=== PATIENT | male | born 1945 | race Caucasian/White ===

== ENCOUNTER → 2016-10-23 | Outpatient (CLI) | payer MEDICARE, MEDICAID ==
[2016-10-23 12:21] LABS: BASO % 0.4 % (0.0-1.0); EOS # 0.1 K/mm3 (0.0-0.50); EOS % 3.8 % (0.0-3.0); LARGE UNSTAINED CELL # 0.1 K/mm3 (0.0-0.4); LARGE UNSTAINED CELL % 1.6 % (0.0-4.0); LYMPH # 0.7 K/mm3 (1.5-4.5); LYMPH % 17.6 % (24.0-44.0); MEAN CORPUSCULAR HEMOGLOBIN 33.6 pg (27.0-33.0); MEAN CORPUSCULAR HGB CONC 34.1 g/dl (32.0-36.5); MEAN CORPUSCULAR VOLUME 98.5 fl (80.0-96.0); MONO # 0.2 K/mm3 (0.0-0.8); MONO % 5.8 % (0.0-5.0); NEUTROPHILS # 2.7 K/mm3 (1.8-7.7); NEUTROPHILS % 70.8 % (36.0-66.0); PLATELET COUNT, AUTOMATED 186 k/mm3 (150-450); RED CELL DISTRIBUTION WIDTH 12.6 % (11.5-14.5); WHITE BLOOD COUNT 3.8 K/mm3 (4.0-10.0)
[2016-10-23 12:22] LABS: PROLACTIN 32.9 NG/ML (2.1-17.7)
[2016-10-23 12:48] LABS: ALBUMIN 3.8 GM/DL (3.2-5.2); ALBUMIN/GLOBULIN RATIO 1.15 (1.00-1.93); BILIRUBIN,DIRECT 0.1 MG/DL (0.0-0.2); BILIRUBIN,TOTAL 0.4 MG/DL (0.2-1.0); CALCIUM LEVEL 8.4 MG/DL (8.8-10.2); CARBAMAZEPINE (TEGRETOL) LEVEL 3.5 UG/ML (4.0-10.0); CREATININE FOR GFR 1.4 MG/DL (0.70-1.30); GLOMERULAR FILTRATION RATE 53.2 (>42); PHOSPHORUS LEVEL 4.2 MG/DL (2.5-4.9); TOTAL PROTEIN 7.1 GM/DL (6.4-8.2)
[2016-10-23 12:53] LABS: LITHIUM LEVEL 1.24 MEQ/L (0.60-1.20); POTASSIUM SERUM 5.2 MEQ/L (3.5-5.1)
== END ==
LOC: M WUC 09:38
PROVIDERS: ATTEND Anesthesiology Pain Medicine
DX: Z51.81 Encounter for therapeutic drug level monitoring (principal); Z79.899 Other long term (current) drug therapy

== ENCOUNTER 2016-12-22 13:14 | Emergency (ER) | payer MEDICARE, MEDICAID ==
[~2016-12-22] VITALS: Ht 177.8 cm; Wt 95.3 kg
--- NOTE | 2016-12-22 14:18 | REP ---
CT study of the cervical spine without contrast: History: Ill-defined trauma. Technique: Helical scanning is acquired and overlapping 2 mm high resolution axial images were generated and reviewed at bone and soft tissue window settings. Coronal and sagittal multiplanar re-formations images are generated. CT findings: There is no evidence of cervical spine element fracture. No skull base fracture is seen. Cervical vertebral body heights are preserved. Alignment is normal. Facet joints are normally aligned bilaterally at each cervical level on multiplanar re-formations images. There is no evidence of intraspinal or paraspinal hematoma. There is mild enlargement of the thyroid. No other extra vertebral abnormality is seen. There are degenerative disc changes at each cervical level. There are a few. Osteophytes anteriorly at C2-3. Degenerative disc changes are most pronounced at C3-4 and C5-6. The lung apices are clear. Impression: Degenerative spondylosis changes, otherwise negative CT study of the cervical spine without contrast. No fracture seen. Signed by Milton Ruiz MD 12/22/2016 02:09 P
--- NOTE | 2016-12-22 14:42 | REP ---
NONCONTRAST HEAD CT STUDY: HISTORY: Ill-defined trauma Comparison head CT study is from November 01, 2012. FINDINGS: Preliminary digital lateral piano technician view is unremarkable. Bone window settings demonstrate an intact bony calvarium. No skull fracture is seen. No significant scalp hematoma is appreciated. Visualized paranasal sinuses are clear. There is fairly heavy vascular calcification in the distal carotid and distal vertebral arteries bilaterally. There are mild mucosal changes in the ethmoid air cells. There is diffuse moderate cerebral atrophy. Ventricular enlargement is seen in the left lateral ventricle is larger than the right unchanged from the comparison study 2012. There is no evidence of intracranial hemorrhage. No extra-axial fluid collection is seen. No mass, edema or midline shift is seen. No infarct seen. Impression: Moderate diffuse atrophy and vascular calcification. Somewhat asymmetric but stable ventriculomegaly. No acute intracranial abnormality. Signed by Milton Ruiz MD 12/22/2016 03:07 P
--- NOTE | 2016-12-22 15:09 | REP ---
LUMBAR SPINE SERIES: Five views: HISTORY: Trauma. FINDINGS: Lumbar vertebral body heights are preserved. Straightening of the normal lumbar lordosis is seen. There is advanced degenerative disc disease at each lumbar level. There are bridging osteophytes anteriorly and laterally at the L3-4 level. Large anterior osteophytes are seen at L4-5, L2-3 and L1-2. Pedicles and posterior elements are intact. There is facet joint hypertrophy and sclerosis bilaterally L5-S1 and L4-5 and probably L3-4. Sacrum and SI joints are intact. No bony destructive lesion is seen. There is a mild levoconvex curvature. There is no evidence of spondylolysis or spondylolisthesis. IMPRESSION: No fracture or collapse seen. Advanced degenerative spondylosis changes. Mild gaseous distension of the colon question ileus. Signed by Milton Ruiz MD 12/26/2016 08:17 A
--- NOTE | 2016-12-22 15:12 | REP ---
THORACIC SPINE SERIES: Three views. HISTORY: Trauma. FINDINGS: Thoracic vertebral body heights are preserved and alignment is normal. Disc spaces are preserved. There is discogenic spurring in the mid and lower thoracic spine levels, moderate in degree. Some degenerative disc disease is seen in the lower cervical spine on swimmer's lateral view. No paravertebral soft-tissue mass or hematoma is seen. Pedicles and posterior elements are intact. IMPRESSION: Degenerative disc disease. No traumatic abnormality noted. Signed by Milton Ruiz MD 12/22/2016 06:09 P
[2016-12-22 15:15] LABS: ALBUMIN 3.3 GM/DL (3.2-5.2); ALBUMIN/GLOBULIN RATIO 1.06 (1.00-1.93); ALKALINE PHOSPHATASE 135 U/L (45-117); ALT/SGPT 13 U/L (12-78); ANION GAP 5 MEQ/L (8-16); AST/SGOT 25 U/L (15-37); BILIRUBIN,DIRECT < 0.1 MG/DL (0.0-0.2); BILIRUBIN,TOTAL 0.7 MG/DL (0.2-1.0); BLOOD UREA NITROGEN 26 MG/DL (7-18); CALCIUM LEVEL 7.4 MG/DL (8.8-10.2); CARBAMAZEPINE (TEGRETOL) LEVEL 5.4 UG/ML (4.0-10.0); CARBON DIOXIDE LEVEL 26 MEQ/L (21-32); CHLORIDE LEVEL 109 MEQ/L (98-107); CREATININE FOR GFR 1.52 MG/DL (0.70-1.30); GLOMERULAR FILTRATION RATE 48.4 (>42); GLUCOSE, FASTING 103 MG/DL (83-110); SODIUM LEVEL 140 MEQ/L (136-145); TOTAL PROTEIN 6.4 GM/DL (6.4-8.2)
[2016-12-22 15:16] LABS: LITHIUM LEVEL 1.58 MEQ/L (0.60-1.20); POTASSIUM SERUM 5.8 MEQ/L (3.5-5.1)
[2016-12-22 15:23] LABS: INR 1.02
[2016-12-22 15:38] LABS: BASO % 0.7 % (0.0-1.0); EOS # 0.1 K/mm3 (0.0-0.50); EOS % 2.7 % (0.0-3.0); LARGE UNSTAINED CELL # 0.1 K/mm3 (0.0-0.4); LYMPH # 0.8 K/mm3 (1.5-4.5); LYMPH % 14.6 % (24.0-44.0); MEAN CORPUSCULAR HEMOGLOBIN 33.8 pg (27.0-33.0); MEAN CORPUSCULAR HGB CONC 33.7 g/dl (32.0-36.5); MEAN CORPUSCULAR VOLUME 100.5 fl (80.0-96.0); MONO # 0.2 K/mm3 (0.0-0.8); MONO % 4.7 % (0.0-5.0); NEUTROPHILS # 3.6 K/mm3 (1.8-7.7); NEUTROPHILS % 75.3 % (36.0-66.0); PLATELET COUNT, AUTOMATED 137 k/mm3 (150-450); RED CELL DISTRIBUTION WIDTH 12.9 % (11.5-14.5); WHITE BLOOD COUNT 4.8 K/mm3 (4.0-10.0)
[2016-12-22] MEDS ORDERED: NS 500 ML IV ONE ×2 (15:45→17:00)
[2016-12-22 16:32] LABS: THYROXINE (T4) 7.6 UG/DL (4.5-12.0)
[2016-12-22 16:37] LABS: POTASSIUM SERUM 5.7 MEQ/L (3.5-5.1)
[2016-12-22] MEDS ORDERED: SOD POLYSTYRENE SULFONATE SUSP 15 GM/60 ML UD PO ONE (17:00)
[2016-12-22] MEDS ORDERED: [UNRECOGNIZED DRUG - OTHER] (17:15)
[2016-12-22] MEDS ORDERED: VERA240C3 (17:15)
[2016-12-22] MEDS ORDERED: NABU750T (17:15)
[2016-12-22] MEDS ORDERED: LITH300C (17:15)
[2016-12-22] MEDS ORDERED: PRIM50TA6 (17:15)
[2016-12-22] MEDS ORDERED: RISP3TAB3 (17:15)
[2016-12-22] MEDS ORDERED: LORA-376 (17:15)
[2016-12-22] MEDS ORDERED: Carbidopa-Levodopa (17:15)
[2016-12-22] MEDS ORDERED: PARO20TA3 (17:15)
[2016-12-22] MEDS ORDERED: PRAV40TA2 (17:15)
[2016-12-22] MEDS ORDERED: CARB1TAB20 (17:15)
[2016-12-22 17:56] VITALS: BP 147/67
--- NOTE | 2016-12-23 16:18 | ECGEPIP ---
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 Order Number: [id number] Reading MD: Peyton lAlen Measurements Intervals [place] Rate: 59 P: 24 IA: 212 QRS: -26 QRSD: 128 T: 52 QT: 416 QTc: 412 Interpretive Statements SINUS BRADYCARDIA WITH FIRST DEGREE AV BLOCK BORDERLINE LEFT AXIS DEVIATION MODERATE INTRAVENTRICULAR CONDUCTION DELAY DECREASED RATE 08/13/14 Electronically Signed On 12-23-2016 16:17:52 EDT by Peyton Allen
== END 2016-12-22 18:00 | disposition home or self-care (01) ==
LOC: EDBD 13:14 → M ED 14:43
DX: N17.9 Acute kidney failure, unspecified (principal); E86.0 Dehydration; T43.591A Poisoning by other antipsychotics and neuroleptics, accidental (unintentional), initial encounter; E87.5 Hyperkalemia; S20.229A Contusion of unspecified back wall of thorax, initial encounter; W01.0XXA Fall on same level from slipping, tripping and stumbling without subsequent striking against object, initial encounter; Y92.89 Other specified places as the place of occurrence of the external cause; Y93.89 Activity, other specified; Y99.8 Other external cause status; J30.9 Allergic rhinitis, unspecified; Z88.1 Allergy status to other antibiotic agents; Z88.8 Allergy status to other drugs, medicaments and biological substances; Z79.899 Other long term (current) drug therapy

== ENCOUNTER 2016-12-25 09:31 | Inpatient (IN) | payer MEDICARE, MEDICAID ==
[~2016-12-25] VITALS: Ht 172.7 cm; Wt 79.5 kg
[2016-12-25] MEDS: ENOXAPARIN 40 MG/0.4 ML SYRINGE (J1650) SC SCH (09:00)
[~2016-12-25 09:31] MED LIST: CARB1TAB20; Carbidopa-Levodopa; LITH300C; LORA-376; NABU750T; PARO20TA3; PRAV40TA2; PRIM50TA6; RISP3TAB3; VERA240C3; [UNRECOGNIZED DRUG - OTHER]
[2016-12-25] MEDS ORDERED: ECOT81TA5 PO (10:05)
[2016-12-25] MEDS ORDERED: MAGN400C3 PO (10:05)
[2016-12-25] MEDS ORDERED: NATU400T PO (10:05)
[2016-12-25] MEDS ORDERED: COLA100C3 PO (10:05)
[2016-12-25] MEDS ORDERED: ABIL5TAB5 PO ×2 (10:05→11:37)
[2016-12-25] MEDS ORDERED: MIRA1TAB3 PO ×2 (10:05→11:42)
[2016-12-25] MEDS ORDERED: MELA0.02 PO (10:05)
--- NOTE | 2016-12-25 10:39 | REP ---
Portable chest: Single view. History: CVA. Comparison study: November 01, 2012. Findings: EKG monitoring electrodes overlie the chest. Lungs are well inflated and clear. Heart is not enlarged. Pulmonary vasculature is not increased. No significant bony abnormality is seen. Impression: No active disease. Signed by Milton Ruiz MD 12/25/2016 10:29 A
[2016-12-25 10:42] LABS: BASO % 0.8 % (0.0-1.0); EOS # 0.1 K/mm3 (0.0-0.50); LARGE UNSTAINED CELL # 0.1 K/mm3 (0.0-0.4); LARGE UNSTAINED CELL % 2.1 % (0.0-4.0); LYMPH # 0.6 K/mm3 (1.5-4.5); LYMPH % 17.9 % (24.0-44.0); MEAN CORPUSCULAR HEMOGLOBIN 34.2 pg (27.0-33.0); MEAN CORPUSCULAR HGB CONC 32.8 g/dl (32.0-36.5); MEAN CORPUSCULAR VOLUME 104.2 fl (80.0-96.0); MONO # 0.2 K/mm3 (0.0-0.8); MONO % 6.2 % (0.0-5.0); NEUTROPHILS # 2.4 K/mm3 (1.8-7.7); NEUTROPHILS % 70.1 % (36.0-66.0); PLATELET COUNT, AUTOMATED 140 k/mm3 (150-450); RED CELL DISTRIBUTION WIDTH 12.8 % (11.5-14.5); WHITE BLOOD COUNT 3.4 K/mm3 (4.0-10.0)
--- NOTE | 2016-12-25 10:45 | REP ---
NONCONTRAST HEAD CT: HISTORY: CVA. COMPARISON HEAD CT STUDY: December 22, 2016 FINDINGS: Bone window settings demonstrate an intact bony calvarium. Heavy vascular calcification is again noted in the distal carotid arteries. No intraorbital abnormality is seen. Visualized paranasal sinuses show mild mucosal thickening in one or two of the ethmoid air cells on the left. There is moderate diffuse cerebral atrophy with asymmetric lateral ventricles, unchanged from comparison studies. There are small vessel atherosclerotic changes in the periventricular white matter bilaterally, also unchanged. No acute infarct is seen. No intracranial hemorrhage is seen. No mass or midline shift is observed. IMPRESSION: Moderate diffuse atrophy and vascular calcification again noted. Somewhat asymmetric but stable concordant ventriculomegaly. No acute intracranial abnormality. Signed by Milton Ruiz MD 12/25/2016 12:18 P
[2016-12-25 10:57] LABS: INR 0.99
[2016-12-25 11:04] LABS: ANION GAP 4 MEQ/L (8-16); BLOOD UREA NITROGEN 22 MG/DL (7-18); CALCIUM LEVEL 7.9 MG/DL (8.8-10.2); CARBON DIOXIDE LEVEL 27 MEQ/L (21-32); CHLORIDE LEVEL 111 MEQ/L (98-107); CREATININE FOR GFR 1.49 MG/DL (0.70-1.30); GLOMERULAR FILTRATION RATE 49.5 (>42); GLUCOSE, FASTING 74 MG/DL (83-110); SODIUM LEVEL 142 MEQ/L (136-145)
[2016-12-25 11:12] LABS: LITHIUM LEVEL 0.85 MEQ/L (0.60-1.20); POTASSIUM SERUM 5.6 MEQ/L (3.5-5.1)
[2016-12-25] MEDS ORDERED: DEXTROSE 50% 50 ML SYRINGE IV STA (11:24)
[2016-12-25] MEDS ORDERED: [UNRECOGNIZED DRUG - REMARK] (11:37)
[2016-12-25] MEDS ORDERED: PARO-39 PO (11:37)
[2016-12-25] MEDS ORDERED: VERA240T14 PO (11:37)
[2016-12-25] MEDS ORDERED: CARB1TAB20 PO (11:37)
[2016-12-25] MEDS ORDERED: VITA400C2 PO (11:37)
[2016-12-25] MEDS ORDERED: RISP3TAB3 PO (11:37)
[2016-12-25] MEDS ORDERED: NABU750T PO (11:37)
[2016-12-25] MEDS ORDERED: ASPI81TA7 PO (11:42)
[2016-12-25] MEDS ORDERED: PRAV40TA2 PO (11:42)
[2016-12-25] MEDS ORDERED: MAGN400T5 PO (11:42)
[2016-12-25] MEDS ORDERED: DOCU100C PO (11:42)
[2016-12-25] MEDS ORDERED: MELA3CAP PO (11:42)
[2016-12-25] MEDS ORDERED: LORA-376 PO (11:42)
[2016-12-25] MEDS ORDERED: PRIM50TA6 PO (11:42)
[2016-12-25] MEDS ORDERED: SINE25TA5 PO (11:42)
[2016-12-25] MEDS ORDERED: SELS1SHA14 TOP (11:54)
[2016-12-25] MEDS ORDERED: LIDO4CRE4 TOP (11:54)
[2016-12-25] MEDS ORDERED: DEBR6.5S4 AU (11:54)
[2016-12-25] MEDS: PRAMIPEXOLE 1 MG TAB PO SCH ×3 (13:00→21:43)
[2016-12-25] MEDS: SINEMET 25-100 MG TAB PO SCH ×3 (13:00→21:43)
[2016-12-25] MEDS ORDERED: ACETAMINOPHEN TAB 650MG DOSE (2X325MG) PO PRN (13:00)
--- NOTE | 2016-12-25 13:07 | HPEPDOC ---
General Date of Admission 12/25/16 Primary Care Physician: RAOUL RICH DO Attending Physician: MURALI PARNELL DO Chief Complaint The patient is a 71-year-old male admitted with a reason for visit of S/S Stroke. Source: [facility] Care[facility]iver/Aid Exam Limitations: Mild cognitive slowing Timing/Duration: 4-6 hours, This morning Severity: Moderate Associated Symptoms: Weakness History of Present Illness This is a 71-year-old patient of Dr. Raoul Rich, with a past medical history of bipolar disorder, generalized anxiety disorder, schizophreniform disorder, hyperlipidemia, dysphagia, obstructive hypertrophic cardiomyopathy, hypertensive heart failure without CHF, aortic valve insufficiency, and mental retardation who presents 12/25/2016 after having symptoms of left-sided facial droop, slurring his speech, and ataxia. Care provider states that by the time EMS arrived, his symptoms had completely resolved. She reports that he has an on steady gait at baseline, and tends to walk with a shuffling gait. He has managed with multiple psychiatric medications by psychiatry, and was recently in the ER for lithium toxicity. She reports that he takes his medications faithfully, and is currently on pravastatin and a baby aspirin daily. The patient denies any racing heart, chest pain, or difficulty breathing. The patient otherwise feels well. The patient's caregiver states that he is still slurring his speech somewhat. She notes that he has a somewhat disconjugate gaze at baseline. Home Medications Scheduled (Risperidone) 3 Mg Tab, 3 MG PO BID, (Reported) Aripiprazole (Abilify) 5 Mg Tab, 5 MG PO DAILY, (Reported) Aspirin (Aspirin) 81 Mg Tab, 81 MG PO QPM, (Reported) 1600 Carbamazepine (Carbamazepine) 200 Mg Tab, 200 MG PO BID, (Reported) Carbidopa/Levodopa (Sinemet 25-100 mg) 1 Tab Tab, 2 TAB PO QID, (Reported) Docusate Sodium (Docusate Sodium) 100 Mg Cap, 200 MG PO BID, (Reported) Lorazepam (Lorazepam) 0.5 Mg Tab, 0.5 MG PO TID, (Reported) Magnesium Oxide (Magnesium Oxide 400) 400 Mg Tab, 400 MG PO QHS, (Reported) Melatonin (Melatonin) 3 Mg Cap, 3 MG PO QHS, (Reported) Nabumetone (Nabumetone) 750 Mg Tab, 1,500 MG PO DAILY, (Reported) Paroxetine Hydrochloride (Paroxetine) 20 Mg Tab, 20 MG PO DAILY, (Reported) Pramipexole Dihydrochloride (Mirapex) 1 Mg Tab, 1 MG PO QID, (Reported) Pravastatin Sod (Pravastatin Sodium) 40 Mg Tab, 40 MG PO QHS, (Reported) Primidone (Primidone) 50 Mg Tab, 100 MG PO BID, (Reported) AM, 1600 Selenium Sulfide ([place] Blue) 1 % Sha, 1 % TOP QHS, (Reported) Verapamil Hcl (Verapamil HCl Sr) 240 Mg Tab, 240 MG PO DAILY, (Reported) Vitamin E (Vitamin E) 400 Unit Cap, 400 UNIT PO DAILY, (Reported) Scheduled PRN (Lidocaine) 5 % Cre, 5 % TOP PRN PRN for PAIN, (Reported) APPLY TO LOWER LEGS Carbamide Peroxide (Debrox) 6.5 % Mirta, 5 DROP AU PRN PRN for EAR WAX, (Reported) Miscellaneous Medications [[place] Comment] , (Reported) LITHIUM WAS STOPPED Sunday12/22/16 BY ER DUE TO LEVELS BEING HIGH ACCORDING TO CAREGIVER- HAVE NOT HEARD FROM DR IF IT SHOULD BE RESTARTED OR NOT Allergies Coded Allergies: Clindamycin (Verified Allergy, Unknown, 12/22/16) ENVIROMENTAL (Verified Allergy, Unknown, 12/22/16) Lamotrigine (Verified Allergy, Unknown, 12/22/16) Past Medical History Medical History 1. Mixed psychiatric disorder with diagnosis of bipolar, schizophreniform, and anxiety 2. Chronic low back pain 3. Mixed hyperlipidemia 4. Mental retardation 5. Dysphagia 6. Obstructive hypertrophic cardiomyopathy 7. Hypertensive heart disease without CHF 8. Nonrheumatic aortic valve insufficiency 9. Coronary artery disease Surgical History No documented surgical history Family History Significant Family History: No pertinent family hx Social History 1. Former smoker 2. [facility] 3. Regular, low-fat diet 4. No history of drug use, caffeine use, or alcohol abuse Review of Symptoms Constitutional: Denies: Chills, Fever, Malaise, Night Sweats, Weakness Eyes: Denies: Vision change ENT: Reports: Dysphagia ([facility] caregiver notes coughing with eating recently; documented hx of dysphagia) Skin: Denies: Rash Pulmonary: Denies: Dyspnea, Cough, Pleuritic Chest Pain Cardiovascular: Denies: Chest Pain, Palpitations Gastrointestinal: Denies: Nausea, Vomiting, Abdominal Pain, Diarrhea, Constipation Genitourinary: Reports: Incontinence (Urinates on the floor at [facility] if made to wait), Denies: Dysuria, Frequency Hematologic: Denies: Bruising Neurological: Reports: Change in speech, Denies: Weakness, Numbness, Confusion Psych: Reports: Mood Normal Other systems Left-sided facial drooping resolved; change in speech persists Physical Examination General Exam: Positive: Alert, Cooperative, No Acute Distress Eye Exam: Positive: Conjunctiva & lids normal, EOMI (eyes have smooth pursuit, without saccades, slightly disconjugate gaze at rest, although able to bury sclera in both directions) ENT Exam: Positive: Mucous membr. moist/pink, Tongue Midline Neck Exam: Positive: Supple, +2 carotid pulse wo bruit, Negative: JVD, thyromegaly Chest Exam: Positive: Clear to auscultation, Normal air movement, Negative: Rales, Rhonchi, Wheezing Heart Exam: Positive: Rate Normal, Regular Rhythm, Normal S1, Normal S2, Murmurs (1/6 systolic ejection murmur best over upper right sternal border) Telemetry: Positive: No significant arrhythmia Abdomen Exam: Positive: Normal bowel sounds, Soft, Negative: Tenderness, Hepatospenomegaly Extremity Exam: Positive: Normal pulses, Negative: Clubbing, Cyanosis, Edema Skin Exam: Positive: Nl turgor and temperature, Negative: Rash Neuro Exam: Positive: Strength at 5/5 X4 ext, Normal Tone, Sensation Intact, Cranial Nerves 3-12 NL, Reflexes 2+, Negative: Normal Speech (dysarthric speech, occasionally unintelligible; answers questions appropriately) Psych Exam: Positive: Mental status NL, Mood NL, Oriented x 3 Vital Signs Vital Signs Date Time Temp Pulse Resp B/P (MAP) Pulse Ox O2 Delivery O2 Flow Rate FiO2 12/25/16 12:53 52 18 12/25/16 12:29 128/58 (81) 12/25/16 10:53 99 12/25/16 10:31 Room Air 12/25/16 09:40 97.2 Laboratory Data Labs 24H Laboratory Tests 2 12/25/16 10:32: White Blood Count 3.4L, Red Blood Count 3.87L, Hemoglobin 13.2L, Hematocrit 40.3L, Mean Corpuscular Volume 104.2H, Mean Corpuscular Hemoglobin 34.2H, Mean Corpuscular Hemoglobin Concent 32.8, Red Cell Distribution Width 12.8, Platelet Count 140L, Neutrophils (%) (Auto) 70.1H, Lymphocytes (%) (Auto) 17.9L, Monocytes (%) (Auto) 6.2H, Eosinophils (%) (Auto) 3.0, Basophils (%) (Auto) 0.8 , Neutrophils # (Auto) 2.4, Lymphocytes # (Auto) 0.6L, Monocytes # (Auto) 0.2, Eosinophils # (Auto) 0.1, Basophils # (Auto) 0.0, Large Unclassified Cells % 2.1 , Large Unclassified Cells # 0.1, Prothrombin Time 13.2, Prothromb Time International Ratio 0.99, Activated Partial Thromboplast Time 29.0, Anion Gap 4L , Glomerular Filtration Rate 49.5, Blood Urea Nitrogen 22H, Creatinine 1.49H, Sodium Level 142, Potassium Level 5.6H, Chloride Level 111H, Carbon Dioxide Level 27, Calcium Level 7.9L, Total Creatine Kinase 36L, Creatine Kinase MB 1.0 , Creatine Kinase MB Relative Index 2.77, Troponin I < 0.02, Carbamazepine ( Tegretol) Level 6.0, [place] Level 0.85 12/25/16 11:23: Bedside Glucose (Misc Panel) 58L 12/25/16 12:34: Bedside Glucose (Misc Panel) 135H CBC/BMP Laboratory Tests 12/25/16 10:32 Red Blood Count 3.87 L, Mean Corpuscular Volume 104.2 H, Mean Corpuscular Hemoglobin 34.2 H, Mean Corpuscular Hemoglobin Concent 32.8, Red Cell Distribution Width 12.8, Neutrophils (%) (Auto) 70.1 H, Lymphocytes (%) (Auto) 17.9 L, Monocytes (%) (Auto) 6.2 H, Eosinophils (%) (Auto) 3.0, Basophils (%) ( Auto) 0.8, Neutrophils # (Auto) 2.4, Lymphocytes # (Auto) 0.6 L, Monocytes # ( Auto) 0.2, Eosinophils # (Auto) 0.1, Basophils # (Auto) 0.0, Calcium Level 7.9 L , Total Creatine Kinase 36 L Assessment/Plan This is a 71-year-old [facility] client with a history of hyperlipidemia, hypertrophic obstructive cardiomyopathy, and aortic valve insufficiency who presents with symptoms of dysarthria after having resolved symptoms of left-sided facial droop , dysarthria, and ataxic gait. Problems (1) TIA (transient ischemic attack) Status: Acute Problem Text: Most of his symptoms have resolved, however he continues to have some dysarthria, so will evaluate with MRI. Patient has a history of hypertrophic obstructive cardiomyopathy and aortic valve insufficiency, which may be contributory. At baseline, he has a somewhat shuffling, ataxic gait, possibly due to extrapyramidal effects from his psychiatric medications. However , he is likely not a good candidate for anticoagulation. Pending TIA workup, would focus on maximizing statin, addressing any arrhythmias if present, and putting on a full strength daily aspirin. -Admit to PCU for telemetry monitoring to evaluate for paroxysmal atrial fibrillation -Lovenox 40 mg daily for anticoagulation -Carotid Doppler -Echocardiogram -MRI brain without contrast - Continue statin (2) Stage 3a chronic kidney disease Problem Text: Avoid nephrotoxic agents. Creatinine is at baseline. (3) Hyperkalemia Status: Acute Problem Text: Mild hyperkalemia. May be secondary to recent lithium toxicity. Patient be placed on telemetry for evaluation of paroxysmal arrhythmia. -A.m. BMP (4) HLD (hyperlipidemia) Problem Text: Continue home statin (5) Bipolar affective, mixed, sev w/ psych Status: Chronic Problem Text: Patient is on a complex regimen by psychiatry. Currently holding lithium, due to recent toxicity. He is currently on aripiprazole 5 mg daily, nabumetone 1500 mg daily, carbamazepine 200 mg twice a day, Risperdal 3 mg twice a day, lorazepam 0.5 mg 3 times a day, primidone 100 mg twice a day, carbidopa/levodopa 4 times a day, and pramipexole 1 mg 4 times a day. - lithium level - Patient will need outpatient reevaluation of his current regimen Plan / VTE VTE Prophylaxis Ordered?: Yes (Lovenox) ARIANNA BELCHER MD December 25, 2016 13:07
--- NOTE | 2016-12-25 14:49 | REP ---
DUPLEX CAROTID SONOGRAPHY: HISTORY: TIA. FINDINGS: Antegrade flow was observed in both vertebral arteries. RIGHT CAROTID: The right common carotid artery is unremarkable on two-dimensional scanning. There is mixed plaquing in the bulb and proximal ICA on two-dimensional scanning on the right side. Color flow and spectral Doppler interrogation are unremarkable on the right. Velocity Chart Right Carotid: PSV EDV Right CCA 77 cm/s Right ICA 48 cm/s 17 cm/s Right ECA 56 cm/s Right ICA/CCA ratio normal 0.6. IMPRESSION: 16 to 49% category narrowing in the right ICA by Doppler velocity criteria. LEFT CAROTID: Left common carotid artery is unremarkable on two-dimensional scanning. There is some mixed plaquing in the bulb and proximal ICA on two-dimensional scanning on the left side. Color flow and spectral Doppler interrogation are unremarkable on the left. Velocity Chart Left Carotid: PSV EDV Left CCA 70 cm/s Left ICA 43 cm/s 12 cm/s Left ECA 47 cm/s Left ICA/CCA ratio normal 0.6 IMPRESSION: 16 to 49% category narrowing in the left ICA by Doppler velocity criteria. Signed by Milton Ruiz MD 12/25/2016 03:18 P
[2016-12-25] MEDS ORDERED: ASPIRIN 81 MG ENTERIC TAB PO SCH (16:00)
[2016-12-25] MEDS: LORazepam 0.5 MG TAB PO SCH ×2 (16:00→21:01)
[2016-12-25] MEDS: PRIMIDONE 50 MG TAB PO SCH (16:00)
[2016-12-25] MEDS ORDERED: PRAVASTATIN 20 MG TAB PO SCH (21:00)
[2016-12-25] MEDS: DOCUSATE SODIUM 100 MG CAP PO SCH (21:01)
[2016-12-25] MEDS: risperiDONE 3 MG TAB PO SCH (21:02)
[2016-12-25] MEDS: carBAMazepine 200 MG TAB PO SCH (21:02)
[2016-12-25] MEDS: MAGNESIUM OXIDE 400 MG TAB (MAG-OX) PO SCH (21:02)
--- NOTE | 2016-12-25 21:11 | ECGEPIP ---
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
[2016-12-25 22:55] VITALS: BP 153/91
[2016-12-26 04:00] VITALS: BP 151/90
[2016-12-26 05:49] LABS: BASO % 0.5 % (0.0-1.0); EOS # 0.2 K/mm3 (0.0-0.50); EOS % 3.2 % (0.0-3.0); LARGE UNSTAINED CELL # 0.1 K/mm3 (0.0-0.4); LARGE UNSTAINED CELL % 1.5 % (0.0-4.0); LYMPH % 19.5 % (24.0-44.0); MEAN CORPUSCULAR HGB CONC 33.8 g/dl (32.0-36.5); MEAN CORPUSCULAR VOLUME 100.3 fl (80.0-96.0); MONO # 0.3 K/mm3 (0.0-0.8); MONO % 6.6 % (0.0-5.0); NEUTROPHILS # 3.2 K/mm3 (1.8-7.7); NEUTROPHILS % 68.7 % (36.0-66.0); PLATELET COUNT, AUTOMATED 137 k/mm3 (150-450); RED CELL DISTRIBUTION WIDTH 13.1 % (11.5-14.5); WHITE BLOOD COUNT 4.7 K/mm3 (4.0-10.0)
[2016-12-26 06:17] LABS: CALCIUM LEVEL 7.8 MG/DL (8.8-10.2); CREATININE FOR GFR 1.51 MG/DL (0.70-1.30); GLOMERULAR FILTRATION RATE 48.7 (>42)
[2016-12-26 06:20] LABS: LITHIUM LEVEL 0.71 MEQ/L (0.60-1.20); POTASSIUM SERUM 5.7 MEQ/L (3.5-5.1)
[2016-12-26 07:45] VITALS: BP 172/93
[2016-12-26] MEDS ORDERED: SOD POLYSTYRENE SULFONATE SUSP 15 GM/60 ML UD PO ONE ×2 (08:15→09:00)
[2016-12-26] MEDS: DOCUSATE SODIUM 100 MG CAP PO SCH ×2 (08:54→21:29)
[2016-12-26] MEDS: NABUMETONE 500 MG TAB PO SCH (08:54)
[2016-12-26] MEDS: PRIMIDONE 50 MG TAB PO SCH ×2 (08:54→14:49)
[2016-12-26] MEDS: SINEMET 25-100 MG TAB PO SCH ×4 (08:54→21:28)
[2016-12-26] MEDS: LORazepam 0.5 MG TAB PO SCH ×3 (08:55→21:29)
[2016-12-26] MEDS: risperiDONE 3 MG TAB PO SCH ×2 (08:55→21:29)
[2016-12-26] MEDS: PARoxetine 20 MG TAB PO SCH (08:55)
[2016-12-26] MEDS: PRAMIPEXOLE 1 MG TAB PO SCH ×4 (08:55→21:29)
[2016-12-26] MEDS: carBAMazepine 200 MG TAB PO SCH ×2 (08:55→21:29)
[2016-12-26] MEDS: ENOXAPARIN 40 MG/0.4 ML SYRINGE (J1650) SC SCH (08:56)
[2016-12-26] MEDS ORDERED: VERAPAMIL 120 MG SR TAB PO SCH (09:00)
--- NOTE | 2016-12-26 10:10 | IPNPDOC ---
Subjective Date Seen The patient was seen on 12/26/16. Subjective Chief Complaint/HPI The patient is a 71-year-old male admitted with a reason for visit of TIA. Events since last encounter Patient was seen this morning at bedside. He is a [facility] resident. [facility] staff was present at bedside and reports that patient is back to baseline. Symptoms have completely resolved including his speech. He is oriented to self and able to tell me the month he was born. he is also able to tell me that he is in the hospital. Not oriented to time. He denies any acute complaints, No headache, dizziness, chest pain/pressure, SOB, nausea, vomiting, abd pain, diarrhea. Afebrile and vitals are stable. Objective Physical Examination General Exam: Positive: Alert, Cooperative, No Acute Distress Eye Exam: Positive: Conjunctiva & lids normal, EOMI (slightly disconjugate gaze at rest), Negative: Sclera icteric ENT Exam: Positive: Mucous membr. moist/pink, Tongue Midline Neck Exam: Positive: Supple, +2 carotid pulse wo bruit, Negative: JVD, thyromegaly Chest Exam: Positive: Clear to auscultation, Normal air movement Heart Exam: Positive: Rate Normal, Regular Rhythm, Normal S1, Normal S2, Murmurs (systolic ejection murmur) Telemetry: Positive: No significant arrhythmia, Bradycardia Abdomen Exam: Positive: Normal bowel sounds, Soft, Negative: Tenderness, Hepatospenomegaly Extremity Exam: Positive: Normal pulses, Negative: Clubbing, Cyanosis, Edema Skin Exam: Positive: Nl turgor and temperature, Negative: Rash Neuro Exam: Positive: Strength at 5/5 X4 ext, Sensation Intact, Cranial Nerves 3-12 NL, Negative: Normal Speech (unintelligible speech but able to answer some questions appropriately) Psych Exam: Negative: Mental status NL (has intellectual disability and mild dementia) Assessment /Plan Problems (1) TIA (transient ischemic attack) Status: Acute Problem Specific Plan: Consult Specialist, Monitor Clinically Problem Text: * All symptoms have resolved, gait improved * No arrhythmia noted on tele, had episodes of sinus jason * Head CT negative, CXR normal and carotid US revealed <50% stenosis bilaterally * Echo pending * MRI revealed old lacunar infarct, small vessel ischemic changes, ventriculomegaly, MRA atherosclerotic plaque in both cavernous sinus regions and mild diffuse narrowing on the right * Patient was taking a baby ASA and pravastatin at home * Will change to full dose ASA and atorvastatin * Neurology consulted (2) Hyperkalemia Status: Acute Problem Text: * Kayexalate has been given * Continue to monitor electrolytes * Recent history of lithium toxicity (3) HLD (hyperlipidemia) Status: Chronic Problem Text: * Continue statin (4) Bipolar affective, mixed, sev w/ psych Status: Chronic Problem Text: * Patient is on a complex regimen by psychiatry. Currently holding lithium, due to recent toxicity. [place] level within normal * He is currently on aripiprazole 5 mg daily, nabumetone 1500 mg daily, carbamazepine 200 mg twice a day, Risperdal 3 mg twice a day, lorazepam 0.5 mg 3 times a day, primidone 100 mg twice a day, carbidopa/levodopa 4 times a day, and pramipexole 1 mg 4 times a day. * Will need to continue following with psych as outpatient to re-eval and manage meds (5) Aortic valve disease Status: Chronic Response to Treatment: Stable Problem Specific Plan: Monitor Clinically Problem Text: * Currently asymptomatic (6) Chronic kidney disease Status: Chronic Problem Specific Plan: Monitor Clinically Problem Text: * Avoid nephrotoxic agents. * Continue to monitor renal function, appears around baseline since 2016 (7) Hypertensive heart disease Status: Chronic Problem Specific Plan: Monitor Clinically Problem Text: * Continue to monitor BP * Patient on verapamil (8) Coronary artery disease Status: Chronic Problem Specific Plan: Monitor Clinically Problem Text: * Continue ASA and statin Plan/VTE VTE Prophylaxis Ordered?: Yes (Lovenox) VS, I&O, 24H, Fishbone Vital Signs/I&O Vital Signs Date Time Temp Pulse Resp B/P (MAP) Pulse Ox O2 Delivery O2 Flow Rate FiO2 12/26/16 08:55 62 151/90 12/26/16 07:45 98.0 22 94 Room Air I&O- Last 24 Hours up to 6 AM 12/26/16 06:00 Output Total 675 ml Balance -675 ml Laboratory Data CBC/BMP Laboratory Tests 12/25/16 10:32 Red Blood Count 3.87 L, Mean Corpuscular Volume 104.2 H, Mean Corpuscular Hemoglobin 34.2 H, Mean Corpuscular Hemoglobin Concent 32.8, Red Cell Distribution Width 12.8, Neutrophils (%) (Auto) 70.1 H, Lymphocytes (%) (Auto) 17.9 L, Monocytes (%) (Auto) 6.2 H, Eosinophils (%) (Auto) 3.0, Basophils (%) ( Auto) 0.8, Neutrophils # (Auto) 2.4, Lymphocytes # (Auto) 0.6 L, Monocytes # ( Auto) 0.2, Eosinophils # (Auto) 0.1, Basophils # (Auto) 0.0, Calcium Level 7.9 L , Total Creatine Kinase 36 L 12/26/16 05:40 Red Blood Count 3.67 L, Mean Corpuscular Volume 100.3 H, Mean Corpuscular Hemoglobin 34.0 H, Mean Corpuscular Hemoglobin Concent 33.8, Red Cell Distribution Width 13.1, Neutrophils (%) (Auto) 68.7 H, Lymphocytes (%) (Auto) 19.5 L, Monocytes (%) (Auto) 6.6 H, Eosinophils (%) (Auto) 3.2 H, Basophils (%) (Auto) 0.5, Neutrophils # (Auto) 3.2, Lymphocytes # (Auto) 1.0 L, Monocytes # ( Auto) 0.3, Eosinophils # (Auto) 0.2, Basophils # (Auto) 0.0, Calcium Level 7.8 L GME ATTESTATION GME ATTESTATION My preceptor for this patient encounter was physically present in the building during the encounter and was fully available. As needed, all aspects of the patient interview, examination, medical decision making process, and medical care plan development were reviewed and approved by the preceptor. Preceptor is aware and concurs with the plan as stated in the body of this note and will attest to such by his/her cosignature. RAVI MASON DO December 26, 2016 10:10
[2016-12-26 12:00] VITALS: BP 150/77
[2016-12-26] MEDS: ASPIRIN ENTERIC 325 MG TAB PO SCH (14:49)
--- NOTE | 2016-12-26 15:07 | REP ---
MRA BRAIN WITHOUT CONTRAST: 12/26/2016. Clinical history: TIA. Comparison: MRI today, CT yesterday. Technique: 3D [id number] gradient echo images with MIP reformatting and rotational display of the volume acquisitions and the longitudinal and horizontal axis of the brain. All source images reviewed. Findings. There are symmetric vertebral arteries to form the basilar artery. No basilar tip stenosis, aneurysm or vessel cutoff. The right and left posterior cerebral arteries show origin from the basilar tip and have a generally symmetric supply to the posterior fossa without significant stenosis. The right internal carotid from the skull base to the carotid siphon is intact. There are some small areas of plaque and stenosis in the cavernous sinus. The supraclinoid and M1 segments are grossly intact. The A1 segment on the right shows some stenosis and poor flow compared to the left A1 segment. The A2 and M2 segments grossly intact. The left internal carotid shows no stenosis or aneurysm in the skull base to the cavernous sinus. At the carotid siphon, there is some small plaque and minimal stenosis. The supraclinoid, A1 and M1 segments were all grossly intact. The A2 and M2 segments are also grossly intact. Source images confirm all of these findings. Impression: 1. There is no vessel cutoff, aneurysm or tight stricture. There is some atherosclerotic plaque in both cavernous sinus regions and mild diffuse narrowing of the A1 segment on the right, but with flow in the A2 segment maintained in a fairly symmetric fashion. 2. The left internal carotid and its circulation were unremarkable and the posterior fossa circulation intact. Signed by Scotty Kaur MD 12/26/2016 04:53 P
--- NOTE | 2016-12-26 15:17 | REP ---
MRI BRAIN WITHOUT CONTRAST: 12/26/2016. COMPARISON: CT brain 12/25/2016, MRI 11/13/2012. CLINICAL HISTORY: Persistent slurred speech, TIA versus stroke. TECHNIQUE: Sagittal T1-weighted axial T1, T2, FLAIR, gradient echo, diffusion-weighted images with ADC mapping sequence. FINDINGS: The lateral ventricles show asymmetric dilatation of the frontal horn on the left compared to the right but no midline shift. Ventriculomegaly is seen in proportion to the diffuse atrophy which is greatest in the temporal and frontal lobes. There is some periventricular deep central and subcortical white matter hyperintense T2 and FLAIR foci some in more confluent settings representing chronic small vessel ischemic changes. There is no vascular territory infarct, hemorrhage, mass or mass effect. Diffusion weighted images show no evidence of acute ischemia or restricted water diffusion. Brainstem was unremarkable. Cerebellum grossly intact. Some ethmoid sinus mucosal thickening noted. The maxillary sinuses show mucosal thickening medial wright and floor in the left. Brainstem and cerebellum without acute abnormality. There is an old lacunar infarct in the left cerebellum unchanged and the basal cisterns intact. Seventh/eighth cranial nerve complexes and mastoids intact. Orbits and contents symmetric. Ethmoid air cells grossly intact. Corpus callosum is thinned but otherwise unremarkable. The optic chiasm also appears somewhat thinned. The infundibulum and pituitary were unremarkable. I see no cerebellar tonsillar ectopia with adequate subarachnoid space at the craniocervical junction. IMPRESSION: 1. Old lacunar infarct in the left cerebellum with chronic small vessel white matter ischemic changes of aging and ventriculomegaly with asymmetric slight dilatation of the left compared to right lateral ventricle proportionate to the degree of moderate atrophy. No intracranial hemorrhage, acute infarct, edema or mass. 2. No extra-axial fluid collection or intracranial hemorrhage. 3. The seventh and eighth cranial nerve complexes, brainstem and cerebellum without acute finding. Signed by Scotty Kaur MD 12/26/2016 04:53 P
--- NOTE | 2016-12-26 15:21 | REP ---
MRA CAROTIDS WITHOUT AND WITH CONTRAST: 12/26/2016. CLINICAL HISTORY: TIA. TECHNIQUE: 2-D issd-sj-nuicdl gradient echo with coronal 3-D [id number]-[id number] images following infusion of 12 mL of ProHance with MIP reformatting of the anterior and posterior circulation about the longitudinal axis of the neck. All source images are reviewed. COMPARISON: Carotid ultrasound 12/25/2016. FINDINGS: There are three vessels in the anterior neck with a common origin of the left common carotid off the innominate artery which is an anatomic variant. The right common carotid artery showed no stenosis or aneurysm. Some minimal plaque near its origin and at the bulb. There is 20% narrowing of the proximal right ICA just above the bulb. Its course through the neck to the skull base as the internal carotid was without significant stenosis or aneurysm. There is some atherosclerotic plaque at the carotid siphon. The left common carotid with its common origin from the innominate shows a normal course. There is proximally 60% stenosis of the proximal left internal carotid origin with some irregular plaque. Slight tortuosity of that internal carotid is seen on the left. Its course of the skull base is without stenosis. There is some mild stenosis in the cavernous sinus on that left side due to plaque. Right vertebral artery shows its origin from the right subclavian and is without significant stenosis in the neck. It does have distal stenosis near its junction with the left vertebral to form the basilar artery. The left vertebral arises from the left subclavian artery with a tortuous proximal course without significant stenosis. Minimal stenosis seen only at the junction with the of the right vertebral to form the basilar artery. IMPRESSION: 1. 60% stenosis of the left ICA just above the bifurcation with some atherosclerotic plaque. This is considered hemodynamically significant and flow restricting but is not critical. 2. Less than 30% stenosis of the proximal right ICA just above the bifurcation and this is not considered hemodynamically significant. Remainder of its course was unremarkable. Both ICA's shows some mild stenosis in the cavernous sinuses. 3. Vertebral arteries are generally symmetric with slight stenosis distal right vertebral, but near its junction with the left. Otherwise negative. Signed by Scotty Kaur MD 12/26/2016 04:54 P
[2016-12-26 15:28] LABS: CALCIUM LEVEL 7.5 MG/DL (8.8-10.2); CREATININE FOR GFR 1.56 MG/DL (0.70-1.30); GLOMERULAR FILTRATION RATE 46.9 (>42)
[2016-12-26 15:33] LABS: POTASSIUM SERUM 5.5 MEQ/L (3.5-5.1)
[2016-12-26 15:45] VITALS: BP 142/67
[2016-12-26 20:08] VITALS: BP 144/67
[2016-12-26] MEDS ORDERED: ATORVASTATIN 20 MG TAB PO SCH (21:00)
[2016-12-26] MEDS: MAGNESIUM OXIDE 400 MG TAB (MAG-OX) PO SCH (21:27)
[2016-12-26 23:41] VITALS: BP 147/65
[2016-12-27 04:45] VITALS: BP 143/69
[2016-12-27 05:27] LABS: BASO % 0.7 % (0.0-1.0); EOS # 0.2 K/mm3 (0.0-0.50); EOS % 4.6 % (0.0-3.0); LARGE UNSTAINED CELL # 0.1 K/mm3 (0.0-0.4); LARGE UNSTAINED CELL % 1.7 % (0.0-4.0); LYMPH # 1.1 K/mm3 (1.5-4.5); LYMPH % 27.8 % (24.0-44.0); MEAN CORPUSCULAR HEMOGLOBIN 33.5 pg (27.0-33.0); MEAN CORPUSCULAR HGB CONC 32.9 g/dl (32.0-36.5); MEAN CORPUSCULAR VOLUME 101.9 fl (80.0-96.0); MONO # 0.3 K/mm3 (0.0-0.8); MONO % 6.6 % (0.0-5.0); NEUTROPHILS # 2.4 K/mm3 (1.8-7.7); NEUTROPHILS % 58.4 % (36.0-66.0); PLATELET COUNT, AUTOMATED 153 k/mm3 (150-450); RED CELL DISTRIBUTION WIDTH 12.8 % (11.5-14.5); WHITE BLOOD COUNT 4.1 K/mm3 (4.0-10.0)
[2016-12-27 05:36] LABS: CALCIUM LEVEL 7.9 MG/DL (8.8-10.2); CREATININE FOR GFR 1.46 MG/DL (0.70-1.30); GLOMERULAR FILTRATION RATE 50.7 (>42); POTASSIUM SERUM 4.8 MEQ/L (3.5-5.1)
--- NOTE | 2016-12-27 06:46 | CR ---
DATE OF CONSULTATION: 12/26/2016 REFERRING PHYSICIAN: Dr. Ludmila Rosario REASON FOR CONSULTATION: Left-sided facial weakness, slurred speech and difficulty walking. HISTORY OF PRESENT ILLNESS: Thuan Mcdonald is 71-year-old man with history of bipolar disorder, anxiety disorder, schizophrenia, history of obstructive hypertrophic cardiomyopathy, developmental delay who lives at [facility]. He developed sudden onset left-sided facial weakness, slurring of speech and gait difficulty. His symptoms lasted for 10 minutes and resolved on their own. He has difficulty ambulating at his baseline but his problems got suddenly worse significantly. He now feels back to his baseline. He is on multiple psychiatric medications and was seen in the emergency department for lithium toxicity in past. He denies any seizures, diplopia, urinary incontinence, falls, loss of consciousness. He has history of back pain off and on. He denies any headaches or neck pain. PAST MEDICAL HISTORY: Developmental delay. Schizophrenia. Chronic low back pain. Dyslipidemia. Obstructive hypertrophic cardiomyopathy. Hypertensive heart disease. Coronary artery disease. SOCIAL HISTORY: He is a former smoker. He lives at [facility]. FAMILY HISTORY: Noncontributory. ALLERGIES: CLINDAMYCIN, LAMOTRIGINE HOME MEDICATIONS: - Abilify 5 mg by mouth daily - risperidone 3 mg by mouth twice daily - aspirin 81 mg by mouth daily - Tegretol 200 mg by mouth twice daily - Ativan 0.5 mg by mouth three times daily - melatonin 3 mg by mouth daily at bedtime - Paxil 20 mg by mouth daily - pravastatin 40 mg by mouth daily - primidone 50 mg by mouth twice daily - verapamil 240 mg by mouth daily - vitamin E 400 units by mouth daily REVIEW OF SYSTEMS: All systems were reviewed and found to be noncontributory except as mentioned in history of present illness. PHYSICAL EXAMINATION: Temperature 99.8, pulse 58, respiratory 20, blood pressure 142/67. Heart: Regular rate and rhythm. Lungs: Clear to auscultation. Abdomen: Soft, nontender, nondistended. Neurological exam: The patient is awake, alert, oriented to person, place and year. He has significant developmental dysarthria. He is able to understand and comprehend. Extraocular muscles are intact. Tongue and uvula are midline. No facial weakness. His pupils are 5 mm bilaterally reactive to light. Visual fry are full to confrontation. 5/5 strength in all four extremities. Deep tendon reflexes are 1+ throughout. Normal sensation throughout. His gait is unsteady, which is at his baseline. DIAGNOSTIC STUDIES: His serum lithium level was 0.7. Tegretol level 6.0. MRI brain showed small vessel ischemic disease of brain and old left cerebellar lacunar ischemic stroke. MRA of neck showed left internal carotid artery 60% and right internal carotid artery 30% stenosis. MRA of brain showed mild carotid artery atherosclerosis. ASSESSMENT: 1. Suspected transient ischemic attack. 2. Bilateral carotid artery stenosis. PLAN: 1. Aspirin 325 mg by mouth daily and Lipitor or pravastatin 40 mg by mouth daily. 2. Continue Sinemet 25/100 mg by mouth, two tablets by mouth four times daily for his neuroleptic induced parkinsonism. Continue Mirapex 1 mg by mouth four times daily. He will follow up with our office in 2 weeks after hospital discharge.
[2016-12-27 08:00] VITALS: BP 151/66
[2016-12-27] MEDS ORDERED: VERAPAMIL 180 MG SR TAB PO SCH (09:00)
[2016-12-27] MEDS ORDERED: amLODIPine 5 MG TAB PO SCH (09:00)
[2016-12-27] MEDS: ASPIRIN ENTERIC 325 MG TAB PO SCH (10:13)
[2016-12-27] MEDS: SINEMET 25-100 MG TAB PO SCH ×2 (10:13→12:50)
[2016-12-27] MEDS: NABUMETONE 500 MG TAB PO SCH (10:13)
[2016-12-27] MEDS: carBAMazepine 200 MG TAB PO SCH (10:13)
[2016-12-27] MEDS: PRAMIPEXOLE 1 MG TAB PO SCH ×2 (10:13→12:50)
[2016-12-27] MEDS: LORazepam 0.5 MG TAB PO SCH (10:13)
[2016-12-27] MEDS: PARoxetine 20 MG TAB PO SCH (10:14)
[2016-12-27 10:15] VITALS: BP 157/66
[2016-12-27] MEDS: DOCUSATE SODIUM 100 MG CAP PO SCH (10:15)
[2016-12-27] MEDS: PRIMIDONE 50 MG TAB PO SCH (10:15)
[2016-12-27] MEDS: risperiDONE 3 MG TAB PO SCH (10:15)
[2016-12-27] MEDS: ENOXAPARIN 40 MG/0.4 ML SYRINGE (J1650) SC SCH (10:16)
[2016-12-27] MEDS ORDERED: ATOR1TAB21 PO (11:32)
[2016-12-27] MEDS ORDERED: ASPI32ECTA PO (11:32)
[2016-12-27] MEDS ORDERED: VERA18TASA PO (11:32)
--- NOTE | 2016-12-28 13:50 | DSES ---
DATE OF ADMISSION: 12/25/2016 DATE OF DISCHARGE: 12/27/2016 DISCHARGE DIAGNOSES: 1. Transient ischemic attack (TIA). 2. Hyperkalemia. 3. Hyperlipidemia. 4. Bipolar affective with mixed psychiatric disorder. 5. Aortic valve disease. 6. Chronic kidney disease. 7. Hypertensive heart disease. 8. History of coronary artery disease. 9. Chronic low back pain. 10. History of obstructive hypertrophic cardiomyopathy. 11. History of dysphasia. 12. History of intellectual disability. 13. History of schizophrenia and anxiety. DISCHARGE MEDICATIONS: - aspirin 325 mg by mouth daily - atorvastatin 40 mg by mouth at night - verapamil 180 mg by mouth daily - Abilify 5 mg by mouth daily - carbamazepine 200 mg by mouth twice daily - Debrox five drops in each ear - Sinemet two tablets by mouth four times a day - Colace 200 mg by mouth twice daily - lidocaine 5% topical as needed - lorazepam 0.5 mg three times daily - magnesium oxide 400 mg by mouth at night - melatonin 3 mg by mouth at night - nabumetone 1500 mg by mouth daily - Paxil 20 mg by mouth daily - Mirapex 1 mg by mouth four times daily - primidone 100 mg by mouth twice daily - risperidone 3 mg by mouth twice daily - selenium sulfide 1% topical at night - vitamin E 400 units by mouth daily Discontinued medications: - aspirin 81 mg daily - pravastatin 40 mg at night - verapamil 240 mg daily - lithium BRIEF HOSPITAL COURSE: The patient originally presented with symptoms of left-sided facial droop, slurring of his speech, and ataxia. He has a history of Parkinson's disease and is on several medications and has a shuffling gait at baseline. He is a resident of [facility] ([facility] He was previously on pravastatin and baby aspirin at home, which is reported that he has been compliant with. He was previously seen in the emergency room (ER) for lithium toxicity and had hyperkalemia. Therefore, lithium was discontinued. The patient was admitted to the hospital and monitored on telemetry. He had a head CT performed which revealed moderate diffuse atrophy and vascular calcification. It also revealed ventriculomegaly. MRI of the brain revealed an old lacunar infarct in the left cerebellum with chronic small vessel ischemic changes and ventriculomegaly with asymmetric slight dilatation of the left compared to the right ventricle. No acute infarct, hemorrhage, or mass was noted. He had an MRA which did not show any significant abnormality, just revealed some atherosclerotic plaques in the cavernous sinus region and mild diffuse narrowing on the right. Carotid MRA revealed 60% stenosis of the left internal carotid artery (ICA) and 30% stenosis of the right ICA. He was seen by neurology which recommended increasing his aspirin and making sure that he was on statin medication. Symptoms completely resolved and did not recur during hospitalization. The patient was back to baseline. No neurological deficits. Strength was equal bilaterally, social science instructor were equal bilaterally. Sensation was intact. Good muscle tone. On the day of discharge, the patient was stable. He denied any headache, dizziness, chest pain/pressure, shortness of breath, nausea, vomiting, diarrhea, abdominal pain. No fevers or chills. The patient was excited to be able to go home. LABORATORY DATA ON DISCHARGE: WBC 4.1, hemoglobin 12.7, hematocrit 38.7, platelet count 153. Sodium 143, potassium 4.8, chloride 112, carbon dioxide 27, anion gap 4, BUN 23, creatinine 1.46, GFR 50.7, fasting glucose 87, calcium 7.9. IMAGING STUDIES: In addition to the aforementioned, the patient also had a chest x-ray which showed no acute disease. PHYSICAL EXAMINATION ON DISCHARGE: VITAL SIGNS: Temperature 98.4, pulse 62, respiratory rate 22, blood pressure 151/66, pulse oximetry 95% on room air. GENERAL: The patient is awake and alert, in no acute distress. At baseline, he has intellectual disability and speech is sometimes tangential, but he does answer most questions appropriately. HEENT: Normocephalic, atraumatic. Extraocular muscles are intact. No scleral icterus. Moist mucosa. HEART: Normal S1, S2, regular. Positive for systolic ejection murmur. LUNGS: Clear to auscultation bilaterally. No rales, rhonchi or wheezing. ABDOMEN: Soft, nontender, nondistended. Positive bowel sounds. EXTREMITIES: No cyanosis or edema. Positive pedal pulses bilaterally. SKIN: Warm and dry. No rashes noted. NEUROLOGIC: No focal deficits. Cranial nerves II-XII are grossly intact. Motor and sensation intact. The patient has intellectual disability and mild dementia at baseline. CONSULTANTS: Dr. Barber Garrison, neurology. DISCHARGE INSTRUCTIONS: The patient is discharged back to [facility] ([facility]) in stable condition. He can resume his regular program. He should followup with his primary care physician within one week. Followup with neurology in two weeks. Followup with psychiatry in two weeks. At that time, psychiatry can reevaluate and decide if he needs to be restarted on his lithium. He should be on activity as tolerated. Low-sodium diet. Return to the emergency department with any recurring or worsening symptoms. TIME SPENT ON DISCHARGE: Greater than 30 minutes. My preceptor for this patient encounter was Dr. Rolando Parry. The preceptor was physically present in the building during the encounter and was fully available as needed. All aspects of the patient interview, examination, medical decision making process, and medical care plan development were reviewed and approved by the preceptor. The preceptor is aware and concurs with the plan as stated in the body of this note and will attest to such by his/her co-signature.
--- NOTE | 2016-12-29 18:59 | ECHO ---
DATE OF PROCEDURE: 12/26/2016 REFERRING PHYSICIAN: Dr. Lozano PATIENT LOCATION: Room 3215 REASON FOR ECHOCARDIOGRAM: Transient ischemic attack (TIA). 2D MEASUREMENTS: IVS: 1.3 cm LV: 4.3 cm LVPW: 1.3 cm LA: 4.2 cm Aorta: 3.1 cm IVC: 1.7 cm DOPPLER MEASUREMENTS: Peak velocity across the aortic valve: 1.5 m/s Peak velocity across the LVOT: 1.1 m/s Mitral E: 0.75, Mitral A: 1.0, with a ratio of 0.7 Maximum tricuspid valve velocity: 2.0 m/s 2D COMMENTS: 1. Normal left ventricular size with mildly increased left ventricular wall thickness. Left ventricular systolic function is normal. The estimated global left ventricular systolic ejection fraction is 65 to 70%. 2. Mildly enlarged left atrrium. Normal right atrium and right ventricle. 3. The atrial septum appeared to be normal without evidence of defect or shunt. 4. Normal aortic root. 5. No pericardial effusion seen. 6. Mildly calcified aortic valve with normal leaflet excursion. Mildly calcified mitral annulus with normal anterior mitral valve leaflet motion. Normal tricuspid valve. The pulmonic valve and proximal pulmonary artery branches were not well visualized. 7. The inferior vena cava was normal in size, central venous pressure most likely normal. DOPPLER: It detects mild aortic regurgitation, mild mitral regurgitation, and mild tricuspid regurgitation. The calculated pulmonary artery systolic pressure appeared to be normal. IMPRESSION: 1. Normal global left ventricular systolic function with mild concentric left ventricular hypertrophy. There are features of left ventricular diastolic dysfunction manifested by abnormal relaxation. 2. Aortic valve sclerosis with mild aortic regurgitation, but there is no evidence of aortic stenosis. 3. Mitral annulus calcification with mild mitral regurgitation. 4. Mild tricuspid regurgitation.
== END 2016-12-27 13:23 | disposition home or self-care (01) | DRG 69 ==
LOC: M ED 10:40 → M ED INP 12:53 → M PCU 22:45
PROVIDERS: ADMIT Family Medicine; ATTEND Internal Medicine
DX: G45.9 Transient cerebral ischemic attack, unspecified (principal); N17.9 Acute kidney failure, unspecified; I42.1 Obstructive hypertrophic cardiomyopathy; F31.64 Bipolar disorder, current episode mixed, severe, with psychotic features; E86.0 Dehydration; T43.591A Poisoning by other antipsychotics and neuroleptics, accidental (unintentional), initial encounter; E87.5 Hyperkalemia; S20.229A Contusion of unspecified back wall of thorax, initial encounter; J30.9 Allergic rhinitis, unspecified; E78.5 Hyperlipidemia, unspecified; N18.3 Chronic kidney disease, stage 3 (moderate); I13.10 Hypertensive heart and chronic kidney disease without heart failure, with stage 1 through stage 4 chronic kidney disease, or unspecified chronic kidney disease; F79 Unspecified intellectual disabilities; I25.10 Atherosclerotic heart disease of native coronary artery without angina pectoris; M54.5 Low back pain; G20 Parkinson's disease; W01.0XXA Fall on same level from slipping, tripping and stumbling without subsequent striking against object, initial encounter; Y92.89 Other specified places as the place of occurrence of the external cause; Y93.89 Activity, other specified; Y99.8 Other external cause status; Z88.1 Allergy status to other antibiotic agents; Z88.8 Allergy status to other drugs, medicaments and biological substances; Z79.899 Other long term (current) drug therapy; Z79.82 Long term (current) use of aspirin; Z87.891 Personal history of nicotine dependence

== ENCOUNTER → 2017-04-24 | Outpatient (CLI) | payer MEDICARE, MEDICAID ==
[~2017-04-24] MED LIST changes: +ABIL1TAB11 PO; +ASPI1TAB15 PO; +ASPI325T24 PO; +ATOR1TAB21 PO; +CARB1TAB20 PO; +COLA100C5 PO; +DEBR6.5S4 AU; +DOCU100C16 PO; +ECOT81TA5 PO; +LIDO4CRE4 TOP; -LORA-376; +LORA0.5T11; +LORA0.5T11 PO; +MAGN400C3 PO; +MAGN400T5 PO; +MELA3CAP2 PO; +MELA3TAB49 PO; +MIRA1TAB3 PO; +NABU750T PO; +NATU400T PO; +PARO20TA4 PO; +PRAV40TA2 PO; +PRIM50TA6 PO; +RISP3TAB3 PO; +SELS1SHA14 TOP; +SINE25TA5 PO; +VERA180T53 PO; +VERA240T14 PO; +VITA400C7 PO; +[UNRECOGNIZED DRUG - REMARK]
[2017-04-24 07:28] LABS: ADD MANUAL DIFFER YES; MEAN CORPUSCULAR HGB CONC 34.8 g/dl (32.0-36.5); MEAN CORPUSCULAR VOLUME 97.8 fl (80.0-96.0); PLATELET COUNT, AUTOMATED 144 k/mm3 (150-450); RED CELL DISTRIBUTION WIDTH 12.9 % (11.5-14.5)
[2017-04-24 07:46] LABS: ALBUMIN 3.7 GM/DL (3.2-5.2); ALBUMIN/GLOBULIN RATIO 1.16 (1.00-1.93); ALKALINE PHOSPHATASE 99 U/L (45-117); ALT/SGPT 7 U/L (12-78); ANION GAP 6 MEQ/L (8-16); AST/SGOT 9 U/L (15-37); BILIRUBIN,TOTAL 0.6 MG/DL (0.2-1.0); BLOOD UREA NITROGEN 28 MG/DL (7-18); CALCIUM LEVEL 8.3 MG/DL (8.8-10.2); CARBAMAZEPINE (TEGRETOL) LEVEL 4.1 UG/ML (4.0-10.0); CARBON DIOXIDE LEVEL 26 MEQ/L (21-32); CHLORIDE LEVEL 111 MEQ/L (98-107); CREATININE FOR GFR 1.51 MG/DL (0.70-1.30); GLOMERULAR FILTRATION RATE 48.7 (>42); GLUCOSE, FASTING 87 MG/DL (83-110); SODIUM LEVEL 143 MEQ/L (136-145); TOTAL PROTEIN 6.9 GM/DL (6.4-8.2)
[2017-04-24 08:03] LABS: LITHIUM LEVEL < 0.20 MEQ/L (0.60-1.20)
[2017-04-24 08:29] LABS: EOSINOPHILS 2 % (0-5)
== END ==
LOC: M LAB 06:25
PROVIDERS: ATTEND Family Medicine
DX: F31.9 Bipolar disorder, unspecified (principal)

== ENCOUNTER → 2017-04-24 | Outpatient (CLI) | payer MEDICARE, MEDICAID ==
[2017-04-24 07:27] LABS: BASO % 1.1 % (0.0-1.0); EOS # 0.2 K/mm3 (0.0-0.50); EOS % 5.2 % (0.0-3.0); LARGE UNSTAINED CELL # 0.1 K/mm3 (0.0-0.4); LARGE UNSTAINED CELL % 1.8 % (0.0-4.0); LYMPH # 0.8 K/mm3 (1.5-4.5); LYMPH % 26.2 % (24.0-44.0); MEAN CORPUSCULAR HEMOGLOBIN 33.5 pg (27.0-33.0); MEAN CORPUSCULAR HGB CONC 34.2 g/dl (32.0-36.5); MEAN CORPUSCULAR VOLUME 97.7 fl (80.0-96.0); MONO # 0.1 K/mm3 (0.0-0.8); MONO % 4.7 % (0.0-5.0); NEUTROPHILS # 1.9 K/mm3 (1.8-7.7); NEUTROPHILS % 61.1 % (36.0-66.0); PLATELET COUNT, AUTOMATED 139 k/mm3 (150-450); RED CELL DISTRIBUTION WIDTH 12.9 % (11.5-14.5)
[2017-04-24 07:46] LABS: ALBUMIN 3.7 GM/DL (3.2-5.2); ALBUMIN/GLOBULIN RATIO 1.16 (1.00-1.93); ALT/SGPT 8 U/L (12-78); BILIRUBIN,DIRECT 0.1 MG/DL (0.0-0.2); BLOOD UREA NITROGEN 28 MG/DL (7-18); TOTAL PROTEIN 6.9 GM/DL (6.4-8.2)
[2017-04-24 07:53] LABS: ALKALINE PHOSPHATASE 101 U/L (45-117); ANION GAP 7 MEQ/L (8-16); AST/SGOT 6 U/L (15-37); BILIRUBIN,TOTAL 0.6 MG/DL (0.2-1.0); CALCIUM LEVEL 8.4 MG/DL (8.8-10.2); CARBAMAZEPINE (TEGRETOL) LEVEL 3.8 UG/ML (4.0-10.0); CARBON DIOXIDE LEVEL 27 MEQ/L (21-32); CHLORIDE LEVEL 111 MEQ/L (98-107); CREATININE FOR GFR 1.45 MG/DL (0.70-1.30); GLOMERULAR FILTRATION RATE 51.1 (>42); GLUCOSE, FASTING 91 MG/DL (83-110); PHOSPHORUS LEVEL 3.7 MG/DL (2.5-4.9); SODIUM LEVEL 145 MEQ/L (136-145)
[2017-04-24 07:57] LABS: LITHIUM LEVEL < 0.20 MEQ/L (0.60-1.20); POTASSIUM SERUM 5.3 MEQ/L (3.5-5.1)
[2017-04-24 09:34] LABS: PROLACTIN 33.5 NG/ML (2.1-17.7)
== END ==
LOC: M LAB 06:21
PROVIDERS: ATTEND Anesthesiology Pain Medicine
DX: Z51.81 Encounter for therapeutic drug level monitoring (principal); Z79.899 Other long term (current) drug therapy; F31.9 Bipolar disorder, unspecified

== ENCOUNTER 2017-04-30 15:46 | Emergency (ER) | payer MEDICARE, MEDICAID ==
[2017-04-30 16:17] VITALS: BP 170/80
[2017-04-30] MEDS ORDERED: LIDOCAINE 1% SDV 5 ML VIAL SC ONE (16:30)
[2017-04-30] MEDS ORDERED: LIDOCAINE 1% MDV 20ML VIAL As Ordered ONE (16:34)
[2017-04-30] MEDS ORDERED: LIDOCAINE 1% MDV 20ML VIAL IM ONE (16:45)
== END 2017-04-30 17:35 | disposition home or self-care (01) ==
LOC: EDBD 15:46 → M ED 15:46
DX: S01.21XA Laceration without foreign body of nose, initial encounter (principal); T14.8 Other injury of unspecified body region; S05.11XA Contusion of eyeball and orbital tissues, right eye, initial encounter; W01.198A Fall on same level from slipping, tripping and stumbling with subsequent striking against other object, initial encounter; Y92.59 Other trade areas as the place of occurrence of the external cause; Y93.02 Activity, running; Y99.0 Civilian activity done for income or pay; I10 Essential (primary) hypertension; E78.00 Pure hypercholesterolemia, unspecified; G25.81 Restless legs syndrome; F31.9 Bipolar disorder, unspecified; F41.9 Anxiety disorder, unspecified; F60.5 Obsessive-compulsive personality disorder; Z79.899 Other long term (current) drug therapy; Z79.82 Long term (current) use of aspirin; J30.89 Other allergic rhinitis; Z88.1 Allergy status to other antibiotic agents; Z88.8 Allergy status to other drugs, medicaments and biological substances; Z86.73 Personal history of transient ischemic attack (TIA), and cerebral infarction without residual deficits

== ENCOUNTER → 2017-07-27 | Outpatient (REF) | payer MEDICARE, MEDICAID | LOC: M SFHCPLAZ 19:21 | PROVIDERS: ATTEND Family Medicine | DX: R35.0 Frequency of micturition (principal) ==

== ENCOUNTER → 2017-08-25 | Outpatient (CLI) | payer MEDICARE, MEDICAID ==
[2017-08-25 15:07] LABS: ANION GAP 3 MEQ/L (8-16); BLOOD UREA NITROGEN 28 MG/DL (7-18); CARBON DIOXIDE LEVEL 27 MEQ/L (21-32); CHLORIDE LEVEL 112 MEQ/L (98-107); CREATININE FOR GFR 1.37 MG/DL (0.70-1.30); GLOMERULAR FILTRATION RATE 54.4 (>42); GLUCOSE, FASTING 108 MG/DL (83-110); SODIUM LEVEL 142 MEQ/L (136-145)
[2017-08-25 15:13] LABS: POTASSIUM SERUM 5.5 MEQ/L (3.5-5.1)
== END ==
LOC: M LAB 14:16
DX: E87.5 Hyperkalemia (principal)
CPT/HCPCS: 80048

== ENCOUNTER 2017-09-14 20:22 | Emergency (ER) | payer MEDICARE, MEDICAID ==
[2017-09-14 21:24] LABS: BASO % 0.8 % (0.0-1.0); EOS # 0.1 10^3/uL (0.0-0.50); EOS % 2.7 % (0.0-3.0); HEMATOCRIT 34.6 % (42.0-52.0); HEMOGLOBIN 11.5 g/dl (14.0-18.0); IMMATURE GRANULOCYTE % 0.4 % (0-0); LYMPH # 0.7 10^3/uL (1.5-4.5); LYMPH % 26.1 % (24.0-44.0); MEAN CORPUSCULAR HEMOGLOBIN 31.9 pg (27.0-33.0); MEAN CORPUSCULAR HGB CONC 33.2 g/dl (32.0-36.5); MEAN CORPUSCULAR VOLUME 95.8 fl (80.0-96.0); MONO # 0.2 10^3/uL (0.0-0.8); MONO % 7.7 % (0.0-5.0); NEUTROPHILS # 1.6 10^3/uL (1.8-7.7); NEUTROPHILS % 62.3 % (36.0-66.0); RED BLOOD COUNT 3.61 10^6/uL (4.30-6.10); RED CELL DISTRIBUTION WIDTH 13.4 % (11.5-14.5); WHITE BLOOD COUNT 2.6 10^3/uL (4.0-10.0)
[2017-09-14 21:35] LABS: ALBUMIN 3.7 GM/DL (3.2-5.2); ALBUMIN/GLOBULIN RATIO 0.95 (1.00-1.93); ALKALINE PHOSPHATASE 144 U/L (45-117); ALT/SGPT 12 U/L (12-78); ANION GAP 3 MEQ/L (8-16); AST/SGOT 27 U/L (7-37); BILIRUBIN,DIRECT < 0.1 MG/DL (0.0-0.2); BILIRUBIN,TOTAL 0.5 MG/DL (0.2-1.0); BLOOD UREA NITROGEN 37 MG/DL (7-18); CALCIUM LEVEL 8.4 MG/DL (8.8-10.2); CARBON DIOXIDE LEVEL 28 MEQ/L (21-32); CHLORIDE LEVEL 112 MEQ/L (98-107); CREATININE FOR GFR 1.43 MG/DL (0.70-1.30); GLOMERULAR FILTRATION RATE 51.8 (>42); GLUCOSE, FASTING 81 MG/DL (70-100); SODIUM LEVEL 143 MEQ/L (136-145); TOTAL PROTEIN 7.6 GM/DL (6.4-8.2)
[2017-09-14 21:43] LABS: KETONE, URINE AUTO RFX TRACE mg/dL (NEGATIVE); LEUKOCYTE ESTERASE UR AUTO RFX NEGATIVE (NEGATIVE); NITRITE, URINE AUTO RFX NEGATIVE (NEGATIVE); RBC, URINE AUTO RFX 2 /HPF (0-3); SPECIFIC GRAVITY UR AUTO RFX 1.011 (1.002-1.035); SQUAM EPITHELIAL CELL UR AURFX 0 /HPF (0-6); WBC, URINE AUTO RFX 0 /HPF (0-3)
[2017-09-14 21:48] LABS: POTASSIUM SERUM 5.5 MEQ/L (3.5-5.1)
[2017-09-14 21:52] LABS: PLATELET COUNT, AUTOMATED 92 10^3/uL (150-450)
[2017-09-14 21:53] LABS: IMMATURE PLATELET FRACTION % 4.7 % (0.0-10.9)
[2017-09-14] MEDS: SOD POLYSTYRENE SULFONATE SUSP 15 GM/60 ML UD PO (22:30)
[2017-09-14] MEDS: ALBUTEROL SULFATE 2.5 MG/0.5 ML INH NEB SOLN NEB (22:39)
== END 2017-09-14 23:01 | disposition home or self-care (01) ==
LOC: M ED 20:22
DX: E87.6 Hypokalemia (principal); R00.1 Bradycardia, unspecified; I10 Essential (primary) hypertension; G20 Parkinson's disease; F03.90 Unspecified dementia, unspecified severity, without behavioral disturbance, psychotic disturbance, mood disturbance, and anxiety; F20.9 Schizophrenia, unspecified; F31.9 Bipolar disorder, unspecified; F41.9 Anxiety disorder, unspecified; F42.9 Obsessive-compulsive disorder, unspecified; G25.81 Restless legs syndrome; Z79.899 Other long term (current) drug therapy; Z79.82 Long term (current) use of aspirin; Z88.1 Allergy status to other antibiotic agents; Z88.8 Allergy status to other drugs, medicaments and biological substances; Z91.048 Other nonmedicinal substance allergy status; Z86.73 Personal history of transient ischemic attack (TIA), and cerebral infarction without residual deficits; Z86.69 Personal history of other diseases of the nervous system and sense organs
CPT/HCPCS: 71045

== ENCOUNTER 2017-09-22 14:16 | Inpatient (IN) | payer MEDICARE, MEDICAID ==
[2017-09-22 15:50] LABS: ANION GAP 5 MEQ/L (8-16); BLOOD UREA NITROGEN 37 MG/DL (7-18); CARBON DIOXIDE LEVEL 26 MEQ/L (21-32); CHLORIDE LEVEL 115 MEQ/L (98-107); CREATININE FOR GFR 1.45 MG/DL (0.70-1.30); GLOMERULAR FILTRATION RATE 50.9 (>42); GLUCOSE, FASTING 76 MG/DL (70-100); SODIUM LEVEL 146 MEQ/L (136-145)
[2017-09-22] MEDS: SOD POLYSTYRENE SULFONATE SUSP 15 GM/60 ML UD PO ×2 (16:45→21:42)
[2017-09-22 16:49] LABS: ALBUMIN 3.6 GM/DL (3.2-5.2); ALBUMIN/GLOBULIN RATIO 1.13 (1.00-1.93); ALKALINE PHOSPHATASE 133 U/L (45-117); ALT/SGPT 14 U/L (12-78); AST/SGOT 16 U/L (7-37); BILIRUBIN,DIRECT < 0.1 MG/DL (0.0-0.2); BILIRUBIN,TOTAL 0.6 MG/DL (0.2-1.0); MAGNESIUM LEVEL 2.4 MG/DL (1.8-2.4); PHOSPHORUS LEVEL 4.5 MG/DL (2.5-4.9); TOTAL PROTEIN 6.8 GM/DL (6.4-8.2)
[2017-09-22 17:35] LABS: VENOUS BASE EXCESS -4.4 (-2.0-2.0); VENOUS HCO3 23.6 MEQ/L (23.0-27.0); VENOUS O2 SATURATION 59.5 % (60.0-80.0); VENOUS PARTIAL PRESSURE CO2 57.6 mmHg (38.0-50.0); VENOUS PARTIAL PRESSURE O2 33.9 mmHg (30.0-50.0); VENOUS STANDARD HCO3 20.1 MEQ/L; VENOUS TOTAL CO2 25.3 MEQ/L (24.0-28.0)
[2017-09-22 17:55] LABS: URIC ACID 5.4 MG/DL (3.5-7.2)
[2017-09-22 17:59] LABS: OSMOLALITY SERUM 313 MOSM/KG (280-301)
[2017-09-22 18:00] LABS: CREATININE,RANDOM URINE 47.5 MG/DL
[2017-09-22 18:00] LABS: POTASSIUM RANDOM URINE 45.3 MEQ/L; SODIUM,RANDOM URINE 50 MEQ/L
[2017-09-22 18:04] LABS: APPEARANCE, URINE CLEAR (CLEAR); BACTERIA, URINE AUTO NEGATIVE (NEGATIVE); BILIRUBIN, URINE AUTO NEGATIVE (NEGATIVE); BLOOD, URINE BLOOD NEGATIVE (NEGATIVE); COLOR, URINE STRAW (YELLOW); GLUCOSE, URINE (UA) AUTO NEGATIVE (NEGATIVE); KETONE, URINE AUTO NEGATIVE (NEGATIVE); LEUKOCYTE ESTERASE, URINE AUTO NEGATIVE (NEGATIVE); MUCUS, URINE SMALL (NEGATIVE); NITRITE, URINE AUTO NEGATIVE (NEGATIVE); PROTEIN, URINE AUTO NEGATIVE (NEGATIVE); RBC, URINE AUTO 1 /HPF (0-3); SPECIFIC GRAVITY URINE AUTO 1.012 (1.002-1.035); SQUAMOUS EPITHELIAL CELL UR AU 0 /HPF (0-6); UROBILINOGEN, URINE AUTO 0.2 mg/dL (0.0-2.0); WBC, URINE AUTO 1 /HPF (0-3)
[2017-09-22 18:24] LABS: BASO % 0.7 % (0.0-1.0); EOS # 0.1 10^3/uL (0.0-0.50); EOS % 2.3 % (0.0-3.0); HEMATOCRIT 33.3 % (42.0-52.0); IMMATURE GRANULOCYTE % 0.7 % (0-3.0); LYMPH # 0.7 10^3/uL (1.5-4.5); LYMPH % 23.2 % (24.0-44.0); MEAN CORPUSCULAR HEMOGLOBIN 31.5 pg (27.0-33.0); MEAN CORPUSCULAR VOLUME 95.4 fl (80.0-96.0); MONO # 0.3 10^3/uL (0.0-0.8); MONO % 10.4 % (0.0-5.0); NEUTROPHILS # 1.9 10^3/uL (1.8-7.7); NEUTROPHILS % 62.7 % (36.0-66.0); PLATELET COUNT, AUTOMATED 121 10^3/uL (150-450); RED BLOOD COUNT 3.49 10^6/uL (4.30-6.10); RED CELL DISTRIBUTION WIDTH 13.7 % (11.5-14.5)
[2017-09-22 18:59] LABS: LITHIUM LEVEL < 0.20 MEQ/L (0.60-1.20)
[2017-09-22] MEDS ORDERED: NS 1,000 ML IV (19:09)
[2017-09-22] MEDS ORDERED: SOD POLYSTYRENE SULFONATE SUSP 15 GM/60 ML UD PO (19:45)
[2017-09-22] MEDS: CALCIUM GLUCONATE 1,000 MG in D5W MINI-BAG PLUS 100 ML IV (20:35)
[2017-09-22 20:45] LABS: ANION GAP 4 MEQ/L (8-16); BLOOD UREA NITROGEN 39 MG/DL (7-18); CALCIUM LEVEL 8.3 MG/DL (8.8-10.2); CARBON DIOXIDE LEVEL 28 MEQ/L (21-32); CHLORIDE LEVEL 114 MEQ/L (98-107); CREATININE FOR GFR 1.52 MG/DL (0.70-1.30); GLOMERULAR FILTRATION RATE 48.2 (>42); GLUCOSE, FASTING 98 MG/DL (70-100); SODIUM LEVEL 146 MEQ/L (136-145)
[2017-09-22 20:47] LABS: POTASSIUM SERUM 5.8 MEQ/L (3.5-5.1)
[2017-09-22] MEDS: DOCUSATE SODIUM 100 MG CAP PO (21:00)
[2017-09-22] MEDS: MAGNESIUM OXIDE 400 MG TAB (MAG-OX) PO (21:00)
[2017-09-22] MEDS: risperiDONE 3 MG TAB PO (21:00)
[2017-09-22] MEDS: D5W 1,000 ML IV (21:00)
[2017-09-22] MEDS: ATORVASTATIN 20 MG TAB PO (21:00)
[2017-09-22] MEDS: PRIMIDONE 50 MG TAB PO (21:00)
[2017-09-22] MEDS: LORazepam 0.5 MG TAB PO (21:00)
[2017-09-22] MEDS: carBAMazepine 200 MG TAB PO (21:00)
[2017-09-22] MEDS: HEPARIN SOD (PORCINE) 5000 UNITS/ML VIAL SC (21:42)
[2017-09-23 04:09] LABS: HEMATOCRIT 32.7 % (42.0-52.0); HEMOGLOBIN 11.1 g/dl (14.0-18.0); MEAN CORPUSCULAR HEMOGLOBIN 31.4 pg (27.0-33.0); MEAN CORPUSCULAR HGB CONC 33.9 g/dl (32.0-36.5); MEAN CORPUSCULAR VOLUME 92.4 fl (80.0-96.0); PLATELET COUNT, AUTOMATED 130 10^3/uL (150-450); RED BLOOD COUNT 3.54 10^6/uL (4.30-6.10); RED CELL DISTRIBUTION WIDTH 13.6 % (11.5-14.5)
[2017-09-23 04:24] LABS: ANION GAP 6 MEQ/L (8-16); BLOOD UREA NITROGEN 35 MG/DL (7-18); CARBON DIOXIDE LEVEL 26 MEQ/L (21-32); CHLORIDE LEVEL 115 MEQ/L (98-107); CREATININE FOR GFR 1.42 MG/DL (0.70-1.30); GLOMERULAR FILTRATION RATE 52.2 (>42); GLUCOSE, FASTING 78 MG/DL (70-100); MAGNESIUM LEVEL 2.4 MG/DL (1.8-2.4); SODIUM LEVEL 147 MEQ/L (136-145)
[2017-09-23 04:36] LABS: POTASSIUM SERUM 5.3 MEQ/L (3.5-5.1)
[2017-09-23] MEDS: HEPARIN SOD (PORCINE) 5000 UNITS/ML VIAL SC ×3 (06:25→21:38)
[2017-09-23] MEDS: DOCUSATE SODIUM 100 MG CAP PO ×2 (09:51→21:37)
[2017-09-23] MEDS: PRIMIDONE 50 MG TAB PO ×2 (09:52→17:13)
[2017-09-23] MEDS: PARoxetine 20 MG TAB PO (09:52)
[2017-09-23] MEDS: VITAMIN E 400 INTERNATIONAL UNITS CAP PO (09:52)
[2017-09-23] MEDS: carBAMazepine 200 MG TAB PO ×2 (09:52→21:37)
[2017-09-23] MEDS: LORazepam 0.5 MG TAB PO ×3 (09:52→21:37)
[2017-09-23 10:37] LABS: OSMOLALITY SERUM 313 MOSM/KG (280-301)
[2017-09-23] MEDS: D5W 1,000 ML IV ×2 (11:15→23:35)
[2017-09-23] MEDS: NABUMETONE 500 MG TAB PO (12:35)
[2017-09-23] MEDS: risperiDONE 3 MG TAB PO ×2 (15:04→21:37)
[2017-09-23] MEDS: ATORVASTATIN 20 MG TAB PO (21:37)
[2017-09-24 06:04] LABS: HEMATOCRIT 34.5 % (42.0-52.0); HEMOGLOBIN 11.6 g/dl (14.0-18.0); MEAN CORPUSCULAR HEMOGLOBIN 31.4 pg (27.0-33.0); MEAN CORPUSCULAR HGB CONC 33.6 g/dl (32.0-36.5); MEAN CORPUSCULAR VOLUME 93.2 fl (80.0-96.0); PLATELET COUNT, AUTOMATED 140 10^3/uL (150-450); RED CELL DISTRIBUTION WIDTH 13.8 % (11.5-14.5)
[2017-09-24] MEDS: HEPARIN SOD (PORCINE) 5000 UNITS/ML VIAL SC ×3 (06:04→21:50)
[2017-09-24 06:45] LABS: ANION GAP 7 MEQ/L (8-16); BLOOD UREA NITROGEN 30 MG/DL (7-18); CALCIUM LEVEL 8.3 MG/DL (8.8-10.2); CARBON DIOXIDE LEVEL 25 MEQ/L (21-32); CHLORIDE LEVEL 110 MEQ/L (98-107); CREATININE FOR GFR 1.57 MG/DL (0.70-1.30); GLOMERULAR FILTRATION RATE 46.5 (>42); GLUCOSE, FASTING 81 MG/DL (70-100); MAGNESIUM LEVEL 2.6 MG/DL (1.8-2.4); POTASSIUM SERUM 4.8 MEQ/L (3.5-5.1); SODIUM LEVEL 142 MEQ/L (136-145)
[2017-09-24] MEDS: carBAMazepine 200 MG TAB PO ×2 (09:25→21:49)
[2017-09-24] MEDS: PARoxetine 20 MG TAB PO (09:25)
[2017-09-24] MEDS: VITAMIN E 400 INTERNATIONAL UNITS CAP PO (09:25)
[2017-09-24] MEDS: LORazepam 0.5 MG TAB PO ×3 (09:25→21:49)
[2017-09-24] MEDS: risperiDONE 3 MG TAB PO ×2 (09:25→21:49)
[2017-09-24] MEDS: PRIMIDONE 50 MG TAB PO ×2 (09:25→16:07)
[2017-09-24] MEDS: DOCUSATE SODIUM 100 MG CAP PO ×2 (09:26→21:49)
[2017-09-24] MEDS: NABUMETONE 500 MG TAB PO (09:26)
[2017-09-24 09:40] LABS: CORTISOL AM 19.5 UG/DL (4.3-22.4)
[2017-09-24] MEDS ORDERED: SENOKOT S TAB PO (12:15)
[2017-09-24] MEDS: MOM 30ML SUSPENSION UDC PO (13:45)
[2017-09-24] MEDS: ATORVASTATIN 20 MG TAB PO (21:49)
[2017-09-25] MEDS: MIRALAX *UNIT DOSE* 17GM PACKET PO (00:53)
[2017-09-25] MEDS: HEPARIN SOD (PORCINE) 5000 UNITS/ML VIAL SC (05:46)
[2017-09-25] MEDS: MOM 30ML SUSPENSION UDC PO (05:46)
[2017-09-25 06:48] LABS: HEMATOCRIT 33.2 % (42.0-52.0); HEMOGLOBIN 11.1 g/dl (14.0-18.0); MEAN CORPUSCULAR HEMOGLOBIN 31.4 pg (27.0-33.0); MEAN CORPUSCULAR HGB CONC 33.4 g/dl (32.0-36.5); MEAN CORPUSCULAR VOLUME 93.8 fl (80.0-96.0); PLATELET COUNT, AUTOMATED 143 10^3/uL (150-450); RED BLOOD COUNT 3.54 10^6/uL (4.30-6.10); RED CELL DISTRIBUTION WIDTH 13.9 % (11.5-14.5); WHITE BLOOD COUNT 3.6 10^3/uL (4.0-10.0)
[2017-09-25 07:04] LABS: ANION GAP 6 MEQ/L (8-16); BLOOD UREA NITROGEN 32 MG/DL (7-18); CALCIUM LEVEL 8.2 MG/DL (8.8-10.2); CARBON DIOXIDE LEVEL 26 MEQ/L (21-32); CHLORIDE LEVEL 113 MEQ/L (98-107); CREATININE FOR GFR 1.61 MG/DL (0.70-1.30); GLOMERULAR FILTRATION RATE 45.1 (>42); GLUCOSE, FASTING 101 MG/DL (70-100); MAGNESIUM LEVEL 2.4 MG/DL (1.8-2.4); SODIUM LEVEL 145 MEQ/L (136-145)
[2017-09-25 07:05] LABS: POTASSIUM SERUM 5.3 MEQ/L (3.5-5.1)
[2017-09-25] MEDS: DOCUSATE SODIUM 100 MG CAP PO (08:47)
[2017-09-25] MEDS: NABUMETONE 500 MG TAB PO (08:47)
[2017-09-25] MEDS: risperiDONE 3 MG TAB PO (08:47)
[2017-09-25] MEDS: VITAMIN E 400 INTERNATIONAL UNITS CAP PO (08:47)
[2017-09-25] MEDS: LORazepam 0.5 MG TAB PO (08:47)
[2017-09-25] MEDS: carBAMazepine 200 MG TAB PO (08:47)
[2017-09-25] MEDS: PRIMIDONE 50 MG TAB PO (08:47)
[2017-09-25] MEDS: PARoxetine 20 MG TAB PO (08:47)
[2017-09-26 00:06] LABS: ADRENOCORTICOTROPHIC HORMONE 42.6 pg/mL (7.2-63.3)
[2017-09-27 10:13] LABS: ALDOS/RENIN RATIO <4.1 (0.0-30.0); ALDOSTERONE <1.0 ng/dL (0.0-30.0); RENIN ACTIVITY 0.242 ng/mL/hr (0.167-5.380)
== END 2017-09-25 09:07 | disposition home or self-care (01) | DRG 640 ==
LOC: M MSPAV 09-23 12:54 → M ED 14:16 → M ED INP 19:09 → M PCU 23:01
DX: E87.5 Hyperkalemia (principal); D61.811 Other drug-induced pancytopenia; F20.81 Schizophreniform disorder; I42.1 Obstructive hypertrophic cardiomyopathy; F31.9 Bipolar disorder, unspecified; F79 Unspecified intellectual disabilities; E87.0 Hyperosmolality and hypernatremia; E78.5 Hyperlipidemia, unspecified; F41.1 Generalized anxiety disorder; I25.10 Atherosclerotic heart disease of native coronary artery without angina pectoris; R13.10 Dysphagia, unspecified; R26.81 Unsteadiness on feet; G25.0 Essential tremor; Z79.899 Other long term (current) drug therapy

== ENCOUNTER → 2017-09-22 | Outpatient (CLI) | payer MEDICARE, MEDICAID ==
[2017-09-22 11:06] LABS: HEMATOCRIT 35.3 % (42.0-52.0); HEMOGLOBIN 11.6 g/dl (14.0-18.0); MEAN CORPUSCULAR HGB CONC 32.9 g/dl (32.0-36.5); MEAN CORPUSCULAR VOLUME 94.4 fl (80.0-96.0); PLATELET COUNT, AUTOMATED 126 10^3/uL (150-450); RED BLOOD COUNT 3.74 10^6/uL (4.30-6.10); RED CELL DISTRIBUTION WIDTH 13.8 % (11.5-14.5); WHITE BLOOD COUNT 2.5 10^3/uL (4.0-10.0)
[2017-09-22 11:34] LABS: ALBUMIN 3.7 GM/DL (3.2-5.2); ALBUMIN/GLOBULIN RATIO 0.97 (1.00-1.93); ALKALINE PHOSPHATASE 142 U/L (45-117); ALT/SGPT 22 U/L (12-78); AST/SGOT 17 U/L (7-37); BILIRUBIN,TOTAL 0.4 MG/DL (0.2-1.0); BLOOD UREA NITROGEN 37 MG/DL (7-18); CALCIUM LEVEL 8.6 MG/DL (8.8-10.2); CARBAMAZEPINE (TEGRETOL) LEVEL 4.1 UG/ML (4.0-10.0); CARBON DIOXIDE LEVEL 27 MEQ/L (21-32); CHLORIDE LEVEL 116 MEQ/L (98-107); CREATININE FOR GFR 1.45 MG/DL (0.70-1.30); GLOMERULAR FILTRATION RATE 50.9 (>42); GLUCOSE, FASTING 89 MG/DL (70-100); THYROID STIMULATING HORMONE 0.846 uIU/ML (0.358-3.740); TOTAL PROTEIN 7.5 GM/DL (6.4-8.2)
[2017-09-22 11:46] LABS: ANION GAP 3 MEQ/L (8-16); SODIUM LEVEL 146 MEQ/L (136-145)
[2017-09-22 11:49] LABS: POTASSIUM SERUM 6.5 MEQ/L (3.5-5.1)
[2017-09-24 09:36] LABS: VITAMIN B12 LEVEL 283 PG/ML (247-911)
== END ==
LOC: M WUC 09:11
DX: R41.82 Altered mental status, unspecified (principal)

== ENCOUNTER 2017-09-26 17:28 | Inpatient (IN) | payer MEDICARE, MEDICAID ==
[2017-09-26] MEDS: SOD POLYSTYRENE SULFONATE SUSP 30 GM/120 ML ENEMA PR ×2 (04:25→20:45)
[2017-09-26 19:21] LABS: BASO % 0.8 % (0.0-1.0); EOS # 0.1 10^3/uL (0.0-0.50); EOS % 2.4 % (0.0-3.0); HEMATOCRIT 30.3 % (42.0-52.0); HEMOGLOBIN 10.4 g/dl (14.0-18.0); IMMATURE GRANULOCYTE % 0.3 % (0-3.0); LYMPH # 1.1 10^3/uL (1.5-4.5); LYMPH % 28.6 % (24.0-44.0); MEAN CORPUSCULAR HEMOGLOBIN 32.5 pg (27.0-33.0); MEAN CORPUSCULAR HGB CONC 34.3 g/dl (32.0-36.5); MEAN CORPUSCULAR VOLUME 94.7 fl (80.0-96.0); MONO # 0.4 10^3/uL (0.0-0.8); MONO % 9.6 % (0.0-5.0); NEUTROPHILS # 2.2 10^3/uL (1.8-7.7); NEUTROPHILS % 58.3 % (36.0-66.0); PLATELET COUNT, AUTOMATED 136 10^3/uL (150-450); RED CELL DISTRIBUTION WIDTH 14.2 % (11.5-14.5); WHITE BLOOD COUNT 3.7 10^3/uL (4.0-10.0)
[2017-09-26 19:46] LABS: ALBUMIN 3.6 GM/DL (3.2-5.2); ALBUMIN/GLOBULIN RATIO 1.13 (1.00-1.93); ALKALINE PHOSPHATASE 135 U/L (45-117); ALT/SGPT 10 U/L (12-78); ANION GAP 7 MEQ/L (8-16); AST/SGOT 23 U/L (7-37); BILIRUBIN,DIRECT < 0.1 MG/DL (0.0-0.2); BILIRUBIN,TOTAL 0.5 MG/DL (0.2-1.0); BLOOD UREA NITROGEN 34 MG/DL (7-18); CALCIUM LEVEL 8.4 MG/DL (8.8-10.2); CARBON DIOXIDE LEVEL 26 MEQ/L (21-32); CHLORIDE LEVEL 112 MEQ/L (98-107); CREATININE FOR GFR 1.66 MG/DL (0.70-1.30); GLOMERULAR FILTRATION RATE 43.6 (>42); GLUCOSE, FASTING 89 MG/DL (70-100); SODIUM LEVEL 145 MEQ/L (136-145); TOTAL PROTEIN 6.8 GM/DL (6.4-8.2)
[2017-09-26 19:58] LABS: POTASSIUM SERUM 5.5 MEQ/L (3.5-5.1)
[2017-09-26] MEDS: SOD POLYSTYRENE SULFONATE SUSP 15 GM/60 ML UD PO (20:30)
[2017-09-26] MEDS: NS 1,000 ML IV (20:43)
[2017-09-26] MEDS ORDERED: BISACODYL 10 MG SUPP PR (20:45)
[2017-09-26] MEDS: LORazepam 2 MG/ML VIAL (J2060) IV (20:47)
[2017-09-26] MEDS: LORazepam 0.5 MG TAB PO (21:00)
[2017-09-26] MEDS ORDERED: risperiDONE 3 MG TAB PO (21:00)
[2017-09-26 22:33] LABS: OSMOLALITY URINE 408 MOSM/KG (500-800)
[2017-09-26 22:33] LABS: CREATININE,RANDOM URINE 66.5 MG/DL; POTASSIUM RANDOM URINE 47.9 MEQ/L; SODIUM,RANDOM URINE 57 MEQ/L
[2017-09-26 23:07] LABS: OSMOLALITY SERUM 306 MOSM/KG (280-301)
[2017-09-26] MEDS: ATORVASTATIN 20 MG TAB PO (23:46)
[2017-09-26] MEDS: SINEMET 25-100 MG TAB PO (23:46)
[2017-09-26] MEDS: risperiDONE 3 MG TAB PO (23:46)
[2017-09-26] MEDS: SENOKOT S TAB PO (23:46)
[2017-09-26] MEDS: PRAMIPEXOLE 1 MG TAB PO (23:46)
[2017-09-26] MEDS: carBAMazepine 200 MG TAB PO (23:47)
[2017-09-26] MEDS: MAGNESIUM OXIDE 400 MG TAB (MAG-OX) PO (23:47)
[2017-09-27] MEDS ORDERED: HEPARIN SOD (PORCINE) 5000 UNITS/ML VIAL SC (06:00)
[2017-09-27 07:31] LABS: BASO % 0.7 % (0.0-1.0); EOS # 0.1 10^3/uL (0.0-0.50); HEMATOCRIT 30.4 % (42.0-52.0); HEMOGLOBIN 10.4 g/dl (14.0-18.0); IMMATURE GRANULOCYTE % 0.3 % (0-3.0); LYMPH # 0.8 10^3/uL (1.5-4.5); LYMPH % 25.2 % (24.0-44.0); MEAN CORPUSCULAR HEMOGLOBIN 32.4 pg (27.0-33.0); MEAN CORPUSCULAR HGB CONC 34.2 g/dl (32.0-36.5); MEAN CORPUSCULAR VOLUME 94.7 fl (80.0-96.0); MONO # 0.3 10^3/uL (0.0-0.8); MONO % 11.1 % (0.0-5.0); NEUTROPHILS # 1.8 10^3/uL (1.8-7.7); NEUTROPHILS % 59.7 % (36.0-66.0); PLATELET COUNT, AUTOMATED 139 10^3/uL (150-450); RED BLOOD COUNT 3.21 10^6/uL (4.30-6.10); RED CELL DISTRIBUTION WIDTH 14.3 % (11.5-14.5); WHITE BLOOD COUNT 3.1 10^3/uL (4.0-10.0)
[2017-09-27 07:57] LABS: ALBUMIN 3.3 GM/DL (3.2-5.2); ALBUMIN/GLOBULIN RATIO 0.94 (1.00-1.93); ALKALINE PHOSPHATASE 130 U/L (45-117); ALT/SGPT 12 U/L (12-78); ANION GAP 7 MEQ/L (8-16); AST/SGOT 33 U/L (7-37); BILIRUBIN,TOTAL 0.4 MG/DL (0.2-1.0); BLOOD UREA NITROGEN 29 MG/DL (7-18); CALCIUM LEVEL 8.2 MG/DL (8.8-10.2); CARBON DIOXIDE LEVEL 26 MEQ/L (21-32); CHLORIDE LEVEL 113 MEQ/L (98-107); CREATININE FOR GFR 1.61 MG/DL (0.70-1.30); GLOMERULAR FILTRATION RATE 45.1 (>42); GLUCOSE, FASTING 84 MG/DL (70-100); MAGNESIUM LEVEL 2.7 MG/DL (1.8-2.4); POTASSIUM SERUM 4.6 MEQ/L (3.5-5.1); SODIUM LEVEL 146 MEQ/L (136-145); TOTAL PROTEIN 6.8 GM/DL (6.4-8.2)
[2017-09-27] MEDS ORDERED: VERAPAMIL 120 MG SR TAB PO (09:00)
[2017-09-27] MEDS ORDERED: VERAPAMIL 180 MG PO (09:00)
[2017-09-27] MEDS: PRIMIDONE 50 MG TAB PO ×2 (10:00→16:43)
[2017-09-27] MEDS: LORazepam 0.5 MG TAB PO ×3 (10:00→20:15)
[2017-09-27] MEDS: PRAMIPEXOLE 1 MG TAB PO ×4 (10:00→20:14)
[2017-09-27] MEDS: VITAMIN E 400 INTERNATIONAL UNITS CAP PO (10:01)
[2017-09-27] MEDS: carBAMazepine 200 MG TAB PO ×2 (10:01→20:14)
[2017-09-27] MEDS: PARoxetine 20 MG TAB PO (10:02)
[2017-09-27] MEDS: risperiDONE 3 MG TAB PO ×2 (10:02→20:13)
[2017-09-27 11:18] LABS: CPK CREATINE PHOSPHOKINASE 147 U/L (39-308)
[2017-09-27] MEDS: SENOKOT S TAB PO ×2 (11:38→20:14)
[2017-09-27] MEDS: LACTULOSE 20 GM/30 ML SYRUP UD PO (11:38)
[2017-09-27] MEDS: SINEMET 25-100 MG TAB PO ×2 (16:42→18:19)
[2017-09-27] MEDS: ASPIRIN 81 MG ENTERIC TAB PO (16:42)
[2017-09-27] MEDS ORDERED: MOM 30ML SUSPENSION UDC PO (17:00)
[2017-09-27] MEDS ORDERED: SOD POLYSTYRENE SULFONATE SUSP 15 GM/60 ML UD PO (17:00)
[2017-09-27] MEDS ORDERED: SLF 3 ML SYR IV (18:00)
[2017-09-27] MEDS: ATORVASTATIN 20 MG TAB PO (20:14)
[2017-09-27] MEDS: MAGNESIUM OXIDE 400 MG TAB (MAG-OX) PO (20:20)
[2017-09-27] MEDS: SLF 3 ML SYR IV (20:21)
[2017-09-28] MEDS: SLF 3 ML SYR IV ×2 (05:38→16:27)
[2017-09-28 05:54] LABS: BASO # 0.1 10^3/uL (0.0-0.2); BASO % 1.3 % (0.0-1.0); EOS # 0.1 10^3/uL (0.0-0.50); EOS % 2.6 % (0.0-3.0); HEMATOCRIT 32.8 % (42.0-52.0); HEMOGLOBIN 11.1 g/dl (14.0-18.0); LYMPH % 27.1 % (24.0-44.0); MEAN CORPUSCULAR HEMOGLOBIN 31.4 pg (27.0-33.0); MEAN CORPUSCULAR HGB CONC 33.8 g/dl (32.0-36.5); MEAN CORPUSCULAR VOLUME 92.9 fl (80.0-96.0); MONO # 0.3 10^3/uL (0.0-0.8); MONO % 8.7 % (0.0-5.0); NEUTROPHILS # 2.3 10^3/uL (1.8-7.7); NEUTROPHILS % 60.3 % (36.0-66.0); PLATELET COUNT, AUTOMATED 167 10^3/uL (150-450); RED BLOOD COUNT 3.53 10^6/uL (4.30-6.10); RED CELL DISTRIBUTION WIDTH 14.2 % (11.5-14.5); WHITE BLOOD COUNT 3.8 10^3/uL (4.0-10.0)
[2017-09-28 06:22] LABS: ALBUMIN 3.5 GM/DL (3.2-5.2); ALBUMIN/GLOBULIN RATIO 0.88 (1.00-1.93); ALKALINE PHOSPHATASE 147 U/L (45-117); ALT/SGPT 27 U/L (12-78); ANION GAP 9 MEQ/L (8-16); AST/SGOT 47 U/L (7-37); BILIRUBIN,TOTAL 0.4 MG/DL (0.2-1.0); BLOOD UREA NITROGEN 25 MG/DL (7-18); CALCIUM LEVEL 8.3 MG/DL (8.8-10.2); CARBON DIOXIDE LEVEL 23 MEQ/L (21-32); CHLORIDE LEVEL 111 MEQ/L (98-107); GLOMERULAR FILTRATION RATE 42.4 (>42); GLUCOSE, FASTING 93 MG/DL (70-100); MAGNESIUM LEVEL 2.6 MG/DL (1.8-2.4); POTASSIUM SERUM 4.6 MEQ/L (3.5-5.1); SODIUM LEVEL 143 MEQ/L (136-145); TOTAL PROTEIN 7.5 GM/DL (6.4-8.2)
[2017-09-28 06:26] LABS: FERRITIN 95 NG/ML (26-388); IRON (FE) 104 UG/DL (65-175); PERCENT SATURATION 38.8 % (19.7-50.0); TOTAL IRON BINDING CAPACITY 268 UG/DL (250-450)
[2017-09-28] MEDS: carBAMazepine 200 MG TAB PO (08:23)
[2017-09-28] MEDS: SENOKOT S TAB PO (08:23)
[2017-09-28] MEDS: LORazepam 0.5 MG TAB PO ×2 (08:23→16:27)
[2017-09-28] MEDS: PARoxetine 20 MG TAB PO (08:23)
[2017-09-28] MEDS: VITAMIN E 400 INTERNATIONAL UNITS CAP PO (08:23)
[2017-09-28] MEDS: risperiDONE 3 MG TAB PO (08:23)
[2017-09-28] MEDS: PRAMIPEXOLE 1 MG TAB PO ×3 (08:23→16:31)
[2017-09-28] MEDS: PRIMIDONE 50 MG TAB PO ×2 (08:24→16:27)
[2017-09-28 09:28] LABS: VITAMIN B12 LEVEL 310 PG/ML (247-911)
[2017-09-28] MEDS: LORazepam 2 MG/ML VIAL (J2060) IV (09:51)
[2017-09-28] MEDS: SINEMET 25-100 MG TAB PO (16:27)
[2017-10-04 00:06] LABS: ALDOS/RENIN RATIO <2.1 (0.0-30.0); ALDOSTERONE <1.0 ng/dL (0.0-30.0); RENIN ACTIVITY 0.468 ng/mL/hr (0.167-5.380)
== END 2017-09-28 17:20 | disposition home or self-care (01) | DRG 641 ==
LOC: M PCU 09-27 16:06 → M ED 17:28 → M PCU 09-27 22:10 → M ED INP 20:43
DX: E87.6 Hypokalemia (principal); F20.81 Schizophreniform disorder; I42.1 Obstructive hypertrophic cardiomyopathy; D61.818 Other pancytopenia; F31.9 Bipolar disorder, unspecified; F41.9 Anxiety disorder, unspecified; J30.9 Allergic rhinitis, unspecified; D63.8 Anemia in other chronic diseases classified elsewhere; N18.3 Chronic kidney disease, stage 3 (moderate); T39.395A Adverse effect of other nonsteroidal anti-inflammatory drugs [NSAID], initial encounter; F79 Unspecified intellectual disabilities; E83.41 Hypermagnesemia; I25.10 Atherosclerotic heart disease of native coronary artery without angina pectoris; E78.5 Hyperlipidemia, unspecified; G25.0 Essential tremor; R13.10 Dysphagia, unspecified; K59.00 Constipation, unspecified; Z79.899 Other long term (current) drug therapy; Z88.8 Allergy status to other drugs, medicaments and biological substances; Z88.1 Allergy status to other antibiotic agents; Z87.891 Personal history of nicotine dependence

== ENCOUNTER → 2017-09-26 | Outpatient (REF) | payer MEDICARE, MEDICAID ==
[2017-09-26 12:15] LABS: AMMONIA 19 uMOL/L (<32)
[2017-09-26 12:15] LABS: ANION GAP 8 MEQ/L (8-16); BLOOD UREA NITROGEN 32 MG/DL (7-18); CALCIUM LEVEL 8.8 MG/DL (8.8-10.2); CARBON DIOXIDE LEVEL 25 MEQ/L (21-32); CHLORIDE LEVEL 112 MEQ/L (98-107); CREATININE FOR GFR 1.84 MG/DL (0.70-1.30); GLOMERULAR FILTRATION RATE 38.7 (>42); GLUCOSE, FASTING 77 MG/DL (70-100); SODIUM LEVEL 145 MEQ/L (136-145)
== END ==
LOC: M SFHCPLAZ 10:55
DX: E87.5 Hyperkalemia (principal); R46.89 Other symptoms and signs involving appearance and behavior
CPT/HCPCS: 82140

== ENCOUNTER 2017-09-30 00:08 | Inpatient (IN) | payer MEDICARE, MEDICAID ==
[2017-09-30 00:20] LABS: BASO % 0.6 % (0.0-1.0); HEMATOCRIT 30.9 % (42.0-52.0); HEMOGLOBIN 10.7 g/dl (14.0-18.0); IMMATURE GRANULOCYTE % 0.2 % (0-3.0); LYMPH # 0.4 10^3/uL (1.5-4.5); LYMPH % 8.2 % (24.0-44.0); MEAN CORPUSCULAR HEMOGLOBIN 32.1 pg (27.0-33.0); MEAN CORPUSCULAR HGB CONC 34.6 g/dl (32.0-36.5); MEAN CORPUSCULAR VOLUME 92.8 fl (80.0-96.0); MONO # 0.4 10^3/uL (0.0-0.8); NEUTROPHILS # 4.3 10^3/uL (1.8-7.7); PLATELET COUNT, AUTOMATED 163 10^3/uL (150-450); RED BLOOD COUNT 3.33 10^6/uL (4.30-6.10); RED CELL DISTRIBUTION WIDTH 14.3 % (11.5-14.5); WHITE BLOOD COUNT 5.1 10^3/uL (4.0-10.0)
[2017-09-30] MEDS: LORazepam 2 MG/ML VIAL (J2060) IV ×4 (00:20→18:26)
[2017-09-30] MEDS: NS 1,000 ML IV ×3 (00:20→18:21)
[2017-09-30 01:04] LABS: AMMONIA 18 uMOL/L (<32)
[2017-09-30 01:28] LABS: BEDSIDE GLUCOSE 100 MG/DL (83-110)
[2017-09-30 01:31] LABS: ALBUMIN/GLOBULIN RATIO 1.18 (1.00-1.93); ALKALINE PHOSPHATASE 153 U/L (45-117); ALT/SGPT 17 U/L (12-78); ANION GAP 12 MEQ/L (8-16); AST/SGOT 32 U/L (7-37); BILIRUBIN,DIRECT 0.1 MG/DL (0.0-0.2); BILIRUBIN,TOTAL 0.5 MG/DL (0.2-1.0); BLOOD UREA NITROGEN 30 MG/DL (7-18); CALCIUM LEVEL 8.2 MG/DL (8.8-10.2); CARBON DIOXIDE LEVEL 24 MEQ/L (21-32); CHLORIDE LEVEL 111 MEQ/L (98-107); CK-MB VALUE MASS 7.8 NG/ML (0.0-3.6); CPK CREATINE PHOSPHOKINASE 486 U/L (39-308); GLOMERULAR FILTRATION RATE 33.2 (>42); GLUCOSE, FASTING 98 MG/DL (70-100); POTASSIUM SERUM 5.1 MEQ/L (3.5-5.1); SALICYLATE LEVEL < 1.7 MG/DL (5.0-30.0); SODIUM LEVEL 147 MEQ/L (136-145); TOTAL PROTEIN 7.4 GM/DL (6.4-8.2); TROPONIN I < 0.02 NG/ML (< 0.10)
[2017-09-30 01:39] LABS: THYROID STIMULATING HORMONE 0.605 uIU/ML (0.358-3.740)
[2017-09-30 01:42] LABS: ACETAMINOPHEN LEVEL < 2.0 UG/ML (10.0-30.0); ETHYL ALCOHOL (ETHANOL) < 0.003 % (0.000-0.010)
[2017-09-30 02:09] LABS: MAGNESIUM LEVEL 2.2 MG/DL (1.8-2.4)
[2017-09-30 03:01] LABS: OSMOLALITY SERUM 306 MOSM/KG (280-301)
[2017-09-30 06:15] LABS: OSMOLALITY SERUM 308 MOSM/KG (280-301)
[2017-09-30] MEDS: HALOPERIDOL 5 MG/ML VIAL (J1630) IV (07:59)
[2017-09-30] MEDS ORDERED: EUCERIN 120GM CREAM TOP (08:00)
[2017-09-30] MEDS: LACTULOSE 20 GM/30 ML SYRUP UD PO (08:46)
[2017-09-30] MEDS: PRIMIDONE 50 MG TAB PO ×2 (08:47→16:00)
[2017-09-30] MEDS: VITAMIN E 400 INTERNATIONAL UNITS CAP PO (08:47)
[2017-09-30] MEDS: PRAMIPEXOLE 1 MG TAB PO ×4 (08:47→22:40)
[2017-09-30] MEDS: DOCUSATE SODIUM 100 MG CAP PO ×2 (08:47→20:53)
[2017-09-30] MEDS: NABUMETONE 500 MG TAB PO (08:47)
[2017-09-30] MEDS: risperiDONE 3 MG TAB PO ×2 (08:47→22:28)
[2017-09-30] MEDS: PARoxetine 20 MG TAB PO (08:47)
[2017-09-30] MEDS: carBAMazepine 200 MG TAB PO ×2 (09:07→22:28)
[2017-09-30] MEDS: SINEMET 25-100 MG TAB PO ×4 (10:37→20:51)
[2017-09-30] MEDS: diltiaZEM **CD** 180 MG CAP PO (10:42)
[2017-09-30 15:28] LABS: ALBUMIN/GLOBULIN RATIO 1.07 (1.00-1.93); ALKALINE PHOSPHATASE 127 U/L (45-117); ALT/SGPT 11 U/L (12-78); AST/SGOT 22 U/L (7-37); BILIRUBIN,DIRECT 0.1 MG/DL (0.0-0.2); BILIRUBIN,TOTAL 0.4 MG/DL (0.2-1.0); LIPASE 50 U/L (73-393)
[2017-09-30 15:54] LABS: TOTAL PROTEIN 5.8 GM/DL (6.4-8.2)
[2017-09-30] MEDS: ASPIRIN 81 MG ENTERIC TAB PO (16:30)
[2017-09-30] MEDS: OLANZapine 5 MG TAB PO ×2 (16:31→22:28)
[2017-09-30] MEDS: MAGNESIUM OXIDE 400 MG TAB (MAG-OX) PO (20:53)
[2017-09-30] MEDS: ATORVASTATIN 20 MG TAB PO (20:53)
[2017-10-01] MEDS: SINEMET 25-100 MG TAB PO ×5 (06:15→18:35)
[2017-10-01 06:36] LABS: BASO % 1.3 % (0.0-1.0); EOS # 0.1 10^3/uL (0.0-0.50); EOS % 2.8 % (0.0-3.0); HEMATOCRIT 27.4 % (42.0-52.0); HEMOGLOBIN 9.3 g/dl (14.0-18.0); IMMATURE GRANULOCYTE % 0.3 % (0-3.0); LYMPH % 32.2 % (24.0-44.0); MEAN CORPUSCULAR HEMOGLOBIN 32.3 pg (27.0-33.0); MEAN CORPUSCULAR HGB CONC 33.9 g/dl (32.0-36.5); MEAN CORPUSCULAR VOLUME 95.1 fl (80.0-96.0); MONO # 0.3 10^3/uL (0.0-0.8); MONO % 8.8 % (0.0-5.0); NEUTROPHILS # 1.7 10^3/uL (1.8-7.7); NEUTROPHILS % 54.6 % (36.0-66.0); PLATELET COUNT, AUTOMATED 128 10^3/uL (150-450); RED BLOOD COUNT 2.88 10^6/uL (4.30-6.10); RED CELL DISTRIBUTION WIDTH 14.7 % (11.5-14.5); WHITE BLOOD COUNT 3.2 10^3/uL (4.0-10.0)
[2017-10-01 07:11] LABS: ALBUMIN 2.9 GM/DL (3.2-5.2); ALBUMIN/GLOBULIN RATIO 0.94 (1.00-1.93); ALKALINE PHOSPHATASE 124 U/L (45-117); ALT/SGPT 11 U/L (12-78); ANION GAP 6 MEQ/L (8-16); AST/SGOT 16 U/L (7-37); BILIRUBIN,TOTAL 0.4 MG/DL (0.2-1.0); BLOOD UREA NITROGEN 25 MG/DL (7-18); CALCIUM LEVEL 7.8 MG/DL (8.8-10.2); CARBON DIOXIDE LEVEL 24 MEQ/L (21-32); CHLORIDE LEVEL 119 MEQ/L (98-107); CREATININE FOR GFR 1.51 MG/DL (0.70-1.30); GLOMERULAR FILTRATION RATE 48.6 (>42); GLUCOSE, FASTING 87 MG/DL (70-100); MAGNESIUM LEVEL 2.6 MG/DL (1.8-2.4); POTASSIUM SERUM 4.4 MEQ/L (3.5-5.1); SODIUM LEVEL 149 MEQ/L (136-145)
[2017-10-01] MEDS: VITAMIN E 400 INTERNATIONAL UNITS CAP PO (10:20)
[2017-10-01] MEDS: PRIMIDONE 50 MG TAB PO ×2 (10:21→16:36)
[2017-10-01] MEDS: DOCUSATE SODIUM 100 MG CAP PO ×2 (10:21→21:12)
[2017-10-01] MEDS: risperiDONE 3 MG TAB PO ×2 (10:21→21:11)
[2017-10-01] MEDS: OLANZapine 5 MG TAB PO ×4 (10:21→21:12)
[2017-10-01] MEDS: carBAMazepine 200 MG TAB PO ×2 (10:21→21:12)
[2017-10-01] MEDS: PARoxetine 20 MG TAB PO (10:21)
[2017-10-01] MEDS: PRAMIPEXOLE 1 MG TAB PO ×4 (10:21→21:11)
[2017-10-01] MEDS: NABUMETONE 500 MG TAB PO (10:22)
[2017-10-01 11:01] LABS: VITAMIN B12 LEVEL 255 PG/ML (247-911)
[2017-10-01 11:02] LABS: FOLATE 8.7 NG/ML (>5.4)
[2017-10-01] MEDS: diltiaZEM **CD** 180 MG CAP PO (11:17)
[2017-10-01] MEDS: ASPIRIN 81 MG ENTERIC TAB PO (16:36)
[2017-10-01] MEDS: ATORVASTATIN 20 MG TAB PO (21:12)
[2017-10-01] MEDS: MAGNESIUM OXIDE 400 MG TAB (MAG-OX) PO (21:12)
[2017-10-01] MEDS: LORazepam 2 MG/ML VIAL (J2060) IV (23:38)
[2017-10-02] MEDS: LORazepam 0.5 MG TAB PO (01:01)
[2017-10-02] MEDS ORDERED: LORazepam 1 MG TAB PO (06:00)
[2017-10-02] MEDS: SINEMET 25-100 MG TAB PO ×5 (06:53→18:41)
[2017-10-02 06:55] LABS: BASO % 0.7 % (0.0-1.0); EOS # 0.1 10^3/uL (0.0-0.50); EOS % 2.5 % (0.0-3.0); HEMATOCRIT 27.9 % (42.0-52.0); HEMOGLOBIN 9.6 g/dl (14.0-18.0); IMMATURE GRANULOCYTE % 0.2 % (0-3.0); LYMPH # 0.7 10^3/uL (1.5-4.5); LYMPH % 18.2 % (24.0-44.0); MEAN CORPUSCULAR HEMOGLOBIN 32.8 pg (27.0-33.0); MEAN CORPUSCULAR HGB CONC 34.4 g/dl (32.0-36.5); MEAN CORPUSCULAR VOLUME 95.2 fl (80.0-96.0); MONO # 0.3 10^3/uL (0.0-0.8); MONO % 8.1 % (0.0-5.0); NEUTROPHILS # 2.9 10^3/uL (1.8-7.7); NEUTROPHILS % 70.3 % (36.0-66.0); PLATELET COUNT, AUTOMATED 139 10^3/uL (150-450); RED BLOOD COUNT 2.93 10^6/uL (4.30-6.10); RED CELL DISTRIBUTION WIDTH 14.8 % (11.5-14.5); WHITE BLOOD COUNT 4.1 10^3/uL (4.0-10.0)
[2017-10-02 07:14] LABS: ALBUMIN 2.9 GM/DL (3.2-5.2); ALBUMIN/GLOBULIN RATIO 0.91 (1.00-1.93); ALKALINE PHOSPHATASE 132 U/L (45-117); ALT/SGPT 10 U/L (12-78); ANION GAP 6 MEQ/L (8-16); AST/SGOT 15 U/L (7-37); BILIRUBIN,TOTAL 0.5 MG/DL (0.2-1.0); BLOOD UREA NITROGEN 21 MG/DL (7-18); CALCIUM LEVEL 7.9 MG/DL (8.8-10.2); CARBON DIOXIDE LEVEL 25 MEQ/L (21-32); CHLORIDE LEVEL 119 MEQ/L (98-107); GLUCOSE, FASTING 83 MG/DL (70-100); LIPASE 48 U/L (73-393); MAGNESIUM LEVEL 2.5 MG/DL (1.8-2.4); POTASSIUM SERUM 4.4 MEQ/L (3.5-5.1); SODIUM LEVEL 150 MEQ/L (136-145); TOTAL PROTEIN 6.1 GM/DL (6.4-8.2)
[2017-10-02 08:58] LABS: CHOLESTEROL LEVEL 140 MG/DL (<200); CHOLESTEROL RISK RATIO 1.917 (<5); HDL CHOLESTEROL 73 MG/DL (>40); LDL CHOLESTEROL 44.6 MG/DL (<100); NON-HDL-C 67 MG/DL; TRIGLYCERIDES LEVEL 112 MG/DL (<150)
[2017-10-02] MEDS: PRAMIPEXOLE 1 MG TAB PO ×4 (09:18→22:13)
[2017-10-02] MEDS: DOCUSATE SODIUM 100 MG CAP PO ×2 (09:18→22:13)
[2017-10-02] MEDS: NABUMETONE 500 MG TAB PO (09:20)
[2017-10-02] MEDS: VITAMIN E 400 INTERNATIONAL UNITS CAP PO (09:20)
[2017-10-02] MEDS: risperiDONE 3 MG TAB PO ×2 (09:21→22:13)
[2017-10-02] MEDS: PARoxetine 20 MG TAB PO (09:21)
[2017-10-02] MEDS: PRIMIDONE 50 MG TAB PO ×2 (09:21→16:56)
[2017-10-02] MEDS: carBAMazepine 200 MG TAB PO ×2 (09:21→22:13)
[2017-10-02] MEDS: OLANZapine 5 MG TAB PO ×4 (09:21→22:12)
[2017-10-02] MEDS: diltiaZEM **CD** 180 MG CAP PO (09:21)
[2017-10-02] MEDS: D5W/0.45% SODIUM CHLORIDE 1,000 ML IV ×2 (12:58→22:13)
[2017-10-02] MEDS: ASPIRIN 81 MG ENTERIC TAB PO (16:56)
[2017-10-02] MEDS: LORazepam 2 MG/ML VIAL (J2060) IV (17:08)
[2017-10-02] MEDS: ATORVASTATIN 20 MG TAB PO (22:13)
[2017-10-02] MEDS: MAGNESIUM OXIDE 400 MG TAB (MAG-OX) PO (22:13)
[2017-10-03] MEDS: SINEMET 25-100 MG TAB PO ×5 (06:46→18:21)
[2017-10-03 07:00] LABS: BASO % 0.6 % (0.0-1.0); EOS # 0.1 10^3/uL (0.0-0.50); EOS % 2.3 % (0.0-3.0); HEMATOCRIT 28.5 % (42.0-52.0); HEMOGLOBIN 9.7 g/dl (14.0-18.0); IMMATURE GRANULOCYTE % 0.3 % (0-3.0); LYMPH # 0.7 10^3/uL (1.5-4.5); LYMPH % 20.1 % (24.0-44.0); MEAN CORPUSCULAR HEMOGLOBIN 32.1 pg (27.0-33.0); MEAN CORPUSCULAR VOLUME 94.4 fl (80.0-96.0); MONO # 0.3 10^3/uL (0.0-0.8); NEUTROPHILS # 2.3 10^3/uL (1.8-7.7); NEUTROPHILS % 67.7 % (36.0-66.0); PLATELET COUNT, AUTOMATED 154 10^3/uL (150-450); RED BLOOD COUNT 3.02 10^6/uL (4.30-6.10); RED CELL DISTRIBUTION WIDTH 15.1 % (11.5-14.5); WHITE BLOOD COUNT 3.4 10^3/uL (4.0-10.0)
[2017-10-03 07:30] LABS: ALBUMIN 2.9 GM/DL (3.2-5.2); ALBUMIN/GLOBULIN RATIO 0.85 (1.00-1.93); ALKALINE PHOSPHATASE 132 U/L (45-117); ALT/SGPT 10 U/L (12-78); ANION GAP 7 MEQ/L (8-16); AST/SGOT 13 U/L (7-37); BILIRUBIN,TOTAL 0.5 MG/DL (0.2-1.0); BLOOD UREA NITROGEN 19 MG/DL (7-18); CALCIUM LEVEL 7.8 MG/DL (8.8-10.2); CARBON DIOXIDE LEVEL 25 MEQ/L (21-32); CHLORIDE LEVEL 112 MEQ/L (98-107); CREATININE FOR GFR 1.57 MG/DL (0.70-1.30); GLOMERULAR FILTRATION RATE 46.5 (>42); GLUCOSE, FASTING 100 MG/DL (70-100); MAGNESIUM LEVEL 2.3 MG/DL (1.8-2.4); POTASSIUM SERUM 4.4 MEQ/L (3.5-5.1); SODIUM LEVEL 144 MEQ/L (136-145); TOTAL PROTEIN 6.3 GM/DL (6.4-8.2)
[2017-10-03] MEDS: VITAMIN E 400 INTERNATIONAL UNITS CAP PO (09:29)
[2017-10-03] MEDS: carBAMazepine 200 MG TAB PO ×2 (09:29→21:06)
[2017-10-03] MEDS: NABUMETONE 500 MG TAB PO (09:29)
[2017-10-03] MEDS: DOCUSATE SODIUM 100 MG CAP PO ×2 (09:29→21:06)
[2017-10-03] MEDS: PRAMIPEXOLE 1 MG TAB PO ×4 (09:30→21:06)
[2017-10-03] MEDS: risperiDONE 3 MG TAB PO ×2 (09:30→21:05)
[2017-10-03] MEDS: diltiaZEM **CD** 180 MG CAP PO (09:30)
[2017-10-03] MEDS: OLANZapine 5 MG TAB PO ×4 (09:30→21:05)
[2017-10-03] MEDS: PARoxetine 20 MG TAB PO (09:30)
[2017-10-03] MEDS: PRIMIDONE 50 MG TAB PO ×2 (09:30→17:01)
[2017-10-03] MEDS: ASPIRIN 81 MG ENTERIC TAB PO (17:01)
[2017-10-03] MEDS: MAGNESIUM OXIDE 400 MG TAB (MAG-OX) PO (21:05)
[2017-10-03] MEDS: ATORVASTATIN 20 MG TAB PO (21:06)
[2017-10-04] MEDS: SINEMET 25-100 MG TAB PO ×3 (06:12→12:27)
[2017-10-04 07:09] LABS: BASO % 0.7 % (0.0-1.0); EOS # 0.1 10^3/uL (0.0-0.50); EOS % 2.8 % (0.0-3.0); HEMATOCRIT 30.4 % (42.0-52.0); HEMOGLOBIN 10.3 g/dl (14.0-18.0); IMMATURE GRANULOCYTE % 0.3 % (0-3.0); LYMPH # 0.7 10^3/uL (1.5-4.5); MEAN CORPUSCULAR HGB CONC 33.9 g/dl (32.0-36.5); MEAN CORPUSCULAR VOLUME 94.4 fl (80.0-96.0); MONO # 0.3 10^3/uL (0.0-0.8); MONO % 11.1 % (0.0-5.0); NEUTROPHILS # 1.8 10^3/uL (1.8-7.7); NEUTROPHILS % 61.1 % (36.0-66.0); PLATELET COUNT, AUTOMATED 161 10^3/uL (150-450); RED BLOOD COUNT 3.22 10^6/uL (4.30-6.10); RED CELL DISTRIBUTION WIDTH 14.8 % (11.5-14.5); WHITE BLOOD COUNT 2.9 10^3/uL (4.0-10.0)
[2017-10-04 07:25] LABS: ALBUMIN/GLOBULIN RATIO 0.83 (1.00-1.93); ALKALINE PHOSPHATASE 151 U/L (45-117); ALT/SGPT 7 U/L (12-78); ANION GAP 6 MEQ/L (8-16); AST/SGOT 14 U/L (7-37); BILIRUBIN,TOTAL 0.5 MG/DL (0.2-1.0); BLOOD UREA NITROGEN 16 MG/DL (7-18); CALCIUM LEVEL 7.7 MG/DL (8.8-10.2); CARBON DIOXIDE LEVEL 23 MEQ/L (21-32); CHLORIDE LEVEL 118 MEQ/L (98-107); CREATININE FOR GFR 1.45 MG/DL (0.70-1.30); GLOMERULAR FILTRATION RATE 50.9 (>42); GLUCOSE, FASTING 92 MG/DL (70-100); MAGNESIUM LEVEL 2.4 MG/DL (1.8-2.4); POTASSIUM SERUM 4.7 MEQ/L (3.5-5.1); SODIUM LEVEL 147 MEQ/L (136-145); TOTAL PROTEIN 6.6 GM/DL (6.4-8.2)
[2017-10-04] MEDS: risperiDONE 3 MG TAB PO (08:42)
[2017-10-04] MEDS: NABUMETONE 500 MG TAB PO (08:42)
[2017-10-04] MEDS: carBAMazepine 200 MG TAB PO (08:42)
[2017-10-04] MEDS: OLANZapine 5 MG TAB PO ×2 (08:42→12:27)
[2017-10-04] MEDS: DOCUSATE SODIUM 100 MG CAP PO (08:42)
[2017-10-04] MEDS: PARoxetine 20 MG TAB PO (08:42)
[2017-10-04] MEDS: PRIMIDONE 50 MG TAB PO (08:42)
[2017-10-04] MEDS: PRAMIPEXOLE 1 MG TAB PO ×2 (08:42→12:27)
[2017-10-04] MEDS: VITAMIN E 400 INTERNATIONAL UNITS CAP PO (08:42)
[2017-10-04] MEDS: diltiaZEM **CD** 180 MG CAP PO (08:43)
== END 2017-10-04 14:13 | disposition home or self-care (01) | DRG 683 ==
LOC: M ED 00:08 → M ED INP 03:43 → M MS4PR 20:38
DX: N17.9 Acute kidney failure, unspecified (principal); F20.81 Schizophreniform disorder; I42.1 Obstructive hypertrophic cardiomyopathy; E27.40 Unspecified adrenocortical insufficiency; F03.91 Unspecified dementia, unspecified severity, with behavioral disturbance; R41.0 Disorientation, unspecified; F31.9 Bipolar disorder, unspecified; D64.9 Anemia, unspecified; E87.5 Hyperkalemia; F41.9 Anxiety disorder, unspecified; F79 Unspecified intellectual disabilities; I25.10 Atherosclerotic heart disease of native coronary artery without angina pectoris; K59.00 Constipation, unspecified; E78.5 Hyperlipidemia, unspecified; R13.10 Dysphagia, unspecified; Z79.82 Long term (current) use of aspirin; Z79.899 Other long term (current) drug therapy; Z88.1 Allergy status to other antibiotic agents; Z88.8 Allergy status to other drugs, medicaments and biological substances; Z87.891 Personal history of nicotine dependence; S50.01XA Contusion of right elbow, initial encounter; S50.02XA Contusion of left elbow, initial encounter; W01.0XXA Fall on same level from slipping, tripping and stumbling without subsequent striking against object, initial encounter; Y92.238 Other place in hospital as the place of occurrence of the external cause

== ENCOUNTER 2017-10-05 09:39 | Emergency (ER) | payer MEDICARE, MEDICAID | END 2017-10-05 12:00 | disposition home or self-care (01) | LOC: M ED 09:39 | DX: S60.211A Contusion of right wrist, initial encounter (principal); X58.XXXA Exposure to other specified factors, initial encounter; Y92.239 Unspecified place in hospital as the place of occurrence of the external cause; Y93.89 Activity, other specified; M85.68 Other cyst of bone, other site; I10 Essential (primary) hypertension; Z86.73 Personal history of transient ischemic attack (TIA), and cerebral infarction without residual deficits; F32.9 Major depressive disorder, single episode, unspecified; F20.9 Schizophrenia, unspecified; F79 Unspecified intellectual disabilities; J45.909 Unspecified asthma, uncomplicated; N18.3 Chronic kidney disease, stage 3 (moderate); E87.5 Hyperkalemia; J30.9 Allergic rhinitis, unspecified; Z79.82 Long term (current) use of aspirin; Z79.899 Other long term (current) drug therapy; Z88.1 Allergy status to other antibiotic agents; Z88.8 Allergy status to other drugs, medicaments and biological substances | CPT/HCPCS: 73110 ==

== ENCOUNTER → 2017-10-08 | Outpatient (CLI) | payer MEDICARE, MEDICAID ==
[2017-10-08 07:16] LABS: HEMATOCRIT 30.4 % (42.0-52.0); HEMOGLOBIN 10.3 g/dl (14.0-18.0); MEAN CORPUSCULAR HGB CONC 33.9 g/dl (32.0-36.5); MEAN CORPUSCULAR VOLUME 94.4 fl (80.0-96.0); PLATELET COUNT, AUTOMATED 156 10^3/uL (150-450); RED BLOOD COUNT 3.22 10^6/uL (4.30-6.10); RED CELL DISTRIBUTION WIDTH 15.2 % (11.5-14.5); WHITE BLOOD COUNT 2.1 10^3/uL (4.0-10.0)
[2017-10-08 07:40] LABS: ALBUMIN 3.3 GM/DL (3.2-5.2); ALKALINE PHOSPHATASE 150 U/L (45-117); ALT/SGPT 10 U/L (12-78); ANION GAP 5 MEQ/L (8-16); AST/SGOT 19 U/L (7-37); BILIRUBIN,TOTAL 0.3 MG/DL (0.2-1.0); BLOOD UREA NITROGEN 20 MG/DL (7-18); CALCIUM LEVEL 8.2 MG/DL (8.8-10.2); CARBON DIOXIDE LEVEL 28 MEQ/L (21-32); CHLORIDE LEVEL 113 MEQ/L (98-107); CREATININE FOR GFR 1.43 MG/DL (0.70-1.30); GLOMERULAR FILTRATION RATE 51.8 (>42); GLUCOSE, FASTING 83 MG/DL (70-100); POTASSIUM SERUM 4.7 MEQ/L (3.5-5.1); SODIUM LEVEL 146 MEQ/L (136-145); TOTAL PROTEIN 6.6 GM/DL (6.4-8.2)
== END ==
LOC: M LAB 06:24
DX: F31.9 Bipolar disorder, unspecified (principal)
CPT/HCPCS: 80053

== ENCOUNTER 2017-10-11 10:30 | Inpatient (IN) | payer MEDICARE, MEDICAID ==
[2017-10-11 11:38] LABS: BEDSIDE GLUCOSE 87 MG/DL (83-110)
[2017-10-11 11:40] LABS: BASO % 0.9 % (0.0-1.0); EOS # 0.1 10^3/uL (0.0-0.50); EOS % 2.3 % (0.0-3.0); HEMATOCRIT 28.1 % (42.0-52.0); HEMOGLOBIN 9.6 g/dl (14.0-18.0); IMMATURE GRANULOCYTE % 0.5 % (0-3.0); LYMPH # 0.5 10^3/uL (1.5-4.5); LYMPH % 23.6 % (24.0-44.0); MEAN CORPUSCULAR HGB CONC 34.2 g/dl (32.0-36.5); MEAN CORPUSCULAR VOLUME 93.7 fl (80.0-96.0); MONO # 0.2 10^3/uL (0.0-0.8); MONO % 9.7 % (0.0-5.0); NEUTROPHILS # 1.4 10^3/uL (1.8-7.7); PLATELET COUNT, AUTOMATED 126 10^3/uL (150-450); WHITE BLOOD COUNT 2.2 10^3/uL (4.0-10.0)
[2017-10-11 12:13] LABS: AMMONIA 14 uMOL/L (<32)
[2017-10-11 12:17] LABS: ABG BASE EXCESS -3.3 (-2.0-2.0); ABG HCO3 22.9 MEQ/L (22.0-26.0); ABG O2 SATURATION 95.7 % (95.0-99.0); ABG PARTIAL PRESSURE CO2 46.1 mmHg (35.0-45.0); ABG STANDARD HCO3 21.7 MEQ/L (22.0-26.0); ABG TOTAL CO2 24.3 MEQ/L (23.0-31.0); ABG pH (ARTERIAL) 7.314 UNITS (7.350-7.450)
[2017-10-11 12:29] LABS: LACTIC ACID SEPSIS PROTOCOL 0.7 MMOL/L (0.4-2.0)
[2017-10-11 12:33] LABS: ALBUMIN 3.1 GM/DL (3.2-5.2); ALBUMIN/GLOBULIN RATIO 1.07 (1.00-1.93); ALKALINE PHOSPHATASE 130 U/L (45-117); ALT/SGPT 11 U/L (12-78); ANION GAP 5 MEQ/L (8-16); AST/SGOT 21 U/L (7-37); BILIRUBIN,DIRECT < 0.1 MG/DL (0.0-0.2); BILIRUBIN,TOTAL 0.3 MG/DL (0.2-1.0); BLOOD UREA NITROGEN 31 MG/DL (7-18); CALCIUM LEVEL 7.6 MG/DL (8.8-10.2); CARBON DIOXIDE LEVEL 26 MEQ/L (21-32); CHLORIDE LEVEL 116 MEQ/L (98-107); CPK CREATINE PHOSPHOKINASE 43 U/L (39-308); CREATININE FOR GFR 1.32 MG/DL (0.70-1.30); GLOMERULAR FILTRATION RATE 56.8 (>42); GLUCOSE, FASTING 85 MG/DL (70-100); SODIUM LEVEL 147 MEQ/L (136-145); TROPONIN I < 0.02 NG/ML (< 0.10)
[2017-10-11 12:39] LABS: CK-MB VALUE MASS 2.9 NG/ML (0.0-3.6); MB/CK RELATIVE INDEX 6.74 (< OR =4); POTASSIUM SERUM 5.6 MEQ/L (3.5-5.1)
[2017-10-11] MEDS ORDERED: SODIUM CHLORIDE 0.9% 1000 ML IV (13:45)
[2017-10-11] MEDS ORDERED: LR 1,000 ML IV (13:45)
[2017-10-11 13:58] LABS: OSMOLALITY SERUM 309 MOSM/KG (280-301)
[2017-10-11] MEDS: SOD POLYSTYRENE SULFONATE SUSP 15 GM/60 ML UD PO (14:20)
[2017-10-11] MEDS: NS 1,000 ML IV (14:20)
[2017-10-11] MEDS: MAGNESIUM OXIDE 400 MG TAB (MAG-OX) PO (20:57)
[2017-10-11] MEDS: DOCUSATE SODIUM 100 MG CAP PO (20:57)
[2017-10-11] MEDS: ASPIRIN 81 MG ENTERIC TAB PO (20:57)
[2017-10-11] MEDS: ATORVASTATIN 20 MG TAB PO (20:57)
[2017-10-11] MEDS: risperiDONE 3 MG TAB PO (20:58)
[2017-10-11] MEDS: PRAMIPEXOLE 1 MG TAB PO (20:58)
[2017-10-11] MEDS: HEPARIN SOD (PORCINE) 5000 UNITS/ML VIAL SQ ×2 (20:58→21:00)
[2017-10-12 05:18] LABS: HEMOGLOBIN 9.8 g/dl (14.0-18.0); MEAN CORPUSCULAR HEMOGLOBIN 31.8 pg (27.0-33.0); MEAN CORPUSCULAR HGB CONC 33.8 g/dl (32.0-36.5); MEAN CORPUSCULAR VOLUME 94.2 fl (80.0-96.0); PLATELET COUNT, AUTOMATED 137 10^3/uL (150-450); RED BLOOD COUNT 3.08 10^6/uL (4.30-6.10); RED CELL DISTRIBUTION WIDTH 14.7 % (11.5-14.5); WHITE BLOOD COUNT 2.4 10^3/uL (4.0-10.0)
[2017-10-12 05:41] LABS: ANION GAP 4 MEQ/L (8-16); BLOOD UREA NITROGEN 27 MG/DL (7-18); CALCIUM LEVEL 8.3 MG/DL (8.8-10.2); CARBON DIOXIDE LEVEL 28 MEQ/L (21-32); CHLORIDE LEVEL 116 MEQ/L (98-107); CREATININE FOR GFR 1.43 MG/DL (0.70-1.30); GLOMERULAR FILTRATION RATE 51.8 (>42); GLUCOSE, FASTING 74 MG/DL (70-100); SODIUM LEVEL 148 MEQ/L (136-145)
[2017-10-12 05:45] LABS: POTASSIUM SERUM 5.5 MEQ/L (3.5-5.1)
[2017-10-12] MEDS: HEPARIN SOD (PORCINE) 5000 UNITS/ML VIAL SQ ×3 (08:34→21:09)
[2017-10-12] MEDS: risperiDONE 3 MG TAB PO ×2 (08:34→21:08)
[2017-10-12] MEDS: DOCUSATE SODIUM 100 MG CAP PO ×2 (08:34→21:08)
[2017-10-12] MEDS: PRAMIPEXOLE 1 MG TAB PO ×4 (08:34→21:08)
[2017-10-12] MEDS: D5W 500 ML IV ×2 (13:34→15:50)
[2017-10-12] MEDS: SOD POLYSTYRENE SULFONATE SUSP 15 GM/60 ML UD PO (13:34)
[2017-10-12] MEDS: ASPIRIN 81 MG ENTERIC TAB PO (15:50)
[2017-10-12] MEDS: ATORVASTATIN 20 MG TAB PO (21:08)
[2017-10-12] MEDS: MAGNESIUM OXIDE 400 MG TAB (MAG-OX) PO (21:08)
[2017-10-13 07:04] LABS: HEMATOCRIT 30.9 % (42.0-52.0); HEMOGLOBIN 10.4 g/dl (14.0-18.0); MEAN CORPUSCULAR HEMOGLOBIN 31.7 pg (27.0-33.0); MEAN CORPUSCULAR HGB CONC 33.7 g/dl (32.0-36.5); MEAN CORPUSCULAR VOLUME 94.2 fl (80.0-96.0); PLATELET COUNT, AUTOMATED 155 10^3/uL (150-450); RED BLOOD COUNT 3.28 10^6/uL (4.30-6.10); RED CELL DISTRIBUTION WIDTH 14.7 % (11.5-14.5); WHITE BLOOD COUNT 2.7 10^3/uL (4.0-10.0)
[2017-10-13 07:21] LABS: ANION GAP 5 MEQ/L (8-16); BLOOD UREA NITROGEN 25 MG/DL (7-18); CALCIUM LEVEL 8.5 MG/DL (8.8-10.2); CARBON DIOXIDE LEVEL 27 MEQ/L (21-32); CHLORIDE LEVEL 118 MEQ/L (98-107); CREATININE FOR GFR 1.59 MG/DL (0.70-1.30); GLOMERULAR FILTRATION RATE 45.8 (>42); GLUCOSE, FASTING 80 MG/DL (70-100); SODIUM LEVEL 150 MEQ/L (136-145)
[2017-10-13 07:26] LABS: POTASSIUM SERUM 5.5 MEQ/L (3.5-5.1)
[2017-10-13] MEDS: PRAMIPEXOLE 1 MG TAB PO ×4 (09:33→21:37)
[2017-10-13] MEDS: risperiDONE 3 MG TAB PO (09:33)
[2017-10-13] MEDS: DOCUSATE SODIUM 100 MG CAP PO ×2 (09:33→21:37)
[2017-10-13] MEDS: HEPARIN SOD (PORCINE) 5000 UNITS/ML VIAL SQ ×3 (09:34→21:38)
[2017-10-13] MEDS: BENZTROPINE 0.5 MG TAB PO ×2 (11:59→21:37)
[2017-10-13] MEDS: SOD POLYSTYRENE SULFONATE SUSP 15 GM/60 ML UD PO (15:01)
[2017-10-13] MEDS: ASPIRIN 81 MG ENTERIC TAB PO (15:01)
[2017-10-13] MEDS: risperiDONE 2 MG TAB PO (21:37)
[2017-10-13] MEDS: ATORVASTATIN 20 MG TAB PO (21:37)
[2017-10-13] MEDS: MAGNESIUM OXIDE 400 MG TAB (MAG-OX) PO (21:37)
[2017-10-14] MEDS: ONDANSETRON 4MG/2ML VIAL (J2405) IV (01:27)
[2017-10-14 06:59] LABS: HEMATOCRIT 31.8 % (42.0-52.0); HEMOGLOBIN 10.7 g/dl (14.0-18.0); MEAN CORPUSCULAR HGB CONC 33.6 g/dl (32.0-36.5); MEAN CORPUSCULAR VOLUME 95.2 fl (80.0-96.0); PLATELET COUNT, AUTOMATED 133 10^3/uL (150-450); RED BLOOD COUNT 3.34 10^6/uL (4.30-6.10); RED CELL DISTRIBUTION WIDTH 14.5 % (11.5-14.5); WHITE BLOOD COUNT 3.6 10^3/uL (4.0-10.0)
[2017-10-14 07:21] LABS: ANION GAP 8 MEQ/L (8-16); BLOOD UREA NITROGEN 26 MG/DL (7-18); CALCIUM LEVEL 8.5 MG/DL (8.8-10.2); CARBON DIOXIDE LEVEL 24 MEQ/L (21-32); CHLORIDE LEVEL 115 MEQ/L (98-107); CREATININE FOR GFR 1.76 MG/DL (0.70-1.30); GLOMERULAR FILTRATION RATE 40.7 (>42); GLUCOSE, FASTING 89 MG/DL (70-100); SODIUM LEVEL 147 MEQ/L (136-145)
[2017-10-14 07:55] LABS: POTASSIUM SERUM 6.3 MEQ/L (3.5-5.1)
[2017-10-14] MEDS: risperiDONE 2 MG TAB PO ×2 (08:19→21:00)
[2017-10-14] MEDS: DOCUSATE SODIUM 100 MG CAP PO ×2 (08:19→21:00)
[2017-10-14] MEDS: BENZTROPINE 0.5 MG TAB PO ×2 (08:19→21:00)
[2017-10-14] MEDS: PRAMIPEXOLE 1 MG TAB PO ×4 (08:19→21:00)
[2017-10-14] MEDS: HEPARIN SOD (PORCINE) 5000 UNITS/ML VIAL SQ ×2 (08:20→21:00)
[2017-10-14] MEDS: MAGNESIUM CITRATE 300 ML BTL PO (14:10)
[2017-10-14] MEDS: SOD POLYSTYRENE SULFONATE SUSP 15 GM/60 ML UD PO ×3 (14:10→22:26)
[2017-10-14] MEDS: SODIUM BICARBONATE 8.4% INJ 50 ML SYRINGE IV (15:45)
[2017-10-14] MEDS: ASPIRIN 81 MG ENTERIC TAB PO (15:49)
[2017-10-14] MEDS: D5W 1,000 ML IV (15:50)
[2017-10-14 16:11] LABS: ANION GAP 4 MEQ/L (8-16); BLOOD UREA NITROGEN 24 MG/DL (7-18); CALCIUM LEVEL 8.6 MG/DL (8.8-10.2); CARBON DIOXIDE LEVEL 27 MEQ/L (21-32); CHLORIDE LEVEL 112 MEQ/L (98-107); CREATININE FOR GFR 1.79 MG/DL (0.70-1.30); GLOMERULAR FILTRATION RATE 39.9 (>42); GLUCOSE, FASTING 96 MG/DL (70-100); POTASSIUM SERUM 5.6 MEQ/L (3.5-5.1); SODIUM LEVEL 143 MEQ/L (136-145)
[2017-10-14 16:36] LABS: KETONE, URINE AUTO RFX NEGATIVE (NEGATIVE); LEUKOCYTE ESTERASE UR AUTO RFX NEGATIVE (NEGATIVE); NITRITE, URINE AUTO RFX NEGATIVE (NEGATIVE); RBC, URINE AUTO RFX 0 /HPF (0-3); SPECIFIC GRAVITY UR AUTO RFX 1.005 (1.002-1.035); SQUAM EPITHELIAL CELL UR AURFX 0 /HPF (0-6); WBC, URINE AUTO RFX 0 /HPF (0-3)
[2017-10-14] MEDS: LORazepam 1 MG TAB PO (16:59)
[2017-10-14] MEDS: SINEMET 25-100 MG TAB PO ×2 (16:59→21:00)
[2017-10-14] MEDS: OLANZapine 5 MG TAB PO ×2 (16:59→21:00)
[2017-10-14] MEDS: PRIMIDONE 50 MG TAB PO (17:46)
[2017-10-14] MEDS: carBAMazepine 200 MG TAB PO (21:00)
[2017-10-14] MEDS: SENOKOT S TAB PO (21:00)
[2017-10-14] MEDS: ATORVASTATIN 20 MG TAB PO (21:00)
[2017-10-14] MEDS: MAGNESIUM OXIDE 400 MG TAB (MAG-OX) PO (21:00)
[2017-10-14] MEDS: LORazepam 2 MG/ML VIAL (J2060) IV (23:05)
[2017-10-15] MEDS: HALOPERIDOL 5 MG/ML VIAL (J1630) IM (00:38)
[2017-10-15] MEDS: SINEMET 25-100 MG TAB PO ×5 (06:00→20:16)
[2017-10-15 08:12] LABS: HEMOGLOBIN 11.2 g/dl (14.0-18.0); MEAN CORPUSCULAR HEMOGLOBIN 32.3 pg (27.0-33.0); MEAN CORPUSCULAR HGB CONC 33.9 g/dl (32.0-36.5); MEAN CORPUSCULAR VOLUME 95.1 fl (80.0-96.0); PLATELET COUNT, AUTOMATED 140 10^3/uL (150-450); RED BLOOD COUNT 3.47 10^6/uL (4.30-6.10); RED CELL DISTRIBUTION WIDTH 14.5 % (11.5-14.5); WHITE BLOOD COUNT 4.4 10^3/uL (4.0-10.0)
[2017-10-15] MEDS: carBAMazepine 200 MG TAB PO ×2 (08:25→20:16)
[2017-10-15] MEDS: risperiDONE 2 MG TAB PO ×2 (08:25→20:16)
[2017-10-15] MEDS: DOCUSATE SODIUM 100 MG CAP PO ×2 (08:25→20:16)
[2017-10-15] MEDS: OLANZapine 5 MG TAB PO ×4 (08:25→20:16)
[2017-10-15] MEDS: PRIMIDONE 50 MG TAB PO ×2 (08:25→16:48)
[2017-10-15] MEDS: SENOKOT S TAB PO ×2 (08:25→20:16)
[2017-10-15] MEDS: PARoxetine 20 MG TAB PO (08:26)
[2017-10-15] MEDS: PRAMIPEXOLE 1 MG TAB PO ×4 (08:26→20:16)
[2017-10-15] MEDS: BENZTROPINE 0.5 MG TAB PO ×2 (08:26→20:16)
[2017-10-15 08:27] LABS: ANION GAP 6 MEQ/L (8-16); BLOOD UREA NITROGEN 22 MG/DL (7-18); CALCIUM LEVEL 8.6 MG/DL (8.8-10.2); CARBON DIOXIDE LEVEL 26 MEQ/L (21-32); CHLORIDE LEVEL 112 MEQ/L (98-107); CREATININE FOR GFR 1.74 MG/DL (0.70-1.30); GLOMERULAR FILTRATION RATE 41.3 (>42); GLUCOSE, FASTING 132 MG/DL (70-100); SODIUM LEVEL 144 MEQ/L (136-145)
[2017-10-15] MEDS: SOD POLYSTYRENE SULFONATE SUSP 15 GM/60 ML UD PO ×3 (08:27→20:32)
[2017-10-15 08:30] LABS: POTASSIUM SERUM 5.3 MEQ/L (3.5-5.1)
[2017-10-15] MEDS: HEPARIN SOD (PORCINE) 5000 UNITS/ML VIAL SQ ×2 (08:43→20:13)
[2017-10-15] MEDS: LORazepam 1 MG TAB PO ×2 (12:32→20:17)
[2017-10-15] MEDS: ASPIRIN 81 MG ENTERIC TAB PO (16:37)
[2017-10-15] MEDS: MAGNESIUM OXIDE 400 MG TAB (MAG-OX) PO (20:13)
[2017-10-15] MEDS: ATORVASTATIN 20 MG TAB PO (20:16)
[2017-10-16] MEDS: SINEMET 25-100 MG TAB PO ×6 (05:35→21:07)
[2017-10-16 06:27] LABS: HEMATOCRIT 32.1 % (42.0-52.0); HEMOGLOBIN 10.7 g/dl (14.0-18.0); MEAN CORPUSCULAR HEMOGLOBIN 31.3 pg (27.0-33.0); MEAN CORPUSCULAR HGB CONC 33.3 g/dl (32.0-36.5); MEAN CORPUSCULAR VOLUME 93.9 fl (80.0-96.0); PLATELET COUNT, AUTOMATED 137 10^3/uL (150-450); RED BLOOD COUNT 3.42 10^6/uL (4.30-6.10); RED CELL DISTRIBUTION WIDTH 14.3 % (11.5-14.5); WHITE BLOOD COUNT 3.9 10^3/uL (4.0-10.0)
[2017-10-16 07:06] LABS: ANION GAP 5 MEQ/L (8-16); BLOOD UREA NITROGEN 21 MG/DL (7-18); CALCIUM LEVEL 8.4 MG/DL (8.8-10.2); CARBON DIOXIDE LEVEL 30 MEQ/L (21-32); CHLORIDE LEVEL 107 MEQ/L (98-107); CREATININE FOR GFR 1.59 MG/DL (0.70-1.30); GLOMERULAR FILTRATION RATE 45.8 (>42); GLUCOSE, FASTING 89 MG/DL (70-100); POTASSIUM SERUM 5.1 MEQ/L (3.5-5.1); SODIUM LEVEL 142 MEQ/L (136-145)
[2017-10-16] MEDS: risperiDONE 2 MG TAB PO ×2 (08:15→21:08)
[2017-10-16] MEDS: OLANZapine 5 MG TAB PO (08:15)
[2017-10-16] MEDS: HEPARIN SOD (PORCINE) 5000 UNITS/ML VIAL SQ ×2 (08:15→21:07)
[2017-10-16] MEDS: PRAMIPEXOLE 1 MG TAB PO ×5 (08:16→21:07)
[2017-10-16] MEDS: DOCUSATE SODIUM 100 MG CAP PO ×2 (08:16→21:07)
[2017-10-16] MEDS: carBAMazepine 200 MG TAB PO ×2 (08:16→21:07)
[2017-10-16] MEDS: SENOKOT S TAB PO ×2 (08:16→21:08)
[2017-10-16] MEDS: PRIMIDONE 50 MG TAB PO ×3 (08:16→17:00)
[2017-10-16] MEDS: BENZTROPINE 0.5 MG TAB PO ×2 (08:16→21:07)
[2017-10-16] MEDS: PARoxetine 20 MG TAB PO (08:17)
[2017-10-16] MEDS: SOD POLYSTYRENE SULFONATE SUSP 15 GM/60 ML UD PO ×2 (08:17→21:08)
[2017-10-16] MEDS: ASPIRIN 81 MG ENTERIC TAB PO ×2 (16:41→17:00)
[2017-10-16] MEDS: LORazepam 1 MG TAB PO (16:41)
[2017-10-16] MEDS: LORazepam 2 MG/ML VIAL (J2060) IV (17:00)
[2017-10-16] MEDS: MELATONIN 3 MG PO (21:06)
[2017-10-16] MEDS: OLANZapine 10 MG TAB PO (21:07)
[2017-10-16] MEDS: ATORVASTATIN 20 MG TAB PO (21:07)
[2017-10-16] MEDS: MAGNESIUM OXIDE 400 MG TAB (MAG-OX) PO (21:08)
[2017-10-17] MEDS: LORazepam 1 MG TAB PO ×2 (05:07→12:07)
[2017-10-17] MEDS: SINEMET 25-100 MG TAB PO ×6 (05:29→22:24)
[2017-10-17 06:07] LABS: HEMATOCRIT 31.7 % (42.0-52.0); MEAN CORPUSCULAR HGB CONC 34.7 g/dl (32.0-36.5); MEAN CORPUSCULAR VOLUME 92.2 fl (80.0-96.0); PLATELET COUNT, AUTOMATED 128 10^3/uL (150-450); RED BLOOD COUNT 3.44 10^6/uL (4.30-6.10); RED CELL DISTRIBUTION WIDTH 14.2 % (11.5-14.5); WHITE BLOOD COUNT 4.1 10^3/uL (4.0-10.0)
[2017-10-17 06:31] LABS: ANION GAP 7 MEQ/L (8-16); BLOOD UREA NITROGEN 19 MG/DL (7-18); CALCIUM LEVEL 8.1 MG/DL (8.8-10.2); CARBON DIOXIDE LEVEL 26 MEQ/L (21-32); CHLORIDE LEVEL 106 MEQ/L (98-107); CREATININE FOR GFR 1.56 MG/DL (0.70-1.30); GLOMERULAR FILTRATION RATE 46.8 (>42); GLUCOSE, FASTING 85 MG/DL (70-100); POTASSIUM SERUM 4.4 MEQ/L (3.5-5.1); SODIUM LEVEL 139 MEQ/L (136-145)
[2017-10-17] MEDS: DOCUSATE SODIUM 100 MG CAP PO ×2 (09:34→22:24)
[2017-10-17] MEDS: SOD POLYSTYRENE SULFONATE SUSP 15 GM/60 ML UD PO ×2 (09:34→21:00)
[2017-10-17] MEDS: BENZTROPINE 0.5 MG TAB PO ×2 (09:35→22:26)
[2017-10-17] MEDS: HEPARIN SOD (PORCINE) 5000 UNITS/ML VIAL SQ ×2 (09:35→22:32)
[2017-10-17] MEDS: PRIMIDONE 50 MG TAB PO ×2 (09:36→16:48)
[2017-10-17] MEDS: PRAMIPEXOLE 1 MG TAB PO ×4 (09:37→22:23)
[2017-10-17] MEDS: OLANZapine 5 MG TAB PO (09:37)
[2017-10-17] MEDS: risperiDONE 2 MG TAB PO ×2 (09:37→22:23)
[2017-10-17] MEDS: carBAMazepine 200 MG TAB PO ×2 (09:37→22:24)
[2017-10-17] MEDS: PARoxetine 20 MG TAB PO (09:37)
[2017-10-17] MEDS: SENOKOT S TAB PO ×2 (09:37→22:23)
[2017-10-17] MEDS: ASPIRIN 81 MG ENTERIC TAB PO (16:47)
[2017-10-17] MEDS: LORazepam 2 MG/ML VIAL (J2060) IV (22:08)
[2017-10-17] MEDS: ATORVASTATIN 20 MG TAB PO (22:23)
[2017-10-17] MEDS: OLANZapine 10 MG TAB PO (22:24)
[2017-10-17] MEDS: MAGNESIUM OXIDE 400 MG TAB (MAG-OX) PO (22:25)
[2017-10-17] MEDS: MELATONIN 3 MG PO (22:29)
[2017-10-18] MEDS: LORazepam 1 MG TAB PO ×2 (04:58→20:12)
[2017-10-18] MEDS: SINEMET 25-100 MG TAB PO ×5 (05:00→20:11)
[2017-10-18 05:56] LABS: HEMATOCRIT 31.1 % (42.0-52.0); HEMOGLOBIN 10.8 g/dl (14.0-18.0); MEAN CORPUSCULAR HGB CONC 34.7 g/dl (32.0-36.5); MEAN CORPUSCULAR VOLUME 92.3 fl (80.0-96.0); PLATELET COUNT, AUTOMATED 121 10^3/uL (150-450); RED BLOOD COUNT 3.37 10^6/uL (4.30-6.10); RED CELL DISTRIBUTION WIDTH 14.3 % (11.5-14.5); WHITE BLOOD COUNT 3.8 10^3/uL (4.0-10.0)
[2017-10-18 06:18] LABS: ANION GAP 8 MEQ/L (8-16); BLOOD UREA NITROGEN 17 MG/DL (7-18); CALCIUM LEVEL 8.1 MG/DL (8.8-10.2); CARBON DIOXIDE LEVEL 28 MEQ/L (21-32); CHLORIDE LEVEL 104 MEQ/L (98-107); GLOMERULAR FILTRATION RATE 42.4 (>42); GLUCOSE, FASTING 114 MG/DL (70-100); POTASSIUM SERUM 3.7 MEQ/L (3.5-5.1); SODIUM LEVEL 140 MEQ/L (136-145)
[2017-10-18] MEDS: OLANZapine 5 MG TAB PO (08:53)
[2017-10-18] MEDS: carBAMazepine 200 MG TAB PO ×2 (08:53→20:11)
[2017-10-18] MEDS: PRAMIPEXOLE 1 MG TAB PO ×4 (08:54→20:11)
[2017-10-18] MEDS: BENZTROPINE 0.5 MG TAB PO ×2 (08:54→20:12)
[2017-10-18] MEDS: PRIMIDONE 50 MG TAB PO ×2 (08:54→16:58)
[2017-10-18] MEDS: risperiDONE 2 MG TAB PO ×2 (08:54→20:11)
[2017-10-18] MEDS: PARoxetine 20 MG TAB PO (08:54)
[2017-10-18] MEDS: SENOKOT S TAB PO ×2 (08:54→20:12)
[2017-10-18] MEDS: DOCUSATE SODIUM 100 MG CAP PO ×2 (08:55→20:11)
[2017-10-18] MEDS: HEPARIN SOD (PORCINE) 5000 UNITS/ML VIAL SQ ×3 (08:58→20:12)
[2017-10-18] MEDS: SOD POLYSTYRENE SULFONATE SUSP 15 GM/60 ML UD PO ×2 (08:59→21:00)
[2017-10-18] MEDS: ASPIRIN 81 MG ENTERIC TAB PO (16:58)
[2017-10-18] MEDS: MELATONIN 3 MG PO (20:11)
[2017-10-18] MEDS: MAGNESIUM OXIDE 400 MG TAB (MAG-OX) PO (20:11)
[2017-10-18] MEDS: ATORVASTATIN 20 MG TAB PO (20:12)
[2017-10-18] MEDS: OLANZapine 10 MG TAB PO (20:12)
[2017-10-19] MEDS: SINEMET 25-100 MG TAB PO ×5 (06:20→21:22)
[2017-10-19 07:00] LABS: BASO % 0.9 % (0.0-1.0); EOS # 0.1 10^3/uL (0.0-0.50); EOS % 3.6 % (0.0-3.0); HEMATOCRIT 29.3 % (42.0-52.0); HEMOGLOBIN 10.2 g/dl (14.0-18.0); IMMATURE GRANULOCYTE % 0.3 % (0-3.0); LYMPH % 29.9 % (24.0-44.0); MEAN CORPUSCULAR HEMOGLOBIN 32.6 pg (27.0-33.0); MEAN CORPUSCULAR HGB CONC 34.8 g/dl (32.0-36.5); MEAN CORPUSCULAR VOLUME 93.6 fl (80.0-96.0); MONO # 0.3 10^3/uL (0.0-0.8); MONO % 9.6 % (0.0-5.0); NEUTROPHILS # 1.9 10^3/uL (1.8-7.7); NEUTROPHILS % 55.7 % (36.0-66.0); PLATELET COUNT, AUTOMATED 114 10^3/uL (150-450); RED BLOOD COUNT 3.13 10^6/uL (4.30-6.10); RED CELL DISTRIBUTION WIDTH 14.4 % (11.5-14.5); WHITE BLOOD COUNT 3.4 10^3/uL (4.0-10.0)
[2017-10-19 07:29] LABS: ALBUMIN 3.2 GM/DL (3.2-5.2); ALKALINE PHOSPHATASE 150 U/L (45-117); ALT/SGPT 17 U/L (12-78); AMYLASE 23 U/L (25-115); ANION GAP 8 MEQ/L (8-16); AST/SGOT 19 U/L (7-37); BILIRUBIN,TOTAL 0.3 MG/DL (0.2-1.0); BLOOD UREA NITROGEN 18 MG/DL (7-18); CALCIUM LEVEL 7.9 MG/DL (8.8-10.2); CARBON DIOXIDE LEVEL 27 MEQ/L (21-32); CHLORIDE LEVEL 107 MEQ/L (98-107); CREATININE FOR GFR 1.55 MG/DL (0.70-1.30); GLOMERULAR FILTRATION RATE 47.2 (>42); GLUCOSE, FASTING 95 MG/DL (70-100); LIPASE 60 U/L (73-393); POTASSIUM SERUM 4.1 MEQ/L (3.5-5.1); SODIUM LEVEL 142 MEQ/L (136-145); TOTAL PROTEIN 6.4 GM/DL (6.4-8.2)
[2017-10-19] MEDS: SENOKOT S TAB PO ×2 (08:10→21:21)
[2017-10-19] MEDS: PRIMIDONE 50 MG TAB PO ×2 (08:10→16:43)
[2017-10-19] MEDS: risperiDONE 2 MG TAB PO ×2 (08:10→21:21)
[2017-10-19] MEDS: DOCUSATE SODIUM 100 MG CAP PO ×2 (08:10→21:21)
[2017-10-19] MEDS: OLANZapine 10 MG TAB PO ×2 (08:11→21:22)
[2017-10-19] MEDS: carBAMazepine 200 MG TAB PO ×2 (08:11→21:21)
[2017-10-19] MEDS: BENZTROPINE 0.5 MG TAB PO ×2 (08:11→21:21)
[2017-10-19] MEDS: PRAMIPEXOLE 1 MG TAB PO ×4 (08:11→21:22)
[2017-10-19] MEDS: SOD POLYSTYRENE SULFONATE SUSP 15 GM/60 ML UD PO ×3 (08:11→21:00)
[2017-10-19] MEDS: PARoxetine 20 MG TAB PO (08:11)
[2017-10-19] MEDS: HEPARIN SOD (PORCINE) 5000 UNITS/ML VIAL SQ ×2 (08:13→21:00)
[2017-10-19] MEDS: LORazepam 1 MG TAB PO (16:43)
[2017-10-19] MEDS: ASPIRIN 81 MG ENTERIC TAB PO (16:43)
[2017-10-19] MEDS: ATORVASTATIN 20 MG TAB PO (21:22)
[2017-10-19] MEDS: MAGNESIUM OXIDE 400 MG TAB (MAG-OX) PO (21:22)
[2017-10-19] MEDS: MELATONIN 3 MG PO (21:22)
[2017-10-20] MEDS: LORazepam 1 MG TAB PO ×3 (00:27→20:09)
[2017-10-20] MEDS: SINEMET 25-100 MG TAB PO ×5 (06:32→20:10)
[2017-10-20] MEDS: SOD POLYSTYRENE SULFONATE SUSP 15 GM/60 ML UD PO ×3 (09:13→20:09)
[2017-10-20] MEDS: HEPARIN SOD (PORCINE) 5000 UNITS/ML VIAL SQ ×2 (09:13→20:11)
[2017-10-20] MEDS: PRAMIPEXOLE 1 MG TAB PO ×4 (09:14→20:09)
[2017-10-20] MEDS: PARoxetine 20 MG TAB PO (09:15)
[2017-10-20] MEDS: OLANZapine 10 MG TAB PO ×2 (09:15→20:09)
[2017-10-20] MEDS: DOCUSATE SODIUM 100 MG CAP PO ×2 (09:15→20:09)
[2017-10-20] MEDS: SENOKOT S TAB PO ×2 (09:15→20:09)
[2017-10-20] MEDS: BENZTROPINE 0.5 MG TAB PO ×2 (09:15→20:09)
[2017-10-20] MEDS: PRIMIDONE 50 MG TAB PO ×2 (09:15→15:27)
[2017-10-20] MEDS: risperiDONE 2 MG TAB PO (09:16)
[2017-10-20] MEDS: carBAMazepine 200 MG TAB PO ×2 (09:16→20:10)
[2017-10-20] MEDS ORDERED: HALOPERIDOL 5 MG/ML VIAL (J1630) As Ordered (10:19)
[2017-10-20] MEDS: HALOPERIDOL 5 MG/ML VIAL (J1630) IM ×2 (10:29→10:30)
[2017-10-20] MEDS: ASPIRIN 81 MG ENTERIC TAB PO (15:26)
[2017-10-20] MEDS: MAGNESIUM OXIDE 400 MG TAB (MAG-OX) PO (20:06)
[2017-10-20] MEDS: ATORVASTATIN 20 MG TAB PO (20:09)
[2017-10-20] MEDS: MELATONIN 3 MG PO (20:09)
[2017-10-21] MEDS: LORazepam 1 MG TAB PO ×4 (03:31→22:16)
[2017-10-21] MEDS: SINEMET 25-100 MG TAB PO ×5 (05:50→20:02)
[2017-10-21 05:54] LABS: BASO # 0.1 10^3/uL (0.0-0.2); BASO % 1.2 % (0.0-1.0); EOS # 0.2 10^3/uL (0.0-0.50); EOS % 3.5 % (0.0-3.0); HEMATOCRIT 28.2 % (42.0-52.0); HEMOGLOBIN 9.7 g/dl (14.0-18.0); IMMATURE GRANULOCYTE % 0.2 % (0-3.0); LYMPH % 24.4 % (24.0-44.0); MEAN CORPUSCULAR HEMOGLOBIN 31.6 pg (27.0-33.0); MEAN CORPUSCULAR HGB CONC 34.4 g/dl (32.0-36.5); MEAN CORPUSCULAR VOLUME 91.9 fl (80.0-96.0); MONO # 0.4 10^3/uL (0.0-0.8); MONO % 8.4 % (0.0-5.0); NEUTROPHILS # 2.7 10^3/uL (1.8-7.7); NEUTROPHILS % 62.3 % (36.0-66.0); PLATELET COUNT, AUTOMATED 138 10^3/uL (150-450); RED BLOOD COUNT 3.07 10^6/uL (4.30-6.10); RED CELL DISTRIBUTION WIDTH 14.3 % (11.5-14.5); WHITE BLOOD COUNT 4.3 10^3/uL (4.0-10.0)
[2017-10-21 06:08] LABS: ALBUMIN/GLOBULIN RATIO 0.88 (1.00-1.93); ALKALINE PHOSPHATASE 134 U/L (45-117); ALT/SGPT 15 U/L (12-78); ANION GAP 8 MEQ/L (8-16); AST/SGOT 14 U/L (7-37); BILIRUBIN,TOTAL 0.3 MG/DL (0.2-1.0); BLOOD UREA NITROGEN 16 MG/DL (7-18); CALCIUM LEVEL 7.9 MG/DL (8.8-10.2); CARBON DIOXIDE LEVEL 26 MEQ/L (21-32); CHLORIDE LEVEL 107 MEQ/L (98-107); CREATININE FOR GFR 1.21 MG/DL (0.70-1.30); GLOMERULAR FILTRATION RATE > 60.0 (>42); GLUCOSE, FASTING 103 MG/DL (70-100); POTASSIUM SERUM 3.5 MEQ/L (3.5-5.1); SODIUM LEVEL 141 MEQ/L (136-145); TOTAL PROTEIN 6.4 GM/DL (6.4-8.2)
[2017-10-21] MEDS: PRIMIDONE 50 MG TAB PO ×2 (08:37→15:38)
[2017-10-21] MEDS: risperiDONE 2 MG TAB PO (08:37)
[2017-10-21] MEDS: SENOKOT S TAB PO ×2 (08:37→20:02)
[2017-10-21] MEDS: DOCUSATE SODIUM 100 MG CAP PO ×2 (08:38→20:03)
[2017-10-21] MEDS: OLANZapine 10 MG TAB PO ×2 (08:38→20:02)
[2017-10-21] MEDS: BENZTROPINE 0.5 MG TAB PO ×2 (08:38→20:02)
[2017-10-21] MEDS: carBAMazepine 200 MG TAB PO ×2 (08:38→20:02)
[2017-10-21] MEDS: SOD POLYSTYRENE SULFONATE SUSP 15 GM/60 ML UD PO ×2 (08:38→20:03)
[2017-10-21] MEDS: PARoxetine 20 MG TAB PO (08:38)
[2017-10-21] MEDS: PRAMIPEXOLE 1 MG TAB PO ×4 (08:38→20:02)
[2017-10-21] MEDS: HEPARIN SOD (PORCINE) 5000 UNITS/ML VIAL SQ ×2 (08:38→20:04)
[2017-10-21] MEDS: ASPIRIN 81 MG ENTERIC TAB PO (15:38)
[2017-10-21] MEDS: MAGNESIUM OXIDE 400 MG TAB (MAG-OX) PO (20:00)
[2017-10-21] MEDS: MELATONIN 3 MG PO (20:01)
[2017-10-21] MEDS: ATORVASTATIN 20 MG TAB PO (20:03)
[2017-10-22] MEDS: LORazepam 1 MG TAB PO ×3 (06:10→20:15)
[2017-10-22] MEDS: SINEMET 25-100 MG TAB PO ×5 (06:10→20:14)
[2017-10-22] MEDS: PRIMIDONE 50 MG TAB PO ×2 (08:18→16:27)
[2017-10-22] MEDS: PRAMIPEXOLE 1 MG TAB PO ×4 (08:18→20:18)
[2017-10-22] MEDS: SOD POLYSTYRENE SULFONATE SUSP 15 GM/60 ML UD PO ×2 (08:18→20:16)
[2017-10-22] MEDS: carBAMazepine 200 MG TAB PO ×2 (08:18→20:15)
[2017-10-22] MEDS: BENZTROPINE 0.5 MG TAB PO ×2 (08:19→20:15)
[2017-10-22] MEDS: OLANZapine 10 MG TAB PO ×2 (08:19→20:14)
[2017-10-22] MEDS: SENOKOT S TAB PO ×2 (08:19→20:15)
[2017-10-22] MEDS: HEPARIN SOD (PORCINE) 5000 UNITS/ML VIAL SQ ×2 (08:20→20:18)
[2017-10-22] MEDS: DOCUSATE SODIUM 100 MG CAP PO ×2 (08:20→20:15)
[2017-10-22] MEDS: PARoxetine 20 MG TAB PO (08:20)
[2017-10-22] MEDS: ASPIRIN 81 MG ENTERIC TAB PO (16:27)
[2017-10-22] MEDS: ACETAMINOPHEN TAB 650MG DOSE (2X325MG) PO (16:29)
[2017-10-22] MEDS: MELATONIN 3 MG PO (20:14)
[2017-10-22] MEDS: ATORVASTATIN 20 MG TAB PO (20:14)
[2017-10-22] MEDS: MAGNESIUM OXIDE 400 MG TAB (MAG-OX) PO (20:15)
[2017-10-23] MEDS: SINEMET 25-100 MG TAB PO ×5 (06:05→20:10)
[2017-10-23] MEDS: LORazepam 1 MG TAB PO ×2 (06:50→20:11)
[2017-10-23] MEDS ORDERED: HALOPERIDOL 5 MG/ML VIAL (J1630) As Ordered (07:29)
[2017-10-23] MEDS ORDERED: diphenhydrAMINE INJ 50MG/ML VIAL (J1200) As Ordered (07:30)
[2017-10-23] MEDS: diphenhydrAMINE INJ 50MG/ML VIAL (J1200) IM (07:33)
[2017-10-23] MEDS: HALOPERIDOL 5 MG/ML VIAL (J1630) IM (07:33)
[2017-10-23] MEDS: PARoxetine 20 MG TAB PO (08:30)
[2017-10-23] MEDS: SOD POLYSTYRENE SULFONATE SUSP 15 GM/60 ML UD PO (08:30)
[2017-10-23] MEDS: carBAMazepine 200 MG TAB PO ×2 (08:31→20:10)
[2017-10-23] MEDS: PRIMIDONE 50 MG TAB PO ×2 (08:31→16:37)
[2017-10-23] MEDS: SENOKOT S TAB PO ×2 (08:31→20:11)
[2017-10-23] MEDS: HEPARIN SOD (PORCINE) 5000 UNITS/ML VIAL SQ ×2 (08:31→20:11)
[2017-10-23] MEDS: BENZTROPINE 0.5 MG TAB PO ×2 (08:31→20:11)
[2017-10-23] MEDS: DOCUSATE SODIUM 100 MG CAP PO ×2 (08:31→20:10)
[2017-10-23] MEDS: OLANZapine 10 MG TAB PO ×2 (08:31→20:11)
[2017-10-23] MEDS: PRAMIPEXOLE 1 MG TAB PO ×4 (08:31→20:10)
[2017-10-23] MEDS: ASPIRIN 81 MG ENTERIC TAB PO (16:37)
[2017-10-23] MEDS: MELATONIN 3 MG PO (20:10)
[2017-10-23] MEDS: ATORVASTATIN 20 MG TAB PO (20:11)
[2017-10-23] MEDS: MAGNESIUM OXIDE 400 MG TAB (MAG-OX) PO (20:11)
[2017-10-24] MEDS: HALOPERIDOL 2 MG TAB PO ×2 (02:05→14:57)
[2017-10-24] MEDS: LORazepam 1 MG TAB PO ×2 (03:07→16:36)
[2017-10-24] MEDS: ACETAMINOPHEN TAB 650MG DOSE (2X325MG) PO (03:08)
[2017-10-24] MEDS: SINEMET 25-100 MG TAB PO ×6 (06:33→20:50)
[2017-10-24 06:39] LABS: HEMATOCRIT 29.8 % (42.0-52.0); HEMOGLOBIN 10.1 g/dl (14.0-18.0); MEAN CORPUSCULAR HEMOGLOBIN 31.5 pg (27.0-33.0); MEAN CORPUSCULAR HGB CONC 33.9 g/dl (32.0-36.5); MEAN CORPUSCULAR VOLUME 92.8 fl (80.0-96.0); PLATELET COUNT, AUTOMATED 207 10^3/uL (150-450); RED BLOOD COUNT 3.21 10^6/uL (4.30-6.10); RED CELL DISTRIBUTION WIDTH 13.8 % (11.5-14.5); WHITE BLOOD COUNT 5.5 10^3/uL (4.0-10.0)
[2017-10-24 06:53] LABS: ANION GAP 6 MEQ/L (8-16); BLOOD UREA NITROGEN 14 MG/DL (7-18); CARBON DIOXIDE LEVEL 31 MEQ/L (21-32); CHLORIDE LEVEL 106 MEQ/L (98-107); CREATININE FOR GFR 1.26 MG/DL (0.70-1.30); GLOMERULAR FILTRATION RATE 59.9 (>42); GLUCOSE, FASTING 93 MG/DL (70-100); MAGNESIUM LEVEL 2.4 MG/DL (1.8-2.4); POTASSIUM SERUM 3.4 MEQ/L (3.5-5.1); SODIUM LEVEL 143 MEQ/L (136-145)
[2017-10-24] MEDS: HEPARIN SOD (PORCINE) 5000 UNITS/ML VIAL SQ ×3 (08:56→20:51)
[2017-10-24] MEDS: SOD POLYSTYRENE SULFONATE SUSP 15 GM/60 ML UD PO (08:56)
[2017-10-24] MEDS: POTASSIUM CHLORIDE 10 MEQ SR TABLET PO ×2 (08:57→11:11)
[2017-10-24] MEDS: PRIMIDONE 50 MG TAB PO ×3 (08:57→16:36)
[2017-10-24] MEDS: DOCUSATE SODIUM 100 MG CAP PO ×3 (08:58→20:50)
[2017-10-24] MEDS: BENZTROPINE 0.5 MG TAB PO ×3 (08:58→20:50)
[2017-10-24] MEDS: PARoxetine 20 MG TAB PO ×2 (08:58→11:11)
[2017-10-24] MEDS: SENOKOT S TAB PO ×3 (08:58→20:50)
[2017-10-24] MEDS: carBAMazepine 200 MG TAB PO ×3 (08:58→20:51)
[2017-10-24] MEDS: PRAMIPEXOLE 1 MG TAB PO ×5 (08:58→20:51)
[2017-10-24] MEDS: OLANZapine 10 MG TAB PO ×2 (08:58→11:12)
[2017-10-24] MEDS: ASPIRIN 81 MG ENTERIC TAB PO (16:36)
[2017-10-24] MEDS ORDERED: HALOPERIDOL 5 MG/ML VIAL (J1630) IM (16:45)
[2017-10-24] MEDS: diphenhydrAMINE INJ 50MG/ML VIAL (J1200) IM (17:20)
[2017-10-24] MEDS: MELATONIN 3 MG PO (20:50)
[2017-10-24] MEDS: OLANZapine 5 MG TAB PO (20:50)
[2017-10-24] MEDS: ATORVASTATIN 20 MG TAB PO (20:50)
[2017-10-24] MEDS: MAGNESIUM OXIDE 400 MG TAB (MAG-OX) PO (20:50)
[2017-10-25] MEDS: LORazepam 1 MG TAB PO ×3 (05:12→21:47)
[2017-10-25] MEDS: SINEMET 25-100 MG TAB PO ×5 (05:14→20:11)
[2017-10-25] MEDS: DOCUSATE SODIUM 100 MG CAP PO ×2 (07:53→20:12)
[2017-10-25] MEDS: BENZTROPINE 0.5 MG TAB PO ×2 (07:54→20:11)
[2017-10-25] MEDS: SENOKOT S TAB PO ×2 (07:54→20:11)
[2017-10-25] MEDS: carBAMazepine 200 MG TAB PO ×2 (07:54→20:11)
[2017-10-25] MEDS: PRAMIPEXOLE 1 MG TAB PO ×4 (07:54→20:11)
[2017-10-25] MEDS: OLANZapine 10 MG TAB PO (07:54)
[2017-10-25] MEDS: PRIMIDONE 50 MG TAB PO ×2 (07:54→16:02)
[2017-10-25] MEDS: PARoxetine 20 MG TAB PO (07:54)
[2017-10-25] MEDS: SOD POLYSTYRENE SULFONATE SUSP 15 GM/60 ML UD PO (07:55)
[2017-10-25] MEDS: HEPARIN SOD (PORCINE) 5000 UNITS/ML VIAL SQ ×2 (08:01→20:16)
[2017-10-25] MEDS: HALOPERIDOL 2 MG TAB PO (12:02)
[2017-10-25 13:54] LABS: KETONE, URINE AUTO RFX NEGATIVE (NEGATIVE); LEUKOCYTE ESTERASE UR AUTO RFX NEGATIVE (NEGATIVE); NITRITE, URINE AUTO RFX NEGATIVE (NEGATIVE); RBC, URINE AUTO RFX 1 /HPF (0-3); SPECIFIC GRAVITY UR AUTO RFX 1.004 (1.002-1.035); SQUAM EPITHELIAL CELL UR AURFX 0 /HPF (0-6); WBC, URINE AUTO RFX 0 /HPF (0-3)
[2017-10-25] MEDS: ASPIRIN 81 MG ENTERIC TAB PO (16:02)
[2017-10-25] MEDS: MELATONIN 3 MG PO (20:11)
[2017-10-25] MEDS: ATORVASTATIN 20 MG TAB PO (20:12)
[2017-10-25] MEDS: MAGNESIUM OXIDE 400 MG TAB (MAG-OX) PO (20:12)
[2017-10-25] MEDS: OLANZapine 5 MG TAB PO (20:13)
[2017-10-26] MEDS: SINEMET 25-100 MG TAB PO ×5 (06:08→20:20)
[2017-10-26] MEDS: PARoxetine 20 MG TAB PO (07:33)
[2017-10-26] MEDS: OLANZapine 10 MG TAB PO (07:33)
[2017-10-26] MEDS: LORazepam 1 MG TAB PO ×2 (07:33→20:20)
[2017-10-26] MEDS: HEPARIN SOD (PORCINE) 5000 UNITS/ML VIAL SQ ×2 (07:33→20:20)
[2017-10-26] MEDS: DOCUSATE SODIUM 100 MG CAP PO ×2 (07:33→20:20)
[2017-10-26] MEDS: SENOKOT S TAB PO ×2 (07:33→20:19)
[2017-10-26] MEDS: PRAMIPEXOLE 1 MG TAB PO ×4 (07:33→20:20)
[2017-10-26] MEDS: PRIMIDONE 50 MG TAB PO ×2 (07:33→16:17)
[2017-10-26] MEDS: carBAMazepine 200 MG TAB PO ×2 (07:33→20:20)
[2017-10-26] MEDS: BENZTROPINE 0.5 MG TAB PO ×2 (11:56→20:20)
[2017-10-26] MEDS: ASPIRIN 81 MG ENTERIC TAB PO (16:17)
[2017-10-26] MEDS: ATORVASTATIN 20 MG TAB PO (20:19)
[2017-10-26] MEDS: MELATONIN 3 MG PO (20:19)
[2017-10-26] MEDS: HALOPERIDOL 2 MG TAB PO (20:20)
[2017-10-26] MEDS: MAGNESIUM OXIDE 400 MG TAB (MAG-OX) PO (20:20)
[2017-10-26] MEDS: OLANZapine 5 MG TAB PO (20:20)
[2017-10-27] MEDS: SINEMET 25-100 MG TAB PO ×5 (05:45→20:09)
[2017-10-27] MEDS: LORazepam 1 MG TAB PO ×2 (05:45→20:08)
[2017-10-27 06:31] LABS: HEMATOCRIT 28.4 % (42.0-52.0); HEMOGLOBIN 9.5 g/dl (14.0-18.0); MEAN CORPUSCULAR HGB CONC 33.5 g/dl (32.0-36.5); MEAN CORPUSCULAR VOLUME 95.6 fl (80.0-96.0); PLATELET COUNT, AUTOMATED 217 10^3/uL (150-450); RED BLOOD COUNT 2.97 10^6/uL (4.30-6.10); WHITE BLOOD COUNT 3.7 10^3/uL (4.0-10.0)
[2017-10-27 06:49] LABS: ANION GAP 9 MEQ/L (8-16); BLOOD UREA NITROGEN 18 MG/DL (7-18); CALCIUM LEVEL 8.4 MG/DL (8.8-10.2); CARBON DIOXIDE LEVEL 26 MEQ/L (21-32); CHLORIDE LEVEL 111 MEQ/L (98-107); CREATININE FOR GFR 1.37 MG/DL (0.70-1.30); GLOMERULAR FILTRATION RATE 54.4 (>42); GLUCOSE, FASTING 102 MG/DL (70-100); MAGNESIUM LEVEL 2.4 MG/DL (1.8-2.4); POTASSIUM SERUM 4.1 MEQ/L (3.5-5.1); SODIUM LEVEL 146 MEQ/L (136-145)
[2017-10-27] MEDS: PRAMIPEXOLE 1 MG TAB PO ×4 (08:21→20:09)
[2017-10-27] MEDS: carBAMazepine 200 MG TAB PO ×2 (08:23→20:09)
[2017-10-27] MEDS: SENOKOT S TAB PO ×2 (08:23→20:09)
[2017-10-27] MEDS: OLANZapine 10 MG TAB PO (08:24)
[2017-10-27] MEDS: DOCUSATE SODIUM 100 MG CAP PO ×2 (08:24→20:09)
[2017-10-27] MEDS: PRIMIDONE 50 MG TAB PO ×2 (08:24→16:00)
[2017-10-27] MEDS: BENZTROPINE 0.5 MG TAB PO ×2 (08:24→20:09)
[2017-10-27] MEDS: PARoxetine 20 MG TAB PO (08:24)
[2017-10-27] MEDS: HEPARIN SOD (PORCINE) 5000 UNITS/ML VIAL SQ ×2 (08:25→20:10)
[2017-10-27] MEDS: SOD POLYSTYRENE SULFONATE SUSP 15 GM/60 ML UD PO (08:30)
[2017-10-27] MEDS: ASPIRIN 81 MG ENTERIC TAB PO (15:58)
[2017-10-27] MEDS: HALOPERIDOL 2 MG TAB PO (20:08)
[2017-10-27] MEDS: ATORVASTATIN 20 MG TAB PO (20:09)
[2017-10-27] MEDS: OLANZapine 5 MG TAB PO (20:09)
[2017-10-27] MEDS: MAGNESIUM OXIDE 400 MG TAB (MAG-OX) PO (20:10)
[2017-10-27] MEDS: MELATONIN 3 MG PO (20:10)
[2017-10-28] MEDS: SINEMET 25-100 MG TAB PO ×5 (05:54→20:13)
[2017-10-28] MEDS: LORazepam 1 MG TAB PO ×2 (05:54→20:13)
[2017-10-28] MEDS: BENZTROPINE 0.5 MG TAB PO ×2 (09:09→20:13)
[2017-10-28] MEDS: OLANZapine 10 MG TAB PO (09:09)
[2017-10-28] MEDS: PARoxetine 20 MG TAB PO (09:09)
[2017-10-28] MEDS: PRAMIPEXOLE 1 MG TAB PO ×4 (09:09→20:13)
[2017-10-28] MEDS: SENOKOT S TAB PO ×2 (09:09→20:13)
[2017-10-28] MEDS: PRIMIDONE 50 MG TAB PO ×2 (09:09→16:43)
[2017-10-28] MEDS: carBAMazepine 200 MG TAB PO ×2 (09:09→20:13)
[2017-10-28] MEDS: DOCUSATE SODIUM 100 MG CAP PO ×2 (09:09→20:12)
[2017-10-28] MEDS: HEPARIN SOD (PORCINE) 5000 UNITS/ML VIAL SQ ×2 (09:10→20:13)
[2017-10-28] MEDS: ASPIRIN 81 MG ENTERIC TAB PO (16:43)
[2017-10-28] MEDS: OLANZapine 5 MG TAB PO (20:12)
[2017-10-28] MEDS: ATORVASTATIN 20 MG TAB PO (20:12)
[2017-10-28] MEDS: MAGNESIUM OXIDE 400 MG TAB (MAG-OX) PO (20:13)
[2017-10-28] MEDS: MELATONIN 3 MG PO (20:13)
[2017-10-28] MEDS: HALOPERIDOL 2 MG TAB PO (20:13)
[2017-10-29] MEDS: LORazepam 1 MG TAB PO (05:11)
[2017-10-29] MEDS: SINEMET 25-100 MG TAB PO ×3 (05:11→11:57)
[2017-10-29 06:37] LABS: ANION GAP 7 MEQ/L (8-16); BLOOD UREA NITROGEN 23 MG/DL (7-18); CALCIUM LEVEL 8.4 MG/DL (8.8-10.2); CARBON DIOXIDE LEVEL 27 MEQ/L (21-32); CHLORIDE LEVEL 110 MEQ/L (98-107); CREATININE FOR GFR 1.44 MG/DL (0.70-1.30); GLOMERULAR FILTRATION RATE 51.3 (>42); GLUCOSE, FASTING 81 MG/DL (70-100); POTASSIUM SERUM 4.7 MEQ/L (3.5-5.1); SODIUM LEVEL 144 MEQ/L (136-145)
[2017-10-29] MEDS: PARoxetine 20 MG TAB PO (08:19)
[2017-10-29] MEDS: carBAMazepine 200 MG TAB PO (08:19)
[2017-10-29] MEDS: HEPARIN SOD (PORCINE) 5000 UNITS/ML VIAL SQ ×2 (08:19→08:25)
[2017-10-29] MEDS: SENOKOT S TAB PO (08:20)
[2017-10-29] MEDS: PRAMIPEXOLE 1 MG TAB PO ×2 (08:20→11:57)
[2017-10-29] MEDS: DOCUSATE SODIUM 100 MG CAP PO (08:20)
[2017-10-29] MEDS: OLANZapine 10 MG TAB PO (08:20)
[2017-10-29] MEDS: BENZTROPINE 0.5 MG TAB PO (08:20)
[2017-10-29] MEDS: PRIMIDONE 50 MG TAB PO (08:20)
[2017-10-29] MEDS: SOD POLYSTYRENE SULFONATE SUSP 15 GM/60 ML UD PO (08:21)
== END 2017-10-29 15:13 | disposition home or self-care (01) | DRG 71 ==
LOC: M MSPAV 10-15 19:57 → M ED 10:30 → M ED INP 14:07 → M PCU 17:48
PROVIDERS: Hospitalist
DX: G93.41 Metabolic encephalopathy (principal); F20.81 Schizophreniform disorder; I42.1 Obstructive hypertrophic cardiomyopathy; F31.9 Bipolar disorder, unspecified; F41.9 Anxiety disorder, unspecified; R00.1 Bradycardia, unspecified; F70 Mild intellectual disabilities; I25.10 Atherosclerotic heart disease of native coronary artery without angina pectoris; G31.84 Mild cognitive impairment of uncertain or unknown etiology; E87.5 Hyperkalemia; G24.01 Drug induced subacute dyskinesia; N18.3 Chronic kidney disease, stage 3 (moderate); J30.9 Allergic rhinitis, unspecified; E78.5 Hyperlipidemia, unspecified; R13.10 Dysphagia, unspecified; Z87.891 Personal history of nicotine dependence; Z79.82 Long term (current) use of aspirin; Z79.899 Other long term (current) drug therapy; Z88.1 Allergy status to other antibiotic agents; Z88.8 Allergy status to other drugs, medicaments and biological substances

== ENCOUNTER 2017-11-02 17:10 | Inpatient (IN) | payer MEDICARE, MEDICAID ==
[2017-11-02] MEDS: ASPIRIN 81 MG CHEW TABLET PO ×2 (19:48)
[2017-11-02] MEDS: ACETAMINOPHEN 325 MG TAB PO ×2 (19:48)
[2017-11-02 19:55] LABS: BASO % 0.5 % (0.0-1.0); HEMATOCRIT 30.8 % (42.0-52.0); HEMOGLOBIN 10.3 g/dl (14.0-18.0); IMMATURE GRANULOCYTE % 0.3 % (0-3.0); LYMPH # 0.4 10^3/uL (1.5-4.5); LYMPH % 6.1 % (24.0-44.0); MEAN CORPUSCULAR HEMOGLOBIN 32.4 pg (27.0-33.0); MEAN CORPUSCULAR HGB CONC 33.4 g/dl (32.0-36.5); MEAN CORPUSCULAR VOLUME 96.9 fl (80.0-96.0); MONO # 0.3 10^3/uL (0.0-0.8); MONO % 4.9 % (0.0-5.0); NEUTROPHILS # 5.8 10^3/uL (1.8-7.7); NEUTROPHILS % 88.2 % (36.0-66.0); PLATELET COUNT, AUTOMATED 230 10^3/uL (150-450); RED BLOOD COUNT 3.18 10^6/uL (4.30-6.10); RED CELL DISTRIBUTION WIDTH 13.9 % (11.5-14.5); WHITE BLOOD COUNT 6.5 10^3/uL (4.0-10.0)
[2017-11-02] MEDS ORDERED: LORazepam 2 MG/ML VIAL (J2060) As Ordered ×2 (19:56)
[2017-11-02] MEDS: LORazepam 2 MG/ML VIAL (J2060) IV ×2 (20:06)
[2017-11-02] MEDS: HALOPERIDOL 5 MG/ML VIAL (J1630) IV ×2 (20:06)
[2017-11-02 20:08] LABS: LACTIC ACID SEPSIS PROTOCOL 1.7 MMOL/L (0.4-2.0)
[2017-11-02 20:08] LABS: ANION GAP 6 MEQ/L (8-16); BLOOD UREA NITROGEN 35 MG/DL (7-18); CALCIUM LEVEL 8.4 MG/DL (8.8-10.2); CARBON DIOXIDE LEVEL 26 MEQ/L (21-32); CHLORIDE LEVEL 112 MEQ/L (98-107); CK-MB VALUE MASS < 1.0 NG/ML (<3.6); CPK CREATINE PHOSPHOKINASE 118 U/L (39-308); CREATININE FOR GFR 2.34 MG/DL (0.70-1.30); GLOMERULAR FILTRATION RATE 29.3 (>42); GLUCOSE, FASTING 97 MG/DL (70-100); MB/CK RELATIVE INDEX 0.84 (< OR =4); POTASSIUM SERUM 4.7 MEQ/L (3.5-5.1); SODIUM LEVEL 144 MEQ/L (136-145); TROPONIN I 0.08 NG/ML (< 0.10)
[2017-11-02] MEDS: MAGNESIUM OXIDE 400 MG TAB (MAG-OX) PO ×2 (21:00)
[2017-11-02] MEDS: ATORVASTATIN 20 MG TAB PO ×2 (21:00)
[2017-11-02] MEDS: carBAMazepine 200 MG TAB PO ×2 (21:00)
[2017-11-02] MEDS: PRAMIPEXOLE 1 MG TAB PO ×2 (21:00)
[2017-11-02] MEDS: OLANZapine 5 MG TAB PO ×2 (21:00)
[2017-11-02] MEDS: BENZTROPINE 0.5 MG TAB PO ×2 (21:00)
[2017-11-02 22:09] LABS: CK-MB VALUE MASS 1.3 NG/ML (<3.6); CPK CREATINE PHOSPHOKINASE 124 U/L (39-308); MB/CK RELATIVE INDEX 1.04 (< OR =4)
[2017-11-02] MEDS: NS 1,000 ML IV ×2 (22:30)
[2017-11-03 00:51] LABS: INFLUENZA A AMPLIFICATION NEGATIVE (NEGATIVE); INFLUENZA B AMPLIFICATION NEGATIVE (NEGATIVE)
[2017-11-03] MEDS ORDERED: OLANZapine INTRAMUSCULAR 10 MG VIAL (S0166) IM ×2 (01:30)
[2017-11-03] MEDS: HALOPERIDOL 2 MG TAB PO ×4 (01:55→12:20)
[2017-11-03] MEDS: LORazepam 2 MG/ML VIAL (J2060) IV ×4 (01:55→03:45)
[2017-11-03] MEDS: NS 1,000 ML IV ×4 (03:00→13:30)
[2017-11-03] MEDS: diphenhydrAMINE INJ 50MG/ML VIAL (J1200) IV ×2 (03:35)
[2017-11-03] MEDS: HALOPERIDOL 5 MG/ML VIAL (J1630) IM ×2 (03:36)
[2017-11-03 04:29] LABS: CK-MB VALUE MASS 2.5 NG/ML (<3.6); CPK CREATINE PHOSPHOKINASE 220 U/L (39-308); MB/CK RELATIVE INDEX 1.13 (< OR =4); TROPONIN I 0.11 NG/ML (< 0.10)
[2017-11-03] MEDS: SINEMET 25-100 MG TAB PO ×10 (06:13→20:33)
[2017-11-03] MEDS: HEPARIN SOD (PORCINE) 5000 UNITS/ML VIAL SC ×6 (06:41→20:36)
[2017-11-03] MEDS: EUCERIN 120GM CREAM TOP ×4 (09:00→20:35)
[2017-11-03] MEDS: PRIMIDONE 50 MG TAB PO ×4 (09:21→16:05)
[2017-11-03] MEDS: OLANZapine 10 MG TAB PO ×2 (09:23)
[2017-11-03] MEDS: SENOKOT S TAB PO ×4 (09:23→20:33)
[2017-11-03] MEDS: DOCUSATE SODIUM 100 MG CAP PO ×4 (09:23→20:33)
[2017-11-03] MEDS: PRAMIPEXOLE 1 MG TAB PO ×8 (09:23→20:34)
[2017-11-03] MEDS: VITAMIN E 400 INTERNATIONAL UNITS CAP PO ×2 (09:23)
[2017-11-03] MEDS: LORazepam 0.5 MG TAB PO ×6 (09:24→20:33)
[2017-11-03] MEDS: carBAMazepine 200 MG TAB PO ×4 (09:24→20:34)
[2017-11-03] MEDS: BENZTROPINE 0.5 MG TAB PO ×4 (09:24→20:34)
[2017-11-03] MEDS: PARoxetine 20 MG TAB PO ×2 (09:24)
[2017-11-03] MEDS: risperiDONE 3 MG TAB PO ×4 (09:24→20:34)
[2017-11-03] MEDS: cefTRIAXone SOD 2 GM in D5W MINI-BAG PLUS 50 ML IV ×2 (09:25→20:32)
[2017-11-03] MEDS: SOD POLYSTYRENE SULFONATE SUSP 15 GM/60 ML UD PO ×2 (09:25)
[2017-11-03 09:59] LABS: CK-MB VALUE MASS 5.9 NG/ML (<3.6); CPK CREATINE PHOSPHOKINASE 634 U/L (39-308); MB/CK RELATIVE INDEX 0.93 (< OR =4)
[2017-11-03 10:14] LABS: ALBUMIN 3.3 GM/DL (3.2-5.2); ALKALINE PHOSPHATASE 146 U/L (45-117); ALT/SGPT 6 U/L (12-78); AST/SGOT 20 U/L (7-37); BILIRUBIN,DIRECT 0.1 MG/DL (0.0-0.2); BILIRUBIN,TOTAL 0.4 MG/DL (0.2-1.0); TOTAL PROTEIN 6.6 GM/DL (6.4-8.2)
[2017-11-03] MEDS: VANCOMYCIN HCL 1,000 MG, VIAL MATE ADAPTER 1 EACH in D5W 250 ML IV ×4 (10:55→18:22)
[2017-11-03 11:01] LABS: KETONE, URINE AUTO RFX TRACE mg/dL (NEGATIVE); LEUKOCYTE ESTERASE UR AUTO RFX NEGATIVE (NEGATIVE); NITRITE, URINE AUTO RFX NEGATIVE (NEGATIVE); RBC, URINE AUTO RFX 0 /HPF (0-3); SPECIFIC GRAVITY UR AUTO RFX 1.013 (1.002-1.035); SQUAM EPITHELIAL CELL UR AURFX 0 /HPF (0-6); WBC, URINE AUTO RFX 0 /HPF (0-3)
[2017-11-03 16:09] LABS: CPK CREATINE PHOSPHOKINASE 843 U/L (39-308)
[2017-11-03 16:10] LABS: CK-MB VALUE MASS 6.5 NG/ML (<3.6); MB/CK RELATIVE INDEX 0.77 (< OR =4)
[2017-11-03] MEDS: MAGNESIUM OXIDE 400 MG TAB (MAG-OX) PO ×2 (20:33)
[2017-11-03] MEDS: ASPIRIN 81 MG ENTERIC TAB PO ×2 (20:34)
[2017-11-03] MEDS: ATORVASTATIN 20 MG TAB PO ×2 (20:34)
[2017-11-03] MEDS: OLANZapine 5 MG TAB PO ×2 (20:34)
[2017-11-03 21:59] LABS: CK-MB VALUE MASS 14.9 NG/ML (<3.6); CPK CREATINE PHOSPHOKINASE 1369 U/L (39-308); MB/CK RELATIVE INDEX 1.08 (< OR =4)
[2017-11-04] MEDS: NS 1,000 ML IV ×2 (01:07)
[2017-11-04] MEDS: HALOPERIDOL 2 MG TAB PO ×2 (03:01)
[2017-11-04] MEDS: LORazepam 2 MG/ML VIAL (J2060) IM ×2 (03:59)
[2017-11-04] MEDS: diphenhydrAMINE INJ 50MG/ML VIAL (J1200) IM ×2 (03:59)
[2017-11-04 04:57] LABS: BASO % 0.8 % (0.0-1.0); EOS % 0.4 % (0.0-3.0); HEMATOCRIT 28.2 % (42.0-52.0); HEMOGLOBIN 9.5 g/dl (14.0-18.0); IMMATURE GRANULOCYTE % 0.2 % (0-3.0); LYMPH # 0.8 10^3/uL (1.5-4.5); LYMPH % 15.4 % (24.0-44.0); MEAN CORPUSCULAR HEMOGLOBIN 32.2 pg (27.0-33.0); MEAN CORPUSCULAR HGB CONC 33.7 g/dl (32.0-36.5); MEAN CORPUSCULAR VOLUME 95.6 fl (80.0-96.0); MONO # 0.4 10^3/uL (0.0-0.8); NEUTROPHILS # 3.8 10^3/uL (1.8-7.7); NEUTROPHILS % 75.2 % (36.0-66.0); PLATELET COUNT, AUTOMATED 188 10^3/uL (150-450); RED BLOOD COUNT 2.95 10^6/uL (4.30-6.10); RED CELL DISTRIBUTION WIDTH 13.8 % (11.5-14.5)
[2017-11-04 05:15] LABS: ANION GAP 12 MEQ/L (8-16); BLOOD UREA NITROGEN 33 MG/DL (7-18); CALCIUM LEVEL 7.7 MG/DL (8.8-10.2); CARBON DIOXIDE LEVEL 20 MEQ/L (21-32); CHLORIDE LEVEL 116 MEQ/L (98-107); CREATININE FOR GFR 1.79 MG/DL (0.70-1.30); GLOMERULAR FILTRATION RATE 39.9 (>42); GLUCOSE, FASTING 82 MG/DL (70-100); MAGNESIUM LEVEL 2.4 MG/DL (1.8-2.4); POTASSIUM SERUM 4.1 MEQ/L (3.5-5.1); SODIUM LEVEL 148 MEQ/L (136-145)
[2017-11-04] MEDS: SINEMET 25-100 MG TAB PO ×10 (05:34→20:43)
[2017-11-04] MEDS: HEPARIN SOD (PORCINE) 5000 UNITS/ML VIAL SC ×8 (05:34→22:00)
[2017-11-04] MEDS: D5W/0.45% SODIUM CHLORIDE 1,000 ML IV ×4 (07:57→17:33)
[2017-11-04] MEDS: EUCERIN 120GM CREAM TOP ×4 (09:00→20:46)
[2017-11-04 09:21] LABS: TROPONIN I 0.08 NG/ML (< 0.10)
[2017-11-04 09:31] LABS: CK-MB VALUE MASS 25.1 NG/ML (<3.6); CPK CREATINE PHOSPHOKINASE 1931 U/L (39-308); MB/CK RELATIVE INDEX 1.29 (< OR =4); THYROID STIMULATING HORMONE 0.035 uIU/ML (0.358-3.740)
[2017-11-04] MEDS: PRAMIPEXOLE 1 MG TAB PO ×8 (10:13→20:43)
[2017-11-04] MEDS: OLANZapine 10 MG TAB PO ×2 (10:13)
[2017-11-04] MEDS: DOCUSATE SODIUM 100 MG CAP PO ×4 (10:13→20:42)
[2017-11-04] MEDS: VITAMIN E 400 INTERNATIONAL UNITS CAP PO ×2 (10:14)
[2017-11-04] MEDS: METOPROLOL TART 12.5 MG PER 1/2 TAB PO ×10 (10:14→23:45)
[2017-11-04] MEDS: PARoxetine 20 MG TAB PO ×2 (10:15)
[2017-11-04] MEDS: SENOKOT S TAB PO ×4 (10:15→20:43)
[2017-11-04] MEDS: carBAMazepine 200 MG TAB PO ×4 (10:15→20:43)
[2017-11-04] MEDS: risperiDONE 3 MG TAB PO ×4 (10:15→20:43)
[2017-11-04] MEDS: LORazepam 0.5 MG TAB PO ×6 (10:15→20:43)
[2017-11-04] MEDS: BENZTROPINE 0.5 MG TAB PO ×4 (10:16→20:43)
[2017-11-04] MEDS: SOD POLYSTYRENE SULFONATE SUSP 15 GM/60 ML UD PO ×4 (10:16→10:29)
[2017-11-04] MEDS: cefTRIAXone SOD 2 GM in D5W MINI-BAG PLUS 50 ML IV ×2 (10:16→20:42)
[2017-11-04] MEDS: PRIMIDONE 50 MG TAB PO ×4 (10:17→17:26)
[2017-11-04 13:18] LABS: VANCOMYCIN RANDOM 15.8 UG/ML
[2017-11-04] MEDS: VANCOMYCIN HCL 1,000 MG, VIAL MATE ADAPTER 1 EACH in D5W 250 ML IV ×2 (14:08)
[2017-11-04 14:32] LABS: TROPONIN I 0.07 NG/ML (< 0.10)
[2017-11-04 14:43] LABS: CK-MB VALUE MASS 18.1 NG/ML (<3.6); CPK CREATINE PHOSPHOKINASE 1475 U/L (39-308); MB/CK RELATIVE INDEX 1.22 (< OR =4)
[2017-11-04] MEDS: OLANZapine 5 MG TAB PO ×2 (20:42)
[2017-11-04] MEDS: ASPIRIN 81 MG ENTERIC TAB PO ×2 (20:43)
[2017-11-04] MEDS: MAGNESIUM OXIDE 400 MG TAB (MAG-OX) PO ×2 (20:43)
[2017-11-04] MEDS: ATORVASTATIN 20 MG TAB PO ×2 (20:43)
[2017-11-04 21:18] LABS: TROPONIN I 0.05 NG/ML (< 0.10)
[2017-11-04 21:29] LABS: CPK CREATINE PHOSPHOKINASE 1062 U/L (39-308); MB/CK RELATIVE INDEX 1.22 (< OR =4)
[2017-11-05] MEDS: D5W/0.45% SODIUM CHLORIDE 1,000 ML IV ×4 (03:14→13:12)
[2017-11-05] MEDS: METOPROLOL TART 12.5 MG PER 1/2 TAB PO ×8 (05:16→23:26)
[2017-11-05] MEDS: HEPARIN SOD (PORCINE) 5000 UNITS/ML VIAL SC ×8 (05:16→22:00)
[2017-11-05] MEDS: SINEMET 25-100 MG TAB PO ×10 (05:16→20:26)
[2017-11-05 05:53] LABS: BASO % 0.5 % (0.0-1.0); EOS # 0.1 10^3/uL (0.0-0.50); EOS % 1.9 % (0.0-3.0); HEMATOCRIT 28.8 % (42.0-52.0); HEMOGLOBIN 9.6 g/dl (14.0-18.0); IMMATURE GRANULOCYTE % 0.3 % (0-3.0); LYMPH % 17.6 % (24.0-44.0); MEAN CORPUSCULAR HEMOGLOBIN 32.1 pg (27.0-33.0); MEAN CORPUSCULAR HGB CONC 33.3 g/dl (32.0-36.5); MEAN CORPUSCULAR VOLUME 96.3 fl (80.0-96.0); MONO # 0.5 10^3/uL (0.0-0.8); MONO % 7.9 % (0.0-5.0); NEUTROPHILS # 4.2 10^3/uL (1.8-7.7); NEUTROPHILS % 71.8 % (36.0-66.0); PLATELET COUNT, AUTOMATED 167 10^3/uL (150-450); RED BLOOD COUNT 2.99 10^6/uL (4.30-6.10); RED CELL DISTRIBUTION WIDTH 13.8 % (11.5-14.5); WHITE BLOOD COUNT 5.9 10^3/uL (4.0-10.0)
[2017-11-05 06:20] LABS: ANION GAP 9 MEQ/L (8-16); BLOOD UREA NITROGEN 23 MG/DL (7-18); CALCIUM LEVEL 7.6 MG/DL (8.8-10.2); CARBON DIOXIDE LEVEL 23 MEQ/L (21-32); CHLORIDE LEVEL 113 MEQ/L (98-107); CPK CREATINE PHOSPHOKINASE 759 U/L (39-308); CREATININE FOR GFR 1.37 MG/DL (0.70-1.30); FREE T4 1.01 NG/DL (0.76-1.46); GLOMERULAR FILTRATION RATE 54.4 (>42); GLUCOSE, FASTING 105 MG/DL (70-100); MAGNESIUM LEVEL 2.4 MG/DL (1.8-2.4); POTASSIUM SERUM 3.6 MEQ/L (3.5-5.1); SODIUM LEVEL 145 MEQ/L (136-145)
[2017-11-05] MEDS: PRAMIPEXOLE 1 MG TAB PO ×8 (08:10→20:25)
[2017-11-05] MEDS: cefTRIAXone SOD 2 GM in D5W MINI-BAG PLUS 50 ML IV (08:10)
[2017-11-05] MEDS: DOCUSATE SODIUM 100 MG CAP PO ×4 (08:10→20:26)
[2017-11-05] MEDS: PRIMIDONE 50 MG TAB PO ×4 (08:10→15:54)
[2017-11-05] MEDS: BENZTROPINE 0.5 MG TAB PO ×4 (08:11→20:26)
[2017-11-05] MEDS: risperiDONE 3 MG TAB PO ×2 (08:11)
[2017-11-05] MEDS: carBAMazepine 200 MG TAB PO ×4 (08:11→20:25)
[2017-11-05] MEDS: SENOKOT S TAB PO ×4 (08:11→20:26)
[2017-11-05] MEDS: LORazepam 0.5 MG TAB PO ×6 (08:11→20:26)
[2017-11-05] MEDS: OLANZapine 10 MG TAB PO ×2 (08:11)
[2017-11-05] MEDS: VITAMIN E 400 INTERNATIONAL UNITS CAP PO ×2 (08:11)
[2017-11-05] MEDS: PARoxetine 20 MG TAB PO ×2 (08:11)
[2017-11-05] MEDS: EUCERIN 120GM CREAM TOP ×4 (08:12→20:27)
[2017-11-05] MEDS: VANCOMYCIN HCL 1,000 MG, VIAL MATE ADAPTER 1 EACH in D5W 250 ML IV ×2 (13:11)
[2017-11-05] MEDS: ASPIRIN 81 MG ENTERIC TAB PO ×2 (20:25)
[2017-11-05] MEDS: OLANZapine 5 MG TAB PO ×2 (20:25)
[2017-11-05] MEDS: MAGNESIUM OXIDE 400 MG TAB (MAG-OX) PO ×2 (20:26)
[2017-11-05] MEDS: ATORVASTATIN 20 MG TAB PO ×2 (20:26)
[2017-11-06] MEDS: D5W/0.45% SODIUM CHLORIDE 1,000 ML IV ×4 (00:16→09:39)
[2017-11-06] MEDS: METOPROLOL TART 12.5 MG PER 1/2 TAB PO ×8 (05:13→23:57)
[2017-11-06] MEDS: SINEMET 25-100 MG TAB PO ×10 (05:13→22:27)
[2017-11-06] MEDS: HALOPERIDOL 2 MG TAB PO ×6 (05:13→22:27)
[2017-11-06] MEDS: HEPARIN SOD (PORCINE) 5000 UNITS/ML VIAL SC ×6 (05:13→22:28)
[2017-11-06 07:21] LABS: BASO % 0.4 % (0.0-1.0); EOS # 0.2 10^3/uL (0.0-0.50); EOS % 4.3 % (0.0-3.0); HEMATOCRIT 30.4 % (42.0-52.0); HEMOGLOBIN 10.1 g/dl (14.0-18.0); IMMATURE GRANULOCYTE % 0.4 % (0-3.0); LYMPH # 0.6 10^3/uL (1.5-4.5); LYMPH % 11.3 % (24.0-44.0); MEAN CORPUSCULAR HEMOGLOBIN 32.2 pg (27.0-33.0); MEAN CORPUSCULAR HGB CONC 33.2 g/dl (32.0-36.5); MEAN CORPUSCULAR VOLUME 96.8 fl (80.0-96.0); MONO # 0.3 10^3/uL (0.0-0.8); MONO % 6.6 % (0.0-5.0); NEUTROPHILS # 3.8 10^3/uL (1.8-7.7); PLATELET COUNT, AUTOMATED 173 10^3/uL (150-450); RED BLOOD COUNT 3.14 10^6/uL (4.30-6.10); RED CELL DISTRIBUTION WIDTH 14.2 % (11.5-14.5); WHITE BLOOD COUNT 4.9 10^3/uL (4.0-10.0)
[2017-11-06 07:36] LABS: ANION GAP 7 MEQ/L (8-16); BLOOD UREA NITROGEN 15 MG/DL (7-18); CALCIUM LEVEL 7.7 MG/DL (8.8-10.2); CARBON DIOXIDE LEVEL 22 MEQ/L (21-32); CHLORIDE LEVEL 119 MEQ/L (98-107); CPK CREATINE PHOSPHOKINASE 342 U/L (39-308); CREATININE FOR GFR 1.15 MG/DL (0.70-1.30); GLOMERULAR FILTRATION RATE > 60.0 (>42); GLUCOSE, FASTING 109 MG/DL (70-100); MAGNESIUM LEVEL 2.4 MG/DL (1.8-2.4); POTASSIUM SERUM 4.2 MEQ/L (3.5-5.1); SODIUM LEVEL 148 MEQ/L (136-145)
[2017-11-06] MEDS ORDERED: OLANZapine 5 MG TAB PO ×2 (09:00)
[2017-11-06] MEDS: PRIMIDONE 50 MG TAB PO ×4 (09:36→17:14)
[2017-11-06] MEDS: PRAMIPEXOLE 1 MG TAB PO ×8 (09:36→22:27)
[2017-11-06] MEDS: OLANZapine 5 MG TAB PO ×4 (09:37→22:26)
[2017-11-06] MEDS: VITAMIN E 400 INTERNATIONAL UNITS CAP PO ×2 (09:37)
[2017-11-06] MEDS: DOCUSATE SODIUM 100 MG CAP PO ×4 (09:37→22:26)
[2017-11-06] MEDS: PARoxetine 10MG TABLET PO ×2 (09:37)
[2017-11-06] MEDS: SENOKOT S TAB PO ×4 (09:37→22:26)
[2017-11-06] MEDS: BENZTROPINE 0.5 MG TAB PO ×4 (09:37→22:26)
[2017-11-06] MEDS: carBAMazepine 200 MG TAB PO ×4 (09:37→22:26)
[2017-11-06] MEDS: LORazepam 0.5 MG TAB PO ×6 (09:37→22:25)
[2017-11-06] MEDS: EUCERIN 120GM CREAM TOP ×4 (09:38→22:27)
[2017-11-06] MEDS: SOD POLYSTYRENE SULFONATE SUSP 15 GM/60 ML UD PO ×2 (09:39)
[2017-11-06] MEDS: HALOPERIDOL 5 MG/ML VIAL (J1630) IM ×2 (18:39)
[2017-11-06] MEDS: ASPIRIN 81 MG ENTERIC TAB PO ×2 (22:25)
[2017-11-06] MEDS: MAGNESIUM OXIDE 400 MG TAB (MAG-OX) PO ×2 (22:26)
[2017-11-06] MEDS: ATORVASTATIN 20 MG TAB PO ×2 (22:26)
[2017-11-07] MEDS: ONDANSETRON 4MG/2ML VIAL (J2405) IV ×2 (01:14)
[2017-11-07] MEDS: METOPROLOL TART 12.5 MG PER 1/2 TAB PO ×8 (06:00→23:49)
[2017-11-07] MEDS: HEPARIN SOD (PORCINE) 5000 UNITS/ML VIAL SC ×10 (06:00→21:27)
[2017-11-07 06:04] LABS: BASO % 0.6 % (0.0-1.0); EOS # 0.2 10^3/uL (0.0-0.50); EOS % 4.5 % (0.0-3.0); HEMATOCRIT 27.7 % (42.0-52.0); HEMOGLOBIN 9.3 g/dl (14.0-18.0); IMMATURE GRANULOCYTE % 0.4 % (0-3.0); LYMPH # 0.9 10^3/uL (1.5-4.5); LYMPH % 18.4 % (24.0-44.0); MEAN CORPUSCULAR HEMOGLOBIN 33.2 pg (27.0-33.0); MEAN CORPUSCULAR HGB CONC 33.6 g/dl (32.0-36.5); MEAN CORPUSCULAR VOLUME 98.9 fl (80.0-96.0); MONO # 0.4 10^3/uL (0.0-0.8); MONO % 7.9 % (0.0-5.0); NEUTROPHILS # 3.2 10^3/uL (1.8-7.7); NEUTROPHILS % 68.2 % (36.0-66.0); PLATELET COUNT, AUTOMATED 169 10^3/uL (150-450); RED CELL DISTRIBUTION WIDTH 14.3 % (11.5-14.5); WHITE BLOOD COUNT 4.7 10^3/uL (4.0-10.0)
[2017-11-07 06:28] LABS: ANION GAP 7 MEQ/L (8-16); BLOOD UREA NITROGEN 12 MG/DL (7-18); CALCIUM LEVEL 7.3 MG/DL (8.8-10.2); CARBON DIOXIDE LEVEL 24 MEQ/L (21-32); CHLORIDE LEVEL 115 MEQ/L (98-107); CPK CREATINE PHOSPHOKINASE 274 U/L (39-308); CREATININE FOR GFR 1.07 MG/DL (0.70-1.30); GLOMERULAR FILTRATION RATE > 60.0 (>42); GLUCOSE, FASTING 92 MG/DL (70-100); MAGNESIUM LEVEL 2.2 MG/DL (1.8-2.4); POTASSIUM SERUM 3.9 MEQ/L (3.5-5.1); SODIUM LEVEL 146 MEQ/L (136-145)
[2017-11-07] MEDS: SINEMET 25-100 MG TAB PO ×10 (07:11→20:00)
[2017-11-07] MEDS: HALOPERIDOL 2 MG TAB PO ×4 (07:17→17:28)
[2017-11-07] MEDS: OLANZapine 5 MG TAB PO ×4 (08:38→20:01)
[2017-11-07] MEDS: PARoxetine 10MG TABLET PO ×2 (08:38)
[2017-11-07] MEDS: LORazepam 0.5 MG TAB PO ×4 (08:38→16:30)
[2017-11-07] MEDS: SOD POLYSTYRENE SULFONATE SUSP 15 GM/60 ML UD PO ×4 (08:38→09:00)
[2017-11-07] MEDS: SENOKOT S TAB PO ×4 (08:39→20:02)
[2017-11-07] MEDS: PRIMIDONE 50 MG TAB PO ×4 (08:39→16:30)
[2017-11-07] MEDS: VITAMIN E 400 INTERNATIONAL UNITS CAP PO ×2 (08:39)
[2017-11-07] MEDS: DOCUSATE SODIUM 100 MG CAP PO ×4 (08:39→20:01)
[2017-11-07] MEDS: PRAMIPEXOLE 1 MG TAB PO ×8 (08:39→20:00)
[2017-11-07] MEDS: carBAMazepine 200 MG TAB PO ×4 (08:39→20:01)
[2017-11-07] MEDS: EUCERIN 120GM CREAM TOP ×4 (08:40→20:05)
[2017-11-07] MEDS: BENZTROPINE 0.5 MG TAB PO ×4 (08:40→20:01)
[2017-11-07] MEDS: HALOPERIDOL 5 MG/ML VIAL (J1630) IM ×2 (11:33)
[2017-11-07] MEDS: LORazepam 1 MG TAB PO ×4 (17:36→20:01)
[2017-11-07] MEDS: diphenhydrAMINE INJ 50MG/ML VIAL (J1200) IV ×2 (17:55)
[2017-11-07] MEDS: ATORVASTATIN 20 MG TAB PO ×2 (20:01)
[2017-11-07] MEDS: ASPIRIN 81 MG ENTERIC TAB PO ×2 (20:01)
[2017-11-07] MEDS: MAGNESIUM OXIDE 400 MG TAB (MAG-OX) PO ×2 (20:01)
[2017-11-07] MEDS: QUEtiapine FUMARATE 200 MG TAB PO ×2 (20:05)
[2017-11-07] MEDS ORDERED: QUEtiapine FUMARATE 100 MG TAB PO ×2 (21:00)
[2017-11-08] MEDS: HEPARIN SOD (PORCINE) 5000 UNITS/ML VIAL SC ×4 (05:52→13:09)
[2017-11-08] MEDS: METOPROLOL TART 12.5 MG PER 1/2 TAB PO ×6 (05:52→17:44)
[2017-11-08] MEDS: SINEMET 25-100 MG TAB PO ×10 (05:52→20:07)
[2017-11-08] MEDS: ONDANSETRON 4MG/2ML VIAL (J2405) IV ×4 (05:53→20:18)
[2017-11-08 06:20] LABS: BASO % 0.4 % (0.0-1.0); EOS # 0.2 10^3/uL (0.0-0.50); EOS % 4.2 % (0.0-3.0); HEMATOCRIT 28.9 % (42.0-52.0); HEMOGLOBIN 9.5 g/dl (14.0-18.0); IMMATURE GRANULOCYTE % 0.2 % (0-3.0); LYMPH # 1.1 10^3/uL (1.5-4.5); LYMPH % 22.4 % (24.0-44.0); MEAN CORPUSCULAR HEMOGLOBIN 32.6 pg (27.0-33.0); MEAN CORPUSCULAR HGB CONC 32.9 g/dl (32.0-36.5); MEAN CORPUSCULAR VOLUME 99.3 fl (80.0-96.0); MONO # 0.3 10^3/uL (0.0-0.8); MONO % 6.2 % (0.0-5.0); NEUTROPHILS # 3.3 10^3/uL (1.8-7.7); NEUTROPHILS % 66.6 % (36.0-66.0); PLATELET COUNT, AUTOMATED 176 10^3/uL (150-450); RED BLOOD COUNT 2.91 10^6/uL (4.30-6.10)
[2017-11-08 06:40] LABS: ANION GAP 5 MEQ/L (8-16); BLOOD UREA NITROGEN 15 MG/DL (7-18); CALCIUM LEVEL 7.8 MG/DL (8.8-10.2); CARBON DIOXIDE LEVEL 25 MEQ/L (21-32); CHLORIDE LEVEL 120 MEQ/L (98-107); CPK CREATINE PHOSPHOKINASE 235 U/L (39-308); CREATININE FOR GFR 1.22 MG/DL (0.70-1.30); GLOMERULAR FILTRATION RATE > 60.0 (>42); GLUCOSE, FASTING 91 MG/DL (70-100); MAGNESIUM LEVEL 2.4 MG/DL (1.8-2.4); POTASSIUM SERUM 4.3 MEQ/L (3.5-5.1); SODIUM LEVEL 150 MEQ/L (136-145)
[2017-11-08] MEDS: EUCERIN 120GM CREAM TOP ×4 (09:00→20:08)
[2017-11-08] MEDS: LORazepam 1 MG TAB PO ×10 (09:08→20:08)
[2017-11-08] MEDS: QUEtiapine FUMARATE 200 MG TAB PO ×8 (09:08→20:06)
[2017-11-08] MEDS: HALOPERIDOL 2 MG TAB PO ×4 (09:08→17:45)
[2017-11-08] MEDS: SOD POLYSTYRENE SULFONATE SUSP 15 GM/60 ML UD PO ×2 (09:09)
[2017-11-08] MEDS: OLANZapine 5 MG TAB PO ×4 (09:09→20:08)
[2017-11-08] MEDS: PRAMIPEXOLE 1 MG TAB PO ×8 (09:09→20:06)
[2017-11-08] MEDS: SENOKOT S TAB PO ×4 (09:10→20:06)
[2017-11-08] MEDS: carBAMazepine 200 MG TAB PO ×4 (09:10→20:07)
[2017-11-08] MEDS: PRIMIDONE 50 MG TAB PO ×4 (09:10→15:42)
[2017-11-08] MEDS: VITAMIN E 400 INTERNATIONAL UNITS CAP PO ×2 (09:10)
[2017-11-08] MEDS: DOCUSATE SODIUM 100 MG CAP PO ×4 (09:10→20:06)
[2017-11-08] MEDS: BENZTROPINE 0.5 MG TAB PO ×4 (09:10→20:08)
[2017-11-08] MEDS: HALOPERIDOL 5 MG/ML VIAL (J1630) IM ×2 (09:19)
[2017-11-08 12:09] LABS: BEDSIDE GLUCOSE 153 MG/DL (83-110)
[2017-11-08] MEDS: ASPIRIN 81 MG ENTERIC TAB PO ×2 (20:06)
[2017-11-08] MEDS: MAGNESIUM OXIDE 400 MG TAB (MAG-OX) PO ×2 (20:07)
[2017-11-08] MEDS: ATORVASTATIN 20 MG TAB PO ×2 (20:07)
[2017-11-09] MEDS: HEPARIN SOD (PORCINE) 5000 UNITS/ML VIAL SC ×8 (00:58→22:00)
[2017-11-09] MEDS: METOPROLOL TART 12.5 MG PER 1/2 TAB PO ×8 (00:59→18:00)
[2017-11-09] MEDS: SINEMET 25-100 MG TAB PO ×10 (05:47→20:09)
[2017-11-09 06:02] LABS: BASO % 0.2 % (0.0-1.0); EOS # 0.2 10^3/uL (0.0-0.50); EOS % 4.8 % (0.0-3.0); HEMATOCRIT 28.6 % (42.0-52.0); HEMOGLOBIN 9.4 g/dl (13.5-17.5); IMMATURE GRANULOCYTE % 0.4 % (0-3.0); LYMPH # 1.2 10^3/uL (1.5-4.5); LYMPH % 25.8 % (24.0-44.0); MEAN CORPUSCULAR HEMOGLOBIN 32.4 pg (27.0-33.0); MEAN CORPUSCULAR HGB CONC 32.9 g/dl (32.0-36.5); MEAN CORPUSCULAR VOLUME 98.6 fl (80.0-96.0); MONO # 0.3 10^3/uL (0.0-0.8); MONO % 6.9 % (0.0-5.0); NEUTROPHILS # 2.9 10^3/uL (1.8-7.7); NEUTROPHILS % 61.9 % (36.0-66.0); PLATELET COUNT, AUTOMATED 179 10^3/uL (150-450); RED CELL DISTRIBUTION WIDTH 13.7 % (11.5-14.5); WHITE BLOOD COUNT 4.6 10^3/uL (4.0-10.0)
[2017-11-09 06:28] LABS: ANION GAP 5 MEQ/L (8-16); BLOOD UREA NITROGEN 13 MG/DL (7-18); CALCIUM LEVEL 7.7 MG/DL (8.8-10.2); CARBON DIOXIDE LEVEL 26 MEQ/L (21-32); CHLORIDE LEVEL 118 MEQ/L (98-107); CPK CREATINE PHOSPHOKINASE 241 U/L (39-308); CREATININE FOR GFR 1.17 MG/DL (0.70-1.30); GLOMERULAR FILTRATION RATE > 60.0 (>42); GLUCOSE, FASTING 92 MG/DL (70-100); MAGNESIUM LEVEL 2.4 MG/DL (1.8-2.4); POTASSIUM SERUM 4.2 MEQ/L (3.5-5.1); SODIUM LEVEL 149 MEQ/L (136-145)
[2017-11-09] MEDS: PRIMIDONE 50 MG TAB PO ×4 (08:17→17:59)
[2017-11-09] MEDS: SENOKOT S TAB PO ×4 (08:17→20:09)
[2017-11-09] MEDS: LORazepam 1 MG TAB PO ×6 (08:17→20:09)
[2017-11-09] MEDS: carBAMazepine 200 MG TAB PO ×4 (08:17→20:10)
[2017-11-09] MEDS: DOCUSATE SODIUM 100 MG CAP PO ×4 (08:17→20:10)
[2017-11-09] MEDS: PRAMIPEXOLE 1 MG TAB PO ×8 (08:17→20:10)
[2017-11-09] MEDS: BENZTROPINE 0.5 MG TAB PO ×4 (08:17→20:09)
[2017-11-09] MEDS: VITAMIN E 400 INTERNATIONAL UNITS CAP PO ×2 (08:18)
[2017-11-09] MEDS: OLANZapine 5 MG TAB PO ×4 (08:18→20:08)
[2017-11-09] MEDS: EUCERIN 120GM CREAM TOP ×4 (08:19→20:11)
[2017-11-09] MEDS: SOD POLYSTYRENE SULFONATE SUSP 15 GM/60 ML UD PO ×2 (08:49)
[2017-11-09] MEDS: QUEtiapine FUMARATE 200 MG TAB PO ×4 (14:09→20:10)
[2017-11-09] MEDS: MAGNESIUM OXIDE 400 MG TAB (MAG-OX) PO ×2 (20:09)
[2017-11-09] MEDS: HALOPERIDOL 2 MG TAB PO ×2 (20:09)
[2017-11-09] MEDS: ASPIRIN 81 MG ENTERIC TAB PO ×2 (20:09)
[2017-11-09] MEDS: ATORVASTATIN 20 MG TAB PO ×2 (20:09)
[2017-11-10 06:15] LABS: BASO % 0.5 % (0.0-1.0); EOS # 0.3 10^3/uL (0.0-0.50); EOS % 6.6 % (0.0-3.0); HEMATOCRIT 29.3 % (42.0-52.0); HEMOGLOBIN 9.6 g/dl (13.5-17.5); IMMATURE GRANULOCYTE % 0.3 % (0-3.0); LYMPH # 1.1 10^3/uL (1.5-4.5); LYMPH % 26.8 % (24.0-44.0); MEAN CORPUSCULAR HEMOGLOBIN 32.3 pg (27.0-33.0); MEAN CORPUSCULAR HGB CONC 32.8 g/dl (32.0-36.5); MEAN CORPUSCULAR VOLUME 98.7 fl (80.0-96.0); MONO # 0.3 10^3/uL (0.0-0.8); MONO % 6.6 % (0.0-5.0); NEUTROPHILS # 2.3 10^3/uL (1.8-7.7); NEUTROPHILS % 59.2 % (36.0-66.0); PLATELET COUNT, AUTOMATED 183 10^3/uL (150-450); RED BLOOD COUNT 2.97 10^6/uL (4.30-6.10); RED CELL DISTRIBUTION WIDTH 13.5 % (11.5-14.5); WHITE BLOOD COUNT 3.9 10^3/uL (4.0-10.0)
[2017-11-10] MEDS: METOPROLOL TART 12.5 MG PER 1/2 TAB PO ×8 (06:20→18:00)
[2017-11-10] MEDS: SINEMET 25-100 MG TAB PO ×10 (06:20→21:07)
[2017-11-10] MEDS: HEPARIN SOD (PORCINE) 5000 UNITS/ML VIAL SC ×6 (06:21→21:05)
[2017-11-10 06:31] LABS: ANION GAP 5 MEQ/L (8-16); BLOOD UREA NITROGEN 14 MG/DL (7-18); CARBON DIOXIDE LEVEL 27 MEQ/L (21-32); CHLORIDE LEVEL 116 MEQ/L (98-107); CPK CREATINE PHOSPHOKINASE 118 U/L (39-308); CREATININE FOR GFR 1.09 MG/DL (0.70-1.30); GLOMERULAR FILTRATION RATE > 60.0 (>42); GLUCOSE, FASTING 99 MG/DL (70-100); MAGNESIUM LEVEL 2.4 MG/DL (1.8-2.4); POTASSIUM SERUM 4.1 MEQ/L (3.5-5.1); SODIUM LEVEL 148 MEQ/L (136-145)
[2017-11-10] MEDS: DOCUSATE SODIUM 100 MG CAP PO ×4 (08:49→21:06)
[2017-11-10] MEDS: SENOKOT S TAB PO ×4 (08:49→21:06)
[2017-11-10] MEDS: OLANZapine 5 MG TAB PO ×4 (08:49→21:07)
[2017-11-10] MEDS: PRAMIPEXOLE 1 MG TAB PO ×8 (08:49→21:07)
[2017-11-10] MEDS: LORazepam 1 MG TAB PO ×6 (08:50→21:07)
[2017-11-10] MEDS: EUCERIN 120GM CREAM TOP ×4 (08:50→21:08)
[2017-11-10] MEDS: QUEtiapine FUMARATE 200 MG TAB PO ×4 (08:50→21:07)
[2017-11-10] MEDS: PRIMIDONE 50 MG TAB PO ×4 (08:50→18:27)
[2017-11-10] MEDS: carBAMazepine 200 MG TAB PO ×4 (08:50→21:06)
[2017-11-10] MEDS: VITAMIN E 400 INTERNATIONAL UNITS CAP PO ×2 (08:50)
[2017-11-10] MEDS: BENZTROPINE 0.5 MG TAB PO ×4 (08:50→21:06)
[2017-11-10] MEDS: SOD POLYSTYRENE SULFONATE SUSP 15 GM/60 ML UD PO ×2 (08:54)
[2017-11-10] MEDS: ATORVASTATIN 20 MG TAB PO ×2 (21:07)
[2017-11-10] MEDS: ASPIRIN 81 MG ENTERIC TAB PO ×2 (21:07)
[2017-11-10] MEDS: HALOPERIDOL 2 MG TAB PO ×2 (21:07)
[2017-11-10] MEDS: MAGNESIUM OXIDE 400 MG TAB (MAG-OX) PO ×2 (21:07)
[2017-11-11] MEDS: METOPROLOL TART 12.5 MG PER 1/2 TAB PO ×8 (00:11→18:00)
[2017-11-11] MEDS: SINEMET 25-100 MG TAB PO ×10 (05:34→22:17)
[2017-11-11] MEDS: HEPARIN SOD (PORCINE) 5000 UNITS/ML VIAL SC ×6 (05:34→22:19)
[2017-11-11 06:45] LABS: CPK CREATINE PHOSPHOKINASE 75 U/L (39-308)
[2017-11-11] MEDS: PRIMIDONE 50 MG TAB PO ×4 (08:51→18:14)
[2017-11-11] MEDS: LORazepam 1 MG TAB PO ×6 (08:51→22:18)
[2017-11-11] MEDS: BENZTROPINE 0.5 MG TAB PO ×4 (08:51→22:18)
[2017-11-11] MEDS: OLANZapine 5 MG TAB PO ×4 (08:51→22:17)
[2017-11-11] MEDS: DOCUSATE SODIUM 100 MG CAP PO ×4 (08:51→22:18)
[2017-11-11] MEDS: PRAMIPEXOLE 1 MG TAB PO ×8 (08:52→22:17)
[2017-11-11] MEDS: VITAMIN E 400 INTERNATIONAL UNITS CAP PO ×2 (08:52)
[2017-11-11] MEDS: QUEtiapine FUMARATE 200 MG TAB PO ×4 (08:52→22:18)
[2017-11-11] MEDS: SENOKOT S TAB PO ×4 (08:52→22:18)
[2017-11-11] MEDS: carBAMazepine 200 MG TAB PO ×4 (08:52→22:18)
[2017-11-11] MEDS: EUCERIN 120GM CREAM TOP ×4 (08:53→22:19)
[2017-11-11] MEDS: SOD POLYSTYRENE SULFONATE SUSP 15 GM/60 ML UD PO ×4 (08:53→09:00)
[2017-11-11] MEDS: ATORVASTATIN 20 MG TAB PO ×2 (22:17)
[2017-11-11] MEDS: HALOPERIDOL 2 MG TAB PO ×2 (22:18)
[2017-11-11] MEDS: ASPIRIN 81 MG ENTERIC TAB PO ×2 (22:18)
[2017-11-11] MEDS: MAGNESIUM OXIDE 400 MG TAB (MAG-OX) PO ×2 (22:19)
[2017-11-12] MEDS: METOPROLOL TART 12.5 MG PER 1/2 TAB PO ×10 (05:36→23:41)
[2017-11-12] MEDS: HEPARIN SOD (PORCINE) 5000 UNITS/ML VIAL SC ×8 (05:36→22:00)
[2017-11-12] MEDS: SINEMET 25-100 MG TAB PO ×10 (05:36→20:32)
[2017-11-12] MEDS: PRAMIPEXOLE 1 MG TAB PO ×8 (08:06→20:31)
[2017-11-12] MEDS: LORazepam 1 MG TAB PO ×6 (08:06→20:31)
[2017-11-12] MEDS: BENZTROPINE 0.5 MG TAB PO ×4 (08:06→20:31)
[2017-11-12] MEDS: QUEtiapine FUMARATE 200 MG TAB PO ×4 (08:06→20:31)
[2017-11-12] MEDS: carBAMazepine 200 MG TAB PO ×4 (08:07→20:30)
[2017-11-12] MEDS: DOCUSATE SODIUM 100 MG CAP PO ×4 (08:07→20:31)
[2017-11-12] MEDS: SENOKOT S TAB PO ×4 (08:07→20:31)
[2017-11-12] MEDS: HALOPERIDOL 2 MG TAB PO ×2 (08:07)
[2017-11-12] MEDS: PRIMIDONE 50 MG TAB PO ×4 (08:07→17:02)
[2017-11-12] MEDS: VITAMIN E 400 INTERNATIONAL UNITS CAP PO ×2 (08:07)
[2017-11-12] MEDS: OLANZapine 5 MG TAB PO ×4 (08:07→20:30)
[2017-11-12] MEDS: SOD POLYSTYRENE SULFONATE SUSP 15 GM/60 ML UD PO ×2 (08:08)
[2017-11-12] MEDS: EUCERIN 120GM CREAM TOP ×4 (08:08→20:32)
[2017-11-12] MEDS: MAGNESIUM OXIDE 400 MG TAB (MAG-OX) PO ×2 (20:30)
[2017-11-12] MEDS: ATORVASTATIN 20 MG TAB PO ×2 (20:31)
[2017-11-12] MEDS: ASPIRIN 81 MG ENTERIC TAB PO ×2 (20:31)
[2017-11-13] MEDS: SINEMET 25-100 MG TAB PO ×6 (05:40→13:22)
[2017-11-13] MEDS: HEPARIN SOD (PORCINE) 5000 UNITS/ML VIAL SC ×4 (05:40→13:22)
[2017-11-13] MEDS: METOPROLOL TART 12.5 MG PER 1/2 TAB PO ×4 (05:41→12:00)
[2017-11-13] MEDS: SOD POLYSTYRENE SULFONATE SUSP 15 GM/60 ML UD PO ×4 (09:00→10:11)
[2017-11-13] MEDS: OLANZapine 5 MG TAB PO ×2 (10:07)
[2017-11-13] MEDS: ACETAMINOPHEN TAB 650MG DOSE (2X325MG) PO ×2 (10:10)
[2017-11-13] MEDS: HALOPERIDOL 2 MG TAB PO ×2 (10:11)
[2017-11-13] MEDS: PRAMIPEXOLE 1 MG TAB PO ×4 (10:11→13:22)
[2017-11-13] MEDS: DOCUSATE SODIUM 100 MG CAP PO ×2 (10:11)
[2017-11-13] MEDS: SENOKOT S TAB PO ×2 (10:12)
[2017-11-13] MEDS: BENZTROPINE 0.5 MG TAB PO ×2 (10:12)
[2017-11-13] MEDS: carBAMazepine 200 MG TAB PO ×2 (10:12)
[2017-11-13] MEDS: QUEtiapine FUMARATE 200 MG TAB PO ×2 (10:12)
[2017-11-13] MEDS: PRIMIDONE 50 MG TAB PO ×4 (10:12→15:46)
[2017-11-13] MEDS: VITAMIN E 400 INTERNATIONAL UNITS CAP PO ×2 (10:13)
[2017-11-13] MEDS: LORazepam 1 MG TAB PO ×4 (10:13→15:46)
[2017-11-13] MEDS: EUCERIN 120GM CREAM TOP ×2 (10:15)
== END 2017-11-13 16:30 | disposition home or self-care (01) | DRG 683 ==
LOC: M MSPAV 11-04 12:48 → M PCU 11-03 02:43 → M ED 17:10 → M ED INP 23:56
DX: N17.9 Acute kidney failure, unspecified (principal); F20.81 Schizophreniform disorder; I42.1 Obstructive hypertrophic cardiomyopathy; M62.82 Rhabdomyolysis; E87.0 Hyperosmolality and hypernatremia; F02.81 Dementia in other diseases classified elsewhere, unspecified severity, with behavioral disturbance; G31.83 Neurocognitive disorder with Lewy bodies; F41.9 Anxiety disorder, unspecified; F79 Unspecified intellectual disabilities; E87.5 Hyperkalemia; R07.9 Chest pain, unspecified; J30.9 Allergic rhinitis, unspecified; I25.10 Atherosclerotic heart disease of native coronary artery without angina pectoris; E78.5 Hyperlipidemia, unspecified; R50.9 Fever, unspecified; I48.0 Paroxysmal atrial fibrillation; K59.00 Constipation, unspecified; R63.4 Abnormal weight loss; R13.10 Dysphagia, unspecified; F32.9 Major depressive disorder, single episode, unspecified; N18.3 Chronic kidney disease, stage 3 (moderate); I35.1 Nonrheumatic aortic (valve) insufficiency; Z88.1 Allergy status to other antibiotic agents; Z88.8 Allergy status to other drugs, medicaments and biological substances; Z87.891 Personal history of nicotine dependence; Z79.82 Long term (current) use of aspirin; Z79.899 Other long term (current) drug therapy

== ENCOUNTER 2017-11-13 18:39 | Inpatient (IN) | payer MEDICARE, MEDICAID ==
[2017-11-13 20:11] LABS: HEMATOCRIT 36.7 % (42.0-52.0); HEMOGLOBIN 12.1 g/dl (13.5-17.5); MEAN CORPUSCULAR HEMOGLOBIN 32.4 pg (27.0-33.0); MEAN CORPUSCULAR VOLUME 98.4 fl (80.0-96.0); PLATELET COUNT, AUTOMATED 207 10^3/uL (150-450); RED BLOOD COUNT 3.73 10^6/uL (4.30-6.10); RED CELL DISTRIBUTION WIDTH 13.2 % (11.5-14.5); WHITE BLOOD COUNT 4.6 10^3/uL (4.0-10.0)
[2017-11-13] MEDS: LORazepam 1 MG TAB PO (20:15)
[2017-11-13 20:24] LABS: KETONE, URINE AUTO RFX NEGATIVE (NEGATIVE); LEUKOCYTE ESTERASE UR AUTO RFX NEGATIVE (NEGATIVE); NITRITE, URINE AUTO RFX NEGATIVE (NEGATIVE); RBC, URINE AUTO RFX 0 /HPF (0-3); SPECIFIC GRAVITY UR AUTO RFX 1.009 (1.002-1.035); SQUAM EPITHELIAL CELL UR AURFX 0 /HPF (0-6); WBC, URINE AUTO RFX 1 /HPF (0-3)
[2017-11-13 20:32] LABS: AMMONIA < 10 uMOL/L (<32)
[2017-11-13 20:42] LABS: ACETAMINOPHEN LEVEL < 2.0 UG/ML (10.0-30.0); ALBUMIN 3.6 GM/DL (3.2-5.2); ALKALINE PHOSPHATASE 166 U/L (45-117); ALT/SGPT 8 U/L (12-78); ANION GAP 7 MEQ/L (8-16); AST/SGOT 14 U/L (7-37); BILIRUBIN,DIRECT < 0.1 MG/DL (0.0-0.2); BILIRUBIN,TOTAL 0.3 MG/DL (0.2-1.0); BLOOD UREA NITROGEN 19 MG/DL (7-18); CALCIUM LEVEL 8.4 MG/DL (8.8-10.2); CARBON DIOXIDE LEVEL 26 MEQ/L (21-32); CHLORIDE LEVEL 110 MEQ/L (98-107); CREATININE FOR GFR 1.27 MG/DL (0.70-1.30); ETHYL ALCOHOL (ETHANOL) < 0.003 % (0.000-0.010); GLOMERULAR FILTRATION RATE 59.3 (>42); GLUCOSE, FASTING 92 MG/DL (70-100); POTASSIUM SERUM 4.9 MEQ/L (3.5-5.1); SALICYLATE LEVEL < 1.7 MG/DL (5.0-30.0); SODIUM LEVEL 143 MEQ/L (136-145); THYROID STIMULATING HORMONE 0.047 uIU/ML (0.358-3.740); TOTAL PROTEIN 7.2 GM/DL (6.4-8.2)
[2017-11-13 20:51] LABS: AMPHETAMINES LEVEL URINE NEGATIVE (NEGATIVE); BARBITURATES URINE POSITIVE (NEGATIVE); BENZODIAZEPINES URINE NEGATIVE (NEGATIVE); CANNABINOIDS URINE NEGATIVE (NEGATIVE); COCAINE METABOLITE URINE NEGATIVE (NEGATIVE); METHADONE URINE NEGATIVE (NEGATIVE); OPIATES URINE NEGATIVE (NEGATIVE); PHENCYCLIDINE URINE NEGATIVE (NEGATIVE)
[2017-11-13] MEDS: QUEtiapine FUMARATE 100 MG TAB PO (21:45)
[2017-11-14] MEDS: HALOPERIDOL 2 MG TAB PO ×3 (00:10→21:03)
[2017-11-14 00:48] LABS: FREE T4 0.83 NG/DL (0.76-1.46)
[2017-11-14] MEDS: SINEMET 25-100 MG TAB PO ×5 (06:00→21:02)
[2017-11-14] MEDS: HEPARIN SOD (PORCINE) 5000 UNITS/ML VIAL SQ ×3 (06:16→21:01)
[2017-11-14 07:07] LABS: BASO % 0.7 % (0.0-1.0); EOS # 0.2 10^3/uL (0.0-0.50); HEMATOCRIT 31.7 % (42.0-52.0); HEMOGLOBIN 10.5 g/dl (13.5-17.5); IMMATURE GRANULOCYTE % 0.5 % (0-3.0); LYMPH # 1.1 10^3/uL (1.5-4.5); LYMPH % 25.2 % (24.0-44.0); MEAN CORPUSCULAR HEMOGLOBIN 31.9 pg (27.0-33.0); MEAN CORPUSCULAR HGB CONC 33.1 g/dl (32.0-36.5); MEAN CORPUSCULAR VOLUME 96.4 fl (80.0-96.0); MONO # 0.4 10^3/uL (0.0-0.8); MONO % 8.8 % (0.0-5.0); NEUTROPHILS # 2.5 10^3/uL (1.8-7.7); NEUTROPHILS % 59.8 % (36.0-66.0); PLATELET COUNT, AUTOMATED 201 10^3/uL (150-450); RED BLOOD COUNT 3.29 10^6/uL (4.30-6.10); RED CELL DISTRIBUTION WIDTH 13.1 % (11.5-14.5); WHITE BLOOD COUNT 4.2 10^3/uL (4.0-10.0)
[2017-11-14 07:16] LABS: ANION GAP 3 MEQ/L (8-16); BLOOD UREA NITROGEN 19 MG/DL (7-18); CALCIUM LEVEL 8.3 MG/DL (8.8-10.2); CARBON DIOXIDE LEVEL 29 MEQ/L (21-32); CHLORIDE LEVEL 112 MEQ/L (98-107); CREATININE FOR GFR 1.37 MG/DL (0.70-1.30); GLOMERULAR FILTRATION RATE 54.4 (>42); GLUCOSE, FASTING 107 MG/DL (70-100); SODIUM LEVEL 144 MEQ/L (136-145)
[2017-11-14] MEDS: PRIMIDONE 50 MG TAB PO ×2 (09:37→15:35)
[2017-11-14] MEDS: DOCUSATE SODIUM 100 MG CAP PO ×2 (09:39→21:02)
[2017-11-14] MEDS: SOD POLYSTYRENE SULFONATE SUSP 15 GM/60 ML UD PO (09:39)
[2017-11-14] MEDS: BENZTROPINE 0.5 MG TAB PO ×2 (09:39→21:03)
[2017-11-14] MEDS: LORazepam 1 MG TAB PO ×3 (09:39→21:02)
[2017-11-14] MEDS: OLANZapine 5 MG TAB PO ×2 (09:41→21:02)
[2017-11-14] MEDS: carBAMazepine 200 MG TAB PO ×2 (09:41→21:02)
[2017-11-14] MEDS: EUCERIN 120GM CREAM TOP ×2 (09:42→21:00)
[2017-11-14 10:29] LABS: CPK CREATINE PHOSPHOKINASE 44 U/L (39-308)
[2017-11-14] MEDS ORDERED: PILL CRUSHER/CUTTER 1 EACH XX (13:00)
[2017-11-14] MEDS: ASPIRIN 81 MG ENTERIC TAB PO (15:34)
[2017-11-14] MEDS: ATORVASTATIN 20 MG TAB PO (21:02)
[2017-11-14] MEDS: MAGNESIUM OXIDE 400 MG TAB (MAG-OX) PO (21:02)
[2017-11-15] MEDS: SINEMET 25-100 MG TAB PO ×5 (06:24→21:01)
[2017-11-15] MEDS: HEPARIN SOD (PORCINE) 5000 UNITS/ML VIAL SQ ×4 (06:24→21:49)
[2017-11-15 07:07] LABS: BASO # 0.1 10^3/uL (0.0-0.2); BASO % 1.5 % (0.0-1.0); EOS # 0.2 10^3/uL (0.0-0.50); HEMATOCRIT 31.1 % (42.0-52.0); HEMOGLOBIN 10.6 g/dl (13.5-17.5); IMMATURE GRANULOCYTE % 0.3 % (0-3.0); LYMPH # 1.1 10^3/uL (1.5-4.5); LYMPH % 28.4 % (24.0-44.0); MEAN CORPUSCULAR HGB CONC 34.1 g/dl (32.0-36.5); MEAN CORPUSCULAR VOLUME 96.9 fl (80.0-96.0); MONO # 0.3 10^3/uL (0.0-0.8); MONO % 8.3 % (0.0-5.0); NEUTROPHILS # 2.3 10^3/uL (1.8-7.7); NEUTROPHILS % 57.5 % (36.0-66.0); PLATELET COUNT, AUTOMATED 186 10^3/uL (150-450); RED BLOOD COUNT 3.21 10^6/uL (4.30-6.10)
[2017-11-15 07:38] LABS: ANION GAP 5 MEQ/L (8-16); BLOOD UREA NITROGEN 25 MG/DL (7-18); CALCIUM LEVEL 8.6 MG/DL (8.8-10.2); CARBON DIOXIDE LEVEL 26 MEQ/L (21-32); CHLORIDE LEVEL 110 MEQ/L (98-107); CREATININE FOR GFR 1.78 MG/DL (0.70-1.30); GLOMERULAR FILTRATION RATE 40.2 (>42); GLUCOSE, FASTING 108 MG/DL (70-100); POTASSIUM SERUM 4.8 MEQ/L (3.5-5.1); SODIUM LEVEL 141 MEQ/L (136-145)
[2017-11-15] MEDS: LORazepam 1 MG TAB PO ×3 (07:58→21:04)
[2017-11-15] MEDS: HALOPERIDOL 2 MG TAB PO ×3 (07:59→19:13)
[2017-11-15] MEDS: NS 1,000 ML IV ×2 (08:15→14:13)
[2017-11-15] MEDS: SOD POLYSTYRENE SULFONATE SUSP 15 GM/60 ML UD PO (09:00)
[2017-11-15] MEDS: HALOPERIDOL 5 MG/ML VIAL (J1630) IM (10:45)
[2017-11-15] MEDS: DOCUSATE SODIUM 100 MG CAP PO ×2 (10:56→21:02)
[2017-11-15] MEDS: carBAMazepine 200 MG TAB PO ×2 (10:56→21:02)
[2017-11-15] MEDS: BENZTROPINE 0.5 MG TAB PO ×2 (10:56→21:02)
[2017-11-15] MEDS: PRIMIDONE 50 MG TAB PO ×2 (10:56→16:42)
[2017-11-15] MEDS: OLANZapine 5 MG TAB PO ×2 (10:57→21:02)
[2017-11-15] MEDS: EUCERIN 120GM CREAM TOP ×2 (10:58→21:03)
[2017-11-15] MEDS: ASPIRIN 81 MG ENTERIC TAB PO (16:42)
[2017-11-15] MEDS: MAGNESIUM OXIDE 400 MG TAB (MAG-OX) PO (21:02)
[2017-11-15] MEDS: ATORVASTATIN 20 MG TAB PO (21:02)
[2017-11-16 06:26] LABS: BASO % 1.2 % (0.0-1.0); EOS # 0.2 10^3/uL (0.0-0.50); EOS % 6.1 % (0.0-3.0); HEMATOCRIT 30.2 % (42.0-52.0); IMMATURE GRANULOCYTE % 0.3 % (0-3.0); LYMPH # 1.1 10^3/uL (1.5-4.5); LYMPH % 31.7 % (24.0-44.0); MEAN CORPUSCULAR HEMOGLOBIN 32.4 pg (27.0-33.0); MEAN CORPUSCULAR HGB CONC 33.1 g/dl (32.0-36.5); MEAN CORPUSCULAR VOLUME 97.7 fl (80.0-96.0); MONO # 0.3 10^3/uL (0.0-0.8); MONO % 9.2 % (0.0-5.0); NEUTROPHILS # 1.8 10^3/uL (1.8-7.7); NEUTROPHILS % 51.5 % (36.0-66.0); PLATELET COUNT, AUTOMATED 162 10^3/uL (150-450); RED BLOOD COUNT 3.09 10^6/uL (4.30-6.10); RED CELL DISTRIBUTION WIDTH 13.2 % (11.5-14.5); WHITE BLOOD COUNT 3.5 10^3/uL (4.0-10.0)
[2017-11-16 06:40] LABS: ANION GAP 4 MEQ/L (8-16); BLOOD UREA NITROGEN 21 MG/DL (7-18); CALCIUM LEVEL 7.8 MG/DL (8.8-10.2); CARBON DIOXIDE LEVEL 28 MEQ/L (21-32); CHLORIDE LEVEL 113 MEQ/L (98-107); CREATININE FOR GFR 1.43 MG/DL (0.70-1.30); GLOMERULAR FILTRATION RATE 51.8 (>42); GLUCOSE, FASTING 98 MG/DL (70-100); POTASSIUM SERUM 4.4 MEQ/L (3.5-5.1); SODIUM LEVEL 145 MEQ/L (136-145)
[2017-11-16] MEDS: HEPARIN SOD (PORCINE) 5000 UNITS/ML VIAL SQ ×3 (06:43→20:23)
[2017-11-16] MEDS: SINEMET 25-100 MG TAB PO ×5 (06:43→20:21)
[2017-11-16] MEDS: HALOPERIDOL 2 MG TAB PO ×3 (08:02→23:05)
[2017-11-16] MEDS: LORazepam 1 MG TAB PO ×3 (08:02→20:22)
[2017-11-16] MEDS: DOCUSATE SODIUM 100 MG CAP PO ×2 (09:00→20:21)
[2017-11-16] MEDS: carBAMazepine 200 MG TAB PO ×2 (09:00→20:21)
[2017-11-16] MEDS: OLANZapine 5 MG TAB PO ×2 (09:00→20:22)
[2017-11-16] MEDS: SOD POLYSTYRENE SULFONATE SUSP 15 GM/60 ML UD PO (09:00)
[2017-11-16] MEDS: PRIMIDONE 50 MG TAB PO ×2 (10:47→16:13)
[2017-11-16] MEDS: BENZTROPINE 0.5 MG TAB PO ×2 (10:48→20:21)
[2017-11-16] MEDS: EUCERIN 120GM CREAM TOP ×2 (10:48→20:23)
[2017-11-16] MEDS: ASPIRIN 81 MG ENTERIC TAB PO (16:13)
[2017-11-16] MEDS: ATORVASTATIN 20 MG TAB PO (20:21)
[2017-11-16] MEDS: HALOPERIDOL 5 MG TAB PO (20:22)
[2017-11-16] MEDS: MAGNESIUM OXIDE 400 MG TAB (MAG-OX) PO (20:22)
[2017-11-17] MEDS: QUEtiapine FUMARATE 50 MG TAB PO (02:45)
[2017-11-17] MEDS: HEPARIN SOD (PORCINE) 5000 UNITS/ML VIAL SQ ×3 (05:02→21:03)
[2017-11-17] MEDS: SINEMET 25-100 MG TAB PO ×5 (05:02→21:00)
[2017-11-17] MEDS: BENZTROPINE 0.5 MG TAB PO ×2 (09:00→21:00)
[2017-11-17] MEDS: OLANZapine 5 MG TAB PO ×2 (09:00→21:01)
[2017-11-17] MEDS: HALOPERIDOL 5 MG TAB PO ×2 (09:00→21:02)
[2017-11-17] MEDS: SOD POLYSTYRENE SULFONATE SUSP 15 GM/60 ML UD PO ×2 (09:00→14:05)
[2017-11-17] MEDS: EUCERIN 120GM CREAM TOP ×2 (09:00→21:00)
[2017-11-17] MEDS: carBAMazepine 200 MG TAB PO ×2 (09:49→21:00)
[2017-11-17] MEDS: DOCUSATE SODIUM 100 MG CAP PO ×2 (09:49→21:00)
[2017-11-17] MEDS: PRIMIDONE 50 MG TAB PO ×2 (09:50→16:00)
[2017-11-17] MEDS: LORazepam 1 MG TAB PO ×3 (09:51→21:02)
[2017-11-17] MEDS: HALOPERIDOL 2 MG TAB PO (09:51)
[2017-11-17 10:48] LABS: BASO # 0.1 10^3/uL (0.0-0.2); EOS # 0.1 10^3/uL (0.0-0.50); HEMATOCRIT 28.8 % (42.0-52.0); HEMOGLOBIN 9.4 g/dl (13.5-17.5); IMMATURE GRANULOCYTE % 0.4 % (0-3.0); LYMPH # 1.1 10^3/uL (1.5-4.5); LYMPH % 21.1 % (24.0-44.0); MEAN CORPUSCULAR HEMOGLOBIN 32.5 pg (27.0-33.0); MEAN CORPUSCULAR HGB CONC 32.6 g/dl (32.0-36.5); MEAN CORPUSCULAR VOLUME 99.7 fl (80.0-96.0); MONO # 0.4 10^3/uL (0.0-0.8); MONO % 7.3 % (0.0-5.0); NEUTROPHILS # 3.5 10^3/uL (1.8-7.7); NEUTROPHILS % 68.2 % (36.0-66.0); PLATELET COUNT, AUTOMATED 151 10^3/uL (150-450); RED BLOOD COUNT 2.89 10^6/uL (4.30-6.10); RED CELL DISTRIBUTION WIDTH 13.2 % (11.5-14.5); WHITE BLOOD COUNT 5.1 10^3/uL (4.0-10.0)
[2017-11-17 11:13] LABS: ANION GAP 8 MEQ/L (8-16); BLOOD UREA NITROGEN 16 MG/DL (7-18); CALCIUM LEVEL 7.7 MG/DL (8.8-10.2); CARBON DIOXIDE LEVEL 23 MEQ/L (21-32); CHLORIDE LEVEL 113 MEQ/L (98-107); CREATININE FOR GFR 1.42 MG/DL (0.70-1.30); GLOMERULAR FILTRATION RATE 52.2 (>42); GLUCOSE, FASTING 112 MG/DL (70-100); POTASSIUM SERUM 4.3 MEQ/L (3.5-5.1); SODIUM LEVEL 144 MEQ/L (136-145)
[2017-11-17 11:31] LABS: POS COUNT POS FLAG
[2017-11-17] MEDS: ASPIRIN 81 MG ENTERIC TAB PO (16:00)
[2017-11-17] MEDS: ATORVASTATIN 20 MG TAB PO (21:00)
[2017-11-17] MEDS: MAGNESIUM OXIDE 400 MG TAB (MAG-OX) PO (21:02)
[2017-11-17] MEDS: TOPIRAMATE (TopAMAX) 25 MG TAB PO (21:02)
[2017-11-18] MEDS: SINEMET 25-100 MG TAB PO ×5 (06:00→22:11)
[2017-11-18] MEDS: HEPARIN SOD (PORCINE) 5000 UNITS/ML VIAL SQ ×3 (06:00→22:00)
[2017-11-18] MEDS: SOD POLYSTYRENE SULFONATE SUSP 15 GM/60 ML UD PO (08:05)
[2017-11-18] MEDS: carBAMazepine 200 MG TAB PO ×2 (08:06→22:12)
[2017-11-18] MEDS: DOCUSATE SODIUM 100 MG CAP PO ×2 (08:06→22:12)
[2017-11-18] MEDS: OLANZapine 5 MG TAB PO ×2 (08:06→22:11)
[2017-11-18] MEDS: TOPIRAMATE (TopAMAX) 25 MG TAB PO ×2 (08:07→22:12)
[2017-11-18] MEDS: HALOPERIDOL 5 MG TAB PO ×2 (08:07→22:11)
[2017-11-18] MEDS: EUCERIN 120GM CREAM TOP ×2 (08:07→22:13)
[2017-11-18] MEDS: LORazepam 1 MG TAB PO ×3 (08:07→22:11)
[2017-11-18] MEDS: BENZTROPINE 0.5 MG TAB PO ×2 (08:07→22:12)
[2017-11-18 11:59] LABS: BASO % 0.9 % (0.0-1.0); EOS # 0.2 10^3/uL (0.0-0.50); EOS % 5.2 % (0.0-3.0); HEMATOCRIT 31.9 % (42.0-52.0); HEMOGLOBIN 10.5 g/dl (13.5-17.5); IMMATURE GRANULOCYTE % 0.2 % (0-3.0); LYMPH # 1.1 10^3/uL (1.5-4.5); LYMPH % 23.7 % (24.0-44.0); MEAN CORPUSCULAR HEMOGLOBIN 32.3 pg (27.0-33.0); MEAN CORPUSCULAR HGB CONC 32.9 g/dl (32.0-36.5); MEAN CORPUSCULAR VOLUME 98.2 fl (80.0-96.0); MONO # 0.3 10^3/uL (0.0-0.8); MONO % 5.6 % (0.0-5.0); NEUTROPHILS # 2.9 10^3/uL (1.8-7.7); NEUTROPHILS % 64.4 % (36.0-66.0); PLATELET COUNT, AUTOMATED 183 10^3/uL (150-450); RED BLOOD COUNT 3.25 10^6/uL (4.30-6.10); RED CELL DISTRIBUTION WIDTH 13.2 % (11.5-14.5); WHITE BLOOD COUNT 4.4 10^3/uL (4.0-10.0)
[2017-11-18 12:19] LABS: ANION GAP 6 MEQ/L (8-16); BLOOD UREA NITROGEN 19 MG/DL (7-18); CALCIUM LEVEL 7.8 MG/DL (8.8-10.2); CARBON DIOXIDE LEVEL 26 MEQ/L (21-32); CHLORIDE LEVEL 115 MEQ/L (98-107); CREATININE FOR GFR 1.38 MG/DL (0.70-1.30); GLOMERULAR FILTRATION RATE 53.9 (>42); GLUCOSE, FASTING 119 MG/DL (70-100); POTASSIUM SERUM 4.3 MEQ/L (3.5-5.1); SODIUM LEVEL 147 MEQ/L (136-145)
[2017-11-18] MEDS: HALOPERIDOL 2 MG TAB PO (13:06)
[2017-11-18] MEDS: ASPIRIN 81 MG ENTERIC TAB PO (16:58)
[2017-11-18] MEDS: ATORVASTATIN 20 MG TAB PO (22:12)
[2017-11-18] MEDS: MAGNESIUM OXIDE 400 MG TAB (MAG-OX) PO (22:12)
[2017-11-19] MEDS: HEPARIN SOD (PORCINE) 5000 UNITS/ML VIAL SQ ×3 (06:00→20:27)
[2017-11-19] MEDS: SINEMET 25-100 MG TAB PO ×5 (06:05→20:28)
[2017-11-19 06:39] LABS: BASO # 0.1 10^3/uL (0.0-0.2); BASO % 1.1 % (0.0-1.0); EOS # 0.3 10^3/uL (0.0-0.50); EOS % 4.7 % (0.0-3.0); HEMATOCRIT 34.2 % (42.0-52.0); HEMOGLOBIN 11.2 g/dl (13.5-17.5); IMMATURE GRANULOCYTE % 0.3 % (0-3.0); LYMPH # 1.3 10^3/uL (1.5-4.5); MEAN CORPUSCULAR HEMOGLOBIN 32.6 pg (27.0-33.0); MEAN CORPUSCULAR HGB CONC 32.7 g/dl (32.0-36.5); MEAN CORPUSCULAR VOLUME 99.4 fl (80.0-96.0); MONO # 0.4 10^3/uL (0.0-0.8); MONO % 5.9 % (0.0-5.0); NEUTROPHILS # 4.4 10^3/uL (1.8-7.7); PLATELET COUNT, AUTOMATED 217 10^3/uL (150-450); RED BLOOD COUNT 3.44 10^6/uL (4.30-6.10); RED CELL DISTRIBUTION WIDTH 13.2 % (11.5-14.5); WHITE BLOOD COUNT 6.4 10^3/uL (4.0-10.0)
[2017-11-19 07:00] LABS: ANION GAP 4 MEQ/L (8-16); BLOOD UREA NITROGEN 17 MG/DL (7-18); CALCIUM LEVEL 8.1 MG/DL (8.8-10.2); CARBON DIOXIDE LEVEL 27 MEQ/L (21-32); CHLORIDE LEVEL 112 MEQ/L (98-107); CREATININE FOR GFR 1.43 MG/DL (0.70-1.30); GLOMERULAR FILTRATION RATE 51.8 (>42); GLUCOSE, FASTING 107 MG/DL (70-100); POTASSIUM SERUM 4.1 MEQ/L (3.5-5.1); SODIUM LEVEL 143 MEQ/L (136-145)
[2017-11-19] MEDS: DOCUSATE SODIUM 100 MG CAP PO ×2 (08:50→20:27)
[2017-11-19] MEDS: SOD POLYSTYRENE SULFONATE SUSP 15 GM/60 ML UD PO (08:50)
[2017-11-19] MEDS: LORazepam 1 MG TAB PO ×3 (08:51→20:29)
[2017-11-19] MEDS: OLANZapine 5 MG TAB PO ×2 (08:51→20:29)
[2017-11-19] MEDS: TOPIRAMATE (TopAMAX) 25 MG TAB PO ×2 (08:51→20:28)
[2017-11-19] MEDS: carBAMazepine 200 MG TAB PO ×2 (08:51→20:28)
[2017-11-19] MEDS: HALOPERIDOL 5 MG TAB PO ×2 (08:51→20:27)
[2017-11-19] MEDS: EUCERIN 120GM CREAM TOP ×2 (08:56→20:30)
[2017-11-19] MEDS: BENZTROPINE 0.5 MG TAB PO ×2 (09:00→20:29)
[2017-11-19] MEDS: ASPIRIN 81 MG ENTERIC TAB PO (17:53)
[2017-11-19] MEDS: MAGNESIUM OXIDE 400 MG TAB (MAG-OX) PO (20:28)
[2017-11-19] MEDS: ACETAMINOPHEN TAB 650MG DOSE (2X325MG) PO (20:28)
[2017-11-19] MEDS: ATORVASTATIN 20 MG TAB PO (20:29)
[2017-11-20] MEDS: HEPARIN SOD (PORCINE) 5000 UNITS/ML VIAL SQ ×3 (06:17→22:00)
[2017-11-20] MEDS: SINEMET 25-100 MG TAB PO ×5 (06:17→20:05)
[2017-11-20 06:47] LABS: BASO # 0.1 10^3/uL (0.0-0.2); BASO % 1.5 % (0.0-1.0); EOS # 0.3 10^3/uL (0.0-0.50); EOS % 6.6 % (0.0-3.0); HEMATOCRIT 32.4 % (42.0-52.0); HEMOGLOBIN 10.8 g/dl (13.5-17.5); IMMATURE GRANULOCYTE % 0.2 % (0-3.0); LYMPH # 1.3 10^3/uL (1.5-4.5); LYMPH % 27.8 % (24.0-44.0); MEAN CORPUSCULAR HEMOGLOBIN 32.2 pg (27.0-33.0); MEAN CORPUSCULAR HGB CONC 33.3 g/dl (32.0-36.5); MEAN CORPUSCULAR VOLUME 96.7 fl (80.0-96.0); MONO # 0.3 10^3/uL (0.0-0.8); MONO % 6.8 % (0.0-5.0); NEUTROPHILS # 2.7 10^3/uL (1.8-7.7); NEUTROPHILS % 57.1 % (36.0-66.0); PLATELET COUNT, AUTOMATED 202 10^3/uL (150-450); RED BLOOD COUNT 3.35 10^6/uL (4.30-6.10); WHITE BLOOD COUNT 4.7 10^3/uL (4.0-10.0)
[2017-11-20 07:01] LABS: ANION GAP 6 MEQ/L (8-16); BLOOD UREA NITROGEN 16 MG/DL (7-18); CALCIUM LEVEL 8.1 MG/DL (8.8-10.2); CARBON DIOXIDE LEVEL 24 MEQ/L (21-32); CHLORIDE LEVEL 114 MEQ/L (98-107); CREATININE FOR GFR 1.35 MG/DL (0.70-1.30); GLOMERULAR FILTRATION RATE 55.3 (>42); GLUCOSE, FASTING 98 MG/DL (70-100); POTASSIUM SERUM 4.5 MEQ/L (3.5-5.1); SODIUM LEVEL 144 MEQ/L (136-145)
[2017-11-20] MEDS: LORazepam 1 MG TAB PO (10:02)
[2017-11-20] MEDS: BENZTROPINE 0.5 MG TAB PO ×2 (10:02→20:05)
[2017-11-20] MEDS: HALOPERIDOL 5 MG TAB PO ×2 (10:03→20:04)
[2017-11-20] MEDS: SOD POLYSTYRENE SULFONATE SUSP 15 GM/60 ML UD PO (10:03)
[2017-11-20] MEDS: DOCUSATE SODIUM 100 MG CAP PO ×2 (10:03→20:03)
[2017-11-20] MEDS: carBAMazepine 200 MG TAB PO ×2 (10:03→20:04)
[2017-11-20] MEDS: TOPIRAMATE (TopAMAX) 25 MG TAB PO ×2 (10:04→20:05)
[2017-11-20] MEDS: OLANZapine 5 MG TAB PO ×2 (10:04→20:04)
[2017-11-20] MEDS: EUCERIN 120GM CREAM TOP ×2 (10:04→20:05)
[2017-11-20] MEDS: HALOPERIDOL 2 MG TAB PO (12:24)
[2017-11-20] MEDS: ASPIRIN 81 MG ENTERIC TAB PO (16:18)
[2017-11-20] MEDS: LORazepam 0.5 MG TAB PO ×2 (16:18→20:04)
[2017-11-20] MEDS: ACETAMINOPHEN TAB 650MG DOSE (2X325MG) PO (20:04)
[2017-11-20] MEDS: ATORVASTATIN 20 MG TAB PO (20:05)
[2017-11-20] MEDS: MAGNESIUM OXIDE 400 MG TAB (MAG-OX) PO (20:05)
[2017-11-21] MEDS: HEPARIN SOD (PORCINE) 5000 UNITS/ML VIAL SQ ×3 (06:00→21:24)
[2017-11-21] MEDS: SINEMET 25-100 MG TAB PO ×5 (06:33→21:25)
[2017-11-21 07:47] LABS: BASO # 0.1 10^3/uL (0.0-0.2); BASO % 1.1 % (0.0-1.0); EOS # 0.4 10^3/uL (0.0-0.50); EOS % 6.3 % (0.0-3.0); HEMATOCRIT 33.5 % (42.0-52.0); HEMOGLOBIN 11.2 g/dl (13.5-17.5); IMMATURE GRANULOCYTE % 0.2 % (0-3.0); LYMPH # 1.2 10^3/uL (1.5-4.5); LYMPH % 21.2 % (24.0-44.0); MEAN CORPUSCULAR HGB CONC 33.4 g/dl (32.0-36.5); MEAN CORPUSCULAR VOLUME 98.8 fl (80.0-96.0); MONO # 0.3 10^3/uL (0.0-0.8); MONO % 5.4 % (0.0-5.0); NEUTROPHILS # 3.7 10^3/uL (1.8-7.7); NEUTROPHILS % 65.8 % (36.0-66.0); PLATELET COUNT, AUTOMATED 223 10^3/uL (150-450); RED BLOOD COUNT 3.39 10^6/uL (4.30-6.10); RED CELL DISTRIBUTION WIDTH 13.2 % (11.5-14.5); WHITE BLOOD COUNT 5.6 10^3/uL (4.0-10.0)
[2017-11-21 08:19] LABS: ANION GAP 6 MEQ/L (8-16); BLOOD UREA NITROGEN 16 MG/DL (7-18); CALCIUM LEVEL 8.2 MG/DL (8.8-10.2); CARBON DIOXIDE LEVEL 24 MEQ/L (21-32); CHLORIDE LEVEL 113 MEQ/L (98-107); CREATININE FOR GFR 1.48 MG/DL (0.70-1.30); GLOMERULAR FILTRATION RATE 49.7 (>42); GLUCOSE, FASTING 105 MG/DL (70-100); MAGNESIUM LEVEL 2.5 MG/DL (1.8-2.4); POTASSIUM SERUM 4.9 MEQ/L (3.5-5.1); SODIUM LEVEL 143 MEQ/L (136-145)
[2017-11-21] MEDS: TOPIRAMATE (TopAMAX) 25 MG TAB PO (09:52)
[2017-11-21] MEDS: carBAMazepine 200 MG TAB PO ×2 (09:52→21:25)
[2017-11-21] MEDS: BENZTROPINE 0.5 MG TAB PO ×2 (09:52→21:25)
[2017-11-21] MEDS: HALOPERIDOL 5 MG TAB PO ×2 (09:52→21:25)
[2017-11-21] MEDS: DOCUSATE SODIUM 100 MG CAP PO ×2 (09:53→21:25)
[2017-11-21] MEDS: LORazepam 0.5 MG TAB PO (09:53)
[2017-11-21] MEDS: OLANZapine 5 MG TAB PO ×2 (09:53→21:24)
[2017-11-21] MEDS: SOD POLYSTYRENE SULFONATE SUSP 15 GM/60 ML UD PO (09:53)
[2017-11-21] MEDS: EUCERIN 120GM CREAM TOP ×2 (09:54→21:26)
[2017-11-21] MEDS: ASPIRIN 81 MG ENTERIC TAB PO (16:00)
[2017-11-21] MEDS: HALOPERIDOL 2 MG TAB PO (17:09)
[2017-11-21] MEDS: MAGNESIUM OXIDE 400 MG TAB (MAG-OX) PO (21:24)
[2017-11-21] MEDS: TOPIRAMATE (TopAMAX) 100 MG TAB PO (21:24)
[2017-11-21] MEDS: ACETAMINOPHEN TAB 650MG DOSE (2X325MG) PO (21:25)
[2017-11-21] MEDS: ATORVASTATIN 20 MG TAB PO (21:25)
[2017-11-22] MEDS: HALOPERIDOL 2 MG TAB PO ×2 (04:29→10:09)
[2017-11-22] MEDS: HEPARIN SOD (PORCINE) 5000 UNITS/ML VIAL SQ ×3 (06:00→20:33)
[2017-11-22] MEDS: SINEMET 25-100 MG TAB PO ×5 (06:37→20:29)
[2017-11-22 06:40] LABS: BASO # 0.1 10^3/uL (0.0-0.2); BASO % 1.1 % (0.0-1.0); EOS # 0.3 10^3/uL (0.0-0.50); EOS % 6.8 % (0.0-3.0); HEMATOCRIT 31.6 % (42.0-52.0); HEMOGLOBIN 10.5 g/dl (13.5-17.5); IMMATURE GRANULOCYTE % 0.5 % (0-3.0); MEAN CORPUSCULAR HEMOGLOBIN 32.6 pg (27.0-33.0); MEAN CORPUSCULAR HGB CONC 33.2 g/dl (32.0-36.5); MEAN CORPUSCULAR VOLUME 98.1 fl (80.0-96.0); MONO # 0.3 10^3/uL (0.0-0.8); MONO % 6.1 % (0.0-5.0); NEUTROPHILS # 2.8 10^3/uL (1.8-7.7); NEUTROPHILS % 63.5 % (36.0-66.0); PLATELET COUNT, AUTOMATED 207 10^3/uL (150-450); RED BLOOD COUNT 3.22 10^6/uL (4.30-6.10); RED CELL DISTRIBUTION WIDTH 13.2 % (11.5-14.5); WHITE BLOOD COUNT 4.4 10^3/uL (4.0-10.0)
[2017-11-22 06:55] LABS: ANION GAP 6 MEQ/L (8-16); BLOOD UREA NITROGEN 18 MG/DL (7-18); CARBON DIOXIDE LEVEL 21 MEQ/L (21-32); CHLORIDE LEVEL 116 MEQ/L (98-107); CREATININE FOR GFR 1.47 MG/DL (0.70-1.30); GLOMERULAR FILTRATION RATE 50.1 (>42); GLUCOSE, FASTING 105 MG/DL (70-100); MAGNESIUM LEVEL 2.5 MG/DL (1.8-2.4); POTASSIUM SERUM 4.2 MEQ/L (3.5-5.1); SODIUM LEVEL 143 MEQ/L (136-145)
[2017-11-22] MEDS: SOD POLYSTYRENE SULFONATE SUSP 15 GM/60 ML UD PO (10:08)
[2017-11-22] MEDS: DOCUSATE SODIUM 100 MG CAP PO ×2 (10:08→20:28)
[2017-11-22] MEDS: OLANZapine 5 MG TAB PO ×2 (10:09→20:30)
[2017-11-22] MEDS: carBAMazepine 200 MG TAB PO (10:09)
[2017-11-22] MEDS: BENZTROPINE 0.5 MG TAB PO ×2 (10:09→20:31)
[2017-11-22] MEDS: TOPIRAMATE (TopAMAX) 100 MG TAB PO ×2 (10:09→20:30)
[2017-11-22] MEDS: EUCERIN 120GM CREAM TOP ×2 (10:10→20:31)
[2017-11-22] MEDS: HALOPERIDOL 5 MG TAB PO ×2 (10:31→20:31)
[2017-11-22] MEDS: ASPIRIN 81 MG ENTERIC TAB PO (17:02)
[2017-11-22] MEDS: PRAZOSIN 1 MG CAP PO (20:28)
[2017-11-22] MEDS: ACETAMINOPHEN TAB 650MG DOSE (2X325MG) PO (20:29)
[2017-11-22] MEDS: MAGNESIUM OXIDE 400 MG TAB (MAG-OX) PO (20:30)
[2017-11-22] MEDS: ATORVASTATIN 20 MG TAB PO (20:31)
[2017-11-22] MEDS: carBAMazepine 100 MG *1/2* TAB PO (20:31)
[2017-11-23] MEDS: HALOPERIDOL 2 MG TAB PO ×2 (03:54→14:37)
[2017-11-23] MEDS: HEPARIN SOD (PORCINE) 5000 UNITS/ML VIAL SQ ×4 (06:00→22:32)
[2017-11-23] MEDS: SINEMET 25-100 MG TAB PO ×5 (06:04→22:36)
[2017-11-23 06:26] LABS: BASO # 0.1 10^3/uL (0.0-0.2); BASO % 1.2 % (0.0-1.0); EOS # 0.3 10^3/uL (0.0-0.50); EOS % 7.1 % (0.0-3.0); HEMATOCRIT 31.2 % (42.0-52.0); HEMOGLOBIN 10.3 g/dl (13.5-17.5); IMMATURE GRANULOCYTE % 0.2 % (0-3.0); LYMPH # 1.1 10^3/uL (1.5-4.5); LYMPH % 26.5 % (24.0-44.0); MEAN CORPUSCULAR HEMOGLOBIN 32.3 pg (27.0-33.0); MEAN CORPUSCULAR VOLUME 97.8 fl (80.0-96.0); MONO # 0.3 10^3/uL (0.0-0.8); MONO % 7.8 % (0.0-5.0); NEUTROPHILS # 2.3 10^3/uL (1.8-7.7); NEUTROPHILS % 57.2 % (36.0-66.0); PLATELET COUNT, AUTOMATED 196 10^3/uL (150-450); RED BLOOD COUNT 3.19 10^6/uL (4.30-6.10); RED CELL DISTRIBUTION WIDTH 13.2 % (11.5-14.5); WHITE BLOOD COUNT 4.1 10^3/uL (4.0-10.0)
[2017-11-23 06:51] LABS: ANION GAP 7 MEQ/L (8-16); BLOOD UREA NITROGEN 19 MG/DL (7-18); CARBON DIOXIDE LEVEL 23 MEQ/L (21-32); CHLORIDE LEVEL 112 MEQ/L (98-107); CREATININE FOR GFR 1.39 MG/DL (0.70-1.30); GLOMERULAR FILTRATION RATE 53.5 (>42); GLUCOSE, FASTING 99 MG/DL (70-100); MAGNESIUM LEVEL 2.5 MG/DL (1.8-2.4); POTASSIUM SERUM 4.2 MEQ/L (3.5-5.1); SODIUM LEVEL 142 MEQ/L (136-145)
[2017-11-23] MEDS: DOCUSATE SODIUM 100 MG CAP PO ×2 (10:03→22:36)
[2017-11-23] MEDS: BENZTROPINE 0.5 MG TAB PO ×2 (10:03→22:38)
[2017-11-23] MEDS: SOD POLYSTYRENE SULFONATE SUSP 15 GM/60 ML UD PO (10:03)
[2017-11-23] MEDS: EUCERIN 120GM CREAM TOP ×2 (10:03→21:00)
[2017-11-23] MEDS: PRAZOSIN 1 MG CAP PO ×2 (10:04→22:33)
[2017-11-23] MEDS: OLANZapine 5 MG TAB PO ×2 (10:04→22:37)
[2017-11-23] MEDS: TOPIRAMATE (TopAMAX) 100 MG TAB PO ×2 (10:05→22:33)
[2017-11-23] MEDS: HALOPERIDOL 5 MG TAB PO ×2 (10:05→22:38)
[2017-11-23] MEDS: carBAMazepine 100 MG *1/2* TAB PO ×2 (10:05→22:35)
[2017-11-23] MEDS: LACTULOSE 20 GM/30 ML SYRUP UD PO ×2 (12:53→22:31)
[2017-11-23] MEDS: ASPIRIN 81 MG ENTERIC TAB PO (16:55)
[2017-11-23] MEDS: MAGNESIUM OXIDE 400 MG TAB (MAG-OX) PO (22:35)
[2017-11-23] MEDS: ATORVASTATIN 20 MG TAB PO (22:35)
[2017-11-24] MEDS: HALOPERIDOL 2 MG TAB PO ×2 (03:07→16:49)
[2017-11-24] MEDS: LACTULOSE 20 GM/30 ML SYRUP UD PO ×4 (05:15→22:00)
[2017-11-24] MEDS: HEPARIN SOD (PORCINE) 5000 UNITS/ML VIAL SQ ×3 (05:27→22:00)
[2017-11-24] MEDS: SINEMET 25-100 MG TAB PO ×5 (05:27→20:50)
[2017-11-24 06:28] LABS: BASO % 0.8 % (0.0-1.0); EOS # 0.2 10^3/uL (0.0-0.50); EOS % 4.9 % (0.0-3.0); HEMATOCRIT 29.7 % (42.0-52.0); IMMATURE GRANULOCYTE % 0.4 % (0-3.0); LYMPH % 21.1 % (24.0-44.0); MEAN CORPUSCULAR HEMOGLOBIN 32.8 pg (27.0-33.0); MEAN CORPUSCULAR HGB CONC 33.7 g/dl (32.0-36.5); MEAN CORPUSCULAR VOLUME 97.4 fl (80.0-96.0); MONO # 0.4 10^3/uL (0.0-0.8); MONO % 7.9 % (0.0-5.0); NEUTROPHILS # 3.2 10^3/uL (1.8-7.7); NEUTROPHILS % 64.9 % (36.0-66.0); PLATELET COUNT, AUTOMATED 186 10^3/uL (150-450); RED BLOOD COUNT 3.05 10^6/uL (4.30-6.10); RED CELL DISTRIBUTION WIDTH 13.2 % (11.5-14.5); WHITE BLOOD COUNT 4.9 10^3/uL (4.0-10.0)
[2017-11-24 06:51] LABS: ANION GAP 8 MEQ/L (8-16); BLOOD UREA NITROGEN 16 MG/DL (7-18); CALCIUM LEVEL 7.8 MG/DL (8.8-10.2); CARBON DIOXIDE LEVEL 24 MEQ/L (21-32); CHLORIDE LEVEL 107 MEQ/L (98-107); CREATININE FOR GFR 1.53 MG/DL (0.70-1.30); GLOMERULAR FILTRATION RATE 47.9 (>42); GLUCOSE, FASTING 103 MG/DL (70-100); MAGNESIUM LEVEL 2.5 MG/DL (1.8-2.4); POTASSIUM SERUM 3.6 MEQ/L (3.5-5.1); SODIUM LEVEL 139 MEQ/L (136-145)
[2017-11-24] MEDS: EUCERIN 120GM CREAM TOP ×2 (10:54→20:53)
[2017-11-24] MEDS: NS 1,000 ML IV (10:54)
[2017-11-24] MEDS: DOCUSATE SODIUM 100 MG CAP PO ×2 (10:55→20:50)
[2017-11-24] MEDS: SOD POLYSTYRENE SULFONATE SUSP 15 GM/60 ML UD PO (12:03)
[2017-11-24] MEDS: PRAZOSIN 1 MG CAP PO ×2 (12:04→20:49)
[2017-11-24] MEDS: TOPIRAMATE (TopAMAX) 100 MG TAB PO ×2 (12:12→20:52)
[2017-11-24] MEDS: BENZTROPINE 0.5 MG TAB PO ×2 (12:12→20:57)
[2017-11-24] MEDS: HALOPERIDOL 5 MG TAB PO ×2 (12:12→20:57)
[2017-11-24] MEDS: OLANZapine 5 MG TAB PO ×2 (12:12→20:48)
[2017-11-24] MEDS: ACETAMINOPHEN TAB 650MG DOSE (2X325MG) PO ×2 (16:36→22:38)
[2017-11-24] MEDS: ASPIRIN 81 MG ENTERIC TAB PO (16:36)
[2017-11-24] MEDS: DIVALPROEX 250MG *ER* TAB PO (20:46)
[2017-11-24] MEDS: ATORVASTATIN 20 MG TAB PO (20:50)
[2017-11-24] MEDS: MAGNESIUM OXIDE 400 MG TAB (MAG-OX) PO (20:53)
[2017-11-25] MEDS: HALOPERIDOL 2 MG TAB PO ×2 (01:18→20:49)
[2017-11-25] MEDS: SINEMET 25-100 MG TAB PO ×5 (05:53→20:48)
[2017-11-25] MEDS: ACETAMINOPHEN TAB 650MG DOSE (2X325MG) PO ×3 (05:53→20:48)
[2017-11-25] MEDS: HEPARIN SOD (PORCINE) 5000 UNITS/ML VIAL SQ ×4 (06:00→22:00)
[2017-11-25] MEDS: LACTULOSE 20 GM/30 ML SYRUP UD PO ×3 (06:00→20:47)
[2017-11-25 06:16] LABS: BASO % 0.4 % (0.0-1.0); EOS # 0.2 10^3/uL (0.0-0.50); EOS % 3.9 % (0.0-3.0); HEMATOCRIT 31.2 % (42.0-52.0); HEMOGLOBIN 10.4 g/dl (13.5-17.5); IMMATURE GRANULOCYTE % 0.2 % (0-3.0); LYMPH # 1.1 10^3/uL (1.5-4.5); LYMPH % 23.2 % (24.0-44.0); MEAN CORPUSCULAR HEMOGLOBIN 32.6 pg (27.0-33.0); MEAN CORPUSCULAR HGB CONC 33.3 g/dl (32.0-36.5); MEAN CORPUSCULAR VOLUME 97.8 fl (80.0-96.0); MONO # 0.3 10^3/uL (0.0-0.8); MONO % 7.4 % (0.0-5.0); NEUTROPHILS % 64.9 % (36.0-66.0); PLATELET COUNT, AUTOMATED 196 10^3/uL (150-450); RED BLOOD COUNT 3.19 10^6/uL (4.30-6.10); RED CELL DISTRIBUTION WIDTH 13.2 % (11.5-14.5); WHITE BLOOD COUNT 4.6 10^3/uL (4.0-10.0)
[2017-11-25 06:34] LABS: ANION GAP 10 MEQ/L (8-16); BLOOD UREA NITROGEN 18 MG/DL (7-18); CALCIUM LEVEL 8.2 MG/DL (8.8-10.2); CARBON DIOXIDE LEVEL 21 MEQ/L (21-32); CHLORIDE LEVEL 113 MEQ/L (98-107); CREATININE FOR GFR 1.59 MG/DL (0.70-1.30); GLOMERULAR FILTRATION RATE 45.8 (>42); GLUCOSE, FASTING 91 MG/DL (70-100); MAGNESIUM LEVEL 2.5 MG/DL (1.8-2.4); POTASSIUM SERUM 3.8 MEQ/L (3.5-5.1); SODIUM LEVEL 144 MEQ/L (136-145)
[2017-11-25] MEDS: BENZTROPINE 0.5 MG TAB PO ×2 (08:45→20:48)
[2017-11-25] MEDS: HALOPERIDOL 5 MG TAB PO ×2 (08:46→20:55)
[2017-11-25] MEDS: DIVALPROEX 250MG *ER* TAB PO ×2 (08:46→20:49)
[2017-11-25] MEDS: OLANZapine 5 MG TAB PO ×2 (08:48→20:49)
[2017-11-25] MEDS: TOPIRAMATE (TopAMAX) 100 MG TAB PO ×2 (08:49→20:49)
[2017-11-25] MEDS: PRAZOSIN 1 MG CAP PO ×2 (08:50→20:48)
[2017-11-25] MEDS: DOCUSATE SODIUM 100 MG CAP PO ×2 (08:50→20:49)
[2017-11-25] MEDS: SOD POLYSTYRENE SULFONATE SUSP 15 GM/60 ML UD PO (08:51)
[2017-11-25] MEDS: EUCERIN 120GM CREAM TOP ×2 (08:58→20:56)
[2017-11-25] MEDS: ASPIRIN 81 MG ENTERIC TAB PO (16:41)
[2017-11-25] MEDS: MAGNESIUM OXIDE 400 MG TAB (MAG-OX) PO (20:48)
[2017-11-25] MEDS: ATORVASTATIN 20 MG TAB PO (20:50)
[2017-11-26] MEDS: LACTULOSE 20 GM/30 ML SYRUP UD PO ×3 (06:14→21:38)
[2017-11-26] MEDS: SINEMET 25-100 MG TAB PO ×5 (06:15→21:39)
[2017-11-26] MEDS: HEPARIN SOD (PORCINE) 5000 UNITS/ML VIAL SQ ×3 (06:15→21:41)
[2017-11-26 06:54] LABS: BASO % 0.8 % (0.0-1.0); EOS # 0.2 10^3/uL (0.0-0.50); EOS % 4.2 % (0.0-3.0); HEMATOCRIT 29.4 % (42.0-52.0); IMMATURE GRANULOCYTE % 0.3 % (0-3.0); LYMPH # 0.9 10^3/uL (1.5-4.5); LYMPH % 23.5 % (24.0-44.0); MEAN CORPUSCULAR HEMOGLOBIN 33.3 pg (27.0-33.0); MONO # 0.3 10^3/uL (0.0-0.8); MONO % 7.7 % (0.0-5.0); NEUTROPHILS # 2.4 10^3/uL (1.8-7.7); NEUTROPHILS % 63.5 % (36.0-66.0); PLATELET COUNT, AUTOMATED 176 10^3/uL (150-450); RED CELL DISTRIBUTION WIDTH 13.5 % (11.5-14.5); WHITE BLOOD COUNT 3.8 10^3/uL (4.0-10.0)
[2017-11-26 07:17] LABS: ANION GAP 8 MEQ/L (8-16); BLOOD UREA NITROGEN 17 MG/DL (7-18); CALCIUM LEVEL 8.2 MG/DL (8.8-10.2); CARBON DIOXIDE LEVEL 23 MEQ/L (21-32); CHLORIDE LEVEL 115 MEQ/L (98-107); CREATININE FOR GFR 1.39 MG/DL (0.70-1.30); GLOMERULAR FILTRATION RATE 53.5 (>42); GLUCOSE, FASTING 90 MG/DL (70-100); MAGNESIUM LEVEL 2.7 MG/DL (1.8-2.4); POTASSIUM SERUM 3.8 MEQ/L (3.5-5.1); SODIUM LEVEL 146 MEQ/L (136-145)
[2017-11-26] MEDS: TOPIRAMATE (TopAMAX) 100 MG TAB PO ×2 (08:00→21:40)
[2017-11-26] MEDS: DOCUSATE SODIUM 100 MG CAP PO ×2 (08:00→21:39)
[2017-11-26] MEDS: OLANZapine 5 MG TAB PO ×2 (08:01→21:40)
[2017-11-26] MEDS: HALOPERIDOL 5 MG TAB PO ×2 (08:01→21:38)
[2017-11-26] MEDS: BENZTROPINE 0.5 MG TAB PO ×2 (08:01→21:41)
[2017-11-26] MEDS: SOD POLYSTYRENE SULFONATE SUSP 15 GM/60 ML UD PO (08:01)
[2017-11-26] MEDS: EUCERIN 120GM CREAM TOP ×2 (08:02→21:41)
[2017-11-26] MEDS: PRAZOSIN 1 MG CAP PO ×2 (08:02→21:40)
[2017-11-26 11:48] LABS: APPEARANCE, URINE CLEAR (CLEAR); BACTERIA, URINE AUTO NEGATIVE (NEGATIVE); BILIRUBIN, URINE AUTO NEGATIVE (NEGATIVE); BLOOD, URINE BLOOD NEGATIVE (NEGATIVE); COLOR, URINE YELLOW (YELLOW); GLUCOSE, URINE (UA) AUTO NEGATIVE (NEGATIVE); KETONE, URINE AUTO TRACE mg/dL (NEGATIVE); LEUKOCYTE ESTERASE, URINE AUTO NEGATIVE (NEGATIVE); NITRITE, URINE AUTO NEGATIVE (NEGATIVE); PROTEIN, URINE AUTO NEGATIVE (NEGATIVE); RBC, URINE AUTO 1 /HPF (0-3); SPECIFIC GRAVITY URINE AUTO 1.011 (1.002-1.035); SQUAMOUS EPITHELIAL CELL UR AU 0 /HPF (0-6); UROBILINOGEN, URINE AUTO 0.2 mg/dL (0.0-2.0); WBC, URINE AUTO 1 /HPF (0-3)
[2017-11-26] MEDS: DIVALPROEX 250MG *ER* TAB PO ×2 (14:15→21:40)
[2017-11-26] MEDS: HALOPERIDOL 2 MG TAB PO (16:04)
[2017-11-26] MEDS: ASPIRIN 81 MG ENTERIC TAB PO (16:04)
[2017-11-26] MEDS: ATORVASTATIN 20 MG TAB PO (21:39)
[2017-11-26] MEDS: MAGNESIUM OXIDE 400 MG TAB (MAG-OX) PO (21:39)
[2017-11-26] MEDS: ACETAMINOPHEN TAB 650MG DOSE (2X325MG) PO (21:40)
[2017-11-27] MEDS: HEPARIN SOD (PORCINE) 5000 UNITS/ML VIAL SQ ×3 (06:00→22:00)
[2017-11-27] MEDS: LACTULOSE 20 GM/30 ML SYRUP UD PO ×3 (06:03→21:50)
[2017-11-27] MEDS: SINEMET 25-100 MG TAB PO ×5 (06:04→21:51)
[2017-11-27 06:49] LABS: BASO % 0.7 % (0.0-1.0); EOS # 0.2 10^3/uL (0.0-0.50); EOS % 3.2 % (0.0-3.0); HEMATOCRIT 29.8 % (42.0-52.0); IMMATURE GRANULOCYTE % 0.4 % (0-3.0); LYMPH % 18.4 % (24.0-44.0); MEAN CORPUSCULAR HGB CONC 33.6 g/dl (32.0-36.5); MEAN CORPUSCULAR VOLUME 98.3 fl (80.0-96.0); MONO # 0.4 10^3/uL (0.0-0.8); MONO % 6.7 % (0.0-5.0); NEUTROPHILS # 3.8 10^3/uL (1.8-7.7); NEUTROPHILS % 70.6 % (36.0-66.0); PLATELET COUNT, AUTOMATED 185 10^3/uL (150-450); RED BLOOD COUNT 3.03 10^6/uL (4.30-6.10); RED CELL DISTRIBUTION WIDTH 13.4 % (11.5-14.5); WHITE BLOOD COUNT 5.4 10^3/uL (4.0-10.0)
[2017-11-27 07:10] LABS: ANION GAP 9 MEQ/L (8-16); BLOOD UREA NITROGEN 14 MG/DL (7-18); CALCIUM LEVEL 8.2 MG/DL (8.8-10.2); CARBON DIOXIDE LEVEL 22 MEQ/L (21-32); CHLORIDE LEVEL 116 MEQ/L (98-107); CREATININE FOR GFR 1.44 MG/DL (0.70-1.30); GLOMERULAR FILTRATION RATE 51.3 (>42); GLUCOSE, FASTING 95 MG/DL (70-100); MAGNESIUM LEVEL 2.7 MG/DL (1.8-2.4); POTASSIUM SERUM 3.9 MEQ/L (3.5-5.1); SODIUM LEVEL 147 MEQ/L (136-145)
[2017-11-27] MEDS: OLANZapine 5 MG TAB PO ×2 (08:54→21:51)
[2017-11-27] MEDS: PRAZOSIN 1 MG CAP PO ×2 (08:54→21:52)
[2017-11-27] MEDS: HALOPERIDOL 5 MG TAB PO ×2 (08:55→21:50)
[2017-11-27] MEDS: TOPIRAMATE (TopAMAX) 100 MG TAB PO ×2 (08:55→21:51)
[2017-11-27] MEDS: DIVALPROEX 250MG *ER* TAB PO (08:55)
[2017-11-27] MEDS: DOCUSATE SODIUM 100 MG CAP PO ×2 (08:55→21:50)
[2017-11-27] MEDS: BENZTROPINE 0.5 MG TAB PO ×2 (08:55→21:52)
[2017-11-27] MEDS: ACETAMINOPHEN TAB 650MG DOSE (2X325MG) PO ×3 (08:56→21:54)
[2017-11-27] MEDS: EUCERIN 120GM CREAM TOP ×2 (08:56→21:54)
[2017-11-27] MEDS: SOD POLYSTYRENE SULFONATE SUSP 15 GM/60 ML UD PO ×2 (08:56→09:44)
[2017-11-27] MEDS: HALOPERIDOL 2 MG TAB PO (10:02)
[2017-11-27] MEDS: LORazepam 0.5 MG TAB PO ×3 (10:03→21:52)
[2017-11-27] MEDS: ASPIRIN 81 MG ENTERIC TAB PO (15:28)
[2017-11-27] MEDS: ATORVASTATIN 20 MG TAB PO (21:50)
[2017-11-27] MEDS: MAGNESIUM OXIDE 400 MG TAB (MAG-OX) PO (21:51)
[2017-11-27] MEDS: DIVALPROEX 500MG *ER* TAB PO (21:53)
[2017-11-28] MEDS: HALOPERIDOL 2 MG TAB PO (01:49)
[2017-11-28] MEDS: ACETAMINOPHEN TAB 650MG DOSE (2X325MG) PO (01:49)
[2017-11-28] MEDS: HEPARIN SOD (PORCINE) 5000 UNITS/ML VIAL SQ ×3 (06:00→20:38)
[2017-11-28] MEDS: LACTULOSE 20 GM/30 ML SYRUP UD PO ×3 (06:00→20:35)
[2017-11-28] MEDS: SINEMET 25-100 MG TAB PO ×5 (06:34→20:35)
[2017-11-28 07:23] LABS: BASO % 0.3 % (0.0-1.0); EOS # 0.1 10^3/uL (0.0-0.50); EOS % 1.5 % (0.0-3.0); IMMATURE GRANULOCYTE % 0.2 % (0-3.0); LYMPH # 0.9 10^3/uL (1.5-4.5); MEAN CORPUSCULAR HEMOGLOBIN 32.7 pg (27.0-33.0); MEAN CORPUSCULAR HGB CONC 33.3 g/dl (32.0-36.5); MONO # 0.6 10^3/uL (0.0-0.8); MONO % 8.6 % (0.0-5.0); NEUTROPHILS % 76.4 % (36.0-66.0); PLATELET COUNT, AUTOMATED 167 10^3/uL (150-450); RED BLOOD COUNT 3.06 10^6/uL (4.30-6.10); RED CELL DISTRIBUTION WIDTH 13.3 % (11.5-14.5); WHITE BLOOD COUNT 6.6 10^3/uL (4.0-10.0)
[2017-11-28 07:43] LABS: ANION GAP 8 MEQ/L (8-16); BLOOD UREA NITROGEN 20 MG/DL (7-18); CALCIUM LEVEL 8.3 MG/DL (8.8-10.2); CARBON DIOXIDE LEVEL 21 MEQ/L (21-32); CHLORIDE LEVEL 116 MEQ/L (98-107); CREATININE FOR GFR 1.49 MG/DL (0.70-1.30); GLOMERULAR FILTRATION RATE 49.4 (>42); GLUCOSE, FASTING 101 MG/DL (70-100); MAGNESIUM LEVEL 2.7 MG/DL (1.8-2.4); SODIUM LEVEL 145 MEQ/L (136-145)
[2017-11-28] MEDS: EUCERIN 120GM CREAM TOP ×2 (09:00→20:38)
[2017-11-28] MEDS: OLANZapine 5 MG TAB PO ×2 (10:17→20:37)
[2017-11-28] MEDS: PRAZOSIN 1 MG CAP PO ×2 (10:17→20:37)
[2017-11-28] MEDS: BENZTROPINE 0.5 MG TAB PO (10:18)
[2017-11-28] MEDS: HALOPERIDOL 5 MG TAB PO ×2 (10:18→20:36)
[2017-11-28] MEDS: DIVALPROEX 500MG *ER* TAB PO ×2 (10:18→20:36)
[2017-11-28] MEDS: DOCUSATE SODIUM 100 MG CAP PO ×2 (10:18→20:37)
[2017-11-28] MEDS: LORazepam 0.5 MG TAB PO (10:18)
[2017-11-28] MEDS: TOPIRAMATE (TopAMAX) 100 MG TAB PO ×2 (10:18→20:37)
[2017-11-28] MEDS: SOD POLYSTYRENE SULFONATE SUSP 15 GM/60 ML UD PO (10:19)
[2017-11-28] MEDS: ASPIRIN 81 MG ENTERIC TAB PO (16:39)
[2017-11-28] MEDS: LORazepam 1 MG TAB PO ×2 (16:40→20:36)
[2017-11-28] MEDS: BENZTROPINE 1 MG TAB PO (20:36)
[2017-11-28] MEDS: MAGNESIUM OXIDE 400 MG TAB (MAG-OX) PO (20:36)
[2017-11-28] MEDS: ATORVASTATIN 20 MG TAB PO (20:36)
[2017-11-29] MEDS: LACTULOSE 20 GM/30 ML SYRUP UD PO ×3 (06:00→20:36)
[2017-11-29] MEDS: SINEMET 25-100 MG TAB PO ×5 (06:00→20:40)
[2017-11-29] MEDS: HEPARIN SOD (PORCINE) 5000 UNITS/ML VIAL SQ ×3 (06:00→20:37)
[2017-11-29] MEDS: PRAZOSIN 1 MG CAP PO ×2 (12:18→20:39)
[2017-11-29] MEDS: HALOPERIDOL 5 MG TAB PO ×2 (12:19→20:38)
[2017-11-29] MEDS: DIVALPROEX 500MG *ER* TAB PO ×2 (12:19→20:38)
[2017-11-29] MEDS: TOPIRAMATE (TopAMAX) 100 MG TAB PO ×2 (12:19→20:40)
[2017-11-29] MEDS: OLANZapine 5 MG TAB PO ×2 (12:20→20:39)
[2017-11-29] MEDS: EUCERIN 120GM CREAM TOP ×2 (12:20→20:41)
[2017-11-29] MEDS: BENZTROPINE 1 MG TAB PO ×2 (12:20→20:38)
[2017-11-29] MEDS: LORazepam 1 MG TAB PO ×3 (12:20→20:38)
[2017-11-29] MEDS: SOD POLYSTYRENE SULFONATE SUSP 15 GM/60 ML UD PO (12:20)
[2017-11-29] MEDS: DOCUSATE SODIUM 100 MG CAP PO ×2 (12:20→20:38)
[2017-11-29] MEDS: ASPIRIN 81 MG ENTERIC TAB PO (17:46)
[2017-11-29] MEDS: MAGNESIUM OXIDE 400 MG TAB (MAG-OX) PO (20:40)
[2017-11-29] MEDS: ATORVASTATIN 20 MG TAB PO (20:40)
[2017-11-30] MEDS: LACTULOSE 20 GM/30 ML SYRUP UD PO ×3 (05:52→21:26)
[2017-11-30] MEDS: SINEMET 25-100 MG TAB PO ×5 (06:14→21:27)
[2017-11-30] MEDS: HEPARIN SOD (PORCINE) 5000 UNITS/ML VIAL SQ ×3 (06:14→21:28)
[2017-11-30 07:14] LABS: HEMATOCRIT 30.8 % (42.0-52.0); HEMOGLOBIN 10.1 g/dl (13.5-17.5); MEAN CORPUSCULAR HEMOGLOBIN 32.4 pg (27.0-33.0); MEAN CORPUSCULAR HGB CONC 32.8 g/dl (32.0-36.5); MEAN CORPUSCULAR VOLUME 98.7 fl (80.0-96.0); PLATELET COUNT, AUTOMATED 180 10^3/uL (150-450); RED BLOOD COUNT 3.12 10^6/uL (4.30-6.10); RED CELL DISTRIBUTION WIDTH 13.4 % (11.5-14.5); WHITE BLOOD COUNT 5.4 10^3/uL (4.0-10.0)
[2017-11-30 07:49] LABS: ANION GAP 9 MEQ/L (8-16); BLOOD UREA NITROGEN 29 MG/DL (7-18); CALCIUM LEVEL 7.7 MG/DL (8.8-10.2); CARBON DIOXIDE LEVEL 22 MEQ/L (21-32); CHLORIDE LEVEL 118 MEQ/L (98-107); CREATININE FOR GFR 1.47 MG/DL (0.70-1.30); GLOMERULAR FILTRATION RATE 50.1 (>42); GLUCOSE, FASTING 120 MG/DL (70-100); POTASSIUM SERUM 3.7 MEQ/L (3.5-5.1); SODIUM LEVEL 149 MEQ/L (136-145)
[2017-11-30] MEDS: OLANZapine 5 MG TAB PO (10:04)
[2017-11-30] MEDS: SOD POLYSTYRENE SULFONATE SUSP 15 GM/60 ML UD PO (10:04)
[2017-11-30] MEDS: DOCUSATE SODIUM 100 MG CAP PO ×2 (10:05→21:26)
[2017-11-30] MEDS: TOPIRAMATE (TopAMAX) 100 MG TAB PO ×2 (10:05→21:27)
[2017-11-30] MEDS: HALOPERIDOL 5 MG TAB PO (10:06)
[2017-11-30] MEDS: LORazepam 1 MG TAB PO (10:06)
[2017-11-30] MEDS: PRAZOSIN 1 MG CAP PO (10:06)
[2017-11-30] MEDS: BENZTROPINE 1 MG TAB PO ×2 (10:06→21:26)
[2017-11-30] MEDS: DIVALPROEX 500MG *ER* TAB PO ×2 (10:07→21:26)
[2017-11-30] MEDS: EUCERIN 120GM CREAM TOP ×2 (10:07→21:28)
[2017-11-30] MEDS: ASPIRIN 81 MG ENTERIC TAB PO (17:17)
[2017-11-30] MEDS: ATORVASTATIN 20 MG TAB PO (21:27)
[2017-11-30] MEDS: MAGNESIUM OXIDE 400 MG TAB (MAG-OX) PO (21:27)
[2017-12-01 06:23] LABS: HEMATOCRIT 32.3 % (42.0-52.0); HEMOGLOBIN 10.5 g/dl (13.5-17.5); MEAN CORPUSCULAR HEMOGLOBIN 32.4 pg (27.0-33.0); MEAN CORPUSCULAR HGB CONC 32.5 g/dl (32.0-36.5); MEAN CORPUSCULAR VOLUME 99.7 fl (80.0-96.0); PLATELET COUNT, AUTOMATED 191 10^3/uL (150-450); RED BLOOD COUNT 3.24 10^6/uL (4.30-6.10); RED CELL DISTRIBUTION WIDTH 13.2 % (11.5-14.5); WHITE BLOOD COUNT 4.9 10^3/uL (4.0-10.0)
[2017-12-01] MEDS: SINEMET 25-100 MG TAB PO ×5 (06:43→19:58)
[2017-12-01] MEDS: LACTULOSE 20 GM/30 ML SYRUP UD PO ×3 (06:43→20:09)
[2017-12-01] MEDS: HEPARIN SOD (PORCINE) 5000 UNITS/ML VIAL SQ ×3 (06:43→20:09)
[2017-12-01 06:47] LABS: ANION GAP 10 MEQ/L (8-16); BLOOD UREA NITROGEN 29 MG/DL (7-18); CALCIUM LEVEL 8.1 MG/DL (8.8-10.2); CARBON DIOXIDE LEVEL 23 MEQ/L (21-32); CHLORIDE LEVEL 118 MEQ/L (98-107); CREATININE FOR GFR 1.32 MG/DL (0.70-1.30); GLOMERULAR FILTRATION RATE 56.8 (>42); GLUCOSE, FASTING 99 MG/DL (70-100); SODIUM LEVEL 151 MEQ/L (136-145)
[2017-12-01] MEDS: LORazepam 0.5 MG TAB PO ×3 (09:00→19:59)
[2017-12-01] MEDS: OLANZapine 5 MG TAB PO ×2 (09:00→19:57)
[2017-12-01] MEDS: PRAZOSIN 1 MG CAP PO ×2 (09:00→19:56)
[2017-12-01] MEDS: SOD POLYSTYRENE SULFONATE SUSP 15 GM/60 ML UD PO (10:00)
[2017-12-01] MEDS: TOPIRAMATE (TopAMAX) 100 MG TAB PO ×2 (10:01→19:59)
[2017-12-01] MEDS: BENZTROPINE 1 MG TAB PO ×2 (10:01→19:56)
[2017-12-01] MEDS: DIVALPROEX 500MG *ER* TAB PO ×2 (10:01→19:57)
[2017-12-01] MEDS: DOCUSATE SODIUM 100 MG CAP PO ×2 (10:01→19:58)
[2017-12-01] MEDS: EUCERIN 120GM CREAM TOP ×2 (10:02→20:00)
[2017-12-01] MEDS: D5W 1,000 ML IV (12:05)
[2017-12-01] MEDS: ASPIRIN 81 MG ENTERIC TAB PO (17:00)
[2017-12-01] MEDS: ATORVASTATIN 20 MG TAB PO (19:58)
[2017-12-01] MEDS: MAGNESIUM OXIDE 400 MG TAB (MAG-OX) PO (19:58)
[2017-12-01] MEDS: ACETAMINOPHEN TAB 650MG DOSE (2X325MG) PO (23:57)
[2017-12-02] MEDS: D5W 1,000 ML IV (00:10)
[2017-12-02] MEDS: LACTULOSE 20 GM/30 ML SYRUP UD PO ×3 (06:00→20:18)
[2017-12-02] MEDS: HEPARIN SOD (PORCINE) 5000 UNITS/ML VIAL SQ ×3 (06:33→20:20)
[2017-12-02] MEDS: SINEMET 25-100 MG TAB PO ×5 (06:34→20:22)
[2017-12-02 06:58] LABS: HEMATOCRIT 33.2 % (42.0-52.0); HEMOGLOBIN 10.7 g/dl (13.5-17.5); MEAN CORPUSCULAR HGB CONC 32.2 g/dl (32.0-36.5); MEAN CORPUSCULAR VOLUME 99.4 fl (80.0-96.0); PLATELET COUNT, AUTOMATED 172 10^3/uL (150-450); RED BLOOD COUNT 3.34 10^6/uL (4.30-6.10); RED CELL DISTRIBUTION WIDTH 12.7 % (11.5-14.5); WHITE BLOOD COUNT 3.8 10^3/uL (4.0-10.0)
[2017-12-02 07:11] LABS: ANION GAP 9 MEQ/L (8-16); BLOOD UREA NITROGEN 25 MG/DL (7-18); CARBON DIOXIDE LEVEL 20 MEQ/L (21-32); CHLORIDE LEVEL 119 MEQ/L (98-107); CREATININE FOR GFR 1.09 MG/DL (0.70-1.30); GLOMERULAR FILTRATION RATE > 60.0 (>42); GLUCOSE, FASTING 100 MG/DL (70-100); POTASSIUM SERUM 4.2 MEQ/L (3.5-5.1); SODIUM LEVEL 148 MEQ/L (136-145)
[2017-12-02] MEDS: DIVALPROEX 500MG *ER* TAB PO ×2 (09:04→20:23)
[2017-12-02] MEDS: LORazepam 0.5 MG TAB PO ×3 (09:04→20:23)
[2017-12-02] MEDS: DOCUSATE SODIUM 100 MG CAP PO ×2 (09:04→20:22)
[2017-12-02] MEDS: BENZTROPINE 1 MG TAB PO ×2 (09:04→20:21)
[2017-12-02] MEDS: OLANZapine 5 MG TAB PO (09:04)
[2017-12-02] MEDS: EUCERIN 120GM CREAM TOP ×2 (09:05→20:24)
[2017-12-02] MEDS: PRAZOSIN 1 MG CAP PO ×2 (09:05→20:23)
[2017-12-02] MEDS: SOD POLYSTYRENE SULFONATE SUSP 15 GM/60 ML UD PO (09:05)
[2017-12-02] MEDS: TOPIRAMATE (TopAMAX) 100 MG TAB PO ×2 (09:05→20:24)
[2017-12-02] MEDS: ASPIRIN 81 MG ENTERIC TAB PO (16:18)
[2017-12-02] MEDS: OLANZapine ORAL DISINTEGRATING TAB 5MG PO (20:22)
[2017-12-02] MEDS: ATORVASTATIN 20 MG TAB PO (20:23)
[2017-12-02] MEDS: MAGNESIUM OXIDE 400 MG TAB (MAG-OX) PO (20:23)
[2017-12-03] MEDS: SINEMET 25-100 MG TAB PO ×6 (06:00→20:45)
[2017-12-03] MEDS: HEPARIN SOD (PORCINE) 5000 UNITS/ML VIAL SQ ×3 (06:00→20:43)
[2017-12-03] MEDS: LACTULOSE 20 GM/30 ML SYRUP UD PO ×3 (06:00→20:41)
[2017-12-03 06:46] LABS: HEMATOCRIT 32.6 % (42.0-52.0); HEMOGLOBIN 10.9 g/dl (13.5-17.5); MEAN CORPUSCULAR HEMOGLOBIN 32.5 pg (27.0-33.0); MEAN CORPUSCULAR HGB CONC 33.4 g/dl (32.0-36.5); MEAN CORPUSCULAR VOLUME 97.3 fl (80.0-96.0); PLATELET COUNT, AUTOMATED 205 10^3/uL (150-450); RED BLOOD COUNT 3.35 10^6/uL (4.30-6.10); RED CELL DISTRIBUTION WIDTH 12.9 % (11.5-14.5); WHITE BLOOD COUNT 4.4 10^3/uL (4.0-10.0)
[2017-12-03 07:05] LABS: ANION GAP 8 MEQ/L (8-16); BLOOD UREA NITROGEN 21 MG/DL (7-18); CALCIUM LEVEL 8.1 MG/DL (8.8-10.2); CARBON DIOXIDE LEVEL 21 MEQ/L (21-32); CHLORIDE LEVEL 118 MEQ/L (98-107); CREATININE FOR GFR 1.14 MG/DL (0.70-1.30); GLOMERULAR FILTRATION RATE > 60.0 (>42); GLUCOSE, FASTING 104 MG/DL (70-100); SODIUM LEVEL 147 MEQ/L (136-145)
[2017-12-03] MEDS: DOCUSATE SODIUM 100 MG CAP PO ×2 (08:41→20:44)
[2017-12-03] MEDS: SOD POLYSTYRENE SULFONATE SUSP 15 GM/60 ML UD PO (08:41)
[2017-12-03] MEDS: BENZTROPINE 1 MG TAB PO ×2 (08:41→20:43)
[2017-12-03] MEDS: TOPIRAMATE (TopAMAX) 100 MG TAB PO ×2 (08:41→20:45)
[2017-12-03] MEDS: LORazepam 0.5 MG TAB PO ×3 (08:42→20:44)
[2017-12-03] MEDS: PRAZOSIN 1 MG CAP PO ×2 (08:42→20:42)
[2017-12-03] MEDS: DIVALPROEX 500MG *ER* TAB PO ×2 (08:42→20:44)
[2017-12-03] MEDS: OLANZapine ORAL DISINTEGRATING TAB 5MG PO ×2 (08:43→20:45)
[2017-12-03] MEDS: EUCERIN 120GM CREAM TOP ×2 (08:43→20:46)
[2017-12-03] MEDS: D5W 1,000 ML IV ×2 (11:31→23:35)
[2017-12-03] MEDS: ASPIRIN 81 MG ENTERIC TAB PO (17:05)
[2017-12-03] MEDS: ATORVASTATIN 20 MG TAB PO (20:43)
[2017-12-03] MEDS: MAGNESIUM OXIDE 400 MG TAB (MAG-OX) PO (20:45)
[2017-12-04] MEDS: LACTULOSE 20 GM/30 ML SYRUP UD PO ×3 (05:42→22:46)
[2017-12-04] MEDS: SINEMET 25-100 MG TAB PO ×5 (05:42→22:38)
[2017-12-04] MEDS: HEPARIN SOD (PORCINE) 5000 UNITS/ML VIAL SQ ×3 (05:42→22:54)
[2017-12-04 06:54] LABS: HEMATOCRIT 32.6 % (42.0-52.0); HEMOGLOBIN 10.6 g/dl (13.5-17.5); MEAN CORPUSCULAR HEMOGLOBIN 31.9 pg (27.0-33.0); MEAN CORPUSCULAR HGB CONC 32.5 g/dl (32.0-36.5); MEAN CORPUSCULAR VOLUME 98.2 fl (80.0-96.0); PLATELET COUNT, AUTOMATED 204 10^3/uL (150-450); RED BLOOD COUNT 3.32 10^6/uL (4.30-6.10); RED CELL DISTRIBUTION WIDTH 12.5 % (11.5-14.5); WHITE BLOOD COUNT 4.2 10^3/uL (4.0-10.0)
[2017-12-04 07:12] LABS: ANION GAP 6 MEQ/L (8-16); BLOOD UREA NITROGEN 18 MG/DL (7-18); CALCIUM LEVEL 8.2 MG/DL (8.8-10.2); CARBON DIOXIDE LEVEL 24 MEQ/L (21-32); CHLORIDE LEVEL 117 MEQ/L (98-107); CREATININE FOR GFR 1.19 MG/DL (0.70-1.30); GLOMERULAR FILTRATION RATE > 60.0 (>42); GLUCOSE, FASTING 93 MG/DL (70-100); POTASSIUM SERUM 4.2 MEQ/L (3.5-5.1); SODIUM LEVEL 147 MEQ/L (136-145)
[2017-12-04] MEDS: EUCERIN 120GM CREAM TOP ×2 (09:00→22:48)
[2017-12-04] MEDS: PRAZOSIN 1 MG CAP PO ×2 (09:14→23:50)
[2017-12-04] MEDS: OLANZapine ORAL DISINTEGRATING TAB 5MG PO ×2 (09:14→22:37)
[2017-12-04] MEDS: TOPIRAMATE (TopAMAX) 100 MG TAB PO ×2 (09:15→22:37)
[2017-12-04] MEDS: DOCUSATE SODIUM 100 MG CAP PO ×2 (09:15→22:39)
[2017-12-04] MEDS: BENZTROPINE 1 MG TAB PO ×2 (09:15→22:38)
[2017-12-04] MEDS: DIVALPROEX 500MG *ER* TAB PO ×2 (09:15→22:39)
[2017-12-04] MEDS: SOD POLYSTYRENE SULFONATE SUSP 15 GM/60 ML UD PO (09:15)
[2017-12-04] MEDS: LORazepam 0.5 MG TAB PO ×3 (09:15→22:34)
[2017-12-04] MEDS: ASPIRIN 81 MG ENTERIC TAB PO (16:22)
[2017-12-04] MEDS: ATORVASTATIN 20 MG TAB PO (22:41)
[2017-12-04] MEDS: MAGNESIUM OXIDE 400 MG TAB (MAG-OX) PO (22:41)
[2017-12-05] MEDS: SINEMET 25-100 MG TAB PO ×5 (05:49→20:49)
[2017-12-05] MEDS: HEPARIN SOD (PORCINE) 5000 UNITS/ML VIAL SQ ×4 (05:49→20:52)
[2017-12-05] MEDS: LACTULOSE 20 GM/30 ML SYRUP UD PO ×3 (05:49→20:49)
[2017-12-05 07:04] LABS: HEMOGLOBIN 10.8 g/dl (13.5-17.5); MEAN CORPUSCULAR HEMOGLOBIN 32.6 pg (27.0-33.0); MEAN CORPUSCULAR HGB CONC 32.7 g/dl (32.0-36.5); MEAN CORPUSCULAR VOLUME 99.7 fl (80.0-96.0); PLATELET COUNT, AUTOMATED 198 10^3/uL (150-450); RED BLOOD COUNT 3.31 10^6/uL (4.30-6.10); RED CELL DISTRIBUTION WIDTH 12.7 % (11.5-14.5); WHITE BLOOD COUNT 3.9 10^3/uL (4.0-10.0)
[2017-12-05 07:18] LABS: ANION GAP 7 MEQ/L (8-16); BLOOD UREA NITROGEN 20 MG/DL (7-18); CALCIUM LEVEL 8.3 MG/DL (8.8-10.2); CARBON DIOXIDE LEVEL 24 MEQ/L (21-32); CHLORIDE LEVEL 119 MEQ/L (98-107); CREATININE FOR GFR 1.24 MG/DL (0.70-1.30); GLOMERULAR FILTRATION RATE > 60.0 (>42); GLUCOSE, FASTING 90 MG/DL (70-100); POTASSIUM SERUM 4.3 MEQ/L (3.5-5.1); SODIUM LEVEL 150 MEQ/L (136-145)
[2017-12-05] MEDS: PRAZOSIN 1 MG CAP PO ×2 (08:57→20:49)
[2017-12-05] MEDS: SOD POLYSTYRENE SULFONATE SUSP 15 GM/60 ML UD PO (08:57)
[2017-12-05] MEDS: DIVALPROEX 500MG *ER* TAB PO ×2 (08:58→20:49)
[2017-12-05] MEDS: LORazepam 0.5 MG TAB PO ×3 (08:58→20:50)
[2017-12-05] MEDS: OLANZapine ORAL DISINTEGRATING TAB 5MG PO ×2 (08:58→20:52)
[2017-12-05] MEDS: BENZTROPINE 1 MG TAB PO ×2 (08:58→20:49)
[2017-12-05] MEDS: TOPIRAMATE (TopAMAX) 100 MG TAB PO ×2 (08:58→20:50)
[2017-12-05] MEDS: DOCUSATE SODIUM 100 MG CAP PO ×2 (08:58→20:49)
[2017-12-05] MEDS: EUCERIN 120GM CREAM TOP ×2 (08:59→20:52)
[2017-12-05] MEDS: ASPIRIN 81 MG ENTERIC TAB PO (16:04)
[2017-12-05] MEDS: MAGNESIUM OXIDE 400 MG TAB (MAG-OX) PO (20:50)
[2017-12-05] MEDS: ATORVASTATIN 20 MG TAB PO (20:50)
[2017-12-06] MEDS: LACTULOSE 20 GM/30 ML SYRUP UD PO ×3 (06:24→22:11)
[2017-12-06] MEDS: SINEMET 25-100 MG TAB PO ×6 (06:24→22:11)
[2017-12-06] MEDS: HEPARIN SOD (PORCINE) 5000 UNITS/ML VIAL SQ ×3 (06:24→22:12)
[2017-12-06 06:38] LABS: HEMATOCRIT 32.4 % (42.0-52.0); HEMOGLOBIN 10.6 g/dl (13.5-17.5); MEAN CORPUSCULAR HEMOGLOBIN 32.4 pg (27.0-33.0); MEAN CORPUSCULAR HGB CONC 32.7 g/dl (32.0-36.5); MEAN CORPUSCULAR VOLUME 99.1 fl (80.0-96.0); PLATELET COUNT, AUTOMATED 187 10^3/uL (150-450); RED BLOOD COUNT 3.27 10^6/uL (4.30-6.10); RED CELL DISTRIBUTION WIDTH 12.5 % (11.5-14.5); WHITE BLOOD COUNT 4.4 10^3/uL (4.0-10.0)
[2017-12-06 06:55] LABS: ANION GAP 8 MEQ/L (8-16); BLOOD UREA NITROGEN 20 MG/DL (7-18); CALCIUM LEVEL 8.3 MG/DL (8.8-10.2); CARBON DIOXIDE LEVEL 20 MEQ/L (21-32); CHLORIDE LEVEL 119 MEQ/L (98-107); CREATININE FOR GFR 1.27 MG/DL (0.70-1.30); GLOMERULAR FILTRATION RATE 59.3 (>42); GLUCOSE, FASTING 100 MG/DL (70-100); POTASSIUM SERUM 4.6 MEQ/L (3.5-5.1); SODIUM LEVEL 147 MEQ/L (136-145)
[2017-12-06] MEDS: DIVALPROEX 500MG *ER* TAB PO ×3 (09:00→22:10)
[2017-12-06] MEDS: PRAZOSIN 1 MG CAP PO ×3 (09:00→22:10)
[2017-12-06] MEDS: DOCUSATE SODIUM 100 MG CAP PO ×3 (09:00→22:11)
[2017-12-06] MEDS: EUCERIN 120GM CREAM TOP ×2 (09:00→22:12)
[2017-12-06] MEDS: D5W 1,000 ML IV (09:07)
[2017-12-06] MEDS: SOD POLYSTYRENE SULFONATE SUSP 15 GM/60 ML UD PO (10:57)
[2017-12-06] MEDS: BENZTROPINE 1 MG TAB PO ×2 (10:57→22:08)
[2017-12-06] MEDS: OLANZapine ORAL DISINTEGRATING TAB 5MG PO ×2 (10:57→22:11)
[2017-12-06] MEDS: TOPIRAMATE (TopAMAX) 100 MG TAB PO ×2 (10:58→22:10)
[2017-12-06] MEDS: LORazepam 0.5 MG TAB PO ×3 (10:58→22:10)
[2017-12-06] MEDS: ASPIRIN 81 MG ENTERIC TAB PO (16:45)
[2017-12-06] MEDS: MAGNESIUM OXIDE 400 MG TAB (MAG-OX) PO (22:08)
[2017-12-06] MEDS: ATORVASTATIN 20 MG TAB PO (22:11)
[2017-12-07] MEDS: LORazepam 0.5 MG TAB PO ×4 (00:36→20:13)
[2017-12-07] MEDS: HEPARIN SOD (PORCINE) 5000 UNITS/ML VIAL SQ ×3 (06:39→20:18)
[2017-12-07] MEDS: LACTULOSE 20 GM/30 ML SYRUP UD PO ×3 (06:40→20:17)
[2017-12-07] MEDS: SINEMET 25-100 MG TAB PO ×5 (06:40→20:12)
[2017-12-07] MEDS: SOD POLYSTYRENE SULFONATE SUSP 15 GM/60 ML UD PO (08:56)
[2017-12-07] MEDS: OLANZapine ORAL DISINTEGRATING TAB 5MG PO ×2 (08:57→20:11)
[2017-12-07] MEDS: TOPIRAMATE (TopAMAX) 100 MG TAB PO ×2 (08:57→20:12)
[2017-12-07] MEDS: DOCUSATE SODIUM 100 MG CAP PO ×2 (08:57→20:12)
[2017-12-07] MEDS: BENZTROPINE 1 MG TAB PO ×2 (08:57→20:11)
[2017-12-07] MEDS: DIVALPROEX 500MG *ER* TAB PO ×2 (08:57→20:13)
[2017-12-07] MEDS: PRAZOSIN 1 MG CAP PO ×2 (08:57→20:18)
[2017-12-07] MEDS: EUCERIN 120GM CREAM TOP ×2 (08:58→20:14)
[2017-12-07 09:19] LABS: HEMATOCRIT 33.6 % (42.0-52.0); HEMOGLOBIN 11.3 g/dl (13.5-17.5); MEAN CORPUSCULAR HEMOGLOBIN 32.9 pg (27.0-33.0); MEAN CORPUSCULAR HGB CONC 33.6 g/dl (32.0-36.5); PLATELET COUNT, AUTOMATED 195 10^3/uL (150-450); RED BLOOD COUNT 3.43 10^6/uL (4.30-6.10); RED CELL DISTRIBUTION WIDTH 12.4 % (11.5-14.5)
[2017-12-07 09:42] LABS: ANION GAP 7 MEQ/L (8-16); BLOOD UREA NITROGEN 24 MG/DL (7-18); CALCIUM LEVEL 8.2 MG/DL (8.8-10.2); CARBON DIOXIDE LEVEL 23 MEQ/L (21-32); CHLORIDE LEVEL 119 MEQ/L (98-107); CREATININE FOR GFR 1.26 MG/DL (0.70-1.30); GLOMERULAR FILTRATION RATE 59.9 (>42); GLUCOSE, FASTING 93 MG/DL (70-100); POTASSIUM SERUM 4.5 MEQ/L (3.5-5.1); SODIUM LEVEL 149 MEQ/L (136-145)
[2017-12-07] MEDS: ASPIRIN 81 MG ENTERIC TAB PO (16:26)
[2017-12-07] MEDS: ATORVASTATIN 20 MG TAB PO (20:12)
[2017-12-07] MEDS: MAGNESIUM OXIDE 400 MG TAB (MAG-OX) PO (20:13)
[2017-12-08] MEDS: HEPARIN SOD (PORCINE) 5000 UNITS/ML VIAL SQ ×3 (06:00→21:01)
[2017-12-08] MEDS: SINEMET 25-100 MG TAB PO ×5 (06:00→21:03)
[2017-12-08] MEDS: LACTULOSE 20 GM/30 ML SYRUP UD PO ×3 (06:00→21:01)
[2017-12-08 06:24] LABS: HEMATOCRIT 33.5 % (42.0-52.0); MEAN CORPUSCULAR HEMOGLOBIN 32.5 pg (27.0-33.0); MEAN CORPUSCULAR HGB CONC 32.8 g/dl (32.0-36.5); MEAN CORPUSCULAR VOLUME 99.1 fl (80.0-96.0); PLATELET COUNT, AUTOMATED 188 10^3/uL (150-450); RED BLOOD COUNT 3.38 10^6/uL (4.30-6.10); RED CELL DISTRIBUTION WIDTH 12.3 % (11.5-14.5); WHITE BLOOD COUNT 3.6 10^3/uL (4.0-10.0)
[2017-12-08 06:51] LABS: ANION GAP 9 MEQ/L (8-16); BLOOD UREA NITROGEN 26 MG/DL (7-18); CALCIUM LEVEL 8.4 MG/DL (8.8-10.2); CARBON DIOXIDE LEVEL 21 MEQ/L (21-32); CHLORIDE LEVEL 118 MEQ/L (98-107); CREATININE FOR GFR 1.27 MG/DL (0.70-1.30); GLOMERULAR FILTRATION RATE 59.3 (>42); GLUCOSE, FASTING 92 MG/DL (70-100); POTASSIUM SERUM 4.3 MEQ/L (3.5-5.1); SODIUM LEVEL 148 MEQ/L (136-145)
[2017-12-08] MEDS: EUCERIN 120GM CREAM TOP ×2 (09:00→21:05)
[2017-12-08] MEDS: DOCUSATE SODIUM 100 MG CAP PO ×2 (09:51→21:02)
[2017-12-08] MEDS: OLANZapine ORAL DISINTEGRATING TAB 5MG PO ×2 (09:51→21:04)
[2017-12-08] MEDS: BENZTROPINE 1 MG TAB PO ×2 (09:51→21:04)
[2017-12-08] MEDS: SOD POLYSTYRENE SULFONATE SUSP 15 GM/60 ML UD PO (09:51)
[2017-12-08] MEDS: DIVALPROEX 500MG *ER* TAB PO ×2 (09:52→21:02)
[2017-12-08] MEDS: PRAZOSIN 1 MG CAP PO ×2 (09:52→21:03)
[2017-12-08] MEDS: TOPIRAMATE (TopAMAX) 100 MG TAB PO ×2 (09:52→21:04)
[2017-12-08] MEDS: LORazepam 0.5 MG TAB PO ×3 (09:52→21:02)
[2017-12-08] MEDS: ASPIRIN 81 MG ENTERIC TAB PO (16:10)
[2017-12-08] MEDS: MAGNESIUM OXIDE 400 MG TAB (MAG-OX) PO (21:03)
[2017-12-08] MEDS: ATORVASTATIN 20 MG TAB PO (21:04)
[2017-12-09] MEDS: SINEMET 25-100 MG TAB PO ×5 (06:00→20:10)
[2017-12-09] MEDS: HEPARIN SOD (PORCINE) 5000 UNITS/ML VIAL SQ ×3 (06:00→20:24)
[2017-12-09] MEDS: LACTULOSE 20 GM/30 ML SYRUP UD PO ×3 (06:00→20:24)
[2017-12-09 06:24] LABS: HEMATOCRIT 33.4 % (42.0-52.0); HEMOGLOBIN 11.2 g/dl (13.5-17.5); MEAN CORPUSCULAR HEMOGLOBIN 32.4 pg (27.0-33.0); MEAN CORPUSCULAR HGB CONC 33.5 g/dl (32.0-36.5); MEAN CORPUSCULAR VOLUME 96.5 fl (80.0-96.0); PLATELET COUNT, AUTOMATED 179 10^3/uL (150-450); RED BLOOD COUNT 3.46 10^6/uL (4.30-6.10); RED CELL DISTRIBUTION WIDTH 12.1 % (11.5-14.5); WHITE BLOOD COUNT 4.6 10^3/uL (4.0-10.0)
[2017-12-09 06:39] LABS: ANION GAP 8 MEQ/L (8-16); BLOOD UREA NITROGEN 24 MG/DL (7-18); CALCIUM LEVEL 8.2 MG/DL (8.8-10.2); CARBON DIOXIDE LEVEL 22 MEQ/L (21-32); CHLORIDE LEVEL 118 MEQ/L (98-107); CREATININE FOR GFR 1.29 MG/DL (0.70-1.30); GLOMERULAR FILTRATION RATE 58.3 (>42); GLUCOSE, FASTING 99 MG/DL (70-100); POTASSIUM SERUM 4.4 MEQ/L (3.5-5.1); SODIUM LEVEL 148 MEQ/L (136-145)
[2017-12-09] MEDS: D5W 1,000 ML IV (07:53)
[2017-12-09] MEDS: SOD POLYSTYRENE SULFONATE SUSP 15 GM/60 ML UD PO (07:54)
[2017-12-09] MEDS: DOCUSATE SODIUM 100 MG CAP PO ×2 (07:54→20:08)
[2017-12-09] MEDS: DIVALPROEX 500MG *ER* TAB PO ×2 (07:55→20:09)
[2017-12-09] MEDS: LORazepam 0.5 MG TAB PO ×3 (07:55→20:10)
[2017-12-09] MEDS: OLANZapine ORAL DISINTEGRATING TAB 5MG PO ×2 (07:55→20:08)
[2017-12-09] MEDS: BENZTROPINE 1 MG TAB PO ×2 (07:55→20:08)
[2017-12-09] MEDS: EUCERIN 120GM CREAM TOP ×2 (07:56→20:10)
[2017-12-09] MEDS: TOPIRAMATE (TopAMAX) 100 MG TAB PO ×2 (07:56→20:09)
[2017-12-09] MEDS: PRAZOSIN 1 MG CAP PO ×2 (12:16→20:09)
[2017-12-09] MEDS: ASPIRIN 81 MG ENTERIC TAB PO (17:14)
[2017-12-09] MEDS: ATORVASTATIN 20 MG TAB PO (20:08)
[2017-12-09] MEDS: MAGNESIUM OXIDE 400 MG TAB (MAG-OX) PO (20:08)
[2017-12-10] MEDS: HEPARIN SOD (PORCINE) 5000 UNITS/ML VIAL SQ (06:00)
[2017-12-10] MEDS: LACTULOSE 20 GM/30 ML SYRUP UD PO (06:00)
[2017-12-10] MEDS: SINEMET 25-100 MG TAB PO ×3 (06:00→11:45)
[2017-12-10 08:05] LABS: HEMATOCRIT 32.5 % (42.0-52.0); MEAN CORPUSCULAR HEMOGLOBIN 32.7 pg (27.0-33.0); MEAN CORPUSCULAR HGB CONC 33.8 g/dl (32.0-36.5); MEAN CORPUSCULAR VOLUME 96.7 fl (80.0-96.0); PLATELET COUNT, AUTOMATED 164 10^3/uL (150-450); RED BLOOD COUNT 3.36 10^6/uL (4.30-6.10); RED CELL DISTRIBUTION WIDTH 12.2 % (11.5-14.5); WHITE BLOOD COUNT 3.9 10^3/uL (4.0-10.0)
[2017-12-10 08:24] LABS: ANION GAP 7 MEQ/L (8-16); BLOOD UREA NITROGEN 23 MG/DL (7-18); CALCIUM LEVEL 8.4 MG/DL (8.8-10.2); CARBON DIOXIDE LEVEL 21 MEQ/L (21-32); CHLORIDE LEVEL 116 MEQ/L (98-107); CREATININE FOR GFR 1.29 MG/DL (0.70-1.30); GLOMERULAR FILTRATION RATE 58.3 (>42); GLUCOSE, FASTING 95 MG/DL (70-100); POTASSIUM SERUM 4.3 MEQ/L (3.5-5.1); SODIUM LEVEL 144 MEQ/L (136-145)
[2017-12-10] MEDS: SOD POLYSTYRENE SULFONATE SUSP 15 GM/60 ML UD PO (09:19)
[2017-12-10] MEDS: DOCUSATE SODIUM 100 MG CAP PO (09:20)
[2017-12-10] MEDS: PRAZOSIN 1 MG CAP PO (09:21)
[2017-12-10] MEDS: DIVALPROEX 500MG *ER* TAB PO (09:22)
[2017-12-10] MEDS: OLANZapine ORAL DISINTEGRATING TAB 5MG PO (09:22)
[2017-12-10] MEDS: EUCERIN 120GM CREAM TOP (09:23)
[2017-12-10] MEDS: LORazepam 0.5 MG TAB PO (09:23)
[2017-12-10] MEDS: TOPIRAMATE (TopAMAX) 100 MG TAB PO (09:23)
[2017-12-10] MEDS: BENZTROPINE 1 MG TAB PO (09:24)
== END 2017-12-10 13:40 | disposition home or self-care (01) | DRG 57 ==
LOC: M MS5PR 11-14 11:20 → M ED 18:39 → M ED INP 22:52
DX: G31.83 Neurocognitive disorder with Lewy bodies (principal); I42.1 Obstructive hypertrophic cardiomyopathy; E87.0 Hyperosmolality and hypernatremia; F20.81 Schizophreniform disorder; F02.81 Dementia in other diseases classified elsewhere, unspecified severity, with behavioral disturbance; F41.9 Anxiety disorder, unspecified; I35.1 Nonrheumatic aortic (valve) insufficiency; E87.5 Hyperkalemia; J30.9 Allergic rhinitis, unspecified; F32.9 Major depressive disorder, single episode, unspecified; E78.5 Hyperlipidemia, unspecified; I25.10 Atherosclerotic heart disease of native coronary artery without angina pectoris; R50.9 Fever, unspecified; N18.3 Chronic kidney disease, stage 3 (moderate); K59.00 Constipation, unspecified; Z79.82 Long term (current) use of aspirin; Z88.1 Allergy status to other antibiotic agents; Z88.8 Allergy status to other drugs, medicaments and biological substances; Z87.891 Personal history of nicotine dependence; Z79.899 Other long term (current) drug therapy

== ENCOUNTER → 2017-12-25 | Outpatient (CLI) | payer MEDICARE, MEDICAID ==
[2017-12-25 13:01] LABS: ANION GAP 8 MEQ/L (8-16); BLOOD UREA NITROGEN 28 MG/DL (7-18); CALCIUM LEVEL 8.2 MG/DL (8.8-10.2); CARBON DIOXIDE LEVEL 21 MEQ/L (21-32); CHLORIDE LEVEL 119 MEQ/L (98-107); GLUCOSE, FASTING 112 MG/DL (70-100); POTASSIUM SERUM 5.1 MEQ/L (3.5-5.1); SODIUM LEVEL 148 MEQ/L (136-145)
== END ==
LOC: M WUC 08:54
DX: Z86.39 Personal history of other endocrine, nutritional and metabolic disease (principal)
CPT/HCPCS: 80048

== ENCOUNTER 2018-01-01 13:36 | Inpatient (IN) | payer MEDICARE, MEDICAID ==
[2018-01-01] MEDS: diphenhydrAMINE INJ 50MG/ML VIAL (J1200) IM (14:36)
[2018-01-01] MEDS: LORazepam 2 MG/ML VIAL (J2060) IM (14:36)
[2018-01-01] MEDS: PALIPERIDONE 3 MG ER TAB (INVEGA) PO (19:00)
[2018-01-01 20:18] LABS: FREE THYROXINE INDEX 2.5 % (1.4-3.8); T UPTAKE 37 % (33-40); THYROID STIMULATING HORMONE 0.343 uIU/ML (0.358-3.740); THYROXINE (T4) 6.8 UG/DL (4.5-12.0)
[2018-01-01] MEDS: OLANZapine 10 MG TAB PO (21:50)
[2018-01-02] MEDS: HALOPERIDOL 5 MG/ML VIAL (J1630) IM
[2018-01-02] MEDS: LORazepam 2 MG/ML VIAL (J2060) IM (00:34)
[2018-01-02 10:17] LABS: MEAN CORPUSCULAR HEMOGLOBIN 32.5 pg (27.0-33.0); MEAN CORPUSCULAR HGB CONC 32.4 g/dl (32.0-36.5); MEAN CORPUSCULAR VOLUME 100.6 fl (80.0-96.0); PLATELET COUNT, AUTOMATED 114 10^3/uL (150-450); RED BLOOD COUNT 3.38 10^6/uL (4.30-6.10); RED CELL DISTRIBUTION WIDTH 13.1 % (11.5-14.5)
[2018-01-02 10:48] LABS: ACETAMINOPHEN LEVEL < 2.0 UG/ML (10.0-30.0); ALBUMIN 3.1 GM/DL (3.2-5.2); ALBUMIN/GLOBULIN RATIO 0.94 (1.00-1.93); ALKALINE PHOSPHATASE 122 U/L (45-117); ALT/SGPT < 6 U/L (12-78); ANION GAP 9 MEQ/L (8-16); AST/SGOT 8 U/L (7-37); BILIRUBIN,DIRECT 0.1 MG/DL (0.0-0.2); BILIRUBIN,TOTAL 0.3 MG/DL (0.2-1.0); BLOOD UREA NITROGEN 27 MG/DL (7-18); CALCIUM LEVEL 7.8 MG/DL (8.8-10.2); CARBON DIOXIDE LEVEL 23 MEQ/L (21-32); CHLORIDE LEVEL 118 MEQ/L (98-107); CREATININE FOR GFR 1.66 MG/DL (0.70-1.30); GLOMERULAR FILTRATION RATE 43.6 (>42); GLUCOSE, FASTING 114 MG/DL (70-100); POTASSIUM SERUM 3.6 MEQ/L (3.5-5.1); SALICYLATE LEVEL < 1.7 MG/DL (5.0-30.0); SODIUM LEVEL 150 MEQ/L (136-145); THYROID STIMULATING HORMONE 0.304 uIU/ML (0.358-3.740); TOTAL PROTEIN 6.4 GM/DL (6.4-8.2)
[2018-01-02] MEDS: LORazepam 2 MG TAB PO (10:50)
[2018-01-02] MEDS: HALOPERIDOL 10 MG TAB PO (10:50)
[2018-01-02] MEDS: diphenhydrAMINE INJ 50MG/ML VIAL (J1200) IM ×2 (10:50)
[2018-01-02 11:08] LABS: ETHYL ALCOHOL (ETHANOL) < 0.003 % (0.000-0.010)
[2018-01-02 12:21] LABS: AMPHETAMINES LEVEL URINE NEGATIVE (NEGATIVE); BARBITURATES URINE NEGATIVE (NEGATIVE); BENZODIAZEPINES URINE NEGATIVE (NEGATIVE); CANNABINOIDS URINE NEGATIVE (NEGATIVE); COCAINE METABOLITE URINE NEGATIVE (NEGATIVE); METHADONE URINE NEGATIVE (NEGATIVE); OPIATES URINE NEGATIVE (NEGATIVE); PHENCYCLIDINE URINE NEGATIVE (NEGATIVE)
[2018-01-02] MEDS ORDERED: ONDANSETRON 4MG/2ML VIAL (J2405) IV (13:30)
[2018-01-02] MEDS ORDERED: diphenhydrAMINE INJ 50MG/ML VIAL (J1200) IM (16:15)
[2018-01-02] MEDS: SINEMET 25-100 MG TAB PO (19:49)
[2018-01-02] MEDS: OLANZapine 5 MG TAB PO (19:50)
[2018-01-02] MEDS: carBAMazepine 200 MG TAB PO (19:50)
[2018-01-02] MEDS: LORazepam 1 MG TAB PO (19:50)
[2018-01-03] MEDS: HALOPERIDOL 5 MG TAB PO (03:51)
[2018-01-03] MEDS: diphenhydrAMINE 50 MG CAP PO (03:51)
[2018-01-03 06:39] LABS: HEMATOCRIT 30.5 % (42.0-52.0); HEMOGLOBIN 10.1 g/dl (13.5-17.5); MEAN CORPUSCULAR HEMOGLOBIN 32.7 pg (27.0-33.0); MEAN CORPUSCULAR HGB CONC 33.1 g/dl (32.0-36.5); MEAN CORPUSCULAR VOLUME 98.7 fl (80.0-96.0); PLATELET COUNT, AUTOMATED 104 10^3/uL (150-450); RED BLOOD COUNT 3.09 10^6/uL (4.30-6.10); RED CELL DISTRIBUTION WIDTH 13.1 % (11.5-14.5); WHITE BLOOD COUNT 3.3 10^3/uL (4.0-10.0)
[2018-01-03 07:07] LABS: ANION GAP 9 MEQ/L (8-16); BLOOD UREA NITROGEN 23 MG/DL (7-18); CALCIUM LEVEL 7.9 MG/DL (8.8-10.2); CARBON DIOXIDE LEVEL 22 MEQ/L (21-32); CHLORIDE LEVEL 119 MEQ/L (98-107); CREATININE FOR GFR 1.34 MG/DL (0.70-1.30); GLOMERULAR FILTRATION RATE 55.8 (>42); GLUCOSE, FASTING 96 MG/DL (70-100); POTASSIUM SERUM 3.5 MEQ/L (3.5-5.1); SODIUM LEVEL 150 MEQ/L (136-145)
[2018-01-03 08:19] LABS: FREE T4 0.84 NG/DL (0.76-1.46)
[2018-01-03] MEDS ORDERED: ENOXAPARIN 40 MG/0.4 ML SYRINGE (J1650) SC (09:00)
[2018-01-03] MEDS: ENOXAPARIN 30 MG/0.3 ML SYR (J1650) SC (09:00)
[2018-01-03] MEDS: LORazepam 1 MG TAB PO ×3 (09:08→20:23)
[2018-01-03] MEDS: SINEMET 25-100 MG TAB PO ×4 (09:08→20:23)
[2018-01-03] MEDS: OLANZapine 5 MG TAB PO ×2 (09:08→20:23)
[2018-01-03] MEDS: carBAMazepine 200 MG TAB PO ×2 (09:08→20:23)
[2018-01-04] MEDS: diphenhydrAMINE 50 MG CAP PO ×3 (01:47→22:36)
[2018-01-04 06:57] LABS: HEMATOCRIT 32.2 % (42.0-52.0); HEMOGLOBIN 10.4 g/dl (13.5-17.5); MEAN CORPUSCULAR HEMOGLOBIN 32.2 pg (27.0-33.0); MEAN CORPUSCULAR HGB CONC 32.3 g/dl (32.0-36.5); MEAN CORPUSCULAR VOLUME 99.7 fl (80.0-96.0); PLATELET COUNT, AUTOMATED 123 10^3/uL (150-450); RED BLOOD COUNT 3.23 10^6/uL (4.30-6.10); RED CELL DISTRIBUTION WIDTH 12.9 % (11.5-14.5)
[2018-01-04 07:05] LABS: ANION GAP 6 MEQ/L (8-16); BLOOD UREA NITROGEN 21 MG/DL (7-18); CALCIUM LEVEL 7.9 MG/DL (8.8-10.2); CARBON DIOXIDE LEVEL 23 MEQ/L (21-32); CHLORIDE LEVEL 122 MEQ/L (98-107); CREATININE FOR GFR 1.38 MG/DL (0.70-1.30); GLOMERULAR FILTRATION RATE 53.9 (>42); GLUCOSE, FASTING 94 MG/DL (70-100); SODIUM LEVEL 151 MEQ/L (136-145)
[2018-01-04] MEDS: ENOXAPARIN 30 MG/0.3 ML SYR (J1650) SC (07:54)
[2018-01-04] MEDS: carBAMazepine 200 MG TAB PO ×2 (07:54→22:05)
[2018-01-04] MEDS: OLANZapine 5 MG TAB PO (07:54)
[2018-01-04] MEDS: SINEMET 25-100 MG TAB PO ×4 (07:54→22:05)
[2018-01-04] MEDS: LORazepam 1 MG TAB PO ×3 (07:54→22:05)
[2018-01-04] MEDS: OLANZapine 10 MG TAB PO (22:05)
[2018-01-05 06:04] LABS: HEMATOCRIT 32.6 % (42.0-52.0); HEMOGLOBIN 10.6 g/dl (13.5-17.5); MEAN CORPUSCULAR HEMOGLOBIN 31.8 pg (27.0-33.0); MEAN CORPUSCULAR HGB CONC 32.5 g/dl (32.0-36.5); MEAN CORPUSCULAR VOLUME 97.9 fl (80.0-96.0); PLATELET COUNT, AUTOMATED 129 10^3/uL (150-450); RED BLOOD COUNT 3.33 10^6/uL (4.30-6.10); RED CELL DISTRIBUTION WIDTH 12.7 % (11.5-14.5); WHITE BLOOD COUNT 3.4 10^3/uL (4.0-10.0)
[2018-01-05 06:19] LABS: ANION GAP 5 MEQ/L (8-16); BLOOD UREA NITROGEN 20 MG/DL (7-18); CARBON DIOXIDE LEVEL 25 MEQ/L (21-32); CHLORIDE LEVEL 119 MEQ/L (98-107); CREATININE FOR GFR 1.24 MG/DL (0.70-1.30); GLOMERULAR FILTRATION RATE > 60.0 (>42); GLUCOSE, FASTING 89 MG/DL (70-100); POTASSIUM SERUM 4.4 MEQ/L (3.5-5.1); SODIUM LEVEL 149 MEQ/L (136-145)
[2018-01-05] MEDS: LORazepam 1 MG TAB PO ×3 (09:45→22:10)
[2018-01-05] MEDS: OLANZapine 10 MG TAB PO ×2 (09:45→22:11)
[2018-01-05] MEDS: carBAMazepine 200 MG TAB PO ×2 (09:45→22:11)
[2018-01-05] MEDS: SINEMET 25-100 MG TAB PO ×4 (09:45→22:11)
[2018-01-05] MEDS: ENOXAPARIN 30 MG/0.3 ML SYR (J1650) SC ×2 (09:46→09:51)
[2018-01-05] MEDS: METOPROLOL TART 25 MG TABLET PO (22:10)
[2018-01-06 07:13] LABS: HEMATOCRIT 33.6 % (42.0-52.0); MEAN CORPUSCULAR HEMOGLOBIN 31.9 pg (27.0-33.0); MEAN CORPUSCULAR HGB CONC 32.7 g/dl (32.0-36.5); MEAN CORPUSCULAR VOLUME 97.4 fl (80.0-96.0); PLATELET COUNT, AUTOMATED 143 10^3/uL (150-450); RED BLOOD COUNT 3.45 10^6/uL (4.30-6.10); RED CELL DISTRIBUTION WIDTH 12.6 % (11.5-14.5); WHITE BLOOD COUNT 3.8 10^3/uL (4.0-10.0)
[2018-01-06 07:33] LABS: ANION GAP 7 MEQ/L (8-16); BLOOD UREA NITROGEN 23 MG/DL (7-18); CALCIUM LEVEL 8.4 MG/DL (8.8-10.2); CARBON DIOXIDE LEVEL 23 MEQ/L (21-32); CHLORIDE LEVEL 118 MEQ/L (98-107); CREATININE FOR GFR 1.21 MG/DL (0.70-1.30); GLOMERULAR FILTRATION RATE > 60.0 (>42); GLUCOSE, FASTING 94 MG/DL (70-100); POTASSIUM SERUM 4.8 MEQ/L (3.5-5.1); SODIUM LEVEL 148 MEQ/L (136-145)
[2018-01-06] MEDS: OLANZapine 5 MG TAB PO (08:45)
[2018-01-06] MEDS: SINEMET 25-100 MG TAB PO ×4 (08:45→21:01)
[2018-01-06] MEDS: LORazepam 1 MG TAB PO ×3 (08:45→21:01)
[2018-01-06] MEDS: carBAMazepine 200 MG TAB PO ×2 (08:45→21:00)
[2018-01-06] MEDS: METOPROLOL TART 25 MG TABLET PO ×2 (08:46→21:01)
[2018-01-06] MEDS: ATORVASTATIN 20 MG TAB PO (21:01)
[2018-01-06] MEDS: OLANZapine 10 MG TAB PO (21:01)
[2018-01-06] MEDS: ASPIRIN 81 MG ENTERIC TAB PO (21:01)
[2018-01-06] MEDS: diphenhydrAMINE 50 MG CAP PO (21:46)
[2018-01-07 06:19] LABS: HEMATOCRIT 34.7 % (42.0-52.0); HEMOGLOBIN 11.6 g/dl (13.5-17.5); MEAN CORPUSCULAR HEMOGLOBIN 32.2 pg (27.0-33.0); MEAN CORPUSCULAR HGB CONC 33.4 g/dl (32.0-36.5); MEAN CORPUSCULAR VOLUME 96.4 fl (80.0-96.0); PLATELET COUNT, AUTOMATED 159 10^3/uL (150-450); RED CELL DISTRIBUTION WIDTH 12.5 % (11.5-14.5); WHITE BLOOD COUNT 3.9 10^3/uL (4.0-10.0)
[2018-01-07 06:39] LABS: ANION GAP 6 MEQ/L (8-16); BLOOD UREA NITROGEN 25 MG/DL (7-18); CALCIUM LEVEL 8.1 MG/DL (8.8-10.2); CARBON DIOXIDE LEVEL 24 MEQ/L (21-32); CHLORIDE LEVEL 115 MEQ/L (98-107); CREATININE FOR GFR 1.28 MG/DL (0.70-1.30); GLOMERULAR FILTRATION RATE 58.8 (>42); GLUCOSE, FASTING 89 MG/DL (70-100); SODIUM LEVEL 145 MEQ/L (136-145)
[2018-01-07] MEDS: SINEMET 25-100 MG TAB PO ×4 (09:16→19:56)
[2018-01-07] MEDS: LORazepam 1 MG TAB PO ×4 (09:16→19:56)
[2018-01-07] MEDS: OLANZapine 5 MG TAB PO (09:16)
[2018-01-07] MEDS: carBAMazepine 200 MG TAB PO ×2 (09:16→19:56)
[2018-01-07] MEDS: ENOXAPARIN 30 MG/0.3 ML SYR (J1650) SC (09:16)
[2018-01-07] MEDS: METOPROLOL TART 25 MG TABLET PO ×2 (09:17→19:57)
[2018-01-07] MEDS: diphenhydrAMINE 50 MG CAP PO (18:34)
[2018-01-07] MEDS: OLANZapine 10 MG TAB PO (19:56)
[2018-01-07] MEDS: ATORVASTATIN 20 MG TAB PO (19:56)
[2018-01-07] MEDS: ASPIRIN 81 MG ENTERIC TAB PO (19:57)
[2018-01-08] MEDS: diphenhydrAMINE 50 MG CAP PO (06:36)
[2018-01-08 06:37] LABS: HEMATOCRIT 34.5 % (42.0-52.0); HEMOGLOBIN 11.6 g/dl (13.5-17.5); MEAN CORPUSCULAR HEMOGLOBIN 32.1 pg (27.0-33.0); MEAN CORPUSCULAR HGB CONC 33.6 g/dl (32.0-36.5); MEAN CORPUSCULAR VOLUME 95.6 fl (80.0-96.0); PLATELET COUNT, AUTOMATED 160 10^3/uL (150-450); RED BLOOD COUNT 3.61 10^6/uL (4.30-6.10); RED CELL DISTRIBUTION WIDTH 12.3 % (11.5-14.5)
[2018-01-08] MEDS: ACETAMINOPHEN TAB 650MG DOSE (2X325MG) PO (06:37)
[2018-01-08 06:53] LABS: ANION GAP 4 MEQ/L (8-16); BLOOD UREA NITROGEN 32 MG/DL (7-18); CALCIUM LEVEL 8.5 MG/DL (8.8-10.2); CARBON DIOXIDE LEVEL 24 MEQ/L (21-32); CHLORIDE LEVEL 115 MEQ/L (98-107); GLUCOSE, FASTING 95 MG/DL (70-100); SODIUM LEVEL 143 MEQ/L (136-145)
[2018-01-08 06:55] LABS: POTASSIUM SERUM 5.6 MEQ/L (3.5-5.1)
[2018-01-08] MEDS: carBAMazepine 200 MG TAB PO ×2 (08:44→19:57)
[2018-01-08] MEDS: OLANZapine 5 MG TAB PO (08:44)
[2018-01-08] MEDS: SINEMET 25-100 MG TAB PO ×4 (08:44→19:57)
[2018-01-08] MEDS: LORazepam 1 MG TAB PO ×3 (08:44→19:58)
[2018-01-08] MEDS: METOPROLOL TART 25 MG TABLET PO ×2 (08:46→19:58)
[2018-01-08] MEDS: ENOXAPARIN 30 MG/0.3 ML SYR (J1650) SC (08:47)
[2018-01-08] MEDS: SOD POLYSTYRENE SULFONATE SUSP 15 GM/60 ML UD PO (08:47)
[2018-01-08 16:37] LABS: ANION GAP 6 MEQ/L (8-16); BLOOD UREA NITROGEN 37 MG/DL (7-18); CALCIUM LEVEL 8.3 MG/DL (8.8-10.2); CARBON DIOXIDE LEVEL 24 MEQ/L (21-32); CHLORIDE LEVEL 113 MEQ/L (98-107); CREATININE FOR GFR 1.63 MG/DL (0.70-1.30); GLOMERULAR FILTRATION RATE 44.5 (>42); GLUCOSE, FASTING 111 MG/DL (70-100); SODIUM LEVEL 143 MEQ/L (136-145)
[2018-01-08 17:02] LABS: POTASSIUM SERUM 5.4 MEQ/L (3.5-5.1)
[2018-01-08] MEDS: OLANZapine 10 MG TAB PO (19:58)
[2018-01-08] MEDS: ASPIRIN 81 MG ENTERIC TAB PO (19:58)
[2018-01-08] MEDS: ATORVASTATIN 20 MG TAB PO (19:58)
[2018-01-09 00:36] LABS: APPEARANCE, URINE CLEAR (CLEAR); BACTERIA, URINE AUTO NEGATIVE (NEGATIVE); BILIRUBIN, URINE AUTO NEGATIVE (NEGATIVE); BLOOD, URINE BLOOD NEGATIVE (NEGATIVE); COLOR, URINE YELLOW (YELLOW); GLUCOSE, URINE (UA) AUTO NEGATIVE (NEGATIVE); KETONE, URINE AUTO TRACE mg/dL (NEGATIVE); LEUKOCYTE ESTERASE, URINE AUTO NEGATIVE (NEGATIVE); NITRITE, URINE AUTO NEGATIVE (NEGATIVE); PROTEIN, URINE AUTO NEGATIVE (NEGATIVE); RBC, URINE AUTO 1 /HPF (0-3); SPECIFIC GRAVITY URINE AUTO 1.013 (1.002-1.035); SQUAMOUS EPITHELIAL CELL UR AU 0 /HPF (0-6); UROBILINOGEN, URINE AUTO 0.2 mg/dL (0.0-2.0); WBC, URINE AUTO 1 /HPF (0-3)
[2018-01-09] MEDS: diphenhydrAMINE 50 MG CAP PO ×2 (03:19→20:44)
[2018-01-09 06:13] LABS: HEMATOCRIT 32.2 % (42.0-52.0); HEMOGLOBIN 10.5 g/dl (13.5-17.5); MEAN CORPUSCULAR HEMOGLOBIN 31.5 pg (27.0-33.0); MEAN CORPUSCULAR HGB CONC 32.6 g/dl (32.0-36.5); MEAN CORPUSCULAR VOLUME 96.7 fl (80.0-96.0); PLATELET COUNT, AUTOMATED 161 10^3/uL (150-450); RED BLOOD COUNT 3.33 10^6/uL (4.30-6.10); RED CELL DISTRIBUTION WIDTH 12.4 % (11.5-14.5); WHITE BLOOD COUNT 4.7 10^3/uL (4.0-10.0)
[2018-01-09 06:48] LABS: ANION GAP 3 MEQ/L (8-16); BLOOD UREA NITROGEN 37 MG/DL (7-18); CALCIUM LEVEL 8.1 MG/DL (8.8-10.2); CARBON DIOXIDE LEVEL 27 MEQ/L (21-32); CHLORIDE LEVEL 112 MEQ/L (98-107); CREATININE FOR GFR 1.55 MG/DL (0.70-1.30); GLOMERULAR FILTRATION RATE 47.2 (>42); GLUCOSE, FASTING 95 MG/DL (70-100); SODIUM LEVEL 142 MEQ/L (136-145)
[2018-01-09 06:49] LABS: POTASSIUM SERUM 5.2 MEQ/L (3.5-5.1)
[2018-01-09] MEDS: ENOXAPARIN 30 MG/0.3 ML SYR (J1650) SC ×2 (09:00→10:28)
[2018-01-09] MEDS: SINEMET 25-100 MG TAB PO ×4 (10:26→20:43)
[2018-01-09] MEDS: LORazepam 1 MG TAB PO ×3 (10:26→20:44)
[2018-01-09] MEDS: METOPROLOL TART 25 MG TABLET PO ×2 (10:27→20:45)
[2018-01-09] MEDS: OLANZapine 5 MG TAB PO (10:27)
[2018-01-09] MEDS: SOD POLYSTYRENE SULFONATE SUSP 15 GM/60 ML UD PO (10:27)
[2018-01-09] MEDS: carBAMazepine 200 MG TAB PO ×2 (10:27→20:44)
[2018-01-09] MEDS: OLANZapine 10 MG TAB PO (20:43)
[2018-01-09] MEDS: ATORVASTATIN 20 MG TAB PO (20:43)
[2018-01-09] MEDS: ASPIRIN 81 MG ENTERIC TAB PO (20:43)
[2018-01-10] MEDS: OLANZapine 5 MG TAB PO (07:54)
[2018-01-10] MEDS: SINEMET 25-100 MG TAB PO ×2 (07:54→13:08)
[2018-01-10] MEDS: SOD POLYSTYRENE SULFONATE SUSP 15 GM/60 ML UD PO (07:55)
[2018-01-10] MEDS: LORazepam 1 MG TAB PO ×2 (07:55→15:14)
[2018-01-10] MEDS: carBAMazepine 200 MG TAB PO (07:55)
[2018-01-10] MEDS: METOPROLOL TART 25 MG TABLET PO (07:58)
[2018-01-10] MEDS: ENOXAPARIN 30 MG/0.3 ML SYR (J1650) SC (08:00)
[2018-01-10 08:07] LABS: HEMATOCRIT 32.9 % (42.0-52.0); HEMOGLOBIN 10.9 g/dl (13.5-17.5); MEAN CORPUSCULAR HEMOGLOBIN 31.7 pg (27.0-33.0); MEAN CORPUSCULAR HGB CONC 33.1 g/dl (32.0-36.5); MEAN CORPUSCULAR VOLUME 95.6 fl (80.0-96.0); PLATELET COUNT, AUTOMATED 190 10^3/uL (150-450); RED BLOOD COUNT 3.44 10^6/uL (4.30-6.10); RED CELL DISTRIBUTION WIDTH 12.4 % (11.5-14.5); WHITE BLOOD COUNT 4.6 10^3/uL (4.0-10.0)
[2018-01-10 08:34] LABS: ANION GAP 5 MEQ/L (8-16); BLOOD UREA NITROGEN 34 MG/DL (7-18); CALCIUM LEVEL 7.9 MG/DL (8.8-10.2); CARBON DIOXIDE LEVEL 27 MEQ/L (21-32); CHLORIDE LEVEL 112 MEQ/L (98-107); GLUCOSE, FASTING 103 MG/DL (70-100); MAGNESIUM LEVEL 2.2 MG/DL (1.8-2.4); POTASSIUM SERUM 4.9 MEQ/L (3.5-5.1); SODIUM LEVEL 144 MEQ/L (136-145)
== END 2018-01-10 15:49 | disposition home or self-care (01) | DRG 57 ==
LOC: M ED 13:36 → M ED INP 01-02 13:29 → M MSPAV 01-02 15:54
DX: G31.83 Neurocognitive disorder with Lewy bodies (principal); I42.1 Obstructive hypertrophic cardiomyopathy; E87.0 Hyperosmolality and hypernatremia; F20.81 Schizophreniform disorder; F02.81 Dementia in other diseases classified elsewhere, unspecified severity, with behavioral disturbance; F79 Unspecified intellectual disabilities; F41.9 Anxiety disorder, unspecified; I25.10 Atherosclerotic heart disease of native coronary artery without angina pectoris; J30.9 Allergic rhinitis, unspecified; E78.5 Hyperlipidemia, unspecified; R13.10 Dysphagia, unspecified; K59.00 Constipation, unspecified; N18.3 Chronic kidney disease, stage 3 (moderate); Z87.891 Personal history of nicotine dependence; Z79.82 Long term (current) use of aspirin; Z88.1 Allergy status to other antibiotic agents; Z88.8 Allergy status to other drugs, medicaments and biological substances

== ENCOUNTER → 2018-01-01 | Outpatient (REF) | payer MEDICARE, MEDICAID ==
[2018-01-01 10:24] LABS: HEMATOCRIT 31.8 % (42.0-52.0); HEMOGLOBIN 10.3 g/dl (13.5-17.5); MEAN CORPUSCULAR HEMOGLOBIN 32.2 pg (27.0-33.0); MEAN CORPUSCULAR HGB CONC 32.4 g/dl (32.0-36.5); MEAN CORPUSCULAR VOLUME 99.4 fl (80.0-96.0); PLATELET COUNT, AUTOMATED 128 10^3/uL (150-450); RED CELL DISTRIBUTION WIDTH 12.8 % (11.5-14.5); WHITE BLOOD COUNT 4.5 10^3/uL (4.0-10.0)
[2018-01-01 10:40] LABS: LACTIC ACID SEPSIS PROTOCOL 1.9 MMOL/L (0.4-2.0)
[2018-01-01 10:42] LABS: ALBUMIN 3.1 GM/DL (3.2-5.2); ALBUMIN/GLOBULIN RATIO 0.89 (1.00-1.93); ALKALINE PHOSPHATASE 116 U/L (45-117); ALT/SGPT < 6 U/L (12-78); ANION GAP 8 MEQ/L (8-16); AST/SGOT 10 U/L (7-37); BILIRUBIN,TOTAL 0.3 MG/DL (0.2-1.0); BLOOD UREA NITROGEN 24 MG/DL (7-18); CALCIUM LEVEL 7.6 MG/DL (8.8-10.2); CARBON DIOXIDE LEVEL 21 MEQ/L (21-32); CHLORIDE LEVEL 118 MEQ/L (98-107); CREATININE FOR GFR 1.36 MG/DL (0.70-1.30); GLOMERULAR FILTRATION RATE 54.8 (>42); GLUCOSE, FASTING 95 MG/DL (70-100); POTASSIUM SERUM 4.2 MEQ/L (3.5-5.1); SODIUM LEVEL 147 MEQ/L (136-145); TOTAL PROTEIN 6.6 GM/DL (6.4-8.2); VALPROIC ACID (DEPAKOTE) 53.8 UG/ML (50.0-100.0)
== END ==
LOC: M SFHCPLAZ 09:14
DX: R45.89 Other symptoms and signs involving emotional state (principal)
CPT/HCPCS: 80164

== ENCOUNTER 2018-01-22 15:19 | Emergency (ER) | payer MEDICARE, MEDICAID ==
[2018-01-22 16:17] LABS: BASO % 0.8 % (0.0-1.0); EOS # 0.1 10^3/uL (0.0-0.50); EOS % 3.7 % (0.0-3.0); HEMATOCRIT 34.5 % (42.0-52.0); HEMOGLOBIN 11.2 g/dl (13.5-17.5); IMMATURE GRANULOCYTE % 0.3 % (0-3.0); LYMPH # 1.1 10^3/uL (1.5-4.5); LYMPH % 29.3 % (24.0-44.0); MEAN CORPUSCULAR HEMOGLOBIN 31.5 pg (27.0-33.0); MEAN CORPUSCULAR HGB CONC 32.5 g/dl (32.0-36.5); MEAN CORPUSCULAR VOLUME 97.2 fl (80.0-96.0); MONO # 0.3 10^3/uL (0.0-0.8); MONO % 7.4 % (0.0-5.0); NEUTROPHILS # 2.2 10^3/uL (1.8-7.7); NEUTROPHILS % 58.5 % (36.0-66.0); PLATELET COUNT, AUTOMATED 186 10^3/uL (150-450); RED BLOOD COUNT 3.55 10^6/uL (4.30-6.10); RED CELL DISTRIBUTION WIDTH 12.4 % (11.5-14.5); WHITE BLOOD COUNT 3.8 10^3/uL (4.0-10.0)
[2018-01-22 16:41] LABS: ALBUMIN 3.2 GM/DL (3.2-5.2); ALBUMIN/GLOBULIN RATIO 0.89 (1.00-1.93); ALKALINE PHOSPHATASE 150 U/L (45-117); ALT/SGPT 10 U/L (12-78); ANION GAP 9 MEQ/L (8-16); AST/SGOT 5 U/L (7-37); BILIRUBIN,DIRECT < 0.1 MG/DL (0.0-0.2); BILIRUBIN,TOTAL 0.2 MG/DL (0.2-1.0); BLOOD UREA NITROGEN 19 MG/DL (7-18); CALCIUM LEVEL 7.8 MG/DL (8.8-10.2); CARBON DIOXIDE LEVEL 24 MEQ/L (21-32); CHLORIDE LEVEL 112 MEQ/L (98-107); CREATININE FOR GFR 1.34 MG/DL (0.70-1.30); GLOMERULAR FILTRATION RATE 55.8 (>42); GLUCOSE, FASTING 156 MG/DL (70-100); LIPASE 50 U/L (73-393); POTASSIUM SERUM 4.2 MEQ/L (3.5-5.1); SODIUM LEVEL 145 MEQ/L (136-145); TOTAL PROTEIN 6.8 GM/DL (6.4-8.2)
[2018-01-22 16:52] LABS: LACTIC ACID SEPSIS PROTOCOL 2.9 MMOL/L (0.4-2.0)
[2018-01-22] MEDS: LORazepam 2 MG/ML VIAL (J2060) IV (20:01)
[2018-01-22] MEDS: MIRALAX *UNIT DOSE* 17GM PACKET PO (22:23)
== END 2018-01-22 23:12 | disposition home or self-care (01) ==
LOC: M ED 15:19
DX: K59.00 Constipation, unspecified (principal); F03.90 Unspecified dementia, unspecified severity, without behavioral disturbance, psychotic disturbance, mood disturbance, and anxiety; F41.9 Anxiety disorder, unspecified; I25.10 Atherosclerotic heart disease of native coronary artery without angina pectoris; G20 Parkinson's disease; J30.2 Other seasonal allergic rhinitis; Z87.891 Personal history of nicotine dependence; Z79.82 Long term (current) use of aspirin; Z79.899 Other long term (current) drug therapy; Z88.5 Allergy status to narcotic agent
CPT/HCPCS: J2060

== ENCOUNTER 2018-01-24 10:10 | Emergency (ER) | payer MEDICARE, MEDICAID ==
[2018-01-24] MEDS: MAGNESIUM CITRATE 300 ML BTL PO ×3 (10:45→12:45)
[2018-01-24] MEDS ORDERED: GASTROGRAFIN SOLUTION 30ML (Q9963) As Ordered (15:47)
[2018-01-24] MEDS: GASTROGRAFIN SOLUTION 30ML PO ×2 (16:00→16:30)
[2018-01-24 16:14] LABS: BASO % 0.8 % (0.0-1.0); EOS # 0.1 10^3/uL (0.0-0.50); EOS % 3.6 % (0.0-3.0); HEMATOCRIT 35.4 % (42.0-52.0); HEMOGLOBIN 11.9 g/dl (13.5-17.5); IMMATURE GRANULOCYTE % 0.3 % (0-3.0); LYMPH # 1.2 10^3/uL (1.5-4.5); LYMPH % 32.8 % (24.0-44.0); MEAN CORPUSCULAR HEMOGLOBIN 31.6 pg (27.0-33.0); MEAN CORPUSCULAR HGB CONC 33.6 g/dl (32.0-36.5); MEAN CORPUSCULAR VOLUME 94.1 fl (80.0-96.0); MONO # 0.4 10^3/uL (0.0-0.8); MONO % 9.6 % (0.0-5.0); NEUTROPHILS # 1.9 10^3/uL (1.8-7.7); NEUTROPHILS % 52.9 % (36.0-66.0); PLATELET COUNT, AUTOMATED 201 10^3/uL (150-450); RED BLOOD COUNT 3.76 10^6/uL (4.30-6.10); RED CELL DISTRIBUTION WIDTH 12.5 % (11.5-14.5); WHITE BLOOD COUNT 3.6 10^3/uL (4.0-10.0)
[2018-01-24 16:37] LABS: ANION GAP 6 MEQ/L (8-16); BLOOD UREA NITROGEN 21 MG/DL (7-18); CALCIUM LEVEL 8.9 MG/DL (8.8-10.2); CARBON DIOXIDE LEVEL 28 MEQ/L (21-32); CHLORIDE LEVEL 109 MEQ/L (98-107); CREATININE FOR GFR 1.18 MG/DL (0.70-1.30); GLOMERULAR FILTRATION RATE > 60.0 (>42); GLUCOSE, FASTING 93 MG/DL (70-100); POTASSIUM SERUM 4.6 MEQ/L (3.5-5.1); SODIUM LEVEL 143 MEQ/L (136-145)
[2018-01-24 16:42] LABS: LACTIC ACID SEPSIS PROTOCOL 0.9 MMOL/L (0.4-2.0)
[2018-01-24] MEDS ORDERED: ISOVUE-370 76% 100ML VIAL (Q9967) As Ordered (16:52)
== END 2018-01-24 18:36 | disposition home or self-care (01) ==
LOC: M ED 10:10
DX: K59.00 Constipation, unspecified (principal); K56.7 Ileus, unspecified; I10 Essential (primary) hypertension; E78.5 Hyperlipidemia, unspecified; N18.3 Chronic kidney disease, stage 3 (moderate); G93.41 Metabolic encephalopathy; J30.2 Other seasonal allergic rhinitis; Z87.891 Personal history of nicotine dependence; Z79.82 Long term (current) use of aspirin; Z79.899 Other long term (current) drug therapy; Z88.8 Allergy status to other drugs, medicaments and biological substances; Z88.1 Allergy status to other antibiotic agents
CPT/HCPCS: Q9967

== ENCOUNTER → 2018-02-22 | Outpatient (REF) | payer MEDICARE, MEDICAID ==
[2018-02-22 15:07] LABS: FERRITIN 15 NG/ML (26-388); IRON (FE) 52 UG/DL (65-175); TOTAL IRON BINDING CAPACITY 305 UG/DL (250-450)
== END ==
LOC: M LAB REF 13:18
DX: N18.9 Chronic kidney disease, unspecified (principal); D63.1 Anemia in chronic kidney disease
CPT/HCPCS: 83550

== ENCOUNTER → 2018-08-26 | Outpatient (CLI) | payer MEDICARE, MEDICAID ==
[~2018-08-26] MED LIST changes: -ASPI325T24 PO; +ASPI325T25 PO; +ASPI81TA24 PO; +ASPI81TAEC PO; +ATIV1TAB10 PO; +ATIV1TAB7 PO; +ATOR40TA75 PO; +BENZ-52 PO; +BENZ0.5T PO; +CARB/LEVO; +CARB20TA PO; +CARB25TA9 PO; +DEPA500T2 PO; +DIPH50CA PO; +DIVA500T9 PO; +DULC5TAB PO; +EUCECRE3 TOP; +FLEEENE4 PR; +HALO1TAB19 PO; +KION15SU PO; +LACT10SO3 PO; +LORA1TAB12 PO; +MAGN1TAB25 PO; +MELA5TAB17 PO; +MELATON; +METO1TAB87 PO; +MIRA3350 PO; +NABU-119; +NABU-119 PO; -NABU750T; -NABU750T PO; +OLAN10TA2 PO; +OLAN15TA PO; +OLAN20TA14 PO; +OLAN5TAB PO; +OLAN5ZYD PO; +PATIENT COMMENT; +PRAM1TAB7 PO; +PRAZ2CAP PO; +QUET1TAB9 PO; +SELE25SHA TOP; +SENO8.6T10 PO; +SODI15SS PO; +SODI1POW59 PO; +SODI200S PO; +TOPA100T12 PO; +TOPI100T9 PO; +TRAZ-160; +TRAZ-160 PO; +VERA1TAB10; +VERA1TAB11 PO; +ZYPR10TA PO; +ZYPR20TA PO; +ZYPR5TAB2 PO
[2018-08-26 16:53] LABS: ALBUMIN 3.7 GM/DL (3.2-5.2); BILIRUBIN,TOTAL 0.2 MG/DL (0.2-1.0); CALCIUM LEVEL 8.6 MG/DL (8.8-10.2); CREATININE FOR GFR 1.45 MG/DL (0.70-1.30); GLOMERULAR FILTRATION RATE 50.8 (>42); POTASSIUM SERUM 4.8 MEQ/L (3.5-5.1); TOTAL PROTEIN 7.7 GM/DL (6.4-8.2)
[2018-08-26 17:13] LABS: BASO % 0.5 % (0.0-1.0); EOS # 0.1 10^3/uL (0.0-0.50); EOS % 2.5 % (0.0-3.0); HEMATOCRIT 36.6 % (42.0-52.0); HEMOGLOBIN 12.1 g/dl (13.5-17.5); LYMPH # 0.9 10^3/uL (1.5-4.5); LYMPH % 23.8 % (24.0-44.0); MEAN CORPUSCULAR HEMOGLOBIN 32.5 pg (27.0-33.0); MEAN CORPUSCULAR HGB CONC 33.1 g/dl (32.0-36.5); MEAN CORPUSCULAR VOLUME 98.4 fl (80.0-96.0); MONO # 0.6 10^3/uL (0.0-0.8); MONO % 14.2 % (0.0-5.0); NEUTROPHILS # 2.3 10^3/uL (1.8-7.7); NEUTROPHILS % 58.7 % (36.0-66.0); PLATELET COUNT, AUTOMATED 191 10^3/uL (150-450); RED BLOOD COUNT 3.72 10^6/uL (4.30-6.10)
== END ==
LOC: M WUC 10:54
PROVIDERS: ATTEND Physician Assistant
DX: J20.9 Acute bronchitis, unspecified (principal)

== ENCOUNTER → 2018-11-19 | Outpatient (CLI) | payer MEDICARE, MEDICAID ==
[~2018-11-19] MED LIST changes: +ASPI-255 PO; -ASPI325T25 PO; -MAGN1TAB25 PO; +MAGN1TAB26 PO; +VERA120T4; +VERA180T3 PO; -VERA1TAB10; -VERA1TAB11 PO; -VERA240T14 PO; +VERA240T3 PO
[2018-11-19 17:19] LABS: BASO % 0.7 % (0.0-1.0); EOS # 0.2 10^3/uL (0.0-0.50); EOS % 4.2 % (0.0-3.0); HEMATOCRIT 37.5 % (42.0-52.0); HEMOGLOBIN 12.6 g/dl (13.5-17.5); LYMPH # 1.1 10^3/uL (1.5-4.5); LYMPH % 24.9 % (24.0-44.0); MEAN CORPUSCULAR HEMOGLOBIN 33.2 pg (27.0-33.0); MEAN CORPUSCULAR HGB CONC 33.6 g/dl (32.0-36.5); MEAN CORPUSCULAR VOLUME 98.9 fl (80.0-96.0); MONO # 0.3 10^3/uL (0.0-0.8); MONO % 6.9 % (0.0-5.0); NEUTROPHILS # 2.8 10^3/uL (1.8-7.7); NEUTROPHILS % 63.1 % (36.0-66.0); PLATELET COUNT, AUTOMATED 154 10^3/uL (150-450); RED BLOOD COUNT 3.79 10^6/uL (4.30-6.10); WHITE BLOOD COUNT 4.5 10^3/uL (4.0-10.0)
[2018-11-19 17:20] LABS: HEMOGLOBIN A1c 5.1 %
[2018-11-19 17:35] LABS: ALBUMIN 3.8 GM/DL (3.2-5.2); ALT/SGPT 7 U/L (12-78); BILIRUBIN,DIRECT < 0.1 MG/DL (0.0-0.2); BILIRUBIN,TOTAL 0.3 MG/DL (0.2-1.0); BLOOD UREA NITROGEN 24 MG/DL (7-18); CALCIUM LEVEL 8.6 MG/DL (8.8-10.2); CARBAMAZEPINE (TEGRETOL) LEVEL 8.9 UG/ML (4.0-10.0); CARBON DIOXIDE LEVEL 26 MEQ/L (21-32); CHLORIDE LEVEL 110 MEQ/L (98-107); CREATININE FOR GFR 1.28 MG/DL (0.70-1.30); GLOMERULAR FILTRATION RATE 58.6 (>42); GLUCOSE, FASTING 83 MG/DL (70-100); POTASSIUM SERUM 4.4 MEQ/L (3.5-5.1); SODIUM LEVEL 143 MEQ/L (136-145)
== END ==
LOC: M WUC 14:19
PROVIDERS: ATTEND Family Medicine
DX: Z86.39 Personal history of other endocrine, nutritional and metabolic disease (principal); Z51.81 Encounter for therapeutic drug level monitoring
CPT/HCPCS: 36415; 80048; 80076; 80156; 83036; 85025; G0463

== ENCOUNTER → 2018-11-19 | Outpatient (REF) | payer MEDICARE, MEDICAID | LOC: CANPREREF → M SFHCPLAZ 12:09 | PROVIDERS: ATTEND Family Medicine | DX: Z86.39 Personal history of other endocrine, nutritional and metabolic disease (principal); Z51.81 Encounter for therapeutic drug level monitoring; Z53.8 Procedure and treatment not carried out for other reasons ==

== ENCOUNTER → 2018-12-13 | Outpatient (CLI) | payer MEDICARE, MEDICAID ==
[2018-12-13 08:03] LABS: BASO % 0.8 % (0.0-1.0); EOS # 0.2 10^3/uL (0.0-0.50); EOS % 3.4 % (0.0-3.0); HEMATOCRIT 37.6 % (42.0-52.0); HEMOGLOBIN 12.9 g/dl (13.5-17.5); LYMPH # 1.2 10^3/uL (1.5-4.5); LYMPH % 22.9 % (24.0-44.0); MEAN CORPUSCULAR HGB CONC 34.3 g/dl (32.0-36.5); MEAN CORPUSCULAR VOLUME 96.2 fl (80.0-96.0); MONO # 0.4 10^3/uL (0.0-0.8); MONO % 7.8 % (0.0-5.0); NEUTROPHILS # 3.4 10^3/uL (1.8-7.7); NEUTROPHILS % 64.7 % (36.0-66.0); PLATELET COUNT, AUTOMATED 164 10^3/uL (150-450); RED BLOOD COUNT 3.91 10^6/uL (4.30-6.10); WHITE BLOOD COUNT 5.2 10^3/uL (4.0-10.0)
[2018-12-13 08:30] LABS: ALBUMIN 3.6 GM/DL (3.2-5.2); BILIRUBIN,TOTAL 0.4 MG/DL (0.2-1.0); CALCIUM LEVEL 8.4 MG/DL (8.8-10.2); CARBAMAZEPINE (TEGRETOL) LEVEL 8.7 UG/ML (4.0-10.0); CHOLESTEROL RISK RATIO 2.771 (<5); CREATININE FOR GFR 1.27 MG/DL (0.70-1.30); GLOMERULAR FILTRATION RATE 59.2 (>42); POTASSIUM SERUM 4.5 MEQ/L (3.5-5.1)
== END ==
LOC: M LAB 06:35
PROVIDERS: ATTEND Psychiatry & Neurology Psychiatry
DX: Z51.81 Encounter for therapeutic drug level monitoring (principal); Z79.899 Other long term (current) drug therapy

== ENCOUNTER → 2019-05-06 | Outpatient (CLI) | payer MEDICARE, MEDICAID ==
[~2019-05-06] MED LIST changes: -BENZ0.5T PO; +BENZ0.5T23 PO; -MELA5TAB17 PO; +MELA5TAB31 PO; -QUET1TAB9 PO; +QUET200T2 PO; -TRAZ-160; -TRAZ-160 PO; +TRAZ-252; +TRAZ-252 PO
[2019-05-06 20:52] LABS: BASO % 0.9 % (0.0-1.0); EOS # 0.2 10^3/uL (0.0-0.5); EOS % 3.5 % (0.0-3.0); HEMOGLOBIN 13.1 g/dl (13.5-17.5); LYMPH # 1.4 10^3/uL (1.5-5.0); LYMPH % 33.2 % (24.0-44.0); MEAN CORPUSCULAR HEMOGLOBIN 34.4 pg (27.0-33.0); MEAN CORPUSCULAR HGB CONC 33.6 g/dl (32.0-36.5); MEAN CORPUSCULAR VOLUME 102.4 fl (80.0-96.0); MONO # 0.4 10^3/uL (0.0-0.8); MONO % 8.9 % (0.0-5.0); NEUTROPHILS # 2.3 10^3/uL (1.5-8.5); NEUTROPHILS % 53.3 % (36.0-66.0); PLATELET COUNT, AUTOMATED 162 10^3/uL (150-450); RED BLOOD COUNT 3.81 10^6/uL (4.30-6.10); WHITE BLOOD COUNT 4.3 10^3/uL (4.0-10.0)
[2019-05-06 21:05] LABS: ALBUMIN 3.9 GM/DL (3.2-5.2); BILIRUBIN,TOTAL 0.3 MG/DL (0.2-1.0); CALCIUM LEVEL 8.8 MG/DL (8.8-10.2); CARBAMAZEPINE (TEGRETOL) LEVEL 9.1 UG/ML (4.0-10.0); CHOLESTEROL RISK RATIO 2.403 (<5); CREATININE FOR GFR 1.28 MG/DL (0.70-1.30); GLOMERULAR FILTRATION RATE 58.6 (>42); POTASSIUM SERUM 4.2 MEQ/L (3.5-5.1); TOTAL PROTEIN 7.5 GM/DL (6.4-8.2)
== END ==
LOC: M WUC 15:28
PROVIDERS: ATTEND Psychiatry & Neurology Psychiatry
DX: Z79.899 Other long term (current) drug therapy (principal); R45.89 Other symptoms and signs involving emotional state

== ENCOUNTER → 2019-05-06 | Outpatient (CLI) | payer MEDICARE, MEDICAID ==
[2019-05-06 21:06] LABS: ALBUMIN 3.9 GM/DL (3.2-5.2); BILIRUBIN,TOTAL 0.3 MG/DL (0.2-1.0); CREATININE FOR GFR 1.27 MG/DL (0.70-1.30); GLOMERULAR FILTRATION RATE 59.2 (>42); POTASSIUM SERUM 4.2 MEQ/L (3.5-5.1); TOTAL PROTEIN 7.4 GM/DL (6.4-8.2)
== END ==
LOC: M WUC 15:32
PROVIDERS: ATTEND Family Medicine
DX: R45.89 Other symptoms and signs involving emotional state (principal)

== ENCOUNTER 2019-08-02 09:48 | Emergency (ER) | payer MEDICARE, MEDICAID ==
[~2019-08-02] VITALS: Ht 172.7 cm; Wt 75.9 kg
[2019-08-02] MEDS ORDERED: RISP1TAB3 (09:59)
[2019-08-02] MEDS ORDERED: ATIV1TAB7 PO (10:24)
[2019-08-02 10:35] VITALS: BP 136/98
== END 2019-08-02 10:35 | disposition home or self-care (01) ==
LOC: M ED 09:48
DX: Z76.0 Encounter for issue of repeat prescription (principal); F41.1 Generalized anxiety disorder; I10 Essential (primary) hypertension; J44.9 Chronic obstructive pulmonary disease, unspecified; E78.00 Pure hypercholesterolemia, unspecified; F33.9 Major depressive disorder, recurrent, unspecified; Z79.899 Other long term (current) drug therapy; Z79.82 Long term (current) use of aspirin; Z88.1 Allergy status to other antibiotic agents; Z88.8 Allergy status to other drugs, medicaments and biological substances; J30.89 Other allergic rhinitis

== ENCOUNTER → 2020-01-09 | Outpatient (REF) | payer MEDICARE, MEDICAID ==
[~2020-01-09] MED LIST changes: -LORA0.5T11; -LORA0.5T11 PO; +LORA0.5T5; +LORA0.5T5 PO; -LORA1TAB12 PO; +LORA1TAB4 PO; +RISP1TAB3
== END ==
LOC: M SFHCPLAZ 11:43
PROVIDERS: ATTEND Family Medicine
DX: Z51.81 Encounter for therapeutic drug level monitoring (principal); E78.5 Hyperlipidemia, unspecified

== ENCOUNTER → 2020-06-12 | Outpatient (CLI) | payer MEDICARE, MEDICAID ==
[~2020-06-12] MED LIST changes: +ASPI-546 PO; -ASPI1TAB15 PO; -MELA5TAB31 PO; +MELA5TAB36 PO; -NABU-119; -NABU-119 PO; +NABU-53; +NABU-53 PO
[2020-06-12 13:26] LABS: HEMATOCRIT 40.3 % (42.0-52.0); HEMOGLOBIN 13.5 g/dl (13.5-17.5); MEAN CORPUSCULAR HEMOGLOBIN 33.6 pg (27.0-33.0); MEAN CORPUSCULAR HGB CONC 33.5 g/dl (32.0-36.5); MEAN CORPUSCULAR VOLUME 100.2 fl (80.0-96.0); PLATELET COUNT, AUTOMATED 161 10^3/uL (150-450); RED BLOOD COUNT 4.02 10^6/uL (4.30-6.10); WHITE BLOOD COUNT 4.7 10^3/uL (4.0-10.0)
[2020-06-12 13:59] LABS: ALBUMIN 3.8 GM/DL (3.2-5.2); BILIRUBIN,TOTAL 0.4 MG/DL (0.2-1.0); CALCIUM LEVEL 8.4 MG/DL (8.8-10.2); CARBAMAZEPINE (TEGRETOL) LEVEL 8.6 UG/ML (4.0-10.0); CHOLESTEROL RISK RATIO 3.107 (<5); CREATININE FOR GFR 1.43 MG/DL (0.70-1.30); GLOMERULAR FILTRATION RATE 51.3 (>42); POTASSIUM SERUM 4.7 MEQ/L (3.5-5.1); TOTAL PROTEIN 7.1 GM/DL (6.4-8.2)
== END ==
LOC: M WUC 08:57
PROVIDERS: ATTEND Student in an Organized Health Care Education/Training Program
DX: Z51.81 Encounter for therapeutic drug level monitoring (principal); E78.5 Hyperlipidemia, unspecified; Z79.899 Other long term (current) drug therapy

== ENCOUNTER → 2020-07-15 | Outpatient (CLI) | payer MEDICARE, MEDICAID ==
[~2020-07-15] MED LIST changes: +RISP-10; +RISP-10 PO; +RISP-8; -RISP1TAB3; -RISP3TAB3; -RISP3TAB3 PO
== END ==
LOC: M LABSMTC 13:36
PROVIDERS: ATTEND Family Medicine
DX: Z20.828 Contact with and (suspected) exposure to other viral communicable diseases (principal)

== ENCOUNTER 2020-07-25 13:37 | Emergency (ER) | payer MEDICARE, MEDICAID ==
[~2020-07-25] VITALS: Ht 167.6 cm; Wt 81.4 kg
--- NOTE | 2020-07-25 14:53 | REP ---
INDICATION: chest pain post heimlich maneuver. COMPARISON: 09/27/2017. TECHNIQUE: CT chest performed without the use of intravenous contrast. Sagittal and coronal reconstruction images are performed. FINDINGS: Lungs: Clear, no infiltrate or nodule. There are minor bibasilar fibro atelectatic changes. Mediastinum: No gross adenopathy. Marie: No gross adenopathy. Axilla: No gross adenopathy. Pleura: No effusion. Heart: Not enlarged. Thoracic aorta: No aneurysm. Upper abdominal structures: There is a right adrenal adenoma measuring 2.2 cm in diameter. Visualized osseous structures: There are degenerative changes of the spine without compression deformity. There is no fracture of the visualized osseous structures. IMPRESSION: No acute abnormalities are seen. <Electronically signed by Rupert Vee > 07/25/20 [id number]
[2020-07-25 15:34] VITALS: BP 142/79
== END 2020-07-25 15:40 | disposition home or self-care (01) ==
LOC: M ED 13:37
DX: T18.120A Food in esophagus causing compression of trachea, initial encounter (principal); Y92.89 Other specified places as the place of occurrence of the external cause; I12.9 Hypertensive chronic kidney disease with stage 1 through stage 4 chronic kidney disease, or unspecified chronic kidney disease; J44.9 Chronic obstructive pulmonary disease, unspecified; N18.30 Chronic kidney disease, stage 3 unspecified; G25.2 Other specified forms of tremor; G93.41 Metabolic encephalopathy; Z79.899 Other long term (current) drug therapy; Z79.82 Long term (current) use of aspirin

== ENCOUNTER → 2020-08-04 | Outpatient (CLI) | payer MEDICARE, MEDICAID ==
[~2020-08-04] MED LIST changes: +E-Z-GAS II EFFERVESCENT PACKET (SODIUM BICARB./CITRIC ACID/SIMETHICONE) As Ordered ONE; +E-Z-HD 98% w/w 340GM SUSP BTL As Ordered ONE; +E-Z-PAQUE 96% w/w SUSP 176GM BTL As Ordered ONE
--- NOTE | 2020-08-04 16:46 | REP ---
INDICATION: DYSPAHGIA. COMPARISON: None TECHNIQUE: This procedure was performed by Mary Rodriguez [facility], under the direct supervision of Dr. Vee. Images were reviewed with Dr. Vee prior to dictation. Liquid barium was given in the erect position in order to perform a single contrast esophagram examination. A double contrast esophagram was attempted but the patient would not tolerate. This is a limited exam due to patient mobility issues. FINDINGS: A single view PA chest x-ray is submitted as a atm manager film. The superior mediastinal structures are midline. The heart size is within normal limits. The lungs are clear. The oral and pharyngeal stages of deglutition were unremarkable. Esophageal transport is prompt and efficient and there is no evidence of esophagitis, stricture, or mucosal ring. However transient transverse band were seen throughout the exam this is also known as feline esophagus. There was no gastroesophageal reflux noted . IMPRESSION: Feline esophagus. 0.5 minutes of fluoroscopy time was utilized for this procedure. Some fluoroscopic images are performed with last image hold technology. These images require no additional radiation. <Electronically signed by Mary Rodriguez > 08/04/20 1642 <Electronically signed by Rupert Vee > 08/04/20 1641
== END ==
LOC: M RAD 07:57
PROVIDERS: ATTEND Student in an Organized Health Care Education/Training Program
DX: R13.10 Dysphagia, unspecified (principal)

== ENCOUNTER → 2020-08-11 | Outpatient (CLI) | payer MEDICARE, MEDICAID ==
[~2020-08-11] MED LIST changes: -E-Z-GAS II EFFERVESCENT PACKET (SODIUM BICARB./CITRIC ACID/SIMETHICONE) As Ordered ONE; -E-Z-HD 98% w/w 340GM SUSP BTL As Ordered ONE; -E-Z-PAQUE 96% w/w SUSP 176GM BTL As Ordered ONE
[2020-08-11 16:35] LABS: HEMATOCRIT 38.5 % (42.0-52.0); HEMOGLOBIN 12.7 g/dl (13.5-17.5); PLATELET COUNT, AUTOMATED 154 10^3/uL (150-450); RED BLOOD COUNT 3.85 10^6/uL (4.30-6.10); WHITE BLOOD COUNT 3.3 10^3/uL (4.0-10.0)
[2020-08-11 16:39] LABS: CALCIUM LEVEL 8.7 MG/DL (8.8-10.2); CREATININE FOR GFR 1.43 MG/DL (0.70-1.30); GLOMERULAR FILTRATION RATE 51.3 (>42); POTASSIUM SERUM 4.6 MEQ/L (3.5-5.1)
== END ==
LOC: M WUC 13:51
PROVIDERS: ATTEND Student in an Organized Health Care Education/Training Program
DX: F69 Unspecified disorder of adult personality and behavior (principal)

== ENCOUNTER → 2020-08-11 | Outpatient (REF) | payer MEDICARE, MEDICAID ==
[2020-08-11 19:28] LABS: APPEARANCE, URINE CLEAR (CLEAR); BACTERIA, URINE AUTO NEGATIVE (NEGATIVE); BILIRUBIN, URINE AUTO NEGATIVE (NEGATIVE); BLOOD, URINE BLOOD NEGATIVE (NEGATIVE); COLOR, URINE STRAW (YELLOW); GLUCOSE, URINE (UA) AUTO NEGATIVE (NEGATIVE); KETONE, URINE AUTO NEGATIVE (NEGATIVE); LEUKOCYTE ESTERASE, URINE AUTO NEGATIVE (NEGATIVE); NITRITE, URINE AUTO NEGATIVE (NEGATIVE); PROTEIN, URINE AUTO NEGATIVE (NEGATIVE); RBC, URINE AUTO 1 /HPF (0-3); SQUAMOUS EPITHELIAL CELL UR AU 0 /HPF (0-6); UROBILINOGEN, URINE AUTO 0.2 mg/dL (0.0-2.0); WBC, URINE AUTO 0 /HPF (0-3)
== END ==
LOC: M PLALAB 19:09
PROVIDERS: ATTEND Student in an Organized Health Care Education/Training Program
DX: R45.89 Other symptoms and signs involving emotional state (principal)

== ENCOUNTER → 2020-08-19 | Outpatient (CLI) | payer MEDICARE, MEDICAID ==
[2020-08-19 17:25] LABS: CALCIUM LEVEL 8.6 MG/DL (8.8-10.2); CREATININE FOR GFR 1.35 MG/DL (0.70-1.30); GLOMERULAR FILTRATION RATE 54.8 (>42); POTASSIUM SERUM 4.7 MEQ/L (3.5-5.1)
== END ==
LOC: M WUC 13:44
PROVIDERS: ATTEND Student in an Organized Health Care Education/Training Program
DX: R79.89 Other specified abnormal findings of blood chemistry (principal)

== ENCOUNTER → 2020-08-31 | Outpatient (CLI) | payer MEDICARE, MEDICAID ==
--- NOTE | 2020-08-31 17:02 | REP ---
INDICATION: DYSPHAGIA, UNSPECIFIED. COMPARISON: None. TECHNIQUE: The procedure was performed by Mary Rodriguez [facility], under the direct supervision of Dr. Vee. The procedure was performed with Aster Norton from speech pathology present. 5 ml aliquots of thin, pudding, mixed fruit, soft food, hard food and nectar consistency barium was administered. FINDINGS: No aspiration or penetration was visualized during the exam. The detailed report of this examination will be provided by speech pathology. IMPRESSION: Unremarkable cookie swallow, a detailed report will be provided by speech pathology. 2.2 minutes of fluoroscopy time was utilized for this procedure. Some fluoroscopic images are performed with last image hold technology. These images require no additional radiation <Electronically signed by Mary Rodriguez > 08/31/20 [id number] <Electronically signed by Rupert Vee > 08/31/20 [id number]
== END ==
LOC: M ST 14:10
PROVIDERS: ATTEND Student in an Organized Health Care Education/Training Program
DX: R13.10 Dysphagia, unspecified (principal)

== ENCOUNTER 2021-01-06 10:12 | Emergency (ER) | payer MEDICARE, MEDICAID ==
[~2021-01-06] VITALS: Ht 167.6 cm; Wt 78.0 kg
[~2021-01-06 10:12] MED LIST changes: +ASPI-569 PO; -ASPI81TAEC PO; +CARB-89 PO; -NABU-53; -NABU-53 PO; +NABU-73; +NABU-73 PO; -SINE25TA5 PO
[2021-01-06] MEDS ORDERED: LIDOCAINE 2% 5ML JELLY UROJET TOP ONE (10:40)
[2021-01-06] MEDS ORDERED: NS 1,000 ML IV ONE (10:40)
--- NOTE | 2021-01-06 11:11 | REP ---
INDICATION: abdominal pain COMPARISON: None. TECHNIQUE: Portable AP view of the chest FINDINGS: The mediastinum and cardiac silhouette are stable and within normal limits for portable technique. The lung fry demonstrate chronic appearing changes. Subtle atelectasis and possible small right pleural effusion cannot be excluded. Skeletal structures are intact. IMPRESSION: Cannot exclude basilar atelectasis or subtle small right pleural effusion. <Electronically signed by Clement Dow > 01/06/21 1103
[2021-01-06 11:32] LABS: BASO % 0.8 % (0.0-1.0); EOS % 0.8 % (0.0-3.0); HEMATOCRIT 35.8 % (42.0-52.0); LYMPH # 0.8 10^3/uL (1.5-5.0); LYMPH % 19.8 % (24.0-44.0); MEAN CORPUSCULAR HEMOGLOBIN 33.9 pg (27.0-33.0); MEAN CORPUSCULAR HGB CONC 33.5 g/dl (32.0-36.5); MEAN CORPUSCULAR VOLUME 101.1 fl (80.0-96.0); MONO # 0.3 10^3/uL (0.0-0.8); MONO % 6.8 % (2.0-8.0); NEUTROPHILS # 2.7 10^3/uL (1.5-8.5); NEUTROPHILS % 71.5 % (36.0-66.0); PLATELET COUNT, AUTOMATED 191 10^3/uL (150-450); RED BLOOD COUNT 3.54 10^6/uL (4.30-6.10); WHITE BLOOD COUNT 3.8 10^3/uL (4.0-10.0)
[2021-01-06 12:01] LABS: ALBUMIN 3.7 GM/DL (3.2-5.2); ALT/SGPT 7 U/L (12-78); BILIRUBIN,DIRECT 0.1 MG/DL (0.0-0.2); BILIRUBIN,TOTAL 0.4 MG/DL (0.2-1.0); BLOOD UREA NITROGEN 22 MG/DL (7-18); CALCIUM LEVEL 8.6 MG/DL (8.8-10.2); CARBON DIOXIDE LEVEL 24 MEQ/L (21-32); CHLORIDE LEVEL 110 MEQ/L (98-107); CK-MB VALUE MASS 4.9 NG/ML (<3.6); CPK CREATINE PHOSPHOKINASE 212 U/L (39-308); CREATININE FOR GFR 1.42 MG/DL (0.70-1.30); GLOMERULAR FILTRATION RATE 51.7 (>42); GLUCOSE, FASTING 91 MG/DL (70-100); LIPASE 12 U/L (73-393); MB/CK RELATIVE INDEX 2.31 (< OR =4); POTASSIUM SERUM 4.4 MEQ/L (3.5-5.1); SODIUM LEVEL 141 MEQ/L (136-145); TOTAL PROTEIN 7.1 GM/DL (6.4-8.2); TROPONIN I < 0.02 NG/ML (< 0.10)
[2021-01-06] MEDS ORDERED: ISOVUE-370 76% 100ML VIAL As Ordered ONE (12:12)
--- NOTE | 2021-01-06 12:50 | REP ---
INDICATION: altered mental status COMPARISON: 01/02/2018 TECHNIQUE: Axial noncontrast images from the skull base to the thoracic inlet with coronal reformations. This CT examination was performed using the following dose reduction techniques: Automated exposure control, adjustment of mA and/or kv according to the patient's size, and use of iterative reconstruction technique. FINDINGS: Atrophy with periventricular leukomalacia and microvascular ischemic changes are appreciated. The ventricles and sulci are symmetric. Vee-white differentiation is maintained. There is no evidence for acute intracranial hemorrhage, mass/mass effect, pathology or infarction. No extra-axial fluid collection. Calvarium is intact. Paranasal sinuses and mastoid air cells are clear. IMPRESSION: Atrophy and microvascular ischemic changes. No acute intracranial hemorrhage, infarction, or mass/mass effect. <Electronically signed by Clement Dow > 01/06/21 [id number]
--- NOTE | 2021-01-06 12:54 | REP ---
INDICATION: general abdominal pain. COMPARISON: 01/24/2018 TECHNIQUE: Axial contrast-enhanced images from the lung bases to the pubic symphysis using 100 cc Isovue 370 intravenous contrast material. Coronal and sagittal reformations obtained. This CT examination was performed using the following dose reduction techniques: Automated exposure control, adjustment of mA and/or kv according to the patient's size, and the use of iterative reconstruction technique. FINDINGS: Liver, spleen, pancreas, gallbladder, bilateral adrenal glands and kidneys are normal/stable. Stable 2 cm right adrenal adenoma unchanged compared with 2018. The enteric system including stomach, small, and large bowel appears normal. No evidence for obstruction or acute inflammatory process. Normal terminal ileum and appendix are identified in the right lower quadrant. Pelvis demonstrates collapsed bladder and age-appropriate prostate/seminal vesicles. Small fat containing left inguinal hernia noted. No ascites. No free air. No intraperitoneal or retroperitoneal adenopathy. Abdominal aorta without aneurysm or dissection.. Musculoskeletal structures demonstrate osteopenia and degenerative changes without acute osseous abnormality. IMPRESSION: No acute abdominopelvic pathology appreciated. Stable chronic findings. <Electronically signed by Clement Dow > 01/06/21 [id number]
[2021-01-06] MEDS ORDERED: CARB1TAB20 (13:31)
[2021-01-06] MEDS ORDERED: CARB25TA9 (13:31)
[2021-01-06] MEDS ORDERED: VIT D PO (13:31)
[2021-01-06 13:45] VITALS: BP 153/75
--- NOTE | 2021-01-06 19:52 | ECGEPIP ---
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
--- NOTE | 2021-01-08 07:52 | ED PDOC ---
Post-Departure Follow-Up radiology report faxed to Peyton Farrar MD January 08, 2021 07:52
== END 2021-01-06 14:05 | disposition home or self-care (01) ==
LOC: M ED 10:12
DX: F03.91 Unspecified dementia, unspecified severity, with behavioral disturbance (principal); F41.1 Generalized anxiety disorder; F31.9 Bipolar disorder, unspecified; I11.9 Hypertensive heart disease without heart failure; R13.10 Dysphagia, unspecified; Z86.73 Personal history of transient ischemic attack (TIA), and cerebral infarction without residual deficits; Z87.891 Personal history of nicotine dependence; J30.1 Allergic rhinitis due to pollen; Z88.1 Allergy status to other antibiotic agents; Z88.8 Allergy status to other drugs, medicaments and biological substances; Z79.899 Other long term (current) drug therapy; Z79.82 Long term (current) use of aspirin
CPT/HCPCS: 36415; 51701; 70450; 71045; 74177; 80048; 80076; 81001; 82140; 82550; 82553; 83605; 83690; 84484; 85025; 87040; 93005; 93041; 96360; 96361; 99285; Q9967

== ENCOUNTER → 2021-01-17 | Outpatient (REF) | payer MEDICARE, MEDICAID ==
[~2021-01-17] MED LIST changes: +CARB25TA9; +VIT D PO
== END ==
LOC: M SFHCPLAZ 09:27
PROVIDERS: ATTEND Family Medicine
DX: R74.8 Abnormal levels of other serum enzymes (principal); F31.9 Bipolar disorder, unspecified; D64.9 Anemia, unspecified

== ENCOUNTER → 2021-02-17 | Outpatient (CLI) | payer MEDICARE, MEDICAID ==
[~2021-02-17] MED LIST changes: -OLAN10TA2 PO; -OLAN15TA PO; +OLAN15TA13 PO; +OLAN1TAB16 PO; +OLAN1TAB20 PO; -OLAN5TAB PO
[2021-02-17 11:15] LABS: HEMATOCRIT 40.3 % (42.0-52.0); HEMOGLOBIN 13.1 g/dl (13.5-17.5); MEAN CORPUSCULAR HEMOGLOBIN 32.8 pg (27.0-33.0); MEAN CORPUSCULAR HGB CONC 32.5 g/dl (32.0-36.5); PLATELET COUNT, AUTOMATED 158 10^3/uL (150-450); RED BLOOD COUNT 3.99 10^6/uL (4.30-6.10); WHITE BLOOD COUNT 4.1 10^3/uL (4.0-10.0)
[2021-02-17 11:49] LABS: CARBAMAZEPINE (TEGRETOL) LEVEL 7.3 UG/ML (4.0-10.0); CHOLESTEROL RISK RATIO 2.593 (<5)
[2021-02-17 12:07] LABS: FOLATE 7.3 NG/ML
== END ==
LOC: M WUC 08:26
PROVIDERS: ATTEND Student in an Organized Health Care Education/Training Program
DX: R74.8 Abnormal levels of other serum enzymes (principal); D64.9 Anemia, unspecified; F31.9 Bipolar disorder, unspecified

== ENCOUNTER → 2021-08-30 | Outpatient (REF) | payer MEDICARE, MEDICAID ==
[~2021-08-30] MED LIST changes: -VERA120T4; +VERA120T71; -VERA180T3 PO; +VERA180T42 PO; +VERA180T43 PO; -VERA180T53 PO; -VERA240T3 PO; +VERA240T64 PO
== END ==
LOC: M LAB REF 13:03
PROVIDERS: ATTEND Internal Medicine Nephrology
DX: N18.31 Chronic kidney disease, stage 3a (principal)

== ENCOUNTER → 2021-11-08 | Outpatient (CLI) | payer MEDICARE, MEDICAID | LOC: M WUC 10:17 | PROVIDERS: ATTEND Student in an Organized Health Care Education/Training Program | DX: R32 Unspecified urinary incontinence (principal) ==

== ENCOUNTER → 2022-03-13 | Outpatient (CLI) | payer MEDICARE, MEDICAID | LOC: M WUC 10:25 | PROVIDERS: ATTEND Student in an Organized Health Care Education/Training Program | DX: M25.561 Pain in right knee (principal); M25.562 Pain in left knee; M25.551 Pain in right hip ==

== ENCOUNTER → 2022-04-13 | Outpatient (CLI) | payer MEDICARE, MEDICAID ==
[~2022-04-13] MED LIST changes: +CLOP75TA2; +SIME180C25 PO
[2022-04-13 16:27] LABS: HEMATOCRIT 39.1 % (42.0-52.0); HEMOGLOBIN 12.5 g/dl (13.5-17.5); MEAN CORPUSCULAR HEMOGLOBIN 32.9 pg (27.0-33.0); MEAN CORPUSCULAR VOLUME 102.9 fl (80.0-96.0); PLATELET COUNT, AUTOMATED 157 10^3/uL (150-450); WHITE BLOOD COUNT 3.4 10^3/uL (4.0-10.0)
== END ==
LOC: M WUC 10:57
PROVIDERS: ATTEND Psychiatry & Neurology Psychiatry
DX: F31.9 Bipolar disorder, unspecified (principal); F70 Mild intellectual disabilities

== ENCOUNTER 2022-04-17 09:32 | Emergency (ER) | payer MEDICARE, MEDICAID ==
[~2022-04-17] VITALS: Ht 182.9 cm; Wt 71.8 kg
[2022-04-17 09:32] VITALS: BP 146/76
[~2022-04-17 09:32] MED LIST changes: -CLOP75TA2; -SIME180C25 PO
[2022-04-17] MEDS ORDERED: CLOP75TA2 (09:44)
[2022-04-17 10:29] LABS: BASO % 0.9 % (0.0-1.0); EOS # 0.1 10^3/uL (0.0-0.5); EOS % 2.7 % (0.0-3.0); HEMATOCRIT 37.4 % (42.0-52.0); HEMOGLOBIN 12.3 g/dl (13.5-17.5); MEAN CORPUSCULAR HGB CONC 32.9 g/dl (32.0-36.5); MEAN CORPUSCULAR VOLUME 100.3 fl (80.0-96.0); MONO # 0.3 10^3/uL (0.0-0.8); MONO % 7.9 % (2.0-8.0); NEUTROPHILS # 1.9 10^3/uL (1.5-8.5); NEUTROPHILS % 57.2 % (36.0-66.0); PLATELET COUNT, AUTOMATED 144 10^3/uL (150-450); RED BLOOD COUNT 3.73 10^6/uL (4.30-6.10); WHITE BLOOD COUNT 3.3 10^3/uL (4.0-10.0)
[2022-04-17 10:58] LABS: ALBUMIN 3.3 GM/DL (3.2-5.2); ALT/SGPT < 6 U/L (12-78); BILIRUBIN,DIRECT < 0.1 MG/DL (0.0-0.2); BILIRUBIN,TOTAL 0.3 MG/DL (0.2-1.0); BLOOD UREA NITROGEN 22 MG/DL (7-18); CALCIUM LEVEL 8.6 MG/DL (8.8-10.2); CARBON DIOXIDE LEVEL 27 MEQ/L (21-32); CHLORIDE LEVEL 109 MEQ/L (98-107); CREATININE FOR GFR 1.26 MG/DL (0.70-1.30); GLOMERULAR FILTRATION RATE 59.2 (>42); GLUCOSE, FASTING 98 MG/DL (70-100); LIPASE 38 U/L (73-393); SODIUM LEVEL 140 MEQ/L (136-145); TOTAL PROTEIN 6.6 GM/DL (6.4-8.2)
[2022-04-17] MEDS ORDERED: ONDANSETRON 4MG ORAL DISINTEGRATING TAB PO ONE (11:35)
[2022-04-17] MEDS ORDERED: SIME180C25 PO (12:43)
== END 2022-04-17 13:00 | disposition home or self-care (01) ==
LOC: M ED 09:32
DX: R10.9 Unspecified abdominal pain (principal); R14.0 Abdominal distension (gaseous); R25.1 Tremor, unspecified; G93.41 Metabolic encephalopathy; G20 Parkinson's disease; F79 Unspecified intellectual disabilities; I12.9 Hypertensive chronic kidney disease with stage 1 through stage 4 chronic kidney disease, or unspecified chronic kidney disease; J44.9 Chronic obstructive pulmonary disease, unspecified; N18.30 Chronic kidney disease, stage 3 unspecified; E11.9 Type 2 diabetes mellitus without complications; M54.9 Dorsalgia, unspecified; F41.9 Anxiety disorder, unspecified; F20.9 Schizophrenia, unspecified; F31.9 Bipolar disorder, unspecified; Z79.899 Other long term (current) drug therapy; Z79.82 Long term (current) use of aspirin; Z79.02 Long term (current) use of antithrombotics/antiplatelets; Z88.8 Allergy status to other drugs, medicaments and biological substances; Z88.1 Allergy status to other antibiotic agents

== ENCOUNTER → 2022-06-01 | Outpatient (CLI) | payer MEDICARE, MEDICAID ==
[~2022-06-01] MED LIST changes: +BARIUM SULFATE 700 MG TABLET (E-Z-DISK) As Ordered ONE; +CLOP75TA2; +E-Z-PAQUE 96% w/w SUSP 176GM BTL As Ordered ONE; +SIME180C25 PO; +VARIBAR NECTAR 40% w/v 240ML SUSP BTL As Ordered ONE; +VARIBAR PUDDING 40% w/v 230ML TUBE As Ordered ONE
== END ==
LOC: M RAD 10:44
PROVIDERS: ATTEND Student in an Organized Health Care Education/Training Program
DX: R13.10 Dysphagia, unspecified (principal)

== ENCOUNTER → 2022-07-10 | Outpatient (CLI) | payer MEDICARE, MEDICAID ==
[~2022-07-10] MED LIST changes: -BARIUM SULFATE 700 MG TABLET (E-Z-DISK) As Ordered ONE; -E-Z-PAQUE 96% w/w SUSP 176GM BTL As Ordered ONE; -VARIBAR NECTAR 40% w/v 240ML SUSP BTL As Ordered ONE; -VARIBAR PUDDING 40% w/v 230ML TUBE As Ordered ONE
[2022-07-10 18:42] LABS: CREATININE FOR GFR 1.3 MG/DL (0.70-1.30)
== END ==
LOC: M WUC 13:39
PROVIDERS: ATTEND Surgery Vascular Surgery
DX: I65.21 Occlusion and stenosis of right carotid artery (principal)

== ENCOUNTER → 2022-07-12 | Outpatient (CLI) | payer MEDICARE, MEDICAID | LOC: M RAD 13:21 | PROVIDERS: ATTEND Surgery Vascular Surgery | DX: I65.21 Occlusion and stenosis of right carotid artery (principal) ==

== ENCOUNTER → 2022-08-11 | Outpatient (CLI) | payer MEDICARE, MEDICAID ==
[2022-08-11 17:31] LABS: ALBUMIN 3.6 G/DL (3.2-5.2); ALKALINE PHOSPHATASE 135 U/L (46-116); ALT/SGPT < 9 U/L (7.0-40); AST/SGOT 13 U/L (<34); BILIRUBIN,TOTAL 0.2 MG/DL (0.3-1.2); BLOOD UREA NITROGEN 25 MG/DL (9-23); CALCIUM LEVEL 8.4 MG/DL (8.3-10.6); CARBON DIOXIDE LEVEL 25 MMOL/L (20-31); CHLORIDE LEVEL 109 MMOL/L (98-107); CHOLESTEROL LEVEL 135 MG/DL (<200); CHOLESTEROL RISK RATIO 3.05 (<5); CREATININE FOR GFR 1.06 MG/DL (0.70-1.30); GLOMERULAR FILTRATION RATE > 60.0 (>42); GLUCOSE, FASTING 76 MG/DL (74-106); HDL CHOLESTEROL 44.2 MG/DL (>40); LDL CHOLESTEROL 51.4 MG/DL (<100); NON-HDL-C 91 MG/DL; SODIUM LEVEL 142 MMOL/L (136-145); TOTAL PROTEIN 6.9 G/DL (5.7-8.2); TRIGLYCERIDES LEVEL 197 MG/DL (<150)
[2022-08-11 17:33] LABS: THYROID STIMULATING HORMONE 0.626 uIU/ML (0.55-4.78)
[2022-08-11 17:35] LABS: HEMOGLOBIN A1c 4.9 % (4.0-6.0)
== END ==
LOC: M WUC 12:57
PROVIDERS: ATTEND Student in an Organized Health Care Education/Training Program
DX: Z00.00 Encounter for general adult medical examination without abnormal findings (principal); Z13.1 Encounter for screening for diabetes mellitus; E78.5 Hyperlipidemia, unspecified; Z13.29 Encounter for screening for other suspected endocrine disorder; Z79.899 Other long term (current) drug therapy

== ENCOUNTER → 2022-10-11 | Outpatient (CLI) | payer MEDICARE, MEDICAID ==
[~2022-10-11] MED LIST changes: -BENZ-52 PO; +BENZ1TAB5 PO; +CARB-113 PO; -CARB-89 PO
== END ==
LOC: M RAD 12:08
PROVIDERS: ATTEND Physician Assistant
DX: N50.819 Testicular pain, unspecified (principal)

== ENCOUNTER → 2023-01-09 | Outpatient (CLI) | payer MEDICARE, MEDICAID ==
[~2023-01-09] MED LIST changes: +BENZ0.5T2 PO; -BENZ0.5T23 PO; +LORA1TAB23 PO; -LORA1TAB4 PO
[2023-01-09 13:05] LABS: CALCIUM LEVEL 8.3 MG/DL (8.3-10.6); CREATININE FOR GFR 1.29 MG/DL (0.70-1.30); GLOMERULAR FILTRATION RATE 57.5 (>42); POTASSIUM SERUM 5.1 MMOL/L (3.5-5.1)
== END ==
LOC: M LAB 11:49
PROVIDERS: ATTEND Student in an Organized Health Care Education/Training Program
DX: R79.89 Other specified abnormal findings of blood chemistry (principal)

== ENCOUNTER → 2023-02-22 | Outpatient (CLI) | payer MEDICARE, MEDICAID | LOC: M WUC 11:36 | PROVIDERS: ATTEND Nurse Practitioner Family | DX: M79.671 Pain in right foot (principal); W50.3XXA Accidental bite by another person, initial encounter ==

== ENCOUNTER → 2023-04-30 | Outpatient (CLI) | payer MEDICARE, MEDICAID ==
[2023-04-30 11:50] LABS: CREATININE FOR GFR 1.27 MG/DL (0.70-1.30); GLOMERULAR FILTRATION RATE 58.5 (>42)
== END ==
LOC: M WUC 08:12
PROVIDERS: ATTEND Surgery Vascular Surgery
DX: Z01.812 Encounter for preprocedural laboratory examination (principal)

== ENCOUNTER → 2023-05-16 | Outpatient (CLI) | payer MEDICARE, MEDICAID ==
[~2023-05-16] MED LIST changes: +ISOVUE-370 76% 100ML VIAL As Ordered ONE
== END ==
LOC: M RAD 09:43
PROVIDERS: ATTEND Surgery Vascular Surgery
DX: I65.23 Occlusion and stenosis of bilateral carotid arteries (principal)
CPT/HCPCS: 70496; 70498; Q9967

== ENCOUNTER 2023-05-30 11:39 | Emergency (ER) | payer MEDICARE, MEDICAID ==
[~2023-05-30] VITALS: Ht 172.7 cm; Wt 79.5 kg
[~2023-05-30 11:39] MED LIST changes: -ISOVUE-370 76% 100ML VIAL As Ordered ONE
[2023-05-30] MEDS ORDERED: TAMS1CAP17 (11:54)
[2023-05-30] MEDS ORDERED: OLAN20TA14 (11:54)
[2023-05-30 14:57] LABS: BASO % 0.9 % (0.0-1.0); EOS # 0.1 10^3/uL (0.0-0.5); EOS % 2.3 % (0.0-3.0); HEMATOCRIT 37.6 % (42.0-52.0); HEMOGLOBIN 12.3 g/dl (13.5-17.5); LYMPH # 0.9 10^3/uL (1.5-5.0); LYMPH % 24.7 % (24.0-44.0); MEAN CORPUSCULAR HEMOGLOBIN 33.3 pg (27.0-33.0); MEAN CORPUSCULAR HGB CONC 32.7 g/dl (32.0-36.5); MEAN CORPUSCULAR VOLUME 101.9 fl (80.0-96.0); MONO # 0.4 10^3/uL (0.0-0.8); MONO % 9.9 % (2.0-8.0); NEUTROPHILS # 2.2 10^3/uL (1.5-8.5); NEUTROPHILS % 61.9 % (36.0-66.0); PLATELET COUNT, AUTOMATED 156 10^3/uL (150-450); RED BLOOD COUNT 3.69 10^6/uL (4.30-6.10); WHITE BLOOD COUNT 3.5 10^3/uL (4.0-10.0)
[2023-05-30 15:05] LABS: APPEARANCE, URINE CLEAR (CLEAR); BACTERIA, URINE AUTO NEGATIVE (NEGATIVE); BILIRUBIN, URINE AUTO NEGATIVE (NEGATIVE); BLOOD, URINE BLOOD NEGATIVE (NEGATIVE); COLOR, URINE YELLOW (YELLOW); GLUCOSE, URINE (UA) AUTO NEGATIVE (NEGATIVE); KETONE, URINE AUTO TRACE mg/dL (NEGATIVE); LEUKOCYTE ESTERASE, URINE AUTO NEGATIVE (NEGATIVE); NITRITE, URINE AUTO NEGATIVE (NEGATIVE); PROTEIN, URINE AUTO NEGATIVE (NEGATIVE); RBC, URINE AUTO 1 /HPF (0-3); SPECIFIC GRAVITY URINE AUTO 1.018 (1.002-1.035); SQUAMOUS EPITHELIAL CELL UR AU 0 /HPF (0-6); WBC, URINE AUTO 1 /HPF (0-3)
[2023-05-30 15:24] LABS: ALBUMIN 3.6 G/DL (3.2-5.2); ALKALINE PHOSPHATASE 127 U/L (46-116); ALT/SGPT < 9 U/L (7.0-40); AST/SGOT < 8 U/L (<34); BILIRUBIN,TOTAL < 0.2 MG/DL (0.3-1.2); BLOOD UREA NITROGEN 33 MG/DL (9-23); CALCIUM LEVEL 8.3 MG/DL (8.3-10.6); CARBON DIOXIDE LEVEL 28 MMOL/L (20-31); CHLORIDE LEVEL 106 MMOL/L (98-107); CREATININE FOR GFR 1.19 MG/DL (0.70-1.30); GLOMERULAR FILTRATION RATE > 60.0 (>42); GLUCOSE, FASTING 96 MG/DL (74-106); POTASSIUM SERUM 4.9 MMOL/L (3.5-5.1); SODIUM LEVEL 141 MMOL/L (136-145); TOTAL PROTEIN 6.9 G/DL (5.7-8.2)
[2023-05-30 16:02] VITALS: BP 169/75; TEMP 98.9; O2SAT 97
== END 2023-05-30 16:06 | disposition home or self-care (01) ==
LOC: M ED 11:39
DX: G31.83 Neurocognitive disorder with Lewy bodies (principal); F02.80 Dementia in other diseases classified elsewhere, unspecified severity, without behavioral disturbance, psychotic disturbance, mood disturbance, and anxiety; E78.5 Hyperlipidemia, unspecified; I10 Essential (primary) hypertension; J30.89 Other allergic rhinitis; Z79.82 Long term (current) use of aspirin; Z79.899 Other long term (current) drug therapy; Z88.1 Allergy status to other antibiotic agents; Z88.8 Allergy status to other drugs, medicaments and biological substances

== ENCOUNTER → 2023-07-27 | Outpatient (CLI) | payer MEDICARE, MEDICAID ==
[~2023-07-27] MED LIST changes: +OLAN20TA14; +TAMS1CAP17
[2023-07-27 12:45] LABS: HEMATOCRIT 36.2 % (42.0-52.0); HEMOGLOBIN 12.1 g/dl (13.5-17.5); MEAN CORPUSCULAR HEMOGLOBIN 34.1 pg (27.0-33.0); MEAN CORPUSCULAR HGB CONC 33.4 g/dl (32.0-36.5); PLATELET COUNT, AUTOMATED 168 10^3/uL (150-450); RED BLOOD COUNT 3.55 10^6/uL (4.30-6.10); WHITE BLOOD COUNT 3.9 10^3/uL (4.0-10.0)
== END ==
LOC: M WUC 08:57
PROVIDERS: ATTEND Psychiatry & Neurology Psychiatry
DX: F31.9 Bipolar disorder, unspecified (principal); F70 Mild intellectual disabilities

== ENCOUNTER → 2023-08-03 | Outpatient (CLI) | payer MEDICARE, MEDICAID ==
[2023-08-03 17:43] LABS: FREE T4 0.8 NG/DL (0.89-1.76); THYROID STIMULATING HORMONE 0.501 uIU/ML (0.55-4.78)
[2023-08-03 17:44] LABS: FOLATE 14.2 NG/ML (>5.4)
== END ==
LOC: M PLALAB 11:13
PROVIDERS: ATTEND Student in an Organized Health Care Education/Training Program
DX: R53.83 Other fatigue (principal)

== ENCOUNTER → 2023-08-24 | Outpatient (CLI) | payer MEDICARE, MEDICAID ==
[~2023-08-24] MED LIST changes: +RISP-105; -RISP-8
== END ==
LOC: M WUC 09:22
PROVIDERS: ATTEND Psychiatry & Neurology Psychiatry
DX: F31.9 Bipolar disorder, unspecified (principal); F70 Mild intellectual disabilities

== ENCOUNTER → 2023-09-12 | Outpatient (CLI) | payer MEDICARE, MEDICAID | LOC: M WHC 12:47 | PROVIDERS: ATTEND Student in an Organized Health Care Education/Training Program | DX: N50.3 Cyst of epididymis (principal) ==

== ENCOUNTER → 2023-12-06 | Outpatient (REF) | payer MEDICARE, MEDICAID ==
[~2023-12-06] MED LIST changes: -RISP-10; -RISP-10 PO; +RISP3TAB77; +RISP3TAB77 PO
== END ==
LOC: M SFHCPLAZ 13:12
PROVIDERS: ATTEND Student in an Organized Health Care Education/Training Program
DX: N39.0 Urinary tract infection, site not specified (principal); Z53.8 Procedure and treatment not carried out for other reasons

== ENCOUNTER → 2023-12-12 | Outpatient (REF) | payer MEDICARE, MEDICAID ==
[2023-12-12 12:33] LABS: APPEARANCE, URINE CLEAR (CLEAR); BACTERIA, URINE AUTO NEGATIVE (NEGATIVE); BILIRUBIN, URINE AUTO NEGATIVE (NEGATIVE); BLOOD, URINE BLOOD NEGATIVE (NEGATIVE); COLOR, URINE YELLOW (YELLOW); GLUCOSE, URINE (UA) AUTO NEGATIVE (NEGATIVE); KETONE, URINE AUTO NEGATIVE (NEGATIVE); LEUKOCYTE ESTERASE, URINE AUTO NEGATIVE (NEGATIVE); NITRITE, URINE AUTO NEGATIVE (NEGATIVE); PROTEIN, URINE AUTO NEGATIVE (NEGATIVE); RBC, URINE AUTO 0 /HPF (0-3); SPECIFIC GRAVITY URINE AUTO 1.015 (1.002-1.035); SQUAMOUS EPITHELIAL CELL UR AU 0 /HPF (0-6); UROBILINOGEN, URINE AUTO 0.2 mg/dL (0.0-2.0); WBC, URINE AUTO 0 /HPF (0-3)
== END ==
LOC: M SFHCPLAZ 11:11
PROVIDERS: ATTEND Student in an Organized Health Care Education/Training Program
DX: N39.0 Urinary tract infection, site not specified (principal)

== ENCOUNTER → 2024-03-18 | Outpatient (CLI) | payer MEDICARE, MEDICAID ==
[~2024-03-18] MED LIST changes: -OLAN20TA14; -OLAN20TA14 PO; +OLAN20TA53; +OLAN20TA53 PO
[2024-03-18 13:00] LABS: HEMATOCRIT 39.9 % (42.0-52.0); HEMOGLOBIN 12.9 g/dl (13.5-17.5); MEAN CORPUSCULAR HGB CONC 32.3 g/dl (32.0-36.5); PLATELET COUNT, AUTOMATED 190 10^3/uL (150-450); RED BLOOD COUNT 3.91 10^6/uL (4.30-6.10)
[2024-03-18 13:04] LABS: BILIRUBIN,TOTAL 0.3 MG/DL (0.3-1.2); CALCIUM LEVEL 8.7 MG/DL (8.3-10.6); CHOLESTEROL RISK RATIO 2.79 (<5); CREATININE FOR GFR 1.31 MG/DL (0.70-1.30); GLOMERULAR FILTRATION RATE 56.3 (>42); POTASSIUM SERUM 4.6 MMOL/L (3.5-5.1); TOTAL PROTEIN 7.3 G/DL (5.7-8.2)
[2024-03-18 13:25] LABS: HEMOGLOBIN A1c 4.9 % (4.0-6.0)
== END ==
LOC: M WUC 09:14
PROVIDERS: ATTEND Student in an Organized Health Care Education/Training Program
DX: Z13.1 Encounter for screening for diabetes mellitus (principal); E78.5 Hyperlipidemia, unspecified; R26.81 Unsteadiness on feet

== ENCOUNTER → 2024-05-09 | Outpatient (REF) | payer MEDICARE, MEDICAID | LOC: M SFHCPLAZ 13:59 | PROVIDERS: ATTEND Family Medicine | DX: L03.032 Cellulitis of left toe (principal) ==

== ENCOUNTER → 2024-05-20 | Outpatient (CLI) | payer MEDICARE, MEDICAID ==
[~2024-05-20] MED LIST changes: -OLAN15TA13 PO; +OLAN15TA69 PO; -SIME180C25 PO; +SIME1CAP4 PO
[2024-05-20 15:04] LABS: BASO % 0.5 % (0.0-1.0); EOS # 0.1 10^3/uL (0.0-0.5); EOS % 0.9 % (0.0-3.0); HEMATOCRIT 41.9 % (42.0-52.0); HEMOGLOBIN 13.1 g/dl (13.5-17.5); LYMPH # 0.9 10^3/uL (1.5-5.0); LYMPH % 15.5 % (24.0-44.0); MEAN CORPUSCULAR HEMOGLOBIN 32.8 pg (27.0-33.0); MEAN CORPUSCULAR HGB CONC 31.3 g/dl (32.0-36.5); MONO # 0.4 10^3/uL (0.0-0.8); MONO % 6.6 % (2.0-8.0); NEUTROPHILS # 4.2 10^3/uL (1.5-8.5); NEUTROPHILS % 76.1 % (36.0-66.0); PLATELET COUNT, AUTOMATED 187 10^3/uL (150-450); RED BLOOD COUNT 3.99 10^6/uL (4.30-6.10); WHITE BLOOD COUNT 5.5 10^3/uL (4.0-10.0)
[2024-05-20 15:54] LABS: BLOOD UREA NITROGEN 44 MG/DL (9-23); CALCIUM LEVEL 8.9 MG/DL (8.3-10.6); CARBON DIOXIDE LEVEL 22 MMOL/L (20-31); CHLORIDE LEVEL 111 MMOL/L (98-107); CREATININE FOR GFR 1.13 MG/DL (0.70-1.30); GLOMERULAR FILTRATION RATE > 60.0 (>42); GLUCOSE, FASTING 144 MG/DL (74-106); POTASSIUM SERUM 4.7 MMOL/L (3.5-5.1); SODIUM LEVEL 143 MMOL/L (136-145)
== END ==
LOC: M PLALAB 11:56
PROVIDERS: ATTEND Student in an Organized Health Care Education/Training Program
DX: L03.032 Cellulitis of left toe (principal)

== ENCOUNTER → 2024-05-27 | Outpatient (CLI) | payer MEDICARE, MEDICAID ==
[~2024-05-27] MED LIST changes: -LACT10SO3 PO; +LACT10SO94 PO; -LIDO4CRE4 TOP; +LIDO5CRE7 TOP
[2024-05-27 14:39] LABS: C REACTIVE PROTEIN QUANTITATIV < 0.40 MG/DL (<1.0)
== END ==
LOC: M PLALAB 10:34
PROVIDERS: ATTEND Student in an Organized Health Care Education/Training Program
DX: M79.675 Pain in left toe(s) (principal)

== ENCOUNTER → 2024-06-18 | Outpatient (CLI) | payer MEDICARE, MEDICAID | LOC: M PLAIMG 09:54 | PROVIDERS: ATTEND Student in an Organized Health Care Education/Training Program | DX: M54.6 Pain in thoracic spine (principal); M25.78 Osteophyte, vertebrae; M85.88 Other specified disorders of bone density and structure, other site ==

== ENCOUNTER 2025-03-10 11:39 | Emergency (ER) | payer MEDICARE, MEDICAID ==
[~2025-03-10] VITALS: Ht 172.7 cm; Wt 72.7 kg
[~2025-03-10 11:39] MED LIST changes: -CARB25TA9; -CLOP75TA2; +CLOP75TA2 PO; +OLAN20TA74 PO; -PRAV40TA2; -PRAV40TA2 PO; +PRAV40TA85; +PRAV40TA85 PO; -TAMS1CAP17; +TAMS1CAP17 PO; +TOPI-257 PO; -TOPI100T9 PO; -ZYPR20TA PO
[2025-03-10 13:21] LABS: ALT/SGPT < 9 U/L (7.0-40); AST/SGOT 20 U/L (<34); CALCIUM LEVEL 7.8 MG/DL (8.3-10.6); CARBON DIOXIDE LEVEL 25 MMOL/L (20-31); CHLORIDE LEVEL 109 MMOL/L (98-107); CREATININE FOR GFR 1.30 MG/DL (0.70-1.30); GLOMERULAR FILTRATION RATE 55.9 (>42); MAGNESIUM LEVEL 2.6 MG/DL (1.8-2.4); POTASSIUM SERUM 4.1 MMOL/L (3.5-5.1); SODIUM LEVEL 147 MMOL/L (136-145)
[2025-03-10 13:22] LABS: INR 1.01
[2025-03-10 13:25] LABS: BASO # 0.0 10^3/uL (0.0-0.2); BASO % 0.5 % (0.0-1.0); EOS # 0.0 10^3/uL (0.0-0.5); EOS % 0.5 % (0.0-3.0); LYMPH # 0.5 10^3/uL (1.5-5.0); LYMPH % 23.7 % (24.0-44.0); MONO # 0.3 10^3/uL (0.0-0.8); MONO % 14.9 % (2.0-8.0); NEUTROPHILS # 1.3 10^3/uL (1.5-8.5); NEUTROPHILS % 59.9 % (36.0-66.0); PLATELET COUNT, AUTOMATED 155 10^3/uL (150-450)
[2025-03-10] MEDS ORDERED: LORA1TAB23 PO (14:18)
[2025-03-10] MEDS ORDERED: APAP325T4 PO (14:18)
[2025-03-10] MEDS ORDERED: SERO1TAB PO ×2 (14:18)
[2025-03-10] MEDS ORDERED: ACET32TAB PO (14:18)
[2025-03-10] MEDS ORDERED: SENN-23 PO (14:18)
[2025-03-10] MEDS ORDERED: SERO50TA PO (14:18)
[2025-03-10] MEDS ORDERED: D200CAP2 PO (14:20)
[2025-03-10] MEDS ORDERED: HOME MED LIST COMPLETE! XX SCH (14:20)
[2025-03-10 15:45] VITALS: BP 174/80; TEMP 97.2; O2SAT 100
== END 2025-03-10 15:56 | disposition home or self-care (01) ==
LOC: M ED 11:39
DX: K59.00 Constipation, unspecified (principal); E11.9 Type 2 diabetes mellitus without complications; J44.9 Chronic obstructive pulmonary disease, unspecified; G20.A1 Parkinson's disease without dyskinesia, without mention of fluctuations; I12.9 Hypertensive chronic kidney disease with stage 1 through stage 4 chronic kidney disease, or unspecified chronic kidney disease; M54.50 Low back pain, unspecified; F41.9 Anxiety disorder, unspecified; F31.9 Bipolar disorder, unspecified; Z88.1 Allergy status to other antibiotic agents; Z88.8 Allergy status to other drugs, medicaments and biological substances; Z91.09 Other allergy status, other than to drugs and biological substances; Z79.1 Long term (current) use of non-steroidal anti-inflammatories (NSAID); Z79.899 Other long term (current) drug therapy; Z79.01 Long term (current) use of anticoagulants

== ENCOUNTER → 2025-03-30 | Outpatient (CLI) | payer MEDICARE, MEDICAID ==
[~2025-03-30] MED LIST changes: +ACET32TAB PO; +APAP325T4 PO; +D200CAP2 PO; +SENN-23 PO; +SERO1TAB PO; +SERO50TA PO
[2025-03-30 12:33] LABS: BASO # 0.0 10^3/uL (0.0-0.2); BASO % 0.7 % (0.0-1.0); EOS # 0.1 10^3/uL (0.0-0.5); EOS % 1.3 % (0.0-3.0); LYMPH # 1.1 10^3/uL (1.5-5.0); LYMPH % 20.4 % (24.0-44.0); MONO # 0.5 10^3/uL (0.0-0.8); MONO % 8.3 % (2.0-8.0); NEUTROPHILS # 3.8 10^3/uL (1.5-8.5); NEUTROPHILS % 68.9 % (36.0-66.0); PLATELET COUNT, AUTOMATED 199 10^3/uL (150-450)
[2025-03-30 12:42] LABS: FREE T4 1.01 NG/DL (0.89-1.76)
[2025-03-30 12:45] LABS: TOTAL 25(OH) VITAMIN D 46.8 NG/ML (20.0-100.0)
[2025-03-30 12:47] LABS: VITAMIN B12 LEVEL 387 PG/ML (211-911)
[2025-03-30 12:50] LABS: ALT/SGPT < 9 U/L (7.0-40); AST/SGOT 15 U/L (<34); CALCIUM LEVEL 8.7 MG/DL (8.3-10.6); CARBON DIOXIDE LEVEL 26 MMOL/L (20-31); CHLORIDE LEVEL 109 MMOL/L (98-107); CHOLESTEROL LEVEL 149 MG/DL (<200); CHOLESTEROL RISK RATIO 2.60 (<5); CREATININE FOR GFR 1.05 MG/DL (0.70-1.30); GLOMERULAR FILTRATION RATE 72.2 (>42); IRON (FE) 84 UG/DL (65-175); LDL CHOLESTEROL 65.1 MG/DL (<100); NON-HDL-C 91.7 MG/DL; PERCENT SATURATION 28.3 % (19.7-50.0); POTASSIUM SERUM 5.7 MMOL/L (3.5-5.1); SODIUM LEVEL 144 MMOL/L (136-145); TRIGLYCERIDES LEVEL 133 MG/DL (<150)
[2025-03-31 10:07] LABS: T P ELECTROPHORESIS SO 6.9 g/dL (6.1-8.1)
[2025-03-31 17:27] LABS: PSA % FREE 67 % (calc) (>25); PSA FREE 0.2 ng/mL; PSA TOTAL 0.3 ng/mL (< OR = 4.0)
[2025-04-01 17:12] LABS: ALBUMIN SPEP 4.0 g/dL (3.8-4.8); ALPHA-1-GLOBULINS SO 0.3 g/dL (0.2-0.3); ALPHA-2-GLOBULINS SO 0.8 g/dL (0.5-0.9); BETA 2 GLOBULIN 0.4 g/dL (0.2-0.5); BETA-GLOBULIN SO 0.4 g/dL (0.4-0.6); GAMMA GLOBULINS SO 1.0 g/dL (0.8-1.7)
== END ==
LOC: M WUC 09:31
PROVIDERS: ATTEND Family Medicine
DX: Z00.01 Encounter for general adult medical examination with abnormal findings (principal); E78.5 Hyperlipidemia, unspecified; N40.0 Benign prostatic hyperplasia without lower urinary tract symptoms; D64.9 Anemia, unspecified

== ENCOUNTER → 2025-04-02 | Outpatient (CLI) | payer MEDICARE, MEDICAID | LOC: M RAD 13:39 | PROVIDERS: ATTEND Physician Assistant | DX: I65.23 Occlusion and stenosis of bilateral carotid arteries (principal) ==

== ENCOUNTER → 2025-04-06 | Outpatient (CLI) | payer MEDICARE, MEDICAID ==
[~2025-04-06] MED LIST changes: -VERA240C3; +VERA240C5
== END ==
LOC: M WUC 15:49
PROVIDERS: ATTEND Family Medicine
DX: E87.5 Hyperkalemia (principal)

== ENCOUNTER → 2025-06-08 | Outpatient (CLI) | payer MEDICARE, MEDICAID ==
[~2025-06-08] MED LIST changes: +CARB-19; +CARB-19 PO; -CARB1TAB20; -CARB1TAB20 PO; -DIPH50CA PO; +DIPH50CA31 PO
[2025-06-08 12:22] LABS: BASO # 0.0 10^3/uL (0.0-0.2); BASO % 0.7 % (0.0-1.0); EOS # 0.1 10^3/uL (0.0-0.5); EOS % 2.6 % (0.0-3.0); LYMPH # 0.9 10^3/uL (1.5-5.0); LYMPH % 22.4 % (24.0-44.0); MONO # 0.3 10^3/uL (0.0-0.8); MONO % 6.9 % (2.0-8.0); NEUTROPHILS # 2.8 10^3/uL (1.5-8.5); NEUTROPHILS % 66.9 % (36.0-66.0); PLATELET COUNT, AUTOMATED 216 10^3/uL (150-450)
[2025-06-08 12:31] LABS: IRON (FE) 97 UG/DL (65-175); PERCENT SATURATION 33.3 % (19.7-50.0)
[2025-06-08 12:32] LABS: ALT/SGPT < 9 U/L (7.0-40); AST/SGOT 12 U/L (<34); CALCIUM LEVEL 8.5 MG/DL (8.3-10.6); CARBON DIOXIDE LEVEL 27 MMOL/L (20-31); CHLORIDE LEVEL 112 MMOL/L (98-107); CHOLESTEROL LEVEL 159 MG/DL (<200); CHOLESTEROL RISK RATIO 3.03 (<5); CREATININE FOR GFR 1.21 MG/DL (0.70-1.30); GLOMERULAR FILTRATION RATE 60.5 (>35); LDL CHOLESTEROL 71.6 MG/DL (<100); NON-HDL-C 106.6 MG/DL; POTASSIUM SERUM 4.6 MMOL/L (3.5-5.1); SODIUM LEVEL 148 MMOL/L (136-145); TRIGLYCERIDES LEVEL 175 MG/DL (<150)
[2025-06-08 12:33] LABS: TOTAL 25(OH) VITAMIN D 45.5 NG/ML (20.0-100.0)
[2025-06-08 12:34] LABS: FREE T4 1.00 NG/DL (0.89-1.76); VITAMIN B12 LEVEL 364 PG/ML (211-911)
[2025-06-10 11:42] LABS: PSA % FREE 67.0 % (calc) (>25); PSA FREE 0.2 ng/mL; PSA TOTAL 0.3 ng/mL (< OR = 4.0)
== END ==
LOC: M WUC 08:47
PROVIDERS: ATTEND Family Medicine
DX: Z00.01 Encounter for general adult medical examination with abnormal findings (principal); E78.5 Hyperlipidemia, unspecified; N40.0 Benign prostatic hyperplasia without lower urinary tract symptoms; E55.9 Vitamin D deficiency, unspecified; D64.9 Anemia, unspecified

== ENCOUNTER → 2025-07-07 | Outpatient (CLI) | payer MEDICARE, MEDICAID | LOC: M WUC 08:21 | PROVIDERS: ATTEND Psychiatry & Neurology Psychiatry | DX: Z79.899 Other long term (current) drug therapy (principal) ==